=== PATIENT | female | born 1935 | race Caucasian/White ===

== ENCOUNTER 2020-01-09 22:02 | Inpatient (IN) | payer OTHER ==
[2020-01-09 23:28] LABS: Absolute Lymphocytes (CBC) 0.6 K/uL (0.7-4.9); Basophils % 0.1 % (0-1.3); Hematocrit 48.4 % (36.0-45.0); Lymphocytes % 6.4 % (15.3-44.8); MPV 7.5 fL (7.6-11.3); RBC Red Blood Cell Count 5.19 M/uL (3.86-4.86)
[2020-01-09 23:45] LABS: Albumin 2.4 g/dL (3.4-5.0); Bilirubin Direct 0.1 mg/dL (0-0.2); Bilirubin Total 0.6 mg/dL (0.2-1.0); Potassium 4.8 mmol/L (3.5-5.1); Protein, Total 6.9 g/dL (6.4-8.2)
[2020-01-10] MEDS ORDERED: NA CHLORIDE 0.9% 1,000 ML ONE (00:03)
[2020-01-10 01:28] LABS: Arterial Blood Carboxyhemoglob 1.7 % (0-1.5); Blood Gas Oxyhemoglobin 89.7 % (94-97); Blood O2 Saturation 92.1 % (92-98.5)
[2020-01-10] MEDS ORDERED: INSULIN -REGULAR HUMAN 50 UNIT/0.5 ML ML ONE ×4 (01:33→17:06)
[2020-01-10 01:44] LABS: Blood Morphology Comment NOT SEEN (NOT SEEN); Platelet Estimate ADEQ
[2020-01-10 01:52] LABS: Urine Blood TRACE (NEG); Urine Glucose 2+ (NEG); Urine Protein NEGATIVE (NEG); Urine pH 5.5 (5.0-7.0)
--- NOTE | 2020-01-10 02:56 | EDPHYS ---
Physician Documentation [facility] Name: Mimi Madrigal Age: 84 yrs Sex: Female : 1935 Arrival Date: 01/09/2020 Time: 22:07 Bed 28 Private MD: ED Physician Ender Cummings HPI: 01/08 23:19 This 84 yrs old Female presents to ER via EMS with complaints of High Blood mh7 Sugar. 23:19 The patient or guardian reports hyperglycemia, that was potentially precipitated by no mh7 particular event, with the patient's symptoms witnessed by no one, Treatment prior to arrival includes: EMS. Onset: The symptoms/episode began/occurred today. 23:20 Associated signs and symptoms: Pertinent negatives: anorexia, constipation, decreased mh7 urine output, diaphoresis, diarrhea, dry skin, hair loss, ketones in urine, nausea, polydipsia, polyphagia, polyuria, seizure activity, skin flushing, urinary incontinence, vomiting. Associated signs and symptoms: Pertinent positives: generalized fatigue. Current symptoms: In the emergency department the patient's symptoms are unchanged from the initial presentation. The patient has been recently seen by a physician: the patient's primary care provider. Patient was discharged from another hospital earlier today after treatment for parotid gland infection. She later checked her blood glucose which was greater than 500. . Historical: - Allergies: 22:15 No Known Allergies; jb4 - Home Meds: 22:15 Metoprolol Tartrate Oral [Active]; Metformin Oral [Active]; valsartan oral oral jb4 [Active]; aspirin 81 mg Oral chew [Active]; - PMHx: 22:15 Hypertension; Diabetes - NIDDM; jb4 - PSHx: 22:15 Cholecystectomy; jb4 - Immunization history:: Adult Immunizations up to date. - Social history:: Smoking status: Patient reports the use of cigarette tobacco products, Patient denies any tobacco usage or history of. Patient/guardian denies using alcohol, street drugs. ROS: 23:20 Constitutional: Negative for fever, chills, and weight loss, Eyes: Negative for injury, mh7 pain, redness, and discharge, ENT: Negative for injury, pain, and discharge, Neck: Negative for injury, pain, and swelling, Cardiovascular: Negative for chest pain, palpitations, and edema, Respiratory: Negative for shortness of breath, cough, wheezing, and pleuritic chest pain, Abdomen/GI: Negative for abdominal pain, nausea, vomiting, diarrhea, and constipation, Back: Negative for injury and pain, : Negative for injury, bleeding, discharge, and swelling, MS/Extremity: Negative for injury and deformity, Skin: Negative for injury, rash, and discoloration, Neuro: Negative for headache, weakness, numbness, tingling, and seizure, Psych: Negative for depression, anxiety, suicide ideation, homicidal ideation, and hallucinations, Allergy/Immunology: Negative for hives, rash, and allergies, Endocrine: Negative for neck swelling, polydipsia, polyuria, polyphagia, and marked weight changes, Hematologic/Lymphatic: Negative for swollen nodes, abnormal bleeding, and unusual bruising. Exam: 23:20 Constitutional: This is a well developed, well nourished patient who is awake, alert, mh7 and in no acute distress. 23:20 Eyes: Pupils equal round and reactive to light, extra-ocular motions intact. Lids and lashes normal. Conjunctiva and sclera are non-icteric and not injected. Cornea within normal limits. Periorbital areas with no swelling, redness, or edema. Neck: Trachea midline, no thyromegaly or masses palpated, and no cervical lymphadenopathy. Supple, full range of motion without nuchal rigidity, or vertebral point tenderness. No Meningismus. Chest/axilla: Normal chest wall appearance and motion. Nontender with no deformity. No lesions are appreciated. Cardiovascular: Regular rate and rhythm with a normal S1 and S2. No gallops, murmurs, or rubs. Normal PMI, no JVD. No pulse deficits. Respiratory: Lungs have equal breath sounds bilaterally, clear to auscultation and percussion. No rales, rhonchi or wheezes noted. No increased work of breathing, no retractions or nasal flaring. Abdomen/GI: Soft, non-tender, with normal bowel sounds. No distension or tympany. No guarding or rebound. No evidence of tenderness throughout. Back: No spinal tenderness. No costovertebral tenderness. Full range of motion. Skin: Warm, dry with normal turgor. Normal color with no rashes, no lesions, and no evidence of cellulitis. MS/ Extremity: Pulses equal, no cyanosis. Neurovascular intact. Full, normal range of motion. Neuro: Awake and alert, GCS 15, oriented to person, place, time, and situation. Cranial nerves II-XII grossly intact. Motor strength 5/5 in all extremities. Sensory grossly intact. Cerebellar exam normal. Normal gait. Psych: Awake, alert, with orientation to person, place and time. Behavior, mood, and affect are within normal limits. 23:20 Head/face: Noted is swelling, that is moderate, of the right jaw. Vital Signs: 22:15 BP 170 / 96; Pulse 90; Resp 16; Temp 98.8(O); Pulse Ox 100% on 2 lpm NC; Weight 53.98 jb4 kg (R); Height 5 ft. 0 in. (152.40 cm) (R); Pain 0/10; 22:30 BP 163 / 112; Pulse 90; Resp 16; Pulse Ox 99% on 2 lpm NC; 4 01/09 00:00 BP 156 / 94; Pulse 92; Resp 20; Pulse Ox 96% on 2 lpm NC; 4 00:30 BP 165 / 95; Pulse 92; Resp 16; Pulse Ox 99% on 2 lpm NC; jb4 02:00 BP 154 / 99; Pulse 93; Resp 16; Pulse Ox 94% on 2 lpm NC; 4 03:30 BP 150 / 80; Pulse 90; Resp 16; Pulse Ox 94% on 2 lpm NC; 4 01/08 22:15 Body Mass Index 23.24 (53.98 kg, 152.40 cm) [facility] MDM: 01/08 22:54 Patient medically screened. [facility] 01/09 02:50 Differential diagnosis: diabetes insipidus, DKA, hyperglycemia. Data reviewed: [facility] signs, nurses notes, EMS record, old medical records, lab test result(s), finger stick glucose, CBC, electrolytes, urinalysis, EKG. Data interpreted: Pulse oximetry: on room air is 99 %. Interpretation: normal. Counseling: I had a detailed discussion with the patient and/or guardian regarding: the historical points, exam findings, and any diagnostic results supporting the discharge/admit diagnosis, the presence of at least one elevated blood pressure reading (>120/80) during this emergency department visit, lab results, the need for further work-up and treatment in the hospital. Response to treatment: the patient's symptoms have mildly improved after treatment. 01/08 22:25 Order name: Glucose, Ancillary Testing; Complete Time: 22:55 EDMS 01/08 22:28 Order name: Glucose; Complete Time: 23:42 jb4 01/08 22:56 Order name: CBC with Diff; Complete Time: 02:50 mh7 01/08 22:56 Order name: Basic Metabolic Panel; Complete Time: 01:10 mh7 01/08 22:56 Order name: LFT's; Complete Time: 01:10 7 01/08 23:25 Order name: Urine Dipstick--Ancillary (enter results); Complete Time: 02:50 ds4 01/08 23:42 Order name: Manual Differential; Complete Time: 02:50 EDMS 01/09 01:11 Order name: Ketone, Serum; Complete Time: 02:50 mh7 01/09 01:11 Order name: Arterial Blood Gas; Complete Time: 01:43 mh7 01/09 02:42 Order name: Glucose, Ancillary Testing; Complete Time: 02:50 EDMS 01/09 02:44 Order name: Glucose; Complete Time: 06:34 jb4 01/09 05:14 Order name: Glucose, Ancillary Testing; Complete Time: 06:34 EDMS 01/09 05:45 Order name: Basic Metabolic Panel; Complete Time: 06:34 EDMS 01/09 05:47 Order name: Acetone Level; Complete Time: 06:34 EDMS 01/08 22:56 Order name: Urine Dipstick-Ancillary (obtain specimen); Complete Time: 23:00 7 01/08 22:56 Order name: Saline Lock; Complete Time: 23:00 7 01/08 22:56 Order name: EKG - Nurse/Tech; Complete Time: 23:23 7 01/09 06:25 Order name: Glucose, Ancillary Testing; Complete Time: 06:34 EDMS 01/09 07:36 Order name: Glucose, Ancillary Testing EDMS 01/09 08:09 Order name: Platelet Count EDMS 01/09 09:02 Order name: Basic Metabolic Panel EDMS 01/09 09:34 Order name: Glucose, Ancillary Testing EDMS 01/09 10:39 Order name: Glucose, Ancillary Testing EDMS 01/09 12:10 Order name: Glucose, Ancillary Testing EDMS 01/09 14:51 Order name: Basic Metabolic Panel EDMS 01/09 17:11 Order name: Lactate EDMS 01/09 17:25 Order name: Glucose, Ancillary Testing EDMS Administered Medications: 00:00 Drug: NS 0.9% 1000 ml Route: IV; Rate: 1000 ml; Site: right wrist; jb4 01:00 Follow up: Response: No adverse reaction; IV Status: Completed infusion jb4 01:25 Drug: Insulin Regular Human 10 units {Co-Signature: mt2 (Blanca Bruno RN).} Route: jb4 IVP; Site: right wrist; 03:00 Follow up: Response: No adverse reaction; Blood sugar is lowered jb4 03:45 Drug: Insulin Drip - (Insulin Regular Human 100 units, NS 0.9% 100 ml) {Co-Signature: doug rv (Nilson Betancur RN).} Route: IV; Rate: calculated rate; Site: right forearm; 04:00 Follow up: IV Status: Infusion continued upon admission jb4 Disposition: 06:53 Co-signature as Attending Physician, Ender Cummings MD. [facility] Disposition: 01/10/20 02:56 Hospitalization ordered by Archie Navarro for Inpatient Admission. Preliminary diagnosis is Diabetic Ketoacidosis. - Bed requested for [facility] ER HOLD. - Status is Inpatient Admission. ss - Condition is Stable. - Problem is new. - Symptoms have improved. Signatures: Dispatcher [employer] [facility] Sylvie Hamm RN RN mw Waters, Shelly, PAYROLL LEAD-C PAYROLL LEAD-Csnw Pao Blanc RN RN ss Bryson, James, RN RN jb4 Holmes, Maurice, MD MD [facility] Blanca Bruno RN mt2 Nilson Betancur RN rv Corrections: (The following items were deleted from the chart) 03:01 02:56 Hospitalization Ordered by Archie Navarro MD for Inpatient Admission. Preliminary diagnosis is Diabetic Ketoacidosis. Bed requested for Telemetry/MedSurg (Inpatient). Status is Inpatient Admission. Condition is Stable. Problem is new. Symptoms have improved. mh7 19:54 03:01 01/10/2020 02:56 Hospitalization Ordered by Arhcie Navarro MD for Inpatient ss Admission. Preliminary diagnosis is Diabetic Ketoacidosis. Bed requested for [facility] ER HOLD. Status is Inpatient Admission. Condition is Stable. Problem is new. Symptoms have improved. mw
--- NOTE | 2020-01-10 02:56 | ER ---
Nurse's Notes [facility] Name: Mimi Madrigal Age: 84 yrs Sex: Female : 1935 Arrival Date: 01/09/2020 Time: 22:07 Bed 28 Private MD: Diagnosis: Diabetic Ketoacidosis Presentation: 01/08 22:15 Chief complaint: EMS states: Pt was released today from [facility] for infected jb4 salivary gland on the right side. She was released about noon and has had generalized weakness since. At home her BGL was 600, our machine read high indicating over 600. We started a 1L bolus via 20g to the right wrist. Pt was satting 90-92% on room air and was put on 2L NC and is now 96%. Coronavirus screen: Client denies travel out of the [place] in the last 14 days. At this time, the client does not indicate any symptoms associated with coronavirus-19. Ebola Screen: No symptoms or risks identified at this time. Initial Sepsis Screen: Does the patient meet any 2 criteria? No. Patient's initial sepsis screen is negative. Does the patient have a suspected source of infection? No. Patient's initial sepsis screen is negative. Risk Assessment: Do you want to hurt yourself or someone else? Patient reports no desire to harm self or others. Onset of symptoms was January 09, 2020. Transition of care: patient was not received from another setting of care. 22:15 Method Of Arrival: EMS: [facility] jb4 22:15 Acuity: JESSICA 3 jb4 Historical: - Allergies: 22:15 No Known Allergies; jb4 - Home Meds: 22:15 Metoprolol Tartrate Oral [Active]; Metformin Oral [Active]; valsartan oral oral jb4 [Active]; aspirin 81 mg Oral chew [Active]; - PMHx: 22:15 Hypertension; Diabetes - NIDDM; jb4 - PSHx: 22:15 Cholecystectomy; jb4 - Immunization history:: Adult Immunizations up to date. - Social history:: Smoking status: Patient reports the use of cigarette tobacco products, Patient denies any tobacco usage or history of. Patient/guardian denies using alcohol, street drugs. Screenin:10 Abuse screen: Denies threats or abuse. Nutritional screening: No deficits noted. jb4 Tuberculosis screening: No symptoms or risk factors identified. Fall Risk IV access (20 points). Gait- Weak (10 pts.). Total Hernández Fall Scale indicates Low Risk Score (25-44 pts). Fall prevention measures have been instituted. Side Rails Up X 2 Placed close to Nursing Station Frequent Obs/Assesments occuring As available Patient and Family Educated on Fall Prevention Program and strategies. Assessment: 22:10 General: Appears in no apparent distress. comfortable, Behavior is calm, cooperative, jb4 appropriate for age. Pain: Denies pain. Neuro: Level of Consciousness is awake, alert, Oriented to person, place, time, situation. Cardiovascular: Patient's skin is warm and dry. Respiratory: Airway is patent Respiratory effort is even, unlabored, Respiratory pattern is regular, symmetrical. GI: No signs and/or symptoms were reported involving the gastrointestinal system. : No signs and/or symptoms were reported regarding the genitourinary system. EENT: No signs and/or symptoms were reported regarding the EENT system. Derm: Skin is intact, Skin is pink, warm \T\ dry. Musculoskeletal: Circulation, motion, and sensation intact. Range of motion: intact in all extremities. 23:00 Reassessment: Patient appears in no apparent distress at this time. Patient and/or jb4 family updated on plan of care and expected duration. Pain level reassessed. Patient is alert, oriented x 3, equal unlabored respirations, skin warm/dry/pink. pt assisted to bedside commode and back to bed. 01/09 00:00 Reassessment: Patient appears in no apparent distress at this time. Patient and/or jb4 family updated on plan of care and expected duration. Pain level reassessed. Patient is alert, oriented x 3, equal unlabored respirations, skin warm/dry/pink. 01:00 Reassessment: Patient appears in no apparent distress at this time. Patient and/or jb4 family updated on plan of care and expected duration. Pain level reassessed. Patient is alert, oriented x 3, equal unlabored respirations, skin warm/dry/pink. 01:34 Reassessment: PT assisted to bedside commode. jb4 02:30 Reassessment: Patient appears in no apparent distress at this time. Patient and/or jb4 family updated on plan of care and expected duration. Pain level reassessed. Patient is alert, oriented x 3, equal unlabored respirations, skin warm/dry/pink. 03:30 Reassessment: Patient appears in no apparent distress at this time. Patient and/or jb4 family updated on plan of care and expected duration. Pain level reassessed. Patient is alert, oriented x 3, equal unlabored respirations, skin warm/dry/pink. Pt reports multiple bouts of diarrhea while being in the ED, provider notified, no new orders at this time. Vital Signs: 01/08 22:15 BP 170 / 96; Pulse 90; Resp 16; Temp 98.8(O); Pulse Ox 100% on 2 lpm NC; Weight 53.98 jb4 kg (R); Height 5 ft. 0 in. (152.40 cm) (R); Pain 0/10; 22:30 BP 163 / 112; Pulse 90; Resp 16; Pulse Ox 99% on 2 lpm NC; jb4 01/09 00:00 BP 156 / 94; Pulse 92; Resp 20; Pulse Ox 96% on 2 lpm NC; jb4 00:30 BP 165 / 95; Pulse 92; Resp 16; Pulse Ox 99% on 2 lpm NC; jb4 02:00 BP 154 / 99; Pulse 93; Resp 16; Pulse Ox 94% on 2 lpm NC; jb4 03:30 BP 150 / 80; Pulse 90; Resp 16; Pulse Ox 94% on 2 lpm NC; jb4 01/08 22:15 Body Mass Index 23.24 (53.98 kg, 152.40 cm) jb4 ED Course: 01/08 22:07 Patient arrived in ED. cf2 22:10 Patient has correct armband on for positive identification. Placed in gown. Bed in low jb4 position. Call light in reach. Side rails up X 1. 22:10 Maintain EMS IV. Dressing intact. Good blood return noted. Site clean \T\ dry. Gauge \T\ finn 4 site: 20g right wrist.. 22:14 Nakul Mitchell, EDY is Primary Nurse. jb4 22:15 Arm band placed on right wrist. jb4 22:20 Triage completed. jb4 22:31 Ender Cummings MD is Attending Physician. [facility] 23:20 Notified ED physician of a critical lab result(s). Glucose of 726 Dr Cummings notified. bb 01/09 00:01 Urine Dipstick--Ancillary (enter results) Sent. ds4 00:01 CBC with Diff Sent. ds4 02:45 Inserted saline lock: 18 gauge in right forearm, using aseptic technique. Blood rv collected. 02:54 Archie Navarro MD is Hospitalizing Provider. [facility] 04:00 No provider procedures requiring assistance completed. Patient admitted, IV remains in jb4 place. Administered Medications: 00:00 Drug: NS 0.9% 1000 ml Route: IV; Rate: 1000 ml; Site: right wrist; jb4 01:00 Follow up: Response: No adverse reaction; IV Status: Completed infusion [facility] 01:25 Drug: Insulin Regular Human 10 units {Co-Signature: mt2 (Blanca Bruno RN).} Route: jb4 IVP; Site: right wrist; 03:00 Follow up: Response: No adverse reaction; Blood sugar is lowered [facility] 03:45 Drug: Insulin Drip - (Insulin Regular Human 100 units, NS 0.9% 100 ml) {Co-Signature: [facility] rv (Nilson Betancur RN).} Route: IV; Rate: calculated rate; Site: right forearm; 04:00 Follow up: IV Status: Infusion continued upon admission [facility] Outcome: 02:56 Decision to Hospitalize by Provider. [facility] 04:00 Admitted to ER Hold. Please see [facility] for further documentation. 4 04:00 Condition: stable 04:00 Discharge instructions given to patient, Instructed on the need for admit, Demonstrated understanding of instructions. 19:54 Patient left the ED. ss Signatures: Delmis Garcia RN RN Pao Blanc RN RN Dalton Monzon 4 Nakul Mitchell RN RN [facility] Nilson Betancur RN RN rv Maurizio Gutierrez 2 Ender Cummings MD MD [facility] Blanca Bruno RN mt2 Nilson Betancur RN rv Corrections: (The following items were deleted from the chart) 01/08 22:20 22:15 Chief complaint: EMS states: Pt was released today from [facility] for jb4 infected salivary gland on the right side. She was released about noon and has had generalized weakness since. At home her BGL was 600, our machine read high indicating over 600. We started a 1L bolus via 20g to the right wrist. [facility] 22:24 22:15 BP 170 / 96; Pulse 47bpm; Resp 16bpm; Pulse Ox 100% 2 lpm Nasal Cannula; Temp jb4 98.8F Oral; 53.98 kg Reported; Height 5 ft. 0 in. Reported; BMI: 23.2; Pain 0/10; [facility] 01/09 00:04 01/08 23:00 Reassessment: Patient appears in no apparent distress at this time. Patient jb4 and/or family updated on plan of care and expected duration. Pain level reassessed. Patient is alert, oriented x 3, equal unlabored respirations, skin warm/dry/pink. [facility] 01/09 04:41 00:00 BP 156 / 94; Pulse 92bpm; Resp 20bpm; Pulse Ox 96% RA; [place] [id number] 04:41 01/08 22:30 BP 163 / 112; Pulse 90bpm; Resp 16bpm; Pulse Ox 99%; [place] [id number] 01/09 04:41 00:30 BP 165 / 95; Pulse 92bpm; Resp 16bpm; Pulse Ox 99% RA; [place] [id number] 04:41 02:00 BP 154 / 99; Pulse 93bpm; Resp 16bpm; Pulse Ox 94% RA; [place] [id number]
[2020-01-10] MEDS ORDERED: INSULIN -REGULAR HUMAN 100 UNIT in NA CHLORIDE 0.9% 100 ML IV SCH (03:00)
[2020-01-10] MEDS ORDERED: ONDANSETRON 4 MG/2 ML VIAL IV PRN (03:00)
[2020-01-10] MEDS ORDERED: D5 0.45 NS 1,000 ML IV SCH (03:00)
[2020-01-10] MEDS ORDERED: NACHLORIDE 0.45% 1,000 ML with POTASSIUM CL 20 MEQ IV SCH ×2 (03:00)
[2020-01-10] MEDS ORDERED: NA CHLORIDE 0.9% 100 ML IV ONE (03:07)
[2020-01-10] MEDS ORDERED: NS KCL 20MEQ 20 MEQ/1,000 ML BAG IV SCH ×2 (04:25→07:00)
[2020-01-10] MEDS ORDERED: NS KCL 20MEQ 1,000 ML IV ONE (04:42)
[2020-01-10 05:44] LABS: BUN Blood Urea Nitrogen 39 mg/dL (7-18); Bicarbonate 24 mmol/L (21-32); Potassium 3.5 mmol/L (3.5-5.1); Sodium Level 140 mmol/L (136-145)
[2020-01-10 05:45] LABS: Glucose Level 529 mg/dL (74-106)
[2020-01-10] MEDS ORDERED: D50W 25 GM/50 ML SYRINGE/VIAL IV PRN (06:59)
[2020-01-10] MEDS ORDERED: GLUCAGON 1 MG/VIAL IM PRN (06:59)
[2020-01-10] MEDS: NACHLORIDE 0.45% 1,000 ML IV SCH ×3 (07:00→22:09)
[2020-01-10 07:54] VITALS: BMI 22.4
[2020-01-10 08:07] LABS: MPV 7.3 fL (7.6-11.3)
[2020-01-10] MEDS: ENOXAPARIN 40 MG/0.4 ML SQ SCH (08:23)
[2020-01-10] MEDS: INSULIN GLARGINE 100 UNITS/ML SQ SCH ×2 (08:23→21:09)
[2020-01-10] MEDS ORDERED: INSULIN GLARGINE 100 UNITS/ML SQ ONE (08:32)
[2020-01-10] MEDS ORDERED: ENOXAPARIN 40 MG/0.4 ML SQ ONE (08:33)
[2020-01-10 08:58] LABS: Platelet Estimate ADEQ
[2020-01-10 09:01] LABS: Potassium 3.9 mmol/L (3.5-5.1)
[2020-01-10] MEDS ORDERED: NACHLORIDE 0.45% 1,000 ML IV ONE (10:30)
[2020-01-10] MEDS: INSULIN -REGULAR HUMAN 50 UNIT/0.5 ML ML SQ SCH ×3 (11:30→23:03)
--- NOTE | 2020-01-10 11:42 | P.HP ---
Certification for Inpatient Patient admitted to: Inpatient With expected LOS: >2 Midnights Practitioner: I am a practitioner with admitting privileges, knowledge of patient current condition, hospital course, and medical plan of care. Services: Services provided to patient in accordance with Admission requirements found in Title 42 Section 412.3 of the Code of Federal Regulations Patient History Date of Service: 01/10/20 Reason for admission: WEAKNESS, GLUCOSE MORE THAN 600 AT HOME. History of Present Illness: MR. HARPER CALLED ME THAT HIS HAD ADMISSION FOR R PAROTID INFECTION AT [place] BY DR. MARCH. SHE CAME HOME BUT GLUCOSE WENT FROM 400 TO 600. I ASKED TO CALL AMBULANCE AND GET HER ADMITTED. SHE DID NOT COME TO OFFICE FOR 3 YEARS AND FIRST TIME I SAW HER FOR A LARGE PAROTID INFECTION WITH POSSIBLE TUMOR. SHE WAS SENT HOME ON CLINDAMYCIN. HER GLUCOSE IS MORE THAN 700 IN ER. Allergies No Known Allergies Allergy (Unverified 01/10/20 04:10) Home Medications: Aspirin Chewable [Aspirin Chewable*] 81 mg PO DAILY 01/10/20 Cefuroxime [Ceftin*] 250 mg PO BID 01/10/20 Losartan Potassium 100 mg PO DAILY 01/10/20 Metformin ER [Glucophage ER*] 500 mg PO DAILY 01/10/20 Metoprolol Succinate [Toprol Xl] 100 mg PO DAILY 01/10/20 Tramadol HCl/Acetaminophen [Tramadol-Acetaminophn 37.5-325] 1 tab PO Q6HP PRN 01/10/20 clindamycin HCL [Clindamycin HCl] 300 mg PO TID 01/10/20 hydroCHLOROthiazide [Hydrodiuril*] 25 mg PO DAILY 01/10/20 - Past Medical/Surgical History Has patient received pneumonia vaccine in the past: Yes Diabetic: Yes -: Hypertension -: Diabetes-NIDDM -: Petty - Social History Smoking Status: Never smoker Alcohol use: No CD- Drugs: No Caffeine use: No Place of Residence: Home Review of Systems 10-point ROS is otherwise unremarkable General: Weakness, Malaise Physical Examination - Vital Signs Temperature: 98.1 F Blood Pressure: 127/81 Pulse: 89 Respirations: 18 Pulse Ox (%): 95 - Physical Exam General: Moderate distress HEENT: Atraumatic, PERRLA, Mucous membr. moist/pink, Other (LARGE R PAROTID TENDER. ), EOMI, Sclerae nonicteric Neck: Supple, 2+ carotid pulse no bruit, No LAD, Without JVD or thyroid abnormality Respiratory: Clear to auscultation bilaterally, Normal air movement Cardiovascular: Regular rate/rhythm, Normal S1 S2 Gastrointestinal: Normal bowel sounds, No tenderness Musculoskeletal: No tenderness Integumentary: No rashes Neurological: Normal gait, Normal speech, Normal strength at 5/5 x4 extr, Normal tone, Normal affect Lymphatics: No axilla or inguinal lymphadenopathy - Studies Laboratory Data (last 24 hrs) 01/10/20 02:45: Glucose 568 H* 01/09/20 22:20: Sodium 134 L, Potassium 4.8, BUN 40 H, Creatinine 0.90, Glucose 726 H*, Total Bilirubin 0.6, AST 16, ALT 26, Alkaline Phosphatase 247 H 01/09/20 22:20: WBC 10.1, Hgb 15.8 H, Hct 48.4 H, Plt Count 364 01/09/20 22:20: Glucose 726 H* Assessment and Plan - Problems (Diagnosis) (1) Diabetic keto-acidosis Current Visit: Yes Status: Acute Plan: IV FLUIDS. SHE IS OFF INSULIN DRIP NOW. HER AG IS NORMAL. SHE SHOULD BE OKAY ON SC INSULIN. Qualifiers: Diabetes mellitus type: type 2 (2) Type 2 diabetes mellitus Current Visit: Yes Status: Acute Plan: NOT SURE HOW LONG HER GLUCOSE IS HIGH. (3) Acute parotitis Current Visit: Yes Status: Acute Plan: SHE IS ON CLINDAMYCIN PO BY DR CHELSI HERNANDEZ. - Advance Directives Does patient have a Living Will: Yes Does patient have a Durable POA for Healthcare: No
[2020-01-10 14:50] LABS: Potassium 3.7 mmol/L (3.5-5.1)
[2020-01-10] MEDS ORDERED: ACETAMINOPHEN 325 MG TABLET ONE (17:06)
[2020-01-10] MEDS: ACETAMINOPHEN 500 MG TAB PO PRN ×2 (17:27→22:13)
[2020-01-10 20:45] LABS: Potassium 3.6 mmol/L (3.5-5.1)
[2020-01-11 04:13] LABS: Absolute Lymphocytes (CBC) 1.8 K/uL (0.7-4.9); Basophils % 0.2 % (0-1.3); Hematocrit 44.3 % (36.0-45.0); Lymphocytes % 23.1 % (15.3-44.8); MPV 7.2 fL (7.6-11.3); RBC Red Blood Cell Count 4.98 M/uL (3.86-4.86)
[2020-01-11 04:23] LABS: Magnesium 2.1 mg/dL (1.8-2.4)
[2020-01-11 04:54] LABS: BUN Blood Urea Nitrogen 19 mg/dL (7-18); Bicarbonate 30 mmol/L (21-32); Glucose Level 203 mg/dL (74-106); Potassium 3.2 mmol/L (3.5-5.1); Sodium Level 138 mmol/L (136-145)
[2020-01-11] MEDS: ACETAMINOPHEN 500 MG TAB PO PRN ×3 (05:00→16:51)
[2020-01-11] MEDS: ENOXAPARIN 40 MG/0.4 ML SQ SCH (08:24)
[2020-01-11] MEDS: INSULIN GLARGINE 100 UNITS/ML SQ SCH ×2 (08:24→20:12)
[2020-01-11] MEDS: INSULIN -REGULAR HUMAN 50 UNIT/0.5 ML ML SQ SCH ×4 (08:25→20:11)
[2020-01-11] MEDS: NACHLORIDE 0.45% 1,000 ML IV SCH ×2 (08:39→20:11)
[2020-01-11 12:21] LABS: BUN Blood Urea Nitrogen 14 mg/dL (7-18); Bicarbonate 30 mmol/L (21-32); Glucose Level 269 mg/dL (74-106); Potassium 3.2 mmol/L (3.5-5.1); Sodium Level 136 mmol/L (136-145)
--- NOTE | 2020-01-11 13:11 | P.PN ---
Subjective Date of Service: 01/11/20 Chief Complaint: WEAKNESS Subjective: Improving SHE IS STILL VERY WEAK TO GO HOME. Review of Systems 10-point ROS is otherwise unremarkable General: Weakness, Malaise ENT: As per HPI Physical Examination - Vital Signs Temperature: 97.2 F Blood Pressure: 144/83 Pulse: 112 Respirations: 16 Pulse Ox (%): 95 - Physical Exam General: Mild distress, Moderate distress HEENT: Atraumatic, PERRLA, EOMI Neck: Supple, JVD not distended, Other (LARGE AND TENDER R PAROTID. NO FLUCTUATION.) Respiratory: Clear to auscultation bilaterally, Normal air movement Cardiovascular: Regular rate/rhythm, Normal S1 S2 Gastrointestinal: Normal bowel sounds, No tenderness Musculoskeletal: No tenderness Integumentary: No rashes Neurological: Normal speech, Normal tone, Normal affect Lymphatics: No axilla or inguinal lymphadenopathy - Studies Medications List Reviewed: Yes Assessment And Plan - Current Problems (Diagnosis) (1) Diabetic keto-acidosis Current Visit: Yes Status: Acute Plan: IV FLUIDS. SHE IS OFF INSULIN DRIP NOW. HER AG IS NORMAL. SHE SHOULD BE OKAY ON SC INSULIN. RESOLVED BUT STILL WEAK. Qualifiers: Diabetes mellitus type: type 2 (2) Type 2 diabetes mellitus Current Visit: Yes Status: Acute Plan: NOT SURE HOW LONG HER GLUCOSE IS HIGH. (3) Acute parotitis Current Visit: Yes Status: Acute Plan: SHE IS ON CLINDAMYCIN PO BY DR GAGNON NOW. CT SCAN. CHANGE TO [place]. TALKED TO DR. MARCH. HE SAYS COVER ANEROBIC BACTERIA. IF ABSCESS SHE WILL NEED TO GO BACK TO HIM.
[2020-01-11] MEDS ORDERED: TRAMADOL 37.5mg/APAP 325mg PER TAB PO PRN (13:12)
[2020-01-11 14:24] LABS: C.diff Antigen/Toxin Ag neg : Tox neg (NEG : NEG)
--- NOTE | 2020-01-11 15:14 | RAD REPORT ---
EXAM DESCRIPTION: CT - Soft Tissue Neck W/Contr CLINICAL HISTORY: PAROTID INFECTION. Right-sided facial pain and swelling. COMPARISON: No comparisons TECHNIQUE All CT scans are performed using dose optimization technique as appropriate and may includ e automated exposure control or mA/KV adjustment according to patient size. FINDINGS: A large irregular cystic mass with thick septa is present along the right of the jaw, exte nding from inferior margin of the right the zygomatic arch to the right submandibular region. The jose roximate size of the lesion he was 6.0 x 5.0 cm. The lesion is along the anterior aspect of the parot id gland with mass effect on the parotid gland posteriorly. The right third mandibular molar appears to transverse in position with surrounding lucency. Several foci of cortical breakthrough along the root suggests at the large cystic lesion may be in the odonto genic abscess related to this right third mandibular molar periapical abscess. IMPRESSION: Large, multiloculated, cystic mass arising right jaw (6.0 x 5.0 cm) may represent an odo ntogenic abscess related to significant right third molar periapical abscess.
[2020-01-11] MEDS ORDERED: PIPER/TAZO/NS 3.375gm 3.375 GM/100 ML BAG IV SCH (17:00)
[2020-01-11] MEDS ORDERED: GLUCERNA SHAKE 237 ML CAN PO SCH (21:00)
[2020-01-11 23:03] VITALS: O2SAT 93
[2020-01-12 00:21] VITALS: BP 143/90; TEMP 96.9
--- NOTE | 2020-01-12 06:26 | P.DS ---
Admission Date: 01/10/20 Discharge Date: 01/12/20 Disposition: [facility] TO [facility] Discharge Condition: FAIR Reason for Admission: WEAKNESS - Problems (1) Diabetic keto-acidosis Status: Acute Qualifiers: Diabetes mellitus type: type 2 (2) Type 2 diabetes mellitus Status: Acute (3) Acute parotitis Status: Acute Brief History of Present Illness: MR. HARPER CALLED ME THAT HIS HAD ADMISSION FOR R PAROTID INFECTION AT [facility] BY DR. MARCH. SHE CAME HOME BUT GLUCOSE WENT FROM 400 TO 600. I ASKED TO CALL AMBULANCE AND GET HER ADMITTED. SHE DID NOT COME TO OFFICE FOR 3 YEARS AND FIRST TIME I SAW HER FOR A LARGE PAROTID INFECTION WITH POSSIBLE T UMOR. SHE WAS SENT HOME ON CLINDAMYCIN. HER GLUCOSE IS MORE THAN 700 IN ER. Hospital Course: LETICIA CAME WITH DKA THAT WAS FROM UNMANAGED DM SHE HAS NOT BEEN TO MY OFFICE FOR 3 YEARS. SHE CAME FOR R PARTOID AREA LARGE SWELLING. SHE WAS SEEN BY DR GAGNON AND PUT ON ABX ORALLY. SHE IS NOT IMPROVING. FEELS REALLY WEAK. I ORDERED CT SCAN. IT SHOWED THAT THE ABSCESS WAS COMING FROM [facility]OL[facility] TOOTH. DR. MARCH ACCEPTED THE TRANSFER TO DRAIN THE ABSCESS AND THEN LET DENTIST TAKE CARE OF THE TOOTH OUTPATIENT. I TALKED TO AND EXPLAINED TO HIM. Vital Signs/Physical Exam: Temp Pulse Resp BP Pulse Ox 96.9 F 86 16 143/90 H 93 01/12/20 00:00 01/12/20 00:00 01/12/20 00:00 01/12/20 00:00 01/12/20 00:00 Laboratory Data at Discharge: WBC Cancelled 01/12/20 05:00 Hgb Cancelled 01/12/20 05:00 Hct Cancelled 01/12/20 05:00 Plt Count Cancelled 01/12/20 05:00 Sodium 136 mmol/L (136-145) 01/11/20 11:57 Potassium 3.2 mmol/L (3.5-5.1) L 01/11/20 11:57 BUN 14 mg/dL (7-18) 01/11/20 11:57 Creatinine 0.43 mg/dL (0.55-1.3) L 01/11/20 11:57 Glucose 269 mg/dL (74-106) H 01/11/20 11:57 Magnesium Cancelled 01/12/20 05:00 Total Bilirubin 0.6 mg/dL (0.2-1.0) 01/09/20 22:20 AST 16 U/L (15-37) 01/09/20 22:20 ALT 26 U/L (12-78) 01/09/20 22:20 Alkaline Phosphatase 247 U/L (45-117) H 01/09/20 22:20 Home Medications: Aspirin Chewable [Aspirin Chewable*] 81 mg PO DAILY 01/10/20 Cefuroxime [Ceftin*] 250 mg PO BID 01/10/20 Losartan Potassium 100 mg PO DAILY 01/10/20 Metformin ER [Glucophage ER*] 500 mg PO DAILY 01/10/20 Metoprolol Succinate [Toprol Xl] 100 mg PO DAILY 01/10/20 Tramadol HCl/Acetaminophen [Tramadol-Acetaminophn 37.5-325] 1 tab PO Q6HP PRN 01/10/20 clindamycin HCL [Clindamycin HCl] 300 mg PO TID 01/10/20 hydroCHLOROthiazide [Hydrodiuril*] 25 mg PO DAILY 01/10/20 Patient Discharge Instructions: I SENT LANTUS AND PEN NEEDLES FROM OFFICE TO YOUR PHARMACY. Diet: ADA
[2020-01-12] MEDS ORDERED: ASPIRIN 81 MG CHEWABLE TABLET PO SCH (09:00)
[2020-01-12] MEDS ORDERED: METOPROLOL XL 100 MG TAB PO SCH ×2 (09:00)
== END 2020-01-12 00:15 | disposition short-term general hospital (02) | DRG 639 ==
LOC: ER 22:02 → ERHOLD 01-10 03:03 → 4TH 01-10 20:55
PROVIDERS: ADMIT Internal Medicine; ATTEND Internal Medicine
DX: E11.10 Type 2 diabetes mellitus with ketoacidosis without coma (principal); I10 Essential (primary) hypertension; K04.7 Periapical abscess without sinus; K11.21 Acute sialoadenitis; Z79.82 Long term (current) use of aspirin; Z79.899 Other long term (current) drug therapy; Z90.49 Acquired absence of other specified parts of digestive tract; Z79.84 Long term (current) use of oral hypoglycemic drugs
CPT/HCPCS: 36415; 70491; 80048; 80076; 81003; 82010; 82805; 82947; 83036; 83605; 83735; 85025; 85049; 87324; 87449; 93005; 97110; 97161; 97530; 99285; J1650; J1815; J2543; J3480; Q9967; U0002

== ENCOUNTER 2020-02-25 15:36 | Inpatient (IN) | payer OTHER ==
--- OUTSIDE RECORDS SUMMARY | 2020-02-25 15:39 | XMS REPORT | Clinical Summary ---
:1935 Author Organization [facility] Address [address] [place] [address] Care Team Providers Name Role Phone Oni Mora MD Primary Care Provider Allergies Not on File Medications Not on file Active Problems Not on file Social History Tobacco Use Types Packs/Day Years Used Date Never Assessed Sex Assigned at Date Recorded Not on file Last Filed Vital Signs Not on file Plan of Treatment Health Maintenance Due Date Last Done Comments SHINGLES VACCINES (#1) 1987 65+ PNEUMOCOCCAL VACCINE (1 of 1 - PPSV23) 2002 INFLUENZA VACCINE 12/11/2019 Results Not on fileafter 02/24/2019 (Home) [place] [address] Advance Directives For more information, please contact: [phone] Type Date Recorded Patient Reporting Lead Explanati on Advance Directives, Living Will and 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
--- OUTSIDE RECORDS SUMMARY | 2020-02-25 15:40 | XMS REPORT | Continuity of Care Document ---
:1935 Author Organization [facility] t Address [address] [place] [address] Support Name Relationship Address Phone SELF Mother [phone] [address] SELF Unavailable [phone] [address] MEREDITH Spouse [address] [phone] [place] [address] KEPRTA Unavailable [address] [phone] [place] [address] KEPRTA Unavailable [address] [phone] [place] [address] NO Unavailable [phone] [phone] [place] [address] Meredith Spouse [address] [place] [address] Care Team Providers Name Role Phone Morgan BARRIOS Primary Care Physician Sung SNOW Attending Clinician Unavailable Sandra VILLANUEVA Attending Clinician Luis Fernando BARRIOS Attending Clinician Luis Fernando BARRIOS Admitting Clinician Payers Payer Name Policy Type Policy Number Effective Date Expiration Date S ource Problems This patient has no known problems. Allergies, Adverse Reactions, Alerts Allergy Allergy Status Severity Reaction(s) Onset Inactive Treating Comm ents Source Name Type Date Date Clinician No Known DA Active U 2020-0 [facility] 01-11 Clear s 00:00: Raines 00 [facility] No Known DA Active U 2020-0 [facility] Allergie 01-06 Clear s 00:00: Raines 00 [facility] Social History Social Habit Start Date Stop Date Quantity Comments Source Sex Assigned At [facility] Medications This patient has no known medications. Procedures This patient has no known procedures. Plan of Care Planned Activity Planned Date Details Comments Source Future Scheduled 2019-12-11 INFLUENZA VACCINE [place] [facility] 00:00:00 [code = INFLUENZA VACCINE] Future Scheduled 2002 65+ PNEUMOCOCCAL [place] [facility] 00:00:00 VACCINE (1 of 1 - PPSV23) [code = 65+ PNEUMOCOCCAL VACCINE (1 of 1 - PPSV23)] Future Scheduled 1987 SHINGLES VACCINES (#1) [facility] 00:00:00 [code = SHINGLES VACCINES (#1)] Encounters Start End Encounter Admission Attending Care Care Encounter Source Date/Time Date/Time Type Type Clinicians Facility Department ID 2020-02-10 2020-02-10 Transition Almaraz Neelimamoncho [id number] 00:00:00 00:00:00 of Care Migdalia Perez [id number] [place] [id number] 2020-02-05 2020-02-09 [facility] [id number] 14:39:00 15:03:00 Encounter Luis FernandoGemma [id number] [place] [id number] [place] [id number] Results Test Description Test Time Test Comments Results Result Comments Source GLUCOSE BEDSIDE TESTING 2020-01-26 12:20:00 Test Item Value Reference Range Interpretation Comme nts GLUCOSE BEDSIDE TESTING (test code = GLUBED) 132 mg/dL 70-110 H GLUCOSE BEDSIDE [id number] 08:35:00 Test Item Value Reference Range Interpretation Comments GLUCOSE BEDSIDE TESTING (test code 126 mg/dL 70-110 H = GLUBED) GLUCOSE BEDSIDE [id number] 07:58:00 Test Item Value Reference Range Interpretation Comments GLUCOSE BEDSIDE TESTING (test code 193 mg/dL 70-110 H = GLUBED) GLUCOSE BEDSIDE [id number] 20:55:00 Test Item Value Reference Range Interpretation Comments GLUCOSE BEDSIDE TESTING (test code 192 mg/dL 70-110 H = GLUBED) GLUCOSE BEDSIDE [id number] 16:26:00 Test Item Value Reference Range Interpretation Comments GLUCOSE BEDSIDE TESTING (test code 182 mg/dL 70-110 H = GLUBED) GLUCOSE BEDSIDE [id number] 07:53:00 Test Item Value Reference Range Interpretation Comments GLUCOSE BEDSIDE TESTING (test code 139 mg/dL 70-110 H = GLUBED) BASIC METABOLIC [id number] 07:08:00 Test Item Value Reference Range Interpretation Comments SODIUM (test code = NA) 137 mmol/L 134-147 N POTASSIUM (test code = 3.9 mmol/L 3.4-5.0 N K) CHLORIDE (test code = 107 mmol/L 100-108 N CL) CARBON DIOXIDE (test 25 mmol/L 21-32 N code = CO2) ANION GAP (test code = 5.0 GAP calc 4.0-15.0 N GAP) GLUCOSE (test code = 153 MG/DL 70-110 H GLU) BLOOD UREA NITROGEN 14 MG/DL 7-18 N (test code = BUN) GLOMERULAR FILTRATION >=60 max estimate >60 RATE (test code = GFR) estGFR CREATININE (test code = 0.5 MG/DL 0.6-1.0 L CREAT) CALCIUM (test code = CA) 8.8 MG/DL 8.5-10.1 N CBC W/AUTO [id number] 06:50:00 Test Item Value Reference Range Interpretation Comments WHITE BLOOD CELL (test code = 7.0 K/mm3 3.5-11.0 N WBC) RED BLOOD CELL (test code = 4.38 M/mm3 4.70-6.10 L RBC) HEMOGLOBIN (test code = HGB) 13.3 G/DL 10.4-14.9 N HEMATOCRIT (test code = HCT) 42.0 % 31.5-44.1 N MEAN CELL VOLUME (test code = 95.9 Fl 84.5-98.6 N MCV) MEAN CELL HGB (test code = MCH) 30.4 pg 27.0-34.2 N MEAN CELL HGB CONCETRATION 31.7 G/DL 31.5-34.0 N (test code = MCHC) RED CELL DISTRIBUTION WIDTH 14.1 SD 11.5-14.5 N (test code = RDW) PLATELET COUNT (test code = 284 K/mm3 150-450 N PLT) MEAN PLATELET VOLUME (test code 7.90 fL 7.0-10.5 N = MPV) NEUTROPHIL % (test code = NT%) 70.1 % 40-76 N IMMATURE GRANULOCYTE % (test 0.6 % 0.0-5.0 N code = IG%) LYMPHOCYTE % (test code = LY%) 21.3 % 20.5-51.1 N MONOCYTE % (test code = MO%) 6.2 % 1.7-9.3 N EOSINOPHIL % (test code = EO%) 1.1 % 0.0-6.0 N BASOPHIL % (test code = BA%) 0.7 % 0.0-2.0 N NUCLEATED RBC % (test code = 0.0 /100WBC% 0.0-1.0 N NRBC%) NEUTROPHIL # (test code = NT#) 4.9 K/mm3 1.8-7.6 N IMMATURE GRANULOCYTE # (test 0.04 x10 3/uL 0.00-0.03 H code = IG#) LYMPHOCYTE # (test code = LY#) 1.5 K/mm3 0.6-3.2 N MONOCYTE # (test code = MO#) 0.4 K/mm3 0.3-1.1 N EOSINOPHIL # (test code = EO#) 0.1 K/mm3 0.0-0.4 N BASOPHIL # (test code = BA#) 0.1 K/mm3 0.0-0.1 N NUCLEATED RBC # (test code = 0.0 K/mm3 0.0-0.1 N NRBC#) MANUAL DIFF REQUIRED (test code NO DIFF/SCN CRITERIA = MDIFF) GLUCOSE BEDSIDE [id number] 20:29:00 Test Item Value Reference Range Interpretation Comments GLUCOSE BEDSIDE TESTING (test code 249 mg/dL 70-110 H = GLUBED) GLUCOSE BEDSIDE [id number] 16:17:00 Test Item Value Reference Range Interpretation Comments GLUCOSE BEDSIDE TESTING (test code 181 mg/dL 70-110 H = GLUBED) GLUCOSE BEDSIDE [id number] 11:57:00 Test Item Value Reference Range Interpretation Comments GLUCOSE BEDSIDE TESTING (test code 146 mg/dL 70-110 H = GLUBED) GLUCOSE BEDSIDE [id number] 07:45:00 Test Item Value Reference Range Interpretation Comments GLUCOSE BEDSIDE TESTING (test code 105 mg/dL 70-110 N = GLUBED) BASIC METABOLIC [id number] 06:33:00 Test Item Value Reference Range Interpretation Comments SODIUM (test code = NA) 137 mmol/L 134-147 N POTASSIUM (test code = 3.9 mmol/L 3.4-5.0 N K) CHLORIDE (test code = 105 mmol/L 100-108 N CL) CARBON DIOXIDE (test 27 mmol/L 21-32 N code = CO2) ANION GAP (test code = 5.0 GAP calc 4.0-15.0 N GAP) GLUCOSE (test code = 101 MG/DL 70-110 N GLU) BLOOD UREA NITROGEN 14 MG/DL 7-18 N (test code = BUN) GLOMERULAR FILTRATION >=60 max estimate >60 RATE (test code = GFR) estGFR CREATININE (test code = 0.5 MG/DL 0.6-1.0 L CREAT) CALCIUM (test code = CA) 8.5 MG/DL 8.5-10.1 N [id number] 06:33:00 Test Item Value Reference Range Interpretation Comments PHOSPHOROUS (test code = PHOS) 2.5 MG/DL 2.5-4.9 N [id number] 06:33:00 Test Item Value Reference Range Interpretation Comments MAGNESIUM (test code = MAG) 2.1 MG/DL 1.8-2.4 N GLUCOSE BEDSIDE [id number] 20:57:00 Test Item Value Reference Range Interpretation Comments GLUCOSE BEDSIDE TESTING (test code 195 mg/dL 70-110 H = GLUBED) GLUCOSE BEDSIDE [id number] 16:49:00 Test Item Value Reference Range Interpretation Comments GLUCOSE BEDSIDE TESTING (test code 212 mg/dL 70-110 H = GLUBED) GLUCOSE BEDSIDE [id number] 12:10:00 Test Item Value Reference Range Interpretation Comments GLUCOSE BEDSIDE TESTING (test code 207 mg/dL 70-110 H = GLUBED) GLUCOSE BEDSIDE [id number] 08:12:00 Test Item Value Reference Range Interpretation Comments GLUCOSE BEDSIDE TESTING (test code 186 mg/dL 70-110 H = GLUBED) GLUCOSE BEDSIDE [id number] 06:54:00 Test Item Value Reference Range Interpretation Comments GLUCOSE BEDSIDE TESTING (test code = 61 mg/dL 70-110 L GLUBED) GLUCOSE BEDSIDE [id number] 20:22:00 Test Item Value Reference Range Interpretation Comments GLUCOSE BEDSIDE TESTING (test code 120 mg/dL 70-110 H = GLUBED) GLUTAMIC ACID DECARBOXYLASE [id number] 18:08:00 Test Item Value Reference Range Interpretation Comments GLUTAMIC ACID <5.0 U/mL 0.0-5.0 Performed At: [facility] DECARBOXYLASE AB (test [facility] rp code = GADAB) [address] [id number] ra Caterina BARRIOS Ph:[phone] GLUCOSE BEDSIDE [id number] 17:26:00 Test Item Value Reference Range Interpretation Comments GLUCOSE BEDSIDE TESTING (test code 139 mg/dL 70-110 H = GLUBED) GLUCOSE BEDSIDE [id number] 12:16:00 Test Item Value Reference Range Interpretation Comments GLUCOSE BEDSIDE TESTING (test code 133 mg/dL 70-110 H = GLUBED) GLUCOSE BEDSIDE [id number] 08:23:00 Test Item Value Reference Range Interpretation Comments GLUCOSE BEDSIDE TESTING (test code 103 mg/dL 70-110 N = GLUBED) GLUCOSE BEDSIDE [id number] 21:47:00 Test Item Value Reference Range Interpretation Comments GLUCOSE BEDSIDE TESTING (test code 178 mg/dL 70-110 H = GLUBED) GLUCOSE BEDSIDE [id number] 17:15:00 Test Item Value Reference Range Interpretation Comments GLUCOSE BEDSIDE TESTING (test code 139 mg/dL 70-110 H = GLUBED) GLUCOSE BEDSIDE [id number] 12:19:00 Test Item Value Reference Range Interpretation Comments GLUCOSE BEDSIDE TESTING (test code 177 mg/dL 70-110 H = GLUBED) GLUCOSE BEDSIDE [id number] 08:25:00 Test Item Value Reference Range Interpretation Comments GLUCOSE BEDSIDE TESTING (test code 116 mg/dL 70-110 H = GLUBED) GLUCOSE BEDSIDE [id number] 21:36:00 Test Item Value Reference Range Interpretation Comments GLUCOSE BEDSIDE TESTING (test code 221 mg/dL 70-110 H = GLUBED) GLUCOSE BEDSIDE [id number] 15:47:00 Test Item Value Reference Range Interpretation Comments GLUCOSE BEDSIDE TESTING (test code 150 mg/dL 70-110 H = GLUBED) GLUCOSE BEDSIDE [id number] 11:42:00 Test Item Value Reference Range Interpretation Comments GLUCOSE BEDSIDE TESTING (test code 201 mg/dL 70-110 H = GLUBED) GLUCOSE BEDSIDE [id number] 07:55:00 Test Item Value Reference Range Interpretation Comments GLUCOSE BEDSIDE TESTING (test code 125 mg/dL 70-110 H = GLUBED) GLUCOSE BEDSIDE [id number] 21:14:00 Test Item Value Reference Range Interpretation Comments GLUCOSE BEDSIDE TESTING (test code 250 mg/dL 70-110 H = GLUBED) UR MICROALBUMIN/CREAT [id number] 17:08:00 Test Item Value Reference Range Interpretation Comments UR CREATININE (test 13.5 mg/dL Not Estab. code = CREATE) UR MICROALB/CREAT RATIO 36 0-29 A INFC E Result Units: (test code = mg/g creat MICALB:CRE) Nor mal: 0 - 29 Moderately increased: 30 - 300 Severely increa sed: >300 Please note reference inter samina changePerform ed At: [facility] [id number] [place], [place] [id number] Hung Richey MD Ph:[phone] MICROALBUMIN URINE 4.8 ug/mL Not Estab. (test code = MICROALBUR) GLUCOSE BEDSIDE [id number] 16:44:00 Test Item Value Reference Range Interpretation Comments GLUCOSE BEDSIDE TESTING (test code 207 mg/dL 70-110 H = GLUBED) GLUCOSE BEDSIDE [id number] 11:59:00 Test Item Value Reference Range Interpretation Comments GLUCOSE BEDSIDE TESTING (test code 141 mg/dL 70-110 H = GLUBED) BASIC METABOLIC [id number] 08:13:00 Test Item Value Reference Range Interpretation Comments SODIUM (test code = NA) 127 mmol/L 134-147 L POTASSIUM (test code = K) 5.3 mmol/L 3.4-5.0 H CHLORIDE (test code = CL) 99 mmol/L 100-108 L CARBON DIOXIDE (test code = CO2) 20 mmol/L 21-32 L ANION GAP (test code = GAP) 8.0 GAP calc 4.0-15.0 N GLUCOSE (test code = GLU) 99 MG/DL 70-110 N BLOOD UREA NITROGEN (test code = 49 MG/DL 7-18 H BUN) GLOMERULAR FILTRATION RATE (test 15 estGFR >60 L code = GFR) CREATININE (test code = CREAT) 3.1 MG/DL 0.6-1.0 H CALCIUM (test code = CA) 8.1 MG/DL 8.5-10.1 L FOR [id number] 08:13:00 Test Item Value Reference Range Interpretation Comments C-PEPTIDE (test code 2.0 ng/mL 1.1-4.4 C-Pepti de reference = CPEP) interval is for fasting patients.Perfor med At: HD [facility] [id number] [place] [facility] [place] [id number] bri Richey MD Ph:[phone] FOR GADABGLUCOSE BEDSIDE [id number] 07:37:00 Test Item Value Reference Range Interpretation Comments GLUCOSE BEDSIDE TESTING (test code 124 mg/dL 70-110 H = GLUBED) BASIC METABOLIC [id number] 06:11:00 Test Item Value Reference Range Interpretation Comments SODIUM (test code = NA) 138 mmol/L 134-147 N POTASSIUM (test code = 4.4 mmol/L 3.4-5.0 N K) CHLORIDE (test code = 102 mmol/L 100-108 N CL) CARBON DIOXIDE (test 31 mmol/L 21-32 N code = CO2) ANION GAP (test code = 5.0 GAP calc 4.0-15.0 N GAP) GLUCOSE (test code = 162 MG/DL 70-110 H GLU) BLOOD UREA NITROGEN 7 MG/DL 7-18 N (test code = BUN) GLOMERULAR FILTRATION >=60 max estimate >60 RATE (test code = GFR) estGFR CREATININE (test code = 0.5 MG/DL 0.6-1.0 L CREAT) CALCIUM (test code = CA) 8.8 MG/DL 8.5-10.1 N VITAMIN D [id number] 06:11:00 Test Item Value Reference Range Interpretation Comments VITAMIN D 14.3 ng/mL 30.0-100.0 A Vitamin D defic iency has 25-HYDROXY (test been define d by the code = VITD25) [place] of edicine and an Endocrine So ciety practice guidel ine as alevel of serum 25-OH vitamin D less than 20 ng/mL (1,2).The Endocrine Society went on to further define vitamin Dinsufficiency as a level between 21 and 29 ng/mL (2).1. IOM (Ins titute of Medicine). 2010 . Dietary reference int akes for calcium and D. [place]: The [employer] Academ[employer] .2. Shaq MF, Louie FAGAN, Aracely BOWMAN, et al. Evaluatio n, treatment, and prevention of vitamin D deficiency: an Endocrine Society clinica l practice guideline. PETEY EM. 2010; 96(3):5382-30.P erformed At: [facility] [id number] [place], [place] [id number] Hung Richey MD Ph:[phone] GLUCOSE BEDSIDE [id number] 22:41:00 Test Item Value Reference Range Interpretation Comments GLUCOSE BEDSIDE TESTING (test code 203 mg/dL 70-110 H = GLUBED) GLUCOSE BEDSIDE [id number] 16:56:00 Test Item Value Reference Range Interpretation Comments GLUCOSE BEDSIDE TESTING (test code 161 mg/dL 70-110 H = GLUBED) BASIC METABOLIC [id number] 13:16:00 Test Item Value Reference Range Interpretation Comments SODIUM (test code = NA) 138 mmol/L 134-147 N POTASSIUM (test code = 4.4 mmol/L 3.4-5.0 N K) CHLORIDE (test code = 102 mmol/L 100-108 N CL) CARBON DIOXIDE (test 31 mmol/L 21-32 N code = CO2) ANION GAP (test code = 5.0 GAP calc 4.0-15.0 N GAP) GLUCOSE (test code = 162 MG/DL 70-110 H GLU) BLOOD UREA NITROGEN 7 MG/DL 7-18 N (test code = BUN) GLOMERULAR FILTRATION >=60 max estimate >60 RATE (test code = GFR) estGFR CREATININE (test code = 0.5 MG/DL 0.6-1.0 L CREAT) CALCIUM (test code = CA) 8.8 MG/DL 8.5-10.1 N VITAMIN D [id number] 13:16:00 Test Item Value Reference Range Interpretation Comments VITAMIN D 25-HYDROXY (test code = VITD25) CBC W/AUTO [id number] 12:58:00 Test Item Value Reference Range Interpretation Comments WHITE BLOOD CELL (test code = 8.6 K/mm3 3.5-11.0 N WBC) RED BLOOD CELL (test code = 4.37 M/mm3 4.70-6.10 L RBC) HEMOGLOBIN (test code = HGB) 13.4 G/DL 10.4-14.9 N HEMATOCRIT (test code = HCT) 40.6 % 31.5-44.1 N MEAN CELL VOLUME (test code = 92.9 Fl 84.5-98.6 N MCV) MEAN CELL HGB (test code = MCH) 30.7 pg 27.0-34.2 N MEAN CELL HGB CONCETRATION 33.0 G/DL 31.5-34.0 N (test code = MCHC) RED CELL DISTRIBUTION WIDTH 13.4 SD 11.5-14.5 N (test code = RDW) PLATELET COUNT (test code = 382 K/mm3 150-450 N PLT) MEAN PLATELET VOLUME (test code 8.50 fL 7.0-10.5 N = MPV) NEUTROPHIL % (test code = NT%) 69.5 % 40-76 IMMATURE GRANULOCYTE % (test 0.6 % 0.0-5.0 N code = IG%) LYMPHOCYTE % (test code = LY%) 20.2 % 20.5-51.1 L MONOCYTE % (test code = MO%) 8.7 % 1.7-9.3 N EOSINOPHIL % (test code = EO%) 0.6 % 0.0-6.0 N BASOPHIL % (test code = BA%) 0.4 % 0.0-2.0 N NUCLEATED RBC % (test code = 0.0 /100WBC% 0.0-1.0 N NRBC%) NEUTROPHIL # (test code = NT#) 6.0 K/mm3 1.8-7.6 N IMMATURE GRANULOCYTE # (test 0.05 x10 3/uL 0.00-0.03 H code = IG#) LYMPHOCYTE # (test code = LY#) 1.7 K/mm3 0.6-3.2 N MONOCYTE # (test code = MO#) 0.7 K/mm3 0.3-1.1 N EOSINOPHIL # (test code = EO#) 0.1 K/mm3 0.0-0.4 N BASOPHIL # (test code = BA#) 0.0 K/mm3 0.0-0.1 N NUCLEATED RBC # (test code = 0.0 K/mm3 0.0-0.1 N NRBC#) MANUAL DIFF REQUIRED (test code NO DIFF/SCN CRITERIA = MDIFF) GLUCOSE BEDSIDE [id number] 11:14:00 Test Item Value Reference Range Interpretation Comments GLUCOSE BEDSIDE TESTING (test code 195 mg/dL 70-110 H = GLUBED) GLUCOSE BEDSIDE [id number] 07:46:00 Test Item Value Reference Range Interpretation Comments GLUCOSE BEDSIDE TESTING (test code 140 mg/dL 70-110 H = GLUBED) GLUCOSE BEDSIDE [id number] 21:14:00 Test Item Value Reference Range Interpretation Comments GLUCOSE BEDSIDE TESTING (test code 246 mg/dL 70-110 H = GLUBED) GLUCOSE BEDSIDE [id number] 16:28:00 Test Item Value Reference Range Interpretation Comments GLUCOSE BEDSIDE TESTING (test code 231 mg/dL 70-110 H = GLUBED) GLUCOSE BEDSIDE [id number] 11:21:00 Test Item Value Reference Range Interpretation Comments GLUCOSE BEDSIDE TESTING (test code 182 mg/dL 70-110 H = GLUBED) COMPREHENSIVE METABOLIC [id number] 09:53:00 Test Item Value Reference Range Interpretation Comments SODIUM (test code = NA) 137 mmol/L 134-147 N POTASSIUM (test code = 3.8 mmol/L 3.4-5.0 N K) CHLORIDE (test code = 102 mmol/L 100-108 N CL) CARBON DIOXIDE (test 30 mmol/L 21-32 N code = CO2) ANION GAP (test code = 5.0 GAP calc 4.0-15.0 N GAP) GLUCOSE (test code = 193 MG/DL 70-110 H GLU) BLOOD UREA NITROGEN 7 MG/DL 7-18 N (test code = BUN) GLOMERULAR FILTRATION >=60 max estimate >60 RATE (test code = GFR) estGFR CREATININE (test code = 0.5 MG/DL 0.6-1.0 L CREAT) TOTAL PROTEIN (test code 5.6 G/DL 6.4-8.2 L = PROT) ALBUMIN (test code = 1.8 G/DL 3.4-5.0 L ALB) GLOBULIN (test code = 3.8 GM/dL GLOB) ALBUMIN/GLOBULIN RATIO 0.5 RATIO 1.2-2.2 L (test code = A/G) CALCIUM (test code = CA) 8.6 MG/DL 8.5-10.1 N BILIRUBIN TOTAL (test 0.80 MG/DL 0.2-1.2 N code = BILT) SGOT/AST (test code = 15 Unit/L 15-37 N AST) SGPT/ALT (test code = 19 Unit/L 12-78 N ALT) ALKALINE PHOSPHATASE 217 Unit/L 45-117 H TOTAL (test code = ALKP) [id number] 09:53:00 Test Item Value Reference Range Interpretation Comments PHOSPHOROUS (test code = PHOS) 2.5 MG/DL 2.5-4.9 [id number] 09:53:00 Test Item Value Reference Range Interpretation Comments MAGNESIUM (test code = MAG) 1.7 MG/DL 1.8-2.4 L CBC W/AUTO [id number] 09:20:00 Test Item Value Reference Range Interpretation Comments WHITE BLOOD CELL (test code = 9.7 K/mm3 3.5-11.0 N WBC) RED BLOOD CELL (test code = 4.42 M/mm3 4.70-6.10 L RBC) HEMOGLOBIN (test code = HGB) 13.5 G/DL 10.4-14.9 N HEMATOCRIT (test code = HCT) 40.9 % 31.5-44.1 N MEAN CELL VOLUME (test code = 92.5 Fl 84.5-98.6 N MCV) MEAN CELL HGB (test code = MCH) 30.5 pg 27.0-34.2 N MEAN CELL HGB CONCETRATION 33.0 G/DL 31.5-34.0 N (test code = MCHC) RED CELL DISTRIBUTION WIDTH 13.4 SD 11.5-14.5 N (test code = RDW) PLATELET COUNT (test code = 304 K/mm3 150-450 N PLT) MEAN PLATELET VOLUME (test code 8.60 fL 7.0-10.5 N = MPV) NEUTROPHIL % (test code = NT%) 78.0 % 40-76 H IMMATURE GRANULOCYTE % (test 0.9 % 0.0-5.0 N code = IG%) LYMPHOCYTE % (test code = LY%) 12.0 % 20.5-51.1 L MONOCYTE % (test code = MO%) 8.4 % 1.7-9.3 N EOSINOPHIL % (test code = EO%) 0.5 % 0.0-6.0 N BASOPHIL % (test code = BA%) 0.2 % 0.0-2.0 N NUCLEATED RBC % (test code = 0.0 /100WBC% 0.0-1.0 N NRBC%) NEUTROPHIL # (test code = NT#) 7.6 K/mm3 1.8-7.6 N IMMATURE GRANULOCYTE # (test 0.09 x10 3/uL 0.00-0.03 H code = IG#) LYMPHOCYTE # (test code = LY#) 1.2 K/mm3 0.6-3.2 N MONOCYTE # (test code = MO#) 0.8 K/mm3 0.3-1.1 N EOSINOPHIL # (test code = EO#) 0.1 K/mm3 0.0-0.4 N BASOPHIL # (test code = BA#) 0.0 K/mm3 0.0-0.1 N NUCLEATED RBC # (test code = 0.0 K/mm3 0.0-0.1 N NRBC#) MANUAL DIFF REQUIRED (test code NO DIFF/SCN CRITERIA = MDIFF) GLUCOSE BEDSIDE [id number] 07:50:00 Test Item Value Reference Range Interpretation Comments GLUCOSE BEDSIDE TESTING (test code 133 mg/dL 70-110 H = GLUBED) GLUCOSE BEDSIDE [id number] 21:10:00 Test Item Value Reference Range Interpretation Comments GLUCOSE BEDSIDE TESTING (test code 211 mg/dL 70-110 H = GLUBED) GLUCOSE BEDSIDE [id number] 16:06:00 Test Item Value Reference Range Interpretation Comments GLUCOSE BEDSIDE TESTING (test code 294 mg/dL 70-110 H = GLUBED) GLUCOSE BEDSIDE [id number] 11:38:00 Test Item Value Reference Range Interpretation Comments GLUCOSE BEDSIDE TESTING (test code 223 mg/dL 70-110 H = GLUBED) BASIC METABOLIC [id number] 06:23:00 Test Item Value Reference Range Interpretation Comments SODIUM (test code = NA) 138 mmol/L 134-147 N POTASSIUM (test code = K) 4.1 mmol/L 3.4-5.0 N CHLORIDE (test code = CL) 106 mmol/L 100-108 N CARBON DIOXIDE (test code = CO2) 26 mmol/L 21-32 N ANION GAP (test code = GAP) 6.0 GAP calc 4.0-15.0 N GLUCOSE (test code = GLU) 122 MG/DL 70-110 H BLOOD UREA NITROGEN (test code = 29 MG/DL 7-18 H BUN) GLOMERULAR FILTRATION RATE (test 35 estGFR >60 L code = GFR) CREATININE (test code = CREAT) 1.5 MG/DL 0.6-1.0 H CALCIUM (test code = CA) 8.8 MG/DL 8.5-10.1 N GLUCOSE BEDSIDE [id number] 22:00:00 Test Item Value Reference Range Interpretation Comments GLUCOSE BEDSIDE TESTING (test code 100 mg/dL 70-110 N = GLUBED) - US RETROPERITONEAL [id number] 19:11:00 Name: LETICIA HARPER : 1935 Age/S: 84 / F [id number] [address] Unit #: [id number] Loc: [place] [address] Phys: Fady Mancuso MD Acct: [id number] Dis Date: Status: ADM IN PHONE #: [phone] Exam Date: 01/15/2020 1830 FAX #: Reason: LIZZIE EXAMS: CPT: [id number] US RETROPERITONEAL COM [id number] Site ID: [id number] EXAMINATION: - US RETROPERITONEAL COM. HISTORY: LIZZIE COMPARISON: None. TECHNIQUE: Routine renal ultrasound was performed. FINDINGS: The right kidney measures 9.7 cm, and the left kidney measures 12.1 cm in length. Cortical echogenicity and thickness are within normal limits. There is uvlb-rn-nahkmjha hydronephrosis seen bilaterally. The urinary bladder is dilated. No focal lesion seen. IMPRESSION: The urinary bladder is dilated. There is bilateral sllq-gz-jyhedwxv hydronephrosis. This could be secondary to bladder dilatation. ElectronicallySigned by Greg Santana MD on 01/15/2020 at 1911 Reported and signed by: Greg Santana MD CC: Archie Navarro MD; Sotero Sheehan III, MD; Fady Mancuso MD Technologist: Rhona Sagastume RDMS(AB)(OB) Trnscb Date/Time: 01/15/2020 (1910) SeleneTZS PAGE 1 Signed Report Name: LETICIA HARPER : 1935 Age/S: 84 / F [id number] [address] Unit #: [id number] Loc: [place] [address] Phys: Fady Mancuso MD Acct: [id number] Dis Date: Status: ADM IN PHONE #: [phone] Exam Date: 01/15/2020 1830 FAX #: Reason: LIZZIE EXAMS: CPT: [id number] [facility] [id number] <Continued> Orig Print D/T: S: 01/15/2020 (1914) Probe: PAGE 2 Signed ReportBASIC METABOLIC PANEL 2020-01-15 17:33:00 Test Item Value Reference Range Interpretation Comments SODIUM (test code = NA) 127 mmol/L 134-147 L POTASSIUM (test code = K) 5.3 mmol/L 3.4-5.0 H CHLORIDE (test code = CL) 99 mmol/L 100-108 L CARBON DIOXIDE (test code = CO2) 20 mmol/L 21-32 L ANION GAP (test code = GAP) 8.0 GAP calc 4.0-15.0 N GLUCOSE (test code = GLU) 99 MG/DL 70-110 N BLOOD UREA NITROGEN (test code = 49 MG/DL 7-18 H BUN) GLOMERULAR FILTRATION RATE (test 15 estGFR >60 L code = GFR) CREATININE (test code = CREAT) 3.1 MG/DL 0.6-1.0 H CALCIUM (test code = CA) 8.1 MG/DL 8.5-10.1 L FOR [id number] 17:33:00 Test Item Value Reference Range Interpretation Comments C-PEPTIDE (test code = CPEP) NG/ML 1.1-4.4 FOR GADABGLUCOSE BEDSIDE [id number] 16:11:00 Test Item Value Reference Range Interpretation Comments GLUCOSE BEDSIDE TESTING (test code 132 mg/dL 70-110 H = GLUBED) - DUP LE ART [id number] 15:16:00 Name: LETICIA HARPER [facility] : 1935 Age/S: 84 / F [id number] [address] Unit #: [id number] Loc: [place], [place] [address] Phys: Fady Mancuso MD Acct: [id number] Dis Date: Status: ADM IN PHONE #: [phone] Exam Date: 01/15/2020 1328 FAX #: Reason: PAD EXAMS: CPT: [id number] [place] [id number] Location: T18 HISTORY: Peripheral artery disease TECHNIQUE: Real-time sonographic, pulse and color Doppler imaging of the arterial system of the right and left lower extremity was performed. FINDINGS: The vessels demonstrates atherosclerotic wall plaque formation throughout, without region of high-grade luminal stenosis and without evidence of arterial occlusion. Normal color Doppler flow and normal flow velocities arepresent throughout, with biphasic waveforms throughout the common femoral, superficial femoral, popliteal, tibial and dorsalis pedis arteries bilaterally. IMPRESSION: No evidence of vascular stenosis at 1516 Reported and signed by: Justyn Voss M.D. CC: Archie Navarro MD; Sotero Sheehan III, MD; Fady Mancuso MD Technologist: Rhona Sagastume RDMS(AB)(OB) Trnscb Date/Time: 01/15/2020 (1516) Daniel.[email or web address] PAGE 1 Signed Report Name: LETICIA [place] : 1935 Age/S: 84 / F [address] [address] Unit #: [id number] Loc: [place] [address] Phys: Fady Mancuso MD Acct: [id number] Dis Date: Status: ADM IN PHONE #: [phone] Exam Date: 01/15/2020 1328FAX #: Reason: PAD EXAMS: CPT: [id number] [place] [id number] <Continued> Orig Print D/T: S: 01/15/2020 (5610) Probe: PAGE 2 Signed ReportBASIC METABOLIC [id number] 15:11:00 Test Item Value Reference Range Interpretation Comments SODIUM (test code = NA) 131 mmol/L 134-147 L POTASSIUM (test code = K) 5.5 mmol/L 3.4-5.0 H CHLORIDE (test code = CL) 99 mmol/L 100-108 L CARBON DIOXIDE (test code = CO2) 23 mmol/L 21-32 N ANION GAP (test code = GAP) 9.0 GAP calc 4.0-15.0 N GLUCOSE (test code = GLU) 123 MG/DL 70-110 H BLOOD UREA NITROGEN (test code = 49 MG/DL 7-18 H BUN) GLOMERULAR FILTRATION RATE (test 15 estGFR >60 L code = GFR) CREATININE (test code = CREAT) 3.1 MG/DL 0.6-1.0 H CALCIUM (test code = CA) 8.5 MG/DL 8.5-10.1 N [id number] 15:11:00 Test Item Value Reference Range Interpretation Comments PHOSPHOROUS (test code = PHOS) 4.7 MG/DL 2.5-4.9 N [id number] 15:11:00 Test Item Value Reference Range Interpretation Comments MAGNESIUM (test code = MAG) 2.4 MG/DL 1.8-2.4 N [id number] 15:11:00 Test Item Value Reference Range Interpretation Comments C-PEPTIDE (test code = CPEP) NG/ML 1.1-4.4 GLUCOSE BEDSIDE [id number] 12:31:00 Test Item Value Reference Range Interpretation Comments GLUCOSE BEDSIDE TESTING (test code 128 mg/dL 70-110 H = GLUBED) GLUCOSE BEDSIDE [id number] 08:00:00 Test Item Value Reference Range Interpretation Comments GLUCOSE BEDSIDE TESTING (test code = 81 mg/dL 70-110 N GLUBED) GLUCOSE BEDSIDE [id number] 20:45:00 Test Item Value Reference Range Interpretation Comments GLUCOSE BEDSIDE TESTING (test code 133 mg/dL 70-110 H = GLUBED) GLUCOSE BEDSIDE [id number] 16:16:00 Test Item Value Reference Range Interpretation Comments GLUCOSE BEDSIDE TESTING (test code 200 mg/dL 70-110 H = GLUBED) COMPREHENSIVE METABOLIC [id number] 13:40:00 Test Item Value Reference Range Interpretation Comments SODIUM (test code = NA) 133 mmol/L 134-147 L POTASSIUM (test code = K) 4.6 mmol/L 3.4-5.0 N CHLORIDE (test code = CL) 98 mmol/L 100-108 L CARBON DIOXIDE (test code = CO2) 28 mmol/L 21-32 N ANION GAP (test code = GAP) 7.0 GAP calc 4.0-15.0 N GLUCOSE (test code = GLU) 250 MG/DL 70-110 H BLOOD UREA NITROGEN (test code = 43 MG/DL 7-18 H BUN) GLOMERULAR FILTRATION RATE (test 21 estGFR >60 L code = GFR) CREATININE (test code = CREAT) 2.4 MG/DL 0.6-1.0 H TOTAL PROTEIN (test code = PROT) 6.2 G/DL 6.4-8.2 L ALBUMIN (test code = ALB) 2.1 G/DL 3.4-5.0 L GLOBULIN (test code = GLOB) 4.1 GM/dL ALBUMIN/GLOBULIN RATIO (test 0.5 RATIO 1.2-2.2 L code = A/G) CALCIUM (test code = CA) 9.0 MG/DL 8.5-10.1 N BILIRUBIN TOTAL (test code = 0.70 MG/DL 0.2-1.2 N BILT) SGOT/AST (test code = AST) 27 Unit/L 15-37 N SGPT/ALT (test code = ALT) 26 Unit/L 12-78 N ALKALINE PHOSPHATASE TOTAL (test 205 Unit/L 45-117 H code = ALKP) LIPID PROFILE (CORONARY RISK)[id number] 13:40:00 Test Item Value Reference Range Interpretation Comments TRIGLYCERIDES (test code = TRIG) 371 MG/DL 0-150 H CHOLESTEROL (test code = CHOL) 195 MG/DL 133-200 N CHOLESTEROL/HDL RATIO (test code = 5.74 RATIO >0 CHOLHDL) HDL CHOLESTEROL (test code = HDL) 34 MG/DL 40-59 L NON-HDL CHOLESTEROL (test code = 161 mg/dL <130 H NHDL) LIPOPROTEIN LDL (test code = LDL) 125 MG/DL 0-129 N LDL/HDL (test code = LDL/HDL) 3.67 Ratio 1.48-3.22 Avg H GLYCOSYLATED HEMOGLOBIN [id number] 13:40:00 Test Item Value Reference Range Interpretation Comments GLYCOSYLATED HEMOGLOBIN (HA1C) 11.6 % A1C 0.0-5.7 H (test code = GLYHGB) ESTIMATED AVERAGE GLUCOSE (test 286 MG/DLest code = EAG) CBC W/AUTO [id number] 13:16:00 Test Item Value Reference Range Interpretation Comments WHITE BLOOD CELL (test code = 12.9 K/mm3 3.5-11.0 H WBC) RED BLOOD CELL (test code = 5.35 M/mm3 4.70-6.10 N RBC) HEMOGLOBIN (test code = HGB) 16.5 G/DL 10.4-14.9 H HEMATOCRIT (test code = HCT) 49.2 % 31.5-44.1 H MEAN CELL VOLUME (test code = 92.0 Fl 84.5-98.6 N MCV) MEAN CELL HGB (test code = MCH) 30.8 pg 27.0-34.2 N MEAN CELL HGB CONCETRATION 33.5 G/DL 31.5-34.0 N (test code = MCHC) RED CELL DISTRIBUTION WIDTH 13.7 SD 11.5-14.5 N (test code = RDW) PLATELET COUNT (test code = 189 K/mm3 150-450 N PLT) MEAN PLATELET VOLUME (test code 9.00 fL 7.0-10.5 N = MPV) NEUTROPHIL % (test code = NT%) 79.5 % 40-76 H IMMATURE GRANULOCYTE % (test 0.6 % 0.0-5.0 N code = IG%) LYMPHOCYTE % (test code = LY%) 11.8 % 20.5-51.1 L MONOCYTE % (test code = MO%) 7.2 % 1.7-9.3 N EOSINOPHIL % (test code = EO%) 0.7 % 0.0-6.0 N BASOPHIL % (test code = BA%) 0.2 % 0.0-2.0 N NUCLEATED RBC % (test code = 0.0 /100WBC% 0.0-1.0 N NRBC%) NEUTROPHIL # (test code = NT#) 10.2 K/mm3 1.8-7.6 H IMMATURE GRANULOCYTE # (test 0.08 x10 3/uL 0.00-0.03 H code = IG#) LYMPHOCYTE # (test code = LY#) 1.5 K/mm3 0.6-3.2 N MONOCYTE # (test code = MO#) 0.9 K/mm3 0.3-1.1 N EOSINOPHIL # (test code = EO#) 0.1 K/mm3 0.0-0.4 N BASOPHIL # (test code = BA#) 0.0 K/mm3 0.0-0.1 N NUCLEATED RBC # (test code = 0.0 K/mm3 0.0-0.1 N NRBC#) MANUAL DIFF REQUIRED (test code NO DIFF/SCN CRITERIA = MDIFF) GLUCOSE BEDSIDE [id number] 12:51:00 Test Item Value Reference Range Interpretation Comments GLUCOSE BEDSIDE TESTING (test code 194 mg/dL 70-110 H = GLUBED) GLUCOSE BEDSIDE [id number] 07:49:00 Test Item Value Reference Range Interpretation Comments GLUCOSE BEDSIDE TESTING (test code 126 mg/dL 70-110 H = GLUBED) GLUCOSE BEDSIDE [id number] 20:57:00 Test Item Value Reference Range Interpretation Comments GLUCOSE BEDSIDE TESTING (test code 150 mg/dL 70-110 H = GLUBED) GLUCOSE BEDSIDE [id number] 17:09:00 Test Item Value Reference Range Interpretation Comments GLUCOSE BEDSIDE TESTING (test code 168 mg/dL 70-110 H = GLUBED) GLUCOSE BEDSIDE [id number] 12:33:00 Test Item Value Reference Range Interpretation Comments GLUCOSE BEDSIDE TESTING (test code 315 mg/dL 70-110 H = GLUBED) GLUCOSE BEDSIDE [id number] 08:17:00 Test Item Value Reference Range Interpretation Comments GLUCOSE BEDSIDE TESTING (test code 265 mg/dL 70-110 H = GLUBED) GLUCOSE BEDSIDE [id number] 22:17:00 Test Item Value Reference Range Interpretation Comments GLUCOSE BEDSIDE TESTING (test code 357 mg/dL 70-110 H = GLUBED) GLUCOSE BEDSIDE [id number] 17:38:00 Test Item Value Reference Range Interpretation Comments GLUCOSE BEDSIDE TESTING (test code 210 mg/dL 70-110 H = GLUBED) GLUCOSE BEDSIDE [id number] 12:25:00 Test Item Value Reference Range Interpretation Comments GLUCOSE BEDSIDE TESTING (test code 197 mg/dL 70-110 H = GLUBED) COVID 19 INHOUSE [id number] 10:11:00 Test Item Value Reference Range Interpretation Comments COVID 19 INHOUSE AG NEGATIVE Negative Per general acute hospital facturer, (test code = negative result s should [id number]) be treated aspr esumptive and, if inconsi stent with clinical signs andsymptoms or necessary for patient man agement, should betested with an alternative mol ecular assay. Negative resultsdo not preclude SA RS-CoV-2 infection and s hould not be usedas the s ole basis for patient man agement decisions. Neg ative results should be considered in t he context of apatient's r ecent exposures, hist ory, presence of cli nicalsigns and symptoms co nsistent with COVID-19. Emergent procedure? YESGLUCOSE BEDSIDE [id number] 08:35:00 Test Item Value Reference Range Interpretation Comments GLUCOSE BEDSIDE TESTING (test code 192 mg/dL 70-110 H = GLUBED) PROTHROMBIN [id number] 06:01:00 Test Item Value Reference Range Interpretation Comments PT PATIENT (test code = PTP) 12.0 SECONDS 9.3-12.9 N INTERNATIONAL NORMAL RATIO 1.06 INR Unit 0.8-1.2 N (test code = INR) THROMBOPLASTIN TIME [id number] 06:01:00 Test Item Value Reference Range Interpretation Comments THROMBOPLASTIN TIME PARTIAL 26.4 SECONDS 26-35 N (test code = PTT) BASIC METABOLIC [id number] 05:50:00 Test Item Value Reference Range Interpretation Comments SODIUM (test code = NA) 137 mmol/L 134-147 N POTASSIUM (test code = 3.3 mmol/L 3.4-5.0 L K) CHLORIDE (test code = 99 mmol/L 100-108 L CL) CARBON DIOXIDE (test 29 mmol/L 21-32 N code = CO2) ANION GAP (test code = 9.0 GAP calc 4.0-15.0 N GAP) GLUCOSE (test code = 169 MG/DL 70-110 H GLU) BLOOD UREA NITROGEN 17 MG/DL 7-18 N (test code = BUN) GLOMERULAR FILTRATION >=60 max estimate >60 RATE (test code = GFR) estGFR CREATININE (test code = 0.9 MG/DL 0.6-1.0 N CREAT) CALCIUM (test code = CA) 9.2 MG/DL 8.5-10.1 N LACTIC [id number] 05:45:00 Test Item Value Reference Range Interpretation Comments LACTIC ACID (test code = LACT) 0.8 mmol/L 0.4-2.0 N CBC W/AUTO [id number] 05:30:00 Test Item Value Reference Range Interpretation Comments WHITE BLOOD CELL (test code = 11.7 K/mm3 3.5-11.0 H WBC) RED BLOOD CELL (test code = 5.36 M/mm3 4.70-6.10 N RBC) HEMOGLOBIN (test code = HGB) 16.6 G/DL 10.4-14.9 H HEMATOCRIT (test code = HCT) 47.9 % 31.5-44.1 H MEAN CELL VOLUME (test code = 89.4 Fl 84.5-98.6 N MCV) MEAN CELL HGB (test code = MCH) 31.0 pg 27.0-34.2 N MEAN CELL HGB CONCETRATION 34.7 G/DL 31.5-34.0 H (test code = MCHC) RED CELL DISTRIBUTION WIDTH 13.2 SD 11.5-14.5 N (test code = RDW) PLATELET COUNT (test code = 233 K/mm3 150-450 N PLT) MEAN PLATELET VOLUME (test code 8.90 fL 7.0-10.5 N = MPV) NEUTROPHIL % (test code = NT%) 83.5 % 40-76 H IMMATURE GRANULOCYTE % (test 0.5 % 0.0-5.0 N code = IG%) LYMPHOCYTE % (test code = LY%) 10.3 % 20.5-51.1 L MONOCYTE % (test code = MO%) 5.5 % 1.7-9.3 N EOSINOPHIL % (test code = EO%) 0.1 % 0.0-6.0 N BASOPHIL % (test code = BA%) 0.1 % 0.0-2.0 N NUCLEATED RBC % (test code = 0.0 /100WBC% 0.0-1.0 N NRBC%) NEUTROPHIL # (test code = NT#) 9.8 K/mm3 1.8-7.6 H IMMATURE GRANULOCYTE # (test 0.06 x10 3/uL 0.00-0.03 H code = IG#) LYMPHOCYTE # (test code = LY#) 1.2 K/mm3 0.6-3.2 N MONOCYTE # (test code = MO#) 0.6 K/mm3 0.3-1.1 N EOSINOPHIL # (test code = EO#) 0.0 K/mm3 0.0-0.4 N BASOPHIL # (test code = BA#) 0.0 K/mm3 0.0-0.1 N NUCLEATED RBC # (test code = 0.0 K/mm3 0.0-0.1 N NRBC#) MANUAL DIFF REQUIRED (test code NO DIFF/SCN CRITERIA = MDIFF) BASIC METABOLIC [id number] 07:02:00 Test Item Value Reference Range Interpretation Comments SODIUM (test code = NA) 133 mmol/L 134-147 L POTASSIUM (test code = 4.1 mmol/L 3.4-5.0 N K) CHLORIDE (test code = 101 mmol/L 100-108 N CL) CARBON DIOXIDE (test 18 mmol/L 21-32 L code = CO2) ANION GAP (test code = 14.0 GAP calc 4.0-15.0 N GAP) GLUCOSE (test code = 438 MG/DL 70-110 H GLU) BLOOD UREA NITROGEN 17 MG/DL 7-18 N (test code = BUN) GLOMERULAR FILTRATION >=60 max estimate >60 RATE (test code = GFR) estGFR CREATININE (test code = 0.7 MG/DL 0.6-1.0 N CREAT) CALCIUM (test code = CA) 9.6 MG/DL 8.5-10.1 N CBC W/AUTO [id number] 06:19:00 Test Item Value Reference Range Interpretation Comments WHITE BLOOD CELL (test code = 11.6 K/mm3 3.5-11.0 H WBC) RED BLOOD CELL (test code = 4.77 M/mm3 4.70-6.10 N RBC) HEMOGLOBIN (test code = HGB) 14.7 G/DL 10.4-14.9 N HEMATOCRIT (test code = HCT) 44.0 % 31.5-44.1 N MEAN CELL VOLUME (test code = 92.2 Fl 84.5-98.6 N MCV) MEAN CELL HGB (test code = MCH) 30.8 pg 27.0-34.2 N MEAN CELL HGB CONCETRATION 33.4 G/DL 31.5-34.0 N (test code = MCHC) RED CELL DISTRIBUTION WIDTH 13.5 SD 11.5-14.5 N (test code = RDW) PLATELET COUNT (test code = 270 K/mm3 150-450 N PLT) MEAN PLATELET VOLUME (test code 8.80 fL 7.0-10.5 N = MPV) NEUTROPHIL % (test code = NT%) 90.6 % 40-76 H IMMATURE GRANULOCYTE % (test 1.0 % 0.0-5.0 N code = IG%) LYMPHOCYTE % (test code = LY%) 6.5 % 20.5-51.1 L MONOCYTE % (test code = MO%) 1.7 % 1.7-9.3 N EOSINOPHIL % (test code = EO%) 0.0 % 0.0-6.0 N BASOPHIL % (test code = BA%) 0.2 % 0.0-2.0 N NUCLEATED RBC % (test code = 0.0 /100WBC% 0.0-1.0 N NRBC%) NEUTROPHIL # (test code = NT#) 10.5 K/mm3 1.8-7.6 H IMMATURE GRANULOCYTE # (test 0.11 x10 3/uL 0.00-0.03 H code = IG#) LYMPHOCYTE # (test code = LY#) 0.8 K/mm3 0.6-3.2 N MONOCYTE # (test code = MO#) 0.2 K/mm3 0.3-1.1 L EOSINOPHIL # (test code = EO#) 0.0 K/mm3 0.0-0.4 N BASOPHIL # (test code = BA#) 0.0 K/mm3 0.0-0.1 N NUCLEATED RBC # (test code = 0.0 K/mm3 0.0-0.1 N NRBC#) MANUAL DIFF REQUIRED (test code NO DIFF/SCN CRITERIA = MDIFF) COVID 19 INHOUSE [id number] 17:15:00 Test Item Value Reference Range Interpretation Comments COVID 19 INHOUSE AG NEGATIVE Negative Per manu facturer, (test code = negative result s should [id number]) be treated aspr esumptive and, if inconsi stent with clinical signs andsymptoms or necessary for patient man agement, should betested with an alternative mol ecular assay. Negative resultsdo not preclude SA RS-CoV-2 infection and s hould not be usedas the s ole basis for patient man agement decisions. Neg ative results should be considered in t he context of apatient's r ecent exposures, hist ory, presence of cli nicalsigns and symptoms co nsistent with COVID-19. Emergent procedure? NO
--- OUTSIDE RECORDS SUMMARY | 2020-02-25 15:42 | XMS REPORT | Summary of Care ---
:1935 Author Organization [facility] Address [address] [place] [address] Care Team Providers Name Role Phone Archie Navarro Primary Care Provider Reason for Visit Reason Comments Transition Of Care Encounter Details Date Type Department Care Team Description 02/10/2020 Transition of Care [facility] Migdalia Barry RN Transition Of Care [facility]- [address] [place] [phone] Allergies Active Allergy Reactions Severity Noted Date Comments Fieslfh-Syk-Ziv Other - See comments 02/05/2020 Home health reported Reductase Inhibitors patient allergy Sulfa (Sulfonamide Rash 02/05/2020 Antibiotics) documented as of this encounter (statuses as of 02/10/2020) Medications Medication Sig Dispensed Refills Start Date End Date Status metoprolol succinate 0 07/30/2012 Active XL (TOPROL XL) 50 mg 24 hr tablet metFORMIN (GLUCOPHAGE) 0 06/01/2012 Active 1,000 mg tablet simvastatin (ZOCOR) 20 0 08/04/2012 Active mg tablet EVISTA 60 mg tablet 0 06/01/2012 Active ASPIRIN (ASPIR-81 Take 81 mg by 0 Active ORAL) mouth daily. ONE TOUCH ULTRA TEST 0 09/13/2013 Active strip glyBURIDE-metformin 0 09/13/2013 Active (GLUCOVANCE) 5-500 mg tablet ONE TOUCH DELICA 33 0 09/13/2013 Active gauge Misc losartan-hydrochloroth 0 09/13/2013 Active iazide (HYZAAR) 100-25 mg per tablet raloxifene (EVISTA) 60 Take 60 mg by 0 Active mg tablet mouth daily. ciprofloxacin HCl 500 Take 1 tablet by 10 tablet 0 02/09/2020 02/14/2020 Active mg tabletIndications: mouth 2 (two) Type 2 diabetes times daily for mellitus with other 5 days. specified complication, unspecified whether terminal carman insulin use hydrOXYzine 10 mg Take 1 tablet by 30 tablet 0 02/09/2020 Active tabletIndications: mouth every 6 Type 2 diabetes (six) hours as mellitus with other needed for specified Itching. complication, unspecified whether half-way insulin use lactobacillus Take 1 tablet by 60 tablet 0 02/09/2020 Active acidophilus 25 million mouth 2 (two) cell -100 mg times daily. captabIndications: Type 2 diabetes mellitus with other specified complication, unspecified whether terminal carman insulin use predniSONE 10 mg Take 2 tablets 11 tablet 0 02/10/2020 020 Active tabletIndications: by mouth daily Type 2 diabetes for 3 days, THEN mellitus with other 1 tablet daily specified for 3 days, THEN complication, 0.5 tablets unspecified whether daily for 3 half-way insulin use days. levothyroxine 100 mcg Take 1 tablet by 30 tablet 0 02/09/2020 Active tabletIndications: mouth every Type 2 diabetes morning. mellitus with other specified complication, unspecified whether terminal carman insulin use documented as of this encounter (statuses as of 02/10/2020) Active Problems Problem Noted Date Elevated troponin I level 02/06/2020 Essential hypertension 02/06/2020 Hypotension 02/06/2020 Dyslipidemia 02/06/2020 Type 2 diabetes mellitus with other specified complica tion 02/06/2020 Sepsis 02/05/2020 Actinic keratosis 08/06/2012 documented as of this encounter (statuses as of 02/10/2020) Social History Tobacco Use Types Packs/Day Years Used Date Never Smoker Smokeless Tobacco: Never Used Alcohol Use Drinks/Week oz/Week Comments No Education Answer Date Recorded What is the highest level of school Associate degree: [employer] program 02/05/2020 you have completed or the highest degree you have received? Financial Resource Strain Answer Date Recorded How hard is it for you to pay for the very basics like Not h edi at all 02/05/2020 food, housing, medical care, and heating? Food Insecurity Answer Date Recorded Within the past 12 months, you worried that your food would Never true 02/05/2020 run out before you got money to buy more. Within the past 12 months, the food you bought just didn't N ever true 02/05/2020 last and you didn't have money to get more. Transportation Needs Answer Date Recorded In the past 12 months, has lack of transportation kept you f rom No 02/05/2020 medical appointments or from getting medications? In the past 12 months, has lack of transportation kept you f rom No 02/05/2020 meetings, work, or getting things needed for daily living? Sex Assigned at Date Recorded Not on file COVID-19 Exposure Response Date Recorded In the last month, have you been in contact with No / Unsure 02/05/2020 2:45 PM CDT someone who was confirmed or suspected to have Coronavirus / COVID-19? documented as of this encounter Last Filed Vital Signs Not on filedocumented in this encounter Miscellaneous Notes Telephone Encounter - Migdalia Almaraz RN - 02/10/2020 4:50 PM CDT TRANSITIONAL CARE MANAGEMENT ASSESSMENT 02/10/2020 Mimi Madrigal [id number] Mimi Madrigal is a 84 year old /White female was admitted on 02/05/20 to [facility], ADC MED SURG. She was discharged on 02/09/20 with discharge disposition of HR- Routine Discharge. 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 CM left a discreet voicemail explaining purpose of call and call back information. 2nd call unable to LM, "customer not available". CYNDEE Prabhakar, RN-BC, CCRN Transition Elementary Teacher Nurse Clinician IV Transitions of Care Management Team Office: [phone] [email or web address] Encounter - Migdalia Almaraz RN - 02/10/2020 1:41 PM CDTCM LM to return call. Will attempt again at a later time. CYNDEE Prabhakar, RN-BC, CCRN Transition Elementary Teacher Nurse Clinician IV Care Management Team Office: [phone] [email or web address] documented in this encounter Plan of Treatment Health Maintenance Due Date Last Done Comments EYE EXAM 1945 URINE MICROALBUMIN 1947 Depression Screening 1949 FOOT EXAM 1955 DTaP,Tdap,and Td Vaccines (1 - 1956 Tdap) Zoster Recombinant Vaccine 1987 (SHINGRIX) (1 of 2) Medicare Wellness Visit 2002 Osteoporosis Screening 2002 PNEUMOCOCCAL VACCINES 65+ (1 of 1 2002 - PPSV23) INFLUENZA VACCINE (#1) 2020 HgA1C 08/04/2020 02/05/2020 LDL-C 02/04/2021 02/05/2020 CREATININE (SERUM) 02/08/2021 02/09/2020, 02/08/2020, 02/08/2020, Additional history exists documented as of this encounter Results Not on filedocumented in this encounter Insurance Payer Benefit Plan Subscriber ID Effective Phone Address Typ e / Group Dates [employer] - [employer] [id number] 2014-[place] [address] Medic are Adv MANAGED MEDICARE [place] [id number] PPO [place]IC[place] [address] documented as of this encounter Advance Directives Type Date Recorded Patient Track Man Explanati on Advance Directives and Living Will Power of Dietetic Assistant
--- OUTSIDE RECORDS SUMMARY | 2020-02-25 15:42 | XMS REPORT | Summary of Care ---
:1935 Author Organization [facility] - [facility] Address [address] [place] [address] Care Team Providers Name Role Phone Ramon Archie Primary Care Provider Reason for Referral (Routine) Status Reason Specialty Diagnoses / Referred By Referred To Procedures Contact Contact New Request Vascular Surgery Procedures Trip Mancera, BILATERAL VENOUS DUPLEX [address] [place] [address] MRI/CAT Scan (STAT) Status Reason Specialty Diagnoses / Referred By Referred To Procedures Contact Contact New Request Diagnostic Diagnoses Hypotension, unspecified hypotension type Lori Jerome, Radiology Procedures CT CHEST PULMONARY ANGIOGRAM [address] [place] [phone] (Routine) Status Reason Specialty Diagnoses / Referred By Referred To Procedures Contact Contact New Request Echocardiograph Diagnoses Hypotension, unspecified hypotension type Lori Jerome, Procedures ECHO ROUTINE W/DOPPLER COLOR [address] [place] [phone] Radiology Services (STAT) Status Reason Specialty Diagnoses / Referred By Referred To Procedures Contact Contact New Request Diagnostic Diagnoses Hypotension, unspecified hypotension type Francisco Flores, Radiology Procedures XR CHEST 1 VW MANAGER SEMICONDUCTOR [address] [place] [phone] Reason for Visit Reason Comments Allergic reaction Auth/Cert Status Reason Specialty Diagnoses / Referred By Referred To Procedures Contact Contact Emergency Medicine [facility] Em ergency Dept [address] [place] [address] Fax: Encounter Details Date Type Department Care Team Description 02/05/2020 - Hospital Encounter [facility] Medicine Surgery Francisco Flores FNP [address] [place] [phone] Sepsis 02/09/2020 Unit Gemma Gould MD [address] [place] [phone] [address] [facility], [place] [id number] Allergies Active Allergy Reactions Severity Noted Date Comments [id number] Other - See comments 02/05/2020 Home health reported Reductase Inhibitors patient allergy Sulfa (Sulfonamide Rash 02/05/2020 Antibiotics) documented as of this encounter (statuses as of 02/09/2020) Medications Medication Sig Dispensed Refills Start Date End Date Status metoprolol 0 07/30/2012 Active succinate XL (TOPROL XL) 50 mg 24 hr tablet metFORMIN 0 06/01/2012 Active (GLUCOPHAGE) 1,000 mg tablet simvastatin (ZOCOR) 0 08/04/2012 Active 20 mg tablet EVISTA 60 mg tablet 0 06/01/2012 Active ASPIRIN (ASPIR-81 Take 81 mg 0 A ctive ORAL) by mouth daily. ONE TOUCH ULTRA 0 09/13/2013 Act flakita TEST strip glyBURIDE-metformin 0 09/13/2013 Active (GLUCOVANCE) 5-500 mg tablet ONE TOUCH DELICA 33 0 09/13/2013 Active gauge Misc losartan-hydrochlor 0 09/13/2013 Active othiazide (HYZAAR) 100-25 mg per tablet raloxifene (EVISTA) Take 60 mg 0 Active 60 mg tablet by mouth daily. ciprofloxacin HCl Take 1 10 tablet 0 02/09/2020 A ctive 500 mg tablet by 0 tabletIndications: mouth 2 Type 2 diabetes (two) times mellitus with other daily for 5 specified days. complication, unspecified whether usp insulin use hydrOXYzine 10 mg Take 1 30 tablet 0 02/09/2020 A ctive tabletIndications: tablet by Type 2 diabetes mouth every mellitus with other 6 (six) specified hours as complication, needed for unspecified whether Itching. usp insulin use lactobacillus Take 1 60 tablet 0 02/09/2020 Activ e acidophilus 25 tablet by million cell -100 mouth 2 mg (two) times captabIndications: daily. Type 2 diabetes mellitus with other specified complication, unspecified whether termite exterminator helper insulin use predniSONE 10 mg Take 2 11 tablet 0 02/10/2020 Ac tive tabletIndications: tablets by 0 Type 2 diabetes mouth daily mellitus with other for 3 days, specified THEN 1 complication, tablet daily unspecified whether for 3 days, usp insulin THEN 0.5 use tablets daily for 3 days. levothyroxine 100 Take 1 30 tablet 0 02/09/2020 A ctive mcg tablet by tabletIndications: mouth every Type 2 diabetes morning. mellitus with other specified complication, unspecified whether usp insulin use levothyroxine 0 06/01/2012 Disco ntinued (SYNTHROID) 125 mcg 0 (Reorder) tablet documented as of this encounter (statuses as of 02/09/2020) Active Problems Problem Noted Date Elevated troponin I level 02/06/2020 Essential hypertension 02/06/2020 Hypotension 02/06/2020 Dyslipidemia 02/06/2020 Type 2 diabetes mellitus with other specified complica tion 02/06/2020 Sepsis 02/05/2020 Actinic keratosis 08/06/2012 documented as of this encounter (statuses as of 02/09/2020) Social History Tobacco Use Types Packs/Day Years Used Date Never Smoker Smokeless Tobacco: Never Used Tobacco Cessation: Counseling Given: No Alcohol Use Drinks/Week oz/Week Comments No Education Answer Date Recorded What is the highest level of school Associate degree: [employer] 02/05/2020 you have completed or the [...] of this encounter Last Filed Vital Signs Vital Sign Reading Time Taken Comments Blood Pressure 138/81 02/09/2020 11:41 AM CDT Pulse 92 02/09/2020 11:41 AM CDT Temperature 36.4 C (97.5 F) 02/09/2020 11:41 AM CDT Respiratory Rate 18 02/09/2020 11:41 AM CDT Oxygen Saturation 98% 02/09/2020 11:41 AM CDT Inhaled Oxygen Concentration - - Weight 59 kg (130 lb) 02/05/2020 6:00 PM CDT Height 154.9 cm (5' 1") 02/05/2020 6:08 PM CDT Body Mass Index 24.56 02/05/2020 6:00 PM CDT documented in this encounter Discharge Instructions InstructionsSoha Hamm RN - 02/09/2020 Patient Discharge Instructions Discharge date: 02/09/2020 Discharge Orders 1800 Calorie Diabetic Consistent Carbohydrates Diet - includes HS Snack; Texture: Regular. Texture Regular. Diabetic: No Discharge Condition - Discharge Condition: GOOD Discharge Activity Discharge Activity: As Tolerated VTE Propylaxis- Was ordered during hospitalization Discharge Instructions Order Comments: You can increase lantus insulin to 25 units in the morning and 25 units at bedtime and continue monitoring your glucose. Please follow-up with dermatology Dr. Cuellar in 1 week. Home Health Order Order Comments: I certify that Leticia Harper is under my care and that I, or a nurse practitioner or physician's customer care assistant working with me, had a [id number] encounter with this patient on: 02/07/2020. The encounter with Leticia Harper was in whole or in part, for the following medical condition(s), which is the primary reason for home health care: Generalized weakness I am ordering and certify that based on my findings the following services are medically necessary home health services: Evaluation and Treatment, Home Safety Eval, Home Health Aide and Physical Therapy Eval & Treatment Times a week: four For: 4 Weeks Half-Way Services: Medication Management and Teaching Times a week: Four For: 4 Weeks PCP follow up: Archie Navarro Call lab results to: My clinical findings support the need for the services listed above because: limited mobility Further, I certify that my clinical findings support that this patient is homebound (i.e. absences from home require considerable and taxing effort and are for medical reasons or orthodoxy services or infrequently or of short duration when for other reasons) because: Requires assistance of supported devices to leave the home I understand and acknowledge that this is not a valid order until it is authenticated by a medical provider who has authority within their Scope of Practice to do so. I am inputting this information in my capacity as a scribe. Derek Burton RN Facility/Provider [address] [place] [address] (Ph) [phone] (F) [phone] Take Home Medications These are medications ordered for you by your healthcare provider. Do not take any other medications or supplements unless advised by your healthcare provider. Current Discharge Medication List START taking these medications Details ciprofloxacin HCl 500 mg tablet Take 1 tablet by mouth 2 (two) times daily for 5 days. Qty: 10 tablet, Refills: 0 Associated Diagnoses: Type 2 diabetes mellitus with other specified complication, unspecified whether termite exterminator helper insulin use hydrOXYzine 10 mg tablet Take 1 tablet by mouth every 6 (six) hours as needed for Itching. Qty: 30 tablet, Refills: 0 Associated Diagnoses: Type 2 diabetes mellitus with other specified complication, unspecified whether usp insulin use lactobacillus acidophilus 25 million cell -100 mg captab Take 1 tablet by mouth 2 (two) times daily. Qty: 60 tablet, Refills: 0 Associated Diagnoses: Type 2 diabetes mellitus with other specified complication, unspecified whether usp insulin use predniSONE 10 mg tablet Take 2 tablets by mouth daily for 3 days, THEN 1 tablet daily for 3 days, THEN 0.5 tablets daily for 3 days. Qty: 11 tablet, Refills: 0 Associated Diagnoses: Type 2 diabetes mellitus with other specified complication, unspecified whether usp insulin use CONTINUE these medications which have CHANGED Details levothyroxine 100 mcg tablet Take 1 tablet by mouth every morning. Qty: 30 tablet, Refills: 0 Associated Diagnoses: Type 2 diabetes mellitus with other specified complication, unspecified whether usp insulin use CONTINUE these medications which have NOT CHANGED Details glyBURIDE-metformin (GLUCOVANCE) 5-500 mg tablet losartan-hydrochlorothiazide (HYZAAR) 100-25 mg per tablet ONE TOUCH DELICA 33 gauge Misc ONE TOUCH ULTRA TEST strip !! raloxifene (EVISTA) 60 mg tablet Take 60 mg by mouth daily. ASPIRIN (ASPIR-81 ORAL) Take 81 mg by mouth daily. !! EVISTA 60 mg tablet metFORMIN (GLUCOPHAGE) 1,000 mg tablet metoprolol succinate XL (TOPROL XL) 50 mg 24 hr tablet simvastatin (ZOCOR) 20 mg tablet !! - Potential duplicate medications found. Please discuss with provider. For questions regarding follow-up instructions call the Healthcare Hotline at or For worsening symptoms/changing condition/problems or questions: Non-emergency/urgent: Call the Healthcare Hotline at or Emergency: Go to the closest emergency room or call 111 If you receive the patient satisfaction survey by mail please complete and return and let us know how we are doing. TOBACCO AVOIDANCE Exposure to tobacco either from smoking or from second hand (environmental) smoke or smokeless tobacco (snuff) is damaging to your health. This information is to encourage everyone to avoid tobacco exposure. It is recommended that you: ? If you smoke or use smokeless tobacco, we encourage you to quit. ? If you have already quit smoking, continue your good work! ? If you do not smoke or use smokeless tobacco, do not start. ? Avoid secondhand smoke. Additional Resources You may want to contact these organizations for further information on smoking and how to quit. [place] [employer], http://www.lungusa.org/stop-smoking/ [place] [employer], http://www.cancer.org/Healthy/StayAwayfromTobacco/index [place] [employer], http://www.heart.org/HEARTORG/GettingHealthy/QuitSmoking/Quit-Smoking_[facility] [place] _001085_SubHomePage.jsp AttachmentsThe following attachments cannot be sent through Care Everywhere. Sepsis (Icelandic)Urinary Tract Infections in Women (Icelandic)Ciprofloxacin tablets (Icelandic)Hydroxyzine oral solution ([place]ic)Lactobacillus Oral formulations (Icelandic)Prednisone tablets (Icelandic)documented in this encounter Progress Notes Gm Ruiz PTA - 02/09/2020 11:54 AM CDT Physical Therapy Progress Note: Discharge Recommendations: Therapy Needs and Potential: Patient demonstrates good potential to improve and meet therapy goals with further physical therapy services. Challenges to Home Transition: increased risk of falls decreased safety awareness Equipment recommendations: rolling walker PAIN: denies pain PRECAUTIONS: Weight Bearing Precaution: NA General Precautions: PPE used:Gloves and Surgical mask, Fall, IV . Bracing/Cast present or required:N/A S: Patient agreeable to working with PT. Patient reports her feet are swollen and limit her abilityto walk. Eager to go home. Family present. O: Patient met Up in chair. Patient seen for the following: Transfers: Sit to stand: Modified independent using Rolling Walker Stand to sit: Modified independent using Rolling Walker Gait: Assisted patient with ambulation as follows: 80 feet using Rolling Walker and Modified independent. Therapeutic exercise: instructed patient in the following: BLE AROM, seated, in available planes x 10 reps After session, patient Up in chair and call hadley provided. RN aware A: Patient tolerated session well. Gait is steady with slowed ulises and shortened stride length.Pattern is step through. Patient took 1 short standing rest break. Patient required Min a for sit to stand from toilet. . P: PT will continue POC with emphasis on gait, transfers and functional mobility. Total Timed Tx Codes in Minutes: 24 Min Total Treatment Time in Minutes: 24 Min Gm Ruiz PTA Fran Lic [id number] [facility] Rehab Services ADC [phone] Keeley Orourke PT supv INETCBrent rob MD - 02/09/2020 11:03 AM CDT [facility] Cardiology progress note Date of Service: 02/09/2020 Leticai Harper is an 84 years old female hospitalized for hypotension and sepsis. No new cardiac complaints noted. BP has improved. C/o leg edema. PHYSICAL EXAM Vitals: 02/08/20 2324 02/09/20 0324 02/09/20 0340 02/09/20 0738 BP: (!) 153/76 119/56 131/82 (!) 151/73 Pulse: 82 86 87 85 Resp: 16 16 16 18 Temp: 36.8 C (98.2 F) 36.5 C (97.7 F) 36.3 C (97.3 F) 36.2 C (97.2 F) TempSrc: Temporal Artery Temporal Artery Temporal Artery Temporal Artery SpO2: 96% 100% 100% 94% Weight: Height: Date 02/09/20 0700 - 02/10/20 0659 Shift 5495-3078 8553-0275 9958-8604 24 Hour Total INTAKE Oral 355 355 Shift Total 355 355 OUTPUT Shift Total Weight (kg) 59 59 59 59 General: no apparent distress HEENT: normocephalic atraumatic Neck: supple, no lymphadenopathy, no bruits, no JVD Lungs: clear to auscultation bilaterally Cardio: S1, S2, regular; no murmurs, rubs or gallops Abdomen: non-distended : not examined Rectal: not examined Extremities: no clubbing, cyanosis, + edema Skin: no rashes Neuro: no focal deficits Medications: I have reviewed the patient's medications; see Medication Reconciliation. Labs: I have reviewed the patient's labs. CBC BMP PT/INR WBC (10*3/L) Date Value 02/09/2020 6.93 NA (mmol/L) Date Value 02/09/2020 135 No results found for: PT PLT (10*3/L) Date Value 02/09/2020 244 K (mmol/L) Date Value 02/09/2020 3.8 No results found for: PTINR HGB (g/dL) Date Value 02/09/2020 11.2 (L) BUN (mg/dL) Date Value 02/09/2020 16 HCT (%) Date Value 02/09/2020 34.3 (L) CREATININE (mg/dL) Date Value 02/09/2020 0.61 LIPID PROFILE GLUCOSE (mg/dL) Date Value 02/09/2020 210 (H) CHOL (mg/dL) Date Value 02/05/2020 215 (H) TSH LDL CHOL (mg/dL) Date Value 02/05/2020 135 TSH (mIU/L) Date Value 02/05/2020 13.40 (H) CARDIAC ENZYMES HDL (mg/dL) Date Value 02/05/2020 23 (L) No results found for: CK TRIG (mg/dL) Date Value 02/05/2020 283 (H) LFTs No results found for: CKMB AST(SGOT) (U/L) Date Value 02/08/2020 20 TROPONIN I (ng/mL) Date Value 02/07/2020 0.077 (H) ALTv (U/L) Date Value 02/08/2020 12 No results found for: BNP LDL CHOL (mg/dL) Date Value 02/05/2020 135 Recent Labs 02/07/20 0522 TROPNI 0.077* Recent Labs 02/05/20 1507 TRIG 283* LDL CHOL (mg/dL) Date Value 02/05/2020 135 NT-proBNP (pg/mL) Date Value 02/05/2020 169 ASSESSMENT AND PLAN Principal Problem: Sepsis Active Problems: Elevated troponin I level Essential hypertension Hypotension Dyslipidemia Type 2 diabetes mellitus with other specified complication Elevated trop: Likely Type 2 CT. No chest pain or dynamica ECG changes noted. Troponin trending down. Continue ASA 81 mg daily. ECG shows no dynamic changes noted. Serial trop has been stable and downtrending. ECHO showed normal LVEF and wall motion. Consider to add metoprolol. Hypotension: Resolved. Likely related to vasodilation/sepsis. HTN: Restarted HCTZ. Given troponin elevation, also consider to restart metoprolol. Dyslipidemia: Consider to restart Zocor 40. T2DM: as per primary team. Primary folder inspector: Dr Cedeño. Brent Phelps MD, FACC, [employer] Enterprise Mobility Architect, Division of Cardiology [facility] Brent Hirsch MD - 02/08/2020 11:20 PM CDT [facility] Cardiology progress note Date of Service: 02/08/2020 Leticia Harper is an 84 years old female hospitalized for hypotension and sepsis. No new cardiac complaints noted. BP has improved. C/o leg edema. PHYSICAL EXAM Vitals: 02/08/20 1142 02/08/20 1602 02/08/20 1913 02/08/20 1940 BP: 132/73 (!) 152/93 (!) 148/89 Pulse: 83 103 102 101 Resp: 18 18 18 18 Temp: 37 C (98.6 F) 37 C (98.6 F) 36.7 C (98.1 F) TempSrc: Temporal Artery SpO2: 97% 98% 97% 96% Weight: Height: Date 02/08/20 0700 - 02/09/20 0659 Shift 9653-5340 6987-1715 9057-7624 24 Hour Total INTAKE Oral 500 500 Shift Total 500 500 OUTPUT Urine(mL/kg/hr) 200(0.4) 200 Shift Total 200 200 Weight (kg) 59 59 59 59 General: no apparent distress HEENT: normocephalic atraumatic Neck: supple, no lymphadenopathy, no bruits, no JVD Lungs: clear to auscultation bilaterally Cardio: S1, S2, regular; no murmurs, rubs or gallops Abdomen: non-distended : not examined Rectal: not examined Extremities: no clubbing, cyanosis, + edema Skin: no rashes Neuro: no focal deficits Medications: I have reviewed the patient's medications; see Medication Reconciliation. Labs: I have reviewed the patient's labs. CBC BMP PT/INR WBC (10*3/L) Date Value 02/08/2020 7.70 NA (mmol/L) Date Value 02/08/2020 136 02/08/2020 136 No results found for: PT PLT (10*3/L) Date Value 02/08/2020 220 K (mmol/L) Date Value 02/08/2020 3.7 02/08/2020 3.8 No results found for: PTINR HGB (g/dL) Date Value 02/08/2020 10.9 (L) BUN (mg/dL) Date Value 02/08/2020 13 02/08/2020 13 HCT (%) Date Value 02/08/2020 33.4 (L) CREATININE (mg/dL) Date Value 02/08/2020 0.51 02/08/2020 0.49 (L) LIPID PROFILE GLUCOSE (mg/dL) Date Value 02/08/2020 115 (H) 02/08/2020 112 (H) CHOL (mg/dL) Date Value 02/05/2020 215 (H) TSH LDL CHOL (mg/dL) Date Value 02/05/2020 135 TSH (mIU/L) Date Value 02/05/2020 13.40 (H) CARDIAC ENZYMES HDL (mg/dL) Date Value 02/05/2020 23 (L) No results found for: CK TRIG (mg/dL) Date Value 02/05/2020 283 (H) LFTs No results found for: CKMB AST(SGOT) (U/L) Date Value 02/08/2020 20 TROPONIN I (ng/mL) Date Value 02/07/2020 0.077 (H) ALTv (U/L) Date Value 02/08/2020 12 No results found for: BNP LDL CHOL (mg/dL) Date Value 02/05/2020 135 Recent Labs 02/07/20 0522 TROPNI 0.077* Recent Labs 02/05/20 1507 TRIG 283* LDL CHOL (mg/dL) Date Value 02/05/2020 135 NT-proBNP (pg/mL) Date Value 02/05/2020 169 ASSESSMENT AND PLAN Principal Problem: Sepsis Active Problems: Elevated troponin I level Essential hypertension Hypotension Dyslipidemia Type 2 diabetes mellitus with other specified complication Elevated trop: Likely Type 2 CT. No chest pain or dynamica ECG changes noted Troponin trending down Continue ASA 81 mg daily. ECG shows no dynamic changes noted. Serial trop has been stable and downtrending. ECHO showed normal LVEF and wall motion. Hypotension: Resolved. Likely related to vasodilation/sepsis. HTN: Recommend to start HCTZ. Given troponin elevation, also consider to restart metoprolol. Dyslipidemia: Consider to restart Zocor 40. T2DM: as per primary team. Primary folder inspector: Dr Cedeño. Brent Phelps MD, [facility], [place] Enterprise Mobility Architect, Division of Cardiology [facility] Madisyn Vasquez ASSISTANT AUTO CENTER MANAGER - 02/08/2020 3:31 PM CDTSummary: Inpatient Scheduling ASSISTANT AUTO CENTER MANAGER spoke with patient prior to discharge to assist with scheduling hospital follow up appointments. Pt is concerned about her ambulation and how she will get around to and from appointments at this time. ASSISTANT AUTO CENTER MANAGER informed patient that [facility] recommends her to follow up with Cardiology and Dermatology. Pt reports that she will schedule those appointments herself when her ambulation situation is better. Declines assistance in scheduling at this time. Will document in referrals once they are made available. Madisyn Ruiz LMSW Beamer Operator - Community Wellness and Outreach Community and Population Health Guilherme Rojas - 7th floor Office: [phone] (Not for patient use) [email or web address] Trip Mancera MD - 02/08/2020 12:49 PM CDT [facility] Hospitalist Progress Note SUBJECTIVE: Feels better today. CURRENT MEDICATIONS - reviewed. Scheduled: furosemide, 20 mg, ONCE hydroCHLOROthiazide, 25 mg, DAILY KCL, 20 mEq, BID [START ON 02/09/2020] predniSONE, 20 mg, DAILY enoxaparin, 40 mg, DAILY famotidine 20 mg in NS 50 ml, 20 mg, Q12H hydrocortisone, , BID hydrOXYzine, 10 mg, Q6H aspirin, 81 mg, DAILY insulin glargine, 20 Units, QHS levothyroxine, 100 mcg, QAM-0600 piperacillin-tazobactam, 3.375 g, Q6H ABX insulin aspart, , TID MEALS+HS Continuous IV Medications/Drips: NaCl 0.9% (NS), Last Rate: 1,000 mL (02/08/20 0725) PRN: acetaminophen, 650 mg, Q6HPRN diphenhydrAMINE, 25 mg, Q6HPRN ondansetron, 4 mg, Q6HPRN PHYSICAL EXAM: Temp: [35.7 C (96.3 F)-37 C (98.6 F)] Heart Rate (monitor): [90] Pulse: [74-99] Resp: [14-26] BP: (129-156)/(64-85) MAP (mmHg): [92-136] Intake/Output: No intake or output data in the 24 hours ending 02/08/20 1250Constitutional: comfortable, NAD, lyingin bed, well nourished Skin: +diffuse blanching generalized rash, sparing B/L knees, shins, L. posterior forearm, and B/L hands/fingers. ENT: no oral lesions, no abnormalities of external ears or nose, no neck stiffness Musculoskeletal: no redness, warmth, or swelling of the joints. No clubbing, cyanosis, or edema. Neurologic: No focal deficits. No myoclonus or seizures. Awake, alert. Psychiatric: oriented x3, appropriate mood and affect, no delirium LABS/IMAGING - reviewed, pertinent results as below: CBC BMP PT/INR WBC (10*3/L) Date Value 02/08/2020 7.70 NA (mmol/L) Date Value 02/08/2020 136 02/08/2020 136 No results found for: PT RBC (10*6/L) Date Value 02/08/2020 3.56 (L) K (mmol/L) Date Value 02/08/2020 3.7 02/08/2020 3.8 No results found for: PTINR PLT (10*3/L) Date Value 02/08/2020 220 CALCIUM (mg/dL) Date Value 02/08/2020 8.3 (L) 02/08/2020 8.5 (L) HGB (g/dL) Date Value 02/08/2020 10.9 (L) CL (mmol/L) Date Value 02/08/2020 108 02/08/2020 106 aPTT HCT (%) Date Value 02/08/2020 33.4 (L) BUN (mg/dL) Date Value 02/08/2020 13 02/08/2020 13 No results found for: APTTPAT CREATININE (mg/dL) Date Value 02/08/2020 0.51 02/08/2020 0.49 (L) IMAGING- Hospital Encounter on 02/05/20 CT CHEST PULMONARY ANGIOGRAM Narrative PROCEDURE: CT ANGIO CHEST WITH CONTRAST - PE PROTOCOL CLINICAL INDICATION: PE suspected, high pretest prob COMPARISON: None. TECHNIQUE: Helical CT was performed and reconstructed at 1.25 mm slice thickness from lung bases to apices using 70 mL Omnipaque 350 intravenous contrast, without complication. 3D axial MIPS and coronal MPRS were generated under radiologist supervision, and reviewed to further define anatomy and possible pathology. (DFOV = 30 cm) FINDINGS: PULMONARY ARTERIES: Enhancement is appropriate and there is a eccentric filling defect in the left upper lobe pulmonary artery segmental branch, likely represent a chronic pulmonary embolism. CHEST: Lower neck/thyroid: Unremarkable. Lungs: Bilateral lower lobes subsegmental atelectasis. Central airway: Unremarkable. Pleura: No pleural effusion, thickening or pneumothorax. Thoracic aorta and great vessels: Severe atherosclerosis. Heart and pericardium: Mild coronary arterial calcification. Unremarkable cardiac morphology and pericardium. Lymph nodes: No enlarged thoracic lymph nodes. Mediastinum: A small hiatal hernia is seen. Thoracic spine and chest wall: Unremarkable, with normal thoracic vertebral body heights. Other Lines/Tubes/Devices/Hardware: None Visualized upper abdomen: Changes of cholecystectomy. A small splenule is seen. The spleen measures 13.7 cm. Hyperdensity is seen in the stomach, may represent hyperdense food or contrast extravasation. Moderate-sized hiatal hernia. Impression 1. 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 2. Hyperdensity in the gastric cardia, may represent hyperdense food particles or contrast extravasation. Clinical correlation with history of hematemesis is recommended. 3. Moderate-sized hiatal hernia Preliminary Report Dictated by Resident: Chago Saenz MD., have reviewed this study and agree with the above report. XR CHEST 1 VW Narrative EXAM: XR CHEST 1 VW HISTORY: 84 years-old; Female; chest pain COMPARISON: none FINDINGS: Lungs/Pleura: The lungs are clear with no focal consolidation. There is no pleural effusion or pneumothorax. Heart/Mediastinum: The cardiomediastinal silhouette is normal. No acute osseous structure abnormality. Diffuse osteopenia is noted. Multilevel degenerative changes of the thoracic spine is noted. Impression No acute cardiopulmonary abnormality Preliminary Report Dictated by Resident: Chago Mares MD., have reviewed this study and agree with the above report. ASSESSMENT/PLAN Leticia Harper is a 84 year old female with PMH significant for HTN, hypothyrodisim (was noncomp with Synthroid so restarted), chronic diarrhea, and urinary retention, admitted to the hospital with: Diffuse maculopapular rash Likely drug reaction from recent anesthesia for oral abscess Improved with prednisone 40 mg x 4d, will taper Needs f/u with derm Dr. Cuellar Sepsis 2/2 complicated UTI due to chronic indwelling rowe catheter with type 2 NSTEMI Had rowe since recent surgery for post-op urinary retention Urine cx+Klebsiella pneumoniae Received zosyn. Switch to po cipro day 1. Echo unremarkable Cardiology on board BLLE edema Check venous duplex r/o DVT IV lasix Resume hctz, K Hypothyroidism On levothyroxine Repeat TFT in 4-6 weeks D-dimer elevated 10 CT PE - negative for acute PE, though VALERY HTN - hold b/p meds given hypotension (hctz and losartan) Dm2 >> will hold actos/trajenta >> HgA1c 9.2 - lantus 20 bid, ISS - Monitor b/s on oral steroids Oral abscess >> patient s/p drainage at OSH and was on Clindamycin (had 4d left) - Will hold clindamycin and IV zosyn Urinary retention - Rowe placed for post-op urinary retention - Passed voiding trial this admission, no need for catheter at this time Prophylaxis: DVT- enoxaparin Stress Ulcer: no indication for prophylaxis Code Status: Full (surrogate decision maker: ) Disposition: likely home tomorrow Derek Stout RN - 02/07/2020 12:43 PM CDT Care Management Social Functional Assessment Patient Name: Leticia Harper Age: [age] year old Sex: female Previous admit date: N/A Current diagnosis and co-morbidities: SEPSIS; HYPOTENSION; ALLERGIC REACTION; UTI Readmission Questions: Was patient discharged from any acute care hospital within the last 30 days: No Social Functional Assessment: Primary language spoken/preferred: Icelandic Mental Status: Alert & Oriented to Person,Place & Time Information given by: Spouse Name and phone number of person giving information: Zach Harper spouse [phone] Patient's support system: Spouse Name and number of support system: Zach Harper spouse [phone] Primary Toaster Element Repairer: Self MPOA: Same as support system Living Arrangement: Home Address of living arrangement : [address] [place] Persons living in home: Same as support system Barriers to returning home: None Baseline functional status- ambulation: Requires minimal to moderate assistance Functional status-baseline personal care: Requires minimal to moderate assistance Baseline functional status- driving: Requires minimal to moderate assistance Baseline functional status- grocery shopping: Requires minimal to moderate assistance Functional status-baseline housekeeping: Requires minimal to moderate assistance Functional status-baseline meal prep: Requires minimal to moderate assistance Current functional status same as prior: Yes Do you have a PCP?: Yes Name of PCP: [facility] Agency: Yes Name of Home Health Agency: [facility] [address] [place] [address] () [phone] (F) [phone] Previous or current Home Health Care Agency: Current Provider Services: No DME Company: No Equipment: Cane;Walker Hemodialysis: No Funding Resources: Medicare Replacement Medicare Replacement name and information: [employer] Prescription coverage plan: Medicare Part D Pharmacy where meds are filled: ([facility] Anticipated services prior to disharge: Continue Medical Eval Expected mode of discharge transportation: Same as support system Additional info required for discharge planning: Pending medical evaluation Recommended discharge plan: Update/Resume HH orders SFA Complete: Social Functional Assessment complete: Yes Alcohol Use Screening (AUDIT-C) How often do you have a drink containing alcohol?: Never SCORE: 0 Role of Care Management explained. Yes Derek Burton RN, BSN [facility] [employer] O [phone] Trip Byers MD - 02/07/2020 11:[address] [facility] Hospitalist Progress Note SUBJECTIVE: Denies any chest pain, dyspnea, N/V, or pain anywhere. Reports that generalized pruritic rash is nowspreading. Tolerating PO. CURRENT MEDICATIONS - reviewed. Scheduled: famotidine 20 mg in NS 50 ml, 20 mg, Q12H hydrocortisone, , BID hydrOXYzine, 10 mg, Q6H aspirin, 81 mg, DAILY enoxaparin (LOVENOX) SC Syringe, 1 mg/kg, Q12H insulin glargine, 20 Units, QHS levothyroxine, 100 mcg, QAM-0600 piperacillin-tazobactam, 3.375 g, Q6H ABX predniSONE, 40 mg, DAILY insulin aspart, , TID MEALS+HS Continuous IV Medications/Drips: NaCl 0.9% (NS), Last Rate: 1,000 mL (02/06/20 2102) PRN: acetaminophen, 650 mg, Q6HPRN diphenhydrAMINE, 25 mg, Q6HPRN ondansetron, 4 mg, Q6HPRN traMADoL, 50 mg, Q8HPRN PHYSICAL EXAM: Temp: [36.2 C (97.2 F)-37 C (98.6 F)] Heart Rate (monitor): [78-98] Pulse: [79-96] Resp: [16-26] BP: (102-126)/(53-77) MAP (mmHg): [68-91] POCT Blood Glucose (manual): [118 mg/dL-223 mg/dL] Intake/Output: Intake/Output Summary (Last 24 hours) at 02/07/2020 1112 Last data filed at 02/07/2020 1049 Gross per 24 hour Intake 2735 ml Output 1350 ml Net 1385 ml Constitutional: comfortable, NAD, lying in bed, well nourished Skin: +diffuse blanching generalized rash, sparing B/L knees, shins, L. posterior forearm, and B/L hands/fingers. Eyes: EOM, PERRLA, conjunctiva normal, anicteric sclerae ENT: no oral lesions, no abnormalities of external ears or nose, no neck stiffness Cardiovascular: regular rate and rhythm Respiratory: symmetric expansion, no retractions GI: soft, NT/ND, +BS : +Chronic rowe in place Musculoskeletal: no redness, warmth, or swelling of the joints. No clubbing, cyanosis, or edema. Neurologic: No focal deficits. No myoclonus or seizures. Awake, alert. Psychiatric: oriented x3, appropriate mood and affect, no delirium LABS/IMAGING - reviewed, pertinent results as below: CBC BMP PT/INR WBC (10*3/L) Date Value 02/07/2020 9.71 NA (mmol/L) Date Value 02/07/2020 136 No results found for: PT RBC (10*6/L) Date Value 02/07/2020 3.61 (L) K (mmol/L) Date Value 02/07/2020 3.4 (L) No results found for: PTINR PLT (10*3/L) Date Value 02/07/2020 246 CALCIUM (mg/dL) Date Value 02/07/2020 7.9 (L) HGB (g/dL) Date Value 02/07/2020 11.0 (L) CL (mmol/L) Date Value 02/07/2020 107 aPTT HCT (%) Date Value 02/07/2020 33.0 (L) BUN (mg/dL) Date Value 02/07/2020 14 No results found for: APTTPAT CREATININE (mg/dL) Date Value 02/07/2020 0.54 IMAGING- Hospital Encounter on 02/05/20 CT CHEST PULMONARY ANGIOGRAM Narrative PROCEDURE: CT ANGIO CHEST WITH CONTRAST - PE PROTOCOL CLINICAL INDICATION: PE suspected, high pretest prob COMPARISON: None. TECHNIQUE: Helical CT was performed and reconstructed at 1.25 mm slice thickness from lung bases to apices using 70 mL Omnipaque 350 intravenous contrast, without complication. 3D axial MIPS and coronal MPRS were generated under radiologist supervision, and reviewed to further define anatomy and possible pathology. (DFOV = 30 cm) FINDINGS: PULMONARY ARTERIES: Enhancement is appropriate and there is a eccentric filling defect in the left upper lobe pulmonary artery segmental branch, likely represent a chronic pulmonary embolism. CHEST: Lower neck/thyroid: Unremarkable. Lungs: Bilateral lower lobes subsegmental atelectasis. Central airway: Unremarkable. Pleura: No pleural effusion, thickening or pneumothorax. Thoracic aorta and great vessels: Severe atherosclerosis. Heart and pericardium: Mild coronary arterial calcification. Unremarkable cardiac morphology and pericardium. Lymph nodes: No enlarged thoracic lymph nodes. Mediastinum: A small hiatal hernia is seen. Thoracic spine and chest wall: Unremarkable, with normal thoracic vertebral body heights. Other Lines/Tubes/Devices/Hardware: None Visualized upper abdomen: Changes of cholecystectomy. A small splenule is seen. The spleen measures 13.7 cm. Hyperdensity is seen in the stomach, may represent hyperdense food or contrast extravasation. Moderate-sized hiatal hernia. Impression 1. 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 2. Hyperdensity in the gastric cardia, may represent hyperdense food particles or contrast extravasation. Clinical correlation with history of hematemesis is recommended. 3. Moderate-sized hiatal hernia Preliminary Report Dictated by Resident: Chago Saenz MD., have reviewed this study and agree with the above report. XR CHEST 1 VW Narrative EXAM: XR CHEST 1 VW HISTORY: 84 years-old; Female; chest pain COMPARISON: none FINDINGS: Lungs/Pleura: The lungs are clear with no focal consolidation. There is no pleural effusion or pneumothorax. Heart/Mediastinum: The cardiomediastinal silhouette is normal. No acute osseous structure abnormality. Diffuse osteopenia is noted. Multilevel degenerative changes of the thoracic spine is noted. Impression No acute cardiopulmonary abnormality Preliminary Report Dictated by Resident: Owen Hankins I, Chago Ellis MD., have reviewed this study and agree with the above report. ASSESSMENT/PLAN Leticia Harper is a 84 year old female with PMH significant for HTN, hypothyrodisim (was noncomp with Synthroid so restarted), chronic diarrhea, and urinary retention, admitted to the hospital with: Hypotension Klebsiella pneumoniae UTI >> Possibly 2/2 vasodilation from diffuse generalized rash +/- infection +/- NSTEMI >> TSH - elevated 13.4, t3/t4 - low; AM cortisol neg >> troponins peaked at 0.9; EKG no acute findings; lactic acid trended down >> fecal leukocytes, C. diff negative >> D-dimer elevated 10 --> CTpe - negative for acute PE, though VALERY chronic subsegmental one seen; ?hyperdensity in gastric cardia (no abdominal/chest pain or hematemesis, or dark stools), andafter discussion with radiology, likely food particles as stable hemodynamics >> +UCx = >100k Klebsiella - Restart levothyroxine (patient has been noncompliant) - start full dose lovenox --> if echo okay, can stop as not ACS - TTE - telemetry - F/u blood cultures -- NGTD - IV zosyn to cover urine/oral (will hold clindamycin oral) - Maintain MAP >60-65, f/u lactic acid -elevated - Hold home b/p meds - Cardio consult Generalized erythematous, pruritic, maculopapular rash, possibly 2/2 ?contact/allergic dermatitis vs. drug reaction >> Rash continuing to spread - On trial of oral prednisone 40 mg -monitor b/s - Consider derm consult - Benadryl prn - Hydroxyzine PRN - Corticosteroid cream Nstemi, likely type 2 (2/2 demand from hypotension) >> trops peaked at 0.9 - Aspirin, patient ? intolerant to statin - telemetry - TTE - Full dose Lovenox - Cardio (Dr. Giles) onboard HTN - hold b/p meds given hypotension (hctz and losartan) Dm2 >> will hold actos/trajenta >> HgA1c 9.2 - lantus 20 bid, ISS - Monitor b/s on oral steroids Hypothyroidism >> TSH 13.40, free T3/T4 low - Restart synthroid 100 mcg (prior dose noted 125), patient was noncompliant states she had stopped x 6 months - Need f/u outpatient tsh Oral abscess >> patient s/p drainage at OSH and was on Clindamycin (had 4d left) - Will hold clindamycin and IV zosyn Urinary retention - s/p chronic rowe - Doing voiding trial today - Need f/u with urology Prophylaxis: DVT- enoxaparin Stress Ulcer: no indication for prophylaxis Code Status: Full (surrogate decision maker: ) Disposition: possible home tomorrow Madhavi Petersen MD - 02/07/2020 9:58 AM CDT [facility] Cardiology progress note Date of Service: 02/07/2020 Leticia Harper is a 84 year old female hospitalized for hypotension. No new cardiac complaints noted. PHYSICAL EXAM Vitals: 02/07/20 0731 02/07/20 0734 02/07/20 0800 02/07/20 09 BP: 110/61 122/77 Pulse: 86 81 87 Resp: Temp: 36.7 C (98 F) TempSrc: Oral SpO2: 94% 95% 96% 99% Weight: Height: General: no apparent distress HEENT: normocephalic atraumatic Neck: supple, no lymphadenopathy, no bruits, no JVD Lungs: clear to auscultation bilaterally Cardio: S1, S2, regular; no murmurs, rubs or gallops Abdomen: non-distended : not examined Rectal: not examined Extremities: no clubbing, cyanosis, or edema Skin: no rashes Neuro: no focal deficits Medications: I have reviewed the patient's medications; see Medication Reconciliation. Labs: I have reviewed the patient's labs. CBC BMP PT/INR WBC (10*3/L) Date Value 02/07/2020 9.71 NA (mmol/L) Date Value 02/07/2020 136 No results found for: PT PLT (10*3/L) Date Value 02/07/2020 246 K (mmol/L) Date Value 02/07/2020 3.4 (L) No results found for: PTINR HGB (g/dL) Date Value 02/07/2020 11.0 (L) BUN (mg/dL) Date Value 02/07/2020 14 HCT (%) Date Value 02/07/2020 33.0 (L) CREATININE (mg/dL) Date Value 02/07/2020 0.54 LIPID PROFILE GLUCOSE (mg/dL) Date Value 02/07/2020 163 (H) CHOL (mg/dL) Date Value 02/05/2020 215 (H) TSH LDL CHOL (mg/dL) Date Value 02/05/2020 135 TSH (mIU/L) Date Value 02/05/2020 13.40 (H) CARDIAC ENZYMES HDL (mg/dL) Date Value 02/05/2020 23 (L) No results found for: CK TRIG (mg/dL) Date Value 02/05/2020 283 (H) LFTs No results found for: CKMB AST(SGOT) (U/L) Date Value 02/05/2020 52 (H) TROPONIN I (ng/mL) Date Value 02/07/2020 0.077 (H) ALTv (U/L) Date Value 02/05/2020 17 No results found for: BNP LDL CHOL (mg/dL) Date Value 02/05/2020 135 Recent Labs 02/07/20 0522 TROPNI 0.077* Recent Labs 02/05/20 1507 TRIG 283* LDL CHOL (mg/dL) Date Value 02/05/2020 135 NT-proBNP (pg/mL) Date Value 02/05/2020 169 ASSESSMENT AND PLAN Active Problems: Sepsis Elevated troponin I level Essential hypertension Hypotension Dyslipidemia Type 2 diabetes mellitus with other specified complication Elevated trop: Likely Type 2 CT. No chest pain or dynamica ECG changes noted Continue with full dose Lovenox for now and ASA 81 mg daily. ECG shows no dynamic changes noted. Serial trop has been stable and downtrending. Recommend Echo to assess to EF and wall motion changes. Tele monitoring: More PVCs noted today. Will observe. Hypotension: Resolved. Likely related to vasodilation/sepsis. History of HTN: Holding off home dose of Losartan/HCTZ and Toprol XL for now May need to restart home dose of Toprol XL if PVCs is getting more frequent. Dyslipidemia: holding home dose of Zocor 40. Restart from acceptable. T2DM: as per primary team. Primary folder inspector: Dr Cedeño. Héctor Giles MD 02/07/2020 9:58 AM Enterprise Mobility Architect, Division of Cardiology [facility] Gemma Chowdhury MD - 02/06/2020 8:[address] [facility] Hospitalist Progress Note DATE OF SERVICE: 02/06/2020 SUBJECTIVE: Denies any chest pain, dyspnea, N/V, or pain anywhere. Reports that generalized pruritic rash is nowspreading. Tolerating PO. CURRENT MEDICATIONS - reviewed. Scheduled: aspirin, 81 mg, DAILY enoxaparin (LOVENOX) SC Syringe, 1 mg/kg, Q12H insulin glargine, 20 Units, QHS levothyroxine, 100 mcg, QAM-0600 piperacillin-tazobactam, 3.375 g, Q6H ABX predniSONE, 40 mg, DAILY insulin aspart, , TID MEALS+HS Continuous IV Medications/Drips: NaCl 0.9% (NS), Last Rate: 1,000 mL (02/06/20 0807) PRN: acetaminophen, 650 mg, Q6HPRN diphenhydrAMINE, 25 mg, Q6HPRN ondansetron, 4 mg, Q6HPRN traMADoL, 50 mg, Q8HPRN PHYSICAL EXAM: Temp: [35.9 C (96.7 F)-36.8 C (98.2 F)] Heart Rate (monitor): [84-95] Pulse: [83-95] Resp: [3-28] BP: (80-109)/(46-71) MAP (mmHg): [64-78] Intake/Output: Intake/Output Summary (Last 24 hours) at 02/06/2020 0822 Last data filed at 02/06/2020 0722 Gross per 24 hour Intake Output 1150 ml Net -1150 ml Constitutional: comfortable, NAD, lying in bed, well nourished Skin: +diffuse blanching generalized rash, sparing B/L knees, shins, L. posterior forearm, and B/L hands/fingers. Eyes: EOM, PERRLA, conjunctiva normal, anicteric sclerae ENT: no oral lesions, no abnormalities of external ears or nose, no neck stiffness Cardiovascular: regular rate and rhythm, no murmurs, no lower extremity edema Respiratory: CTA bilaterally, symmetric expansion, no retractions GI: soft, NT/ND, +BS : +Chronic rowe in place Musculoskeletal: no redness, warmth, or swelling of the joints. No clubbing, cyanosis, or edema. Neurologic: No focal deficits. No myoclonus or seizures. Awake, alert. Psychiatric: oriented x3, appropriate mood and affect, no delirium LABS/IMAGING - reviewed, pertinent results as below: CBC BMP PT/INR WBC (10*3/L) Date Value 02/06/2020 11.29 (H) NA (mmol/L) Date Value 02/06/2020 135 No results found for: PT RBC (10*6/L) Date Value 02/06/2020 4.06 K (mmol/L) Date Value 02/06/2020 3.3 (L) No results found for: PTINR PLT (10*3/L) Date Value 02/06/2020 254 CALCIUM (mg/dL) Date Value 02/06/2020 8.4 (L) HGB (g/dL) Date Value 02/06/2020 12.3 CL (mmol/L) Date Value 02/06/2020 104 aPTT HCT (%) Date Value 02/06/2020 37.5 BUN (mg/dL) Date Value 02/06/2020 17 No results found for: APTTPAT CREATININE (mg/dL) Date Value 02/06/2020 0.52 IMAGING- Hospital Encounter on 02/05/20 CT CHEST PULMONARY ANGIOGRAM Narrative PROCEDURE: CT ANGIO CHEST WITH CONTRAST - PE PROTOCOL CLINICAL INDICATION: PE suspected, high pretest prob COMPARISON: None. TECHNIQUE: Helical CT was performed and reconstructed at 1.25 mm slice thickness from lung bases to apices using 70 mL Omnipaque 350 intravenous contrast, without complication. 3D axial MIPS and coronal MPRS were generated under radiologist supervision, and reviewed to further define anatomy and possible pathology. (DFOV = 30 cm) FINDINGS: PULMONARY ARTERIES: Enhancement is appropriate and there is a wedge-shaped filling defect in the left upper lobe pulmonary artery branching, likely represent a chronic pulmonary embolism. CHEST: Lower neck/thyroid: Unremarkable. Lungs: Bilateral lower lobes subsegmental atelectasis. Central airway: Unremarkable. Pleura: No pleural effusion, thickening or pneumothorax. Thoracic aorta and great vessels: Severe atherosclerosis. Heart and pericardium: Mild coronary arterial calcification. Unremarkable cardiac morphology and pericardium. Lymph nodes: No enlarged thoracic lymph nodes. Mediastinum: A small hiatal hernia is seen. Thoracic spine and chest wall: Unremarkable, with normal thoracic vertebral body heights. Other Lines/Tubes/Devices/Hardware: None Visualized upper abdomen: Changes of cholecystectomy. A small splenule is seen. The spleen measures 13.7 cm. Hyperdensity is seen in the stomach, may represent hyperdense food or contrast extravasation. Impression 1. 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 2. Hyperdensity in the gastric cardia, may represent hyperdense food particles or contrast extravasation. Clinical correlation with history of hematemesis is recommended. Preliminary Report Dictated by Resident: Iza Matute XR CHEST 1 VW Narrative EXAM: XR CHEST 1 VW HISTORY: 84 years-old; Female; chest pain COMPARISON: none FINDINGS: Lungs/Pleura: The lungs are clear with no focal consolidation. There is no pleural effusion or pneumothorax. Heart/Mediastinum: The cardiomediastinal silhouette is normal. No acute osseous structure abnormality. Diffuse osteopenia is noted. Multilevel degenerative changes of the thoracic spine is noted. Impression No acute cardiopulmonary abnormality Preliminary Report Dictated by Resident: Owen Hankins I, Chago Ellis MD., have reviewed this study and agree with the above report. ASSESSMENT/PLAN Leticia Harper is a 84 year old female with PMH significant for HTN, hypothyrodisim (was noncomp with Synthroid so restarted), chronic diarrhea, and urinary retention, admitted to the hospital with: Hypotension Klebsiella pneumoniae UTI >> Possibly 2/2 vasodilation from diffuse generalized rash +/- infection +/- NSTEMI >> TSH - elevated 13.4, t3/t4 - low; AM cortisol neg >> troponins peaked at 0.9; EKG no acute findings; lactic acid trended down >> fecal leukocytes, C. diff negative >> D-dimer elevated 10 --> CTpe - negative for acute PE, though VALERY chronic subsegmental one seen; ?hyperdensity in gastric cardia (no abdominal/chest pain or hematemesis, or dark stools), andafter discussion with radiology, likely food particles as stable hemodynamics >> +UCx = >100k Klebsiella - Restart levothyroxine (patient has been noncompliant) - start full dose lovenox --> if echo okay, can stop as not ACS - TTE - telemetry - F/u blood cultures -- NGTD - IV zosyn to cover urine/oral (will hold clindamycin oral) - Maintain MAP >60-65, f/u lactic acid -elevated - Hold home b/p meds - Cardio consult Generalized erythematous, pruritic, maculopapular rash, possibly 2/2 ?contact/allergic dermatitis vs. drug reaction >> Rash continuing to spread - On trial of oral prednisone 40 mg -monitor b/s - Consider derm consult - Benadryl prn - Hydroxyzine PRN - Corticosteroid cream Nstemi, likely type 2 (2/2 demand from hypotension) >> trops peaked at 0.9 - Aspirin, patient ? intolerant to statin - telemetry - TTE - Full dose Lovenox - Cardio (Dr. Giles) onboard HTN - hold b/p meds given hypotension (hctz and losartan) Dm2 >> will hold actos/trajenta >> HgA1c 9.2 - lantus 20 bid, ISS - Monitor b/s on oral steroids Hypothyroidism >> TSH 13.40, free T3/T4 low - Restart synthroid 100 mcg (prior dose noted 125), patient was noncompliant states she had stopped x 6 months - Need f/u outpatient tsh Oral abscess >> patient s/p drainage at OSH and was on Clindamycin (had 4d left) - Will hold clindamycin and IV zosyn Urinary retention - s/p chronic rowe - consider voiding trial - Need f/u with urology Prophylaxis: DVT- enoxaparin Stress Ulcer: no indication for prophylaxis Code Status: Full (surrgote decision maker: ) Inpatient status: IMU Disposition: pending medical status [place] HUMAN RESOURCE ASSISTANT was verified during stay Gemma Gould MD Provider #[id number] Hospitalist/Clinical Enterprise Mobility Architect [facility] ([facility] ([facility]) documented in this encounter H&P Notes Lori Jerome MD - 02/05/2020 7:06 PM CDT MEDICINE H&P Date of Service: 02/05/2020 CHIEF COMPLAINT: Hypotension History of Present Illness 84 y/o female, pmh of dm2 (basiglar 25/20, actos , Tradjenta), htn (losartan and hctz, dyslipid, hypothyroidism (has been noncompliant with synthroid 125 mcg), chronic diarrhea (s/p brandy), urinary retention (has a rowe x 2 weeks) who presents due to hypotension. Patient states that 2 weeks ago she has been tx at OSH in [place] for tooth abscess in [facility] she states was drained and patient was put on clindamycin (has 4 more days dose of it 300 mg tid) during that time she states her blood sugars were very high in which she was started on insulin also (x 2 weeks) in which her b/s has been improving. During that hospitalization she also had urinary retention in which she had rowe cath placed x 2 weeks and had f/u with urology for voiding trial for removal. However x 3 days she started to notice getting an generalized itchy rash in her back/front of chest, b/l arms, and legs, she denied any sob/stridor/wheezing she denied any new soaps/detergents but shedoes that that her son cleaned her sheets on that day she started to developed the rash with Clorox (which is new for her). She denied any new medication except clindamycin and insulin (basiglar) but she states she has been on it x 2 weeks since the hospitalization in which she had tolerated it. She states she was using some topical steroids for rash the past day. In addition x 2 days her b/p noted to be on the lower side sbp 80's with lightheadedness/dizziness she denied any syncope, in which she stated her HH had checked today also and was low, in ER was 80/40's. EMS called in which she had received x 1 epi and benadryl for possible allergic reaction, in ER she received decadron x 1 and fluid bolus and pepcid. She denied any fever, sob, cough, chest pain. No abdominal pain, N/V. She denied any diarrhea but states does have chronic soft stools 4-5 times/daywhich has been since her cholecystectomy, she denied any worsening is soft stools, no blood/mucus. She denied any calf pain/tenderness, did have left leg pain. She had rowe in x 2 weeks for urinary ret had f/u with urology for voiding trial, she denied any dysuria but states did have sensation of urinary frequency. Per report from nursing patient cath was foul looking, cath was changed. Meds patient is on from : - Lotrisone topical cream and bendaryl (for rash) actos 15 mg, tradjenta 5 mg daily, basaglar 25 units am/20 units pm hctz 25 mg, losartan 100 mg Aspirin 81 PAST MEDICAL HISTORY Past Medical History: Diagnosis Date Diabetes mellitus Hypertension Other and unspecified hyperlipidemia Thyroid disease Past Surgical History: Procedure Laterality Date CHOLECYSTECTOMY HYSTERECTOMY Was reviewed and was [place] ALLERGIES Allergies Allergen Reactions Zgcping-Kbk-Iad Reductase Inhibitors Other - See comments Home health reported patient allergy Sulfa (Sulfonamide Antibiotics) Rash MEDICATIONS No current facility-administered medications on file prior to encounter. Current Outpatient Medications on File Prior to Encounter Medication Sig Dispense Refill glyBURIDE-metformin (GLUCOVANCE) 5-500 mg tablet losartan-hydrochlorothiazide (HYZAAR) 100-25 mg per tablet ONE TOUCH DELICA 33 gauge Misc ONE TOUCH ULTRA TEST strip raloxifene (EVISTA) 60 mg tablet Take 60 mg by mouth daily. ASPIRIN (ASPIR-81 ORAL) Take 81 mg by mouth daily. EVISTA 60 mg tablet levothyroxine (SYNTHROID) 125 mcg tablet metFORMIN (GLUCOPHAGE) 1,000 mg tablet metoprolol succinate XL (TOPROL XL) 50 mg 24 hr tablet simvastatin (ZOCOR) 20 mg tablet SOCIAL HISTORY Social History Socioeconomic History Marital status: Spouse name: Zach Harper Number of children: 3 Years of education: Not on file Highest education level: Associate degree: academic program Occupational History Not on file Social Needs Financial resource strain: Not hard at all Food insecurity Worry: Never true Inability: Never true Transportation needs Medical: No Non-medical: No Tobacco Use Smoking status: Never Smoker Smokeless tobacco: Never Used Substance and Sexual Activity Alcohol use: No Drug use: Not on file Sexual activity: Not on file Lifestyle Physical activity Days per week: Not on file Minutes per session: Not on file Stress: Not on file Relationships Social connections Talks on phone: Not on file Gets together: Not on file Attends orthodoxy service: Not on file Active member of club or organization: Not on file Attends meetings of clubs or organizations: Not on file Relationship status: Not on file Intimate partner violence Fear of current or ex partner: Not on file Emotionally abused: Not on file Physically abused: Not on file Forced sexual activity: Not on file Other Topics Concern Not on file Social History Narrative Not on file REVIEW OF SYSTEMS 10 point ros was asked which was neg except mentioned above PHYSICAL EXAMINATION Vitals: 02/05/20 1700 02/05/20 1749 02/05/20 1800 02/05/20 1808 BP: 97/67 Pulse: 95 Resp: Temp: 36.2 C (97.1 F) 36.7 C (98 F) TempSrc: Oral Oral SpO2: 99% Weight: 59 kg (130 lb) Height: 1.549 m (5' 1") General: alert and oriented x 3 (person, place and date/time); no apparent distress HEENT: normocephalic atraumatic Neck: full range of motion Lungs: clear to auscultation bilaterally Cardio: regular rate and rhythm Abdomen: soft; non-tender; non-distended; normoactive bowel sounds : not examined Rectal: not examined Extremities: no clubbing, cyanosis, or edema Skin: generalized blanching erythremic maculopapular rash torso front/back b/l upper > lower ext Neuro: no focal deficits LABS - reviewed pertinent labs as below: CBC WBC (10*3/L) Date Value 02/05/2020 10.90 PLT (10*3/L) Date Value 02/05/2020 196 HGB (g/dL) Date Value 02/05/2020 12.6 HCT (%) Date Value 02/05/2020 39.2 BMP NA (mmol/L) Date Value 02/05/2020 131 (L) K (mmol/L) Date Value 02/05/2020 4.2 CALCIUM (mg/dL) Date Value 02/05/2020 8.1 (L) CL (mmol/L) Date Value 02/05/2020 99 BUN (mg/dL) Date Value 02/05/2020 24 (H) CREATININE (mg/dL) Date Value 02/05/2020 0.51 GLUCOSE (mg/dL) Date Value 02/05/2020 72 CO2 TOTAL (mmol/L) Date Value 02/05/2020 25 IMAGING - reviewed, pertinent results as below: Cxr: Lungs/Pleura: The lungs are clear with no focal consolidation. There is no pleural effusion or pneumothorax. Heart/Mediastinum: The cardiomediastinal silhouette is normal. No acute osseous structure abnormality. Diffuse osteopenia is noted. Multilevel degenerative changes of the thoracic spine is noted. IMPRESSION No acute cardiopulmonary abnormality CHART REVIEW: pertinent information as below: ASSESSMENT/PLAN Leticia Harper is a 84 year old female with PMH as listed above, admitted to the hospital with: Active Problems: Hypotension - unclear - possible septic (given u/a positive however has rowe cath no fever but has questionableurinary symptoms and elevated ANC) vs allergic vs nstemi/PE Check tsh -elevated, check t3/t4, however do not suspect myxedema -restart levothyroxine (patient has been noncompliant) Will check cortisol AM for adrenal insuff (patient had received decadron which would not interfere with lab) and prednisone for ?allergic component to be started after the lab draw in AM , but patient was on topical steroids. + troponin - trend up, start full dose lovenox, TTE, tele. Will get d-dimer - elevated will get CTPE- F/u blood/urine cultures. IV zosyn to cover urine/oral (will hold clindamycin oral) Check stool studies/c diff given loose stools and was on clinda (however has been chronic per patient) Maintain MAP > 60-65, f/u lactic acid -elevated Hold home b/p meds Cardio consult Admit IMU Addendum: prelim CTPE neg for acute PE mention (had chronic subsegmental PE left upper) also noted ?hyperdensity in gastric cardia (no abdominal/chest pain or hematemesis, or dark stools), I discussed with radiology as stable hemodynamics likely food particleas patient ate prior to testing, and hemodynamics stable. Will monitor for any changes in hemodynamics. F/u Hg stable. nstemi - type 1 vs 2 (sec to demand from hypotension) Aspirin, patient ? intolerant to statin Serial trop, tele, TTE Full dose Lovenox Cardio consult ?contact/allergic dermatitis - will do trail oral prednisone 40 mg -monitor b/s Need f/u with derm Benadryl prn htn -hold b/p meds given hypotention -hctz and losartan Dm2 - will hold actos/trajenta Will do lantus 20 bid, ISS hga1c Monitor b/s on oral steroids hypothyroidism - will restart synthroid 100 mcg (prior dose noted 125), patient was noncompliant states she had stopped x 6 months Need f/u outpatient tsh F/u t3/f4 Oral abscess - patient s/p drainage at OSH Will hold clindamycin (states has 4 days left) and IV zosyn Urinary retention -s/p rowe, consider voiding trial Need f/u with urology Prophylaxis: DVT- lovenox 40 mins cc time Advanced Care Planning ( Z71.89): Discussed with patient I spent 16 minutes discussing the advance care plan Level of comfort: home surrgote decision maker; Code Status: Full Tobacco User Z 71.6 No Non Tobacco User Z78.9 No Measure 130 Current Medications Current Facility-Administered Medications: acetaminophen (TYLENOL) tablet 650 mg, 650 mg, Oral, Q6HPRN, Sue Jerome, MANAGER SEMICONDUCTOR [START ON 02/06/2020] aspirin chewable tablet 81 mg, 81 mg, Oral, DAILY, Lori Jerome MD diphenhydrAMINE (BENADRYL) tablet 25 mg, 25 mg, Oral, Q6HPRN, Lori Jerome MD enoxaparin (LOVENOX) injection 60 mg, 1 mg/kg, Subcutaneous, Q12H, Lori Jerome MD, 60 mg at02/05/202135 insulin glargine (LANTUS U-100) injection 20 Units, 20 Units, Subcutaneous, QHS, Lori Jerome MD, 20 Units at 02/05/202135 [START ON 02/06/2020] levothyroxine (SYNTHROID) tablet 100 mcg, 100 mcg, Oral, QAM-0600, Lori Jerome MD NaCl 0.9% (NS) IV infusion 1,000 mL, 1,000 mL, IV Infusion, CONTINUOUS, Lori Jerome MD, Last Rate: 100 mL/hr at 02/05/202145, 1,000 mL at 02/05/202145 ondansetron (ZOFRAN (PF)) injection 4 mg, 4 mg, Slow IV Push, Q6HPRN, Lori Jerome MD piperacillin-tazobactam (ZOSYN) 3.375 g in NaCl 0.9% (NS) 100 mL MINI-BAG, 3.375 g, IV Piggyback, Q6H ABX, Lori Jerome MD, 3.375 g at 02/05/202136 [START ON 02/06/2020] predniSONE (DELTASONE) tablet 40 mg, 40 mg, Oral, DAILY, Lori Jerome MD Sliding Scale Insulin - Aspart (NOVOLOG) + Fsbg Testing, , Subcutaneous, TID MEALS+HS, Sue Jerome FNP, Stopped at 02/05/20 2100 traMADoL (ULTRAM) tablet 50 mg, 50 mg, Oral, Q8HPRN, Sue Jerome FNP Measure 317 BP Readings from Last 1 Encounters: 02/05/20 107/55 [place] HUMAN RESOURCE ASSISTANT was reviewed The above diagnosis and plan was discussed with the patient and was agreed upon Lori Jerome M.D. Internal Medicine Employee ID #: [id number] documented in this encounter Consult Notes Aliyah Villarreal, RD - 02/07/2020 2:25 PM CDT MEDICAL NUTRITION THERAPY- CONSULT NOTE: Reason For Consultation: cmo & president for positive initial nutrition screen: Severe disease severity, age Malnutrition Assessment: Nutritional Diagnosis: None SGA Rating: Well-Nourished, Normal Plan: Diabetic diet education Admission Chief Complaint: had concerns including Allergic reaction. Present on Admission: Sepsis PMH/PSH: has a past medical history of Diabetes mellitus, Hypertension, Other and unspecified hyperlipidemia, and Thyroid disease. has a past surgical history that includes hysterectomy and cholecystectomy. GI and Nutrition Related Findings: Symptoms: N/A Difficulty: N/A GI tract alteration: N/A Alternative means of nutrition: N/A General: N/A Medications: Current Facility-Administered Medications: [START ON 02/08/2020] enoxaparin (LOVENOX) injection 40 mg, 40 mg, Subcutaneous, DAILY, Trip Mancera MD famotidine 20 mg in NS 50 ml (PEPCID) 20 mg/50 mL Piggyback 20 mg, 20 mg, IV Piggyback, Q12H, Sue Jerome FNP, 20 mg at 02/07/20 0751 hydrocortisone 2.5 % cream, , Topical (Apply To Affected Areas), BID, Sue Jerome FNP hydrOXYzine (ATARAX) tablet 10 mg, 10 mg, Oral, Q6H, Sue Jerome FNP, 10 mg at 02/07/20 1208 acetaminophen (TYLENOL) tablet 650 mg, 650 mg, Oral, Q6HPRN, Sue Jerome FNP aspirin chewable tablet 81 mg, 81 mg, Oral, DAILY, Lori Jerome MD, 81 mg at 02/07/20 0750 diphenhydrAMINE (BENADRYL) tablet 25 mg, 25 mg, Oral, Q6HPRN, Lori Jerome MD, 25 mg at 02/06/20 1455 insulin glargine (LANTUS U-100) injection 20 Units, 20 Units, Subcutaneous, QHS, Lori Jerome MD, 20 Units at 02/06/202004 levothyroxine (SYNTHROID) tablet 100 mcg, 100 mcg, Oral, QAM-0600, Lori Jerome MD, 100 mcg at 02/07/20 0514 NaCl 0.9% (NS) IV infusion 1,000 mL, 1,000 mL, IV Infusion, CONTINUOUS, Lori Jerome MD, Last Rate: 100 mL/hr at 02/06/202101, 1,000 mL at 02/06/202101 ondansetron (ZOFRAN (PF)) injection 4 mg, 4 mg, Slow IV Push, Q6HPRN, Lori Jerome MD piperacillin-tazobactam (ZOSYN) 3.375 g in NaCl 0.9% (NS) 100 mL MINI-BAG, 3.375 g, IV Piggyback, Q6H ABX, Lori Jerome MD, 3.375 g at 02/07/20 1039 predniSONE (DELTASONE) tablet 40 mg, 40 mg, Oral, DAILY, Lori Jerome MD, 40 mg at 02/07/20 0750 Sliding Scale Insulin - Aspart (NOVOLOG) + Fsbg Testing, , Subcutaneous, TID MEALS+HS, Sue Jerome FNP, 1 Units at 02/07/20 1209 traMADoL (ULTRAM) tablet 50 mg, 50 mg, Oral, Q8HPRN, Sue eJrome FNP Lab and Medical Test Results: NA (mmol/L) Date Value 02/07/2020 136 K (mmol/L) Date Value 02/07/2020 3.4 (L) CALCIUM (mg/dL) Date Value 02/07/2020 7.9 (L) CL (mmol/L) Date Value 02/07/2020 107 BUN (mg/dL) Date Value 02/07/2020 14 CREATININE (mg/dL) Date Value 02/07/2020 0.54 GLUCOSE (mg/dL) Date Value 02/07/2020 163 (H) CO2 TOTAL (mmol/L) Date Value 02/07/2020 24 ALBUMIN (g/dL) Date Value 02/05/2020 2.7 (L) T PROTEIN (g/dL) Date Value 02/05/2020 5.5 (L) TOTAL BILI (mg/dL) Date Value 02/05/2020 0.9 No results found for: BILIUNCON No results found for: BILICONJ ALTv (U/L) Date Value 02/05/2020 17 AST(SGOT) (U/L) Date Value 02/05/2020 52 (H) ALK PHOS (U/L) Date Value 02/05/2020 107 Results for LETICIA HARPER ( ) as of 02/07/2020 14:28 Ref. Range 02/05/2020 15:07 HGB A1C Latest Ref Range: 4.0 - 6.0 % 9.2 (H) Results for LETICIA HARPER ( ) as of 02/07/2020 14:28 Ref. Range 02/05/2020 15:07 CHOL Latest Ref Range: 120 - 200 mg/dL 215 (H) Results for LETICIA HARPER ( ) as of 02/07/2020 14:28 Ref. Range 02/05/2020 15:07 TRIG Latest Ref Range: 30 - 170 mg/dL 283 (H) Results for LETICIA HARPER ( ) as of 02/07/2020 14:28 Ref. Range 02/05/2020 15:07 HDL CHOL Latest Ref Range: >50 mg/dL 23 (L) Results for LETICIA HARPER ( ) as of 02/07/2020 14:28 Ref. Range 02/05/2020 15:07 LDL CHOL Latest Ref Range: <=160 mg/dL 135 Results for LETICIA HARPER ( ) as of 02/07/2020 14:28 Ref. Range 02/05/2020 15:07 VLDL Latest Ref Range: 5 - 60 mg/dL 57 Nutrition Assessment: Age: [age] year old Sex: female Ht: Ht Readings from Last 3 Encounters: 02/05/20 1.549 m (5' 1") Current Wt: Wt Readings from Last 1 Encounters: 02/05/20 59 kg (130 lb) BMI: Body mass index is 24.56 kg/m. (Normal) IBW for Ht: 47.72 kg +/- 4.7 kg %IBW: 124% Weight History: Wt Readings from Last 10 Encounters: 02/05/20 59 kg (130 lb) Inflammatory Markers: Hyperglycemia Current Dietary Order(s): Orders Placed This Encounter Procedures 1800 Calorie Diabetic Consistent Carbohydrates Diet - includes HS Snack; Texture: Regular. EMR Documented Food Allergies/Intolerance/Cultural Preferences: Allergies Allergen Reactions Fcxgfuc-Whk-Qiz Reductase Inhibitors Other - See comments Home health reported patient allergy Sulfa (Sulfonamide Antibiotics) Rash Nutrition & Diet History: Patient is eating all of her meals with no difficulties. Per patient, she weighed 119 lbs within thelast month, indicating possible weight gain. Ms. Harper tries to eat small consistent carbohydrate meals at home while checking her blood sugar levels at least 2 times per day. She requested information on a diabetic diet. RD reviewed patient's labs, and will continue to monitor. Education: Handouts from the Nutrition Care Manual -Type 2 Diabetes Nutrition Therapy: topics reviewed included: the importance of keeping carbohydrates consistent throughout the day, fiber rich foods, and frequent blood sugar checks, as well as what foods have carbohydrates, how to count carbohydrates, how many to have at each meal/ snack, and examples of low carbohydrate foods. A sample food list with foods containing 1 serving of carbohydrates (15g), and a sample menu was included. - Using Nutrition Labels: Carbohydrates: Reviewed how to read a nutrition label. Patient acknowledged education, and feels ready to continue following a consistent carbohydrate diet at home. Her does most of the shopping and she will go over the handouts with him once home. Calculated Daily Nutritional Needs: Calories: 1500 kcal/day = 25 kcal/kg current wt = 31 kcal/kg IBW = MSJ x 1.5 Protein: 20 % of kcal need/day = 75 g/day = 1.3 g/kg current wt = 1.6 g/kg IBW Carbohydrates: 45-50% of kcal need/day = 172-188 g/day (11.5-12.5 choices) Fluid: 2328-3790 mL/day (25-30 mL/kg CBW); or per MD; adjust per acute needs Nutrition Diagnosis: PES #1: Altered nutrition related laboratory values related to type 2 diabetes/ steroid use as evidenced by A1c of 9.2% and elevated blood glucose levels Nutrition Intervention(s): Interventions: 1. Recommend continue the current diet order 2. Recommend daily weights 3. Diabetic diet education 4. Will monitor diet tolerance, intake, GI function, and nutrition related labs Goals: 1. The pt's documented intake is no less than 75% of provided meals 2. Target blood glucose range of <180 mg/dL D/C Planning: Consistent carbohydrate diet with 3-5 servings of carbohydrates at each meal, and 1-2 servings of carbohydrates at each snack for no more than 12.5 choices per day. Limit added/ refined sugar. Focus on whole grains, lean proteins, low fat dairy, and fruits/ vegetables. Nutrition Monitoring and Evaluation: A registered dietitian will f/u in 5-7 days to report nutrition related information and to revise the recommended nutrition intervention(s) if necessary; please page with questions or concerns, thank-you. Aliyah Villarreal RD,BRAYAN RD Office: [phone] signed by Aliyah Villarreal RD at 02/07/2020 2:43 PM Carey Villela - 02/07/2020 1:10 PM CDTAssociated Order(s): CONSULT PS PASTORAL CAREEncounter: Visited with patient due to pastoral care consult Anabaptist: Scientologist Assessment: Patient reports supportive relationships with and children as well as her cristine community. Intervention: Listening presence Patient accepted prayer when offered. Outcome: Patient shared some of her medical and ministry narrative. Patient expressed gratitude for life experiences and important relationships. Plan of Care: No further visit needed at this time but future follow-up is available if desired. Family Assessment: [place] Golden Nilda Velasco, PT - 02/07/2020 10:14 AM CDTAssociated Order(s): CONSULT ADULT PHYSICAL THERAPY Patient agreeable to working with physical therapy. Patient met Semi reclined in bed. PHYSICAL THERAPY EVALUATION Consult received, chart reviewed and evaluation complete this date. Patient is referred to PT for evaluation and treatment. Patient is a 84 year old female who presents to hospital for SEPSIS; HYPOTENSION; ALLERGIC REACTION; UTI . Discharge Recommendations: Therapy Needs and Potential: Patient demonstrates good potential to improve and meet therapy goals with further physical therapy services. Challenges to Home Transition: increased risk of falls decreased safety awareness Equipment recommendations: rolling walker Current Functional Status and/or Treatment:Functional mobility training, Transfer training, Gait training, Patient/Family/Caregiver education and Therapeutic exercise Bed Mobility: Supine to sit: Moderate assist Scooting to edge of bed: Moderate assist Sit to supine: Moderate assist. Transfers: Sit to stand: Moderate assist using Rolling Walker Stand to sit: Moderate assist using Rolling Walker Verbal cueing provided for correct hand placement and correct use of AD Ambulation: Assisted patient with ambulation as follows: 6 feet using Rolling Walker and Moderate assist. Therapeutic exercise: patient/caregiver verbalizes understanding of instructions. After session, patient Up in chair. Call button provided. Patient nurse was notified as to patient current situation. B/P Supine: 120/62 Sittin/80 After few steps (sitting): 124/58 PLAN OF CARE: At least 2 times per week, once or twice a day (while in hospital) per patient's tolerance and medical needs. See below for complete details. Admit Date: 02/05/2020 Hospital Diagnosis:SEPSIS; HYPOTENSION; ALLERGIC REACTION; UTI PT Diagnosis: Difficulty walking and Weakness Weight Bearing Precaution: NA General Precautions: PPE used:Gloves and Surgical mask, General, Fall Bracing/Cast present or required:N/A PMH: Past Medical History: Diagnosis Date Diabetes mellitus Hypertension Other and unspecified hyperlipidemia Thyroid disease PSH: Past Surgical History: Procedure Laterality Date CHOLECYSTECTOMY HYSTERECTOMY Prior Living Situation: lives with their spouse and house DME: No device Prior level of Mobility: community ambulation Subjective: Patient stated that she has itch all over her body and both lower leg hurts. Patient/Family Goals: To get stronger and go home. Patient/Family verbalizes understanding of condition: Yes PAIN: -Pain Location: both lower leg -Pain rating before treatment: does not rate, After treatment: does not rate -Pain Management: Patient denies need for pain meds COMMUNICATION Primary Language: Icelandic Able to Verbalize needs: Yes Vision:good; no issues reported Hearing:good; no issues reported ORIENTATION/COGNITION: Oriented to: person and place Awake: Yes Alert: Yes Dizzy: not much Follows Commands: Yes 1-Step Yes Multi-Step Yes Inconsistent: No NEUROLOGICAL Light Touch: within functional limits bilateral LE Heel to cain: NT Tone: Normal BALANCE: Sitting: Static: Good Dynamic: Good Standing: Static: Fair+ Dynamic: NT RANGE OF MOTION: within functional limits bilateral LE STRENGTH: 4-/5 (G-), bilateral LE ENDURANCE: NT SKIN INTEGRITY: rashes -like all over her body PROBLEM LIST: Decline in bed mobility, Decline in gait, Decline in transfers, Decreased strength andSafety awareness deficits ASSESSMENT: Patient is a 84 year old female seen secondary to the above listed diagnosis. Patient would benefit from continued PT to address the above listed deficits to maximize independence and safety with functional mobility. Rehabilitation Potential: good Goals: The following goals are to maximize independence and safety with functional mobility to eventually return to prior living situation and prior functional status. Upon discharge, patient and/or family will demonstrate the followin. Supine to sit: Modified independent Scooting to edge of bed: Modified independent Sit to supine: Modified independent 2. Sit to stand: Modified independent using Rolling Walker Stand to sit: Modified independent using Rolling Walker 3. Modified independent with ambulation, Feet: 200 using least assistive device. 4. Demonstrate or verbalize understanding of home exercise program in order to continue with their rehab on their own. Treatment Plan: Gait training, Therapeutic exercise, Transfer training, Bed mobility training and Safety education, patient/caregiver education PATIENT EDUCATION: Patient provided with preferred teaching of verbal information on role of PT, plan of care. Shows readiness to learn. Verbal instruction teaching provided. Individual is able to readand verbalizes understanding of teaching provided. Nilda Friend,PT [place] License: [id number] Required Components in Determining Evaluation Level History: No personal factors or comorbidities: No (28402) 1-2 personal factors and/or comorbidities: Yes (91150) 3 or more personal factors and/ or comorbidities: No (06978) Examination of Body System(s) Addressing 1-2 elements: Yes (25821) Addressing a total of 3 or more elements: No (62370) Addressing a total of 4 or more elements: No (28272) Clinical Presentation Stable: Yes (00542) Evolving: No (60454) Unstable: No (00923) Clinical Decision Making (Complexity) Low: Yes (04660) Moderate: No (76113) High: No (55600) Madhavi Petersen MD - 02/06/2020 6:54 PM CDTAssociated Order(s): CONSULT CARDIOLOGY [facility] Cardiology Consult Note Patient: Leticia Harper Date of : 1935 Date of service: 02/06/2020 Primary Care Physician: Archie Navarro CHIEF COMPLAINT: Chief Complaint Patient presents with Allergic reaction HISTORY OF PRESENT ILLNESS: Leticia Harper is a 84 year old female presented to the ER for evaluation for low BP. History from patient. Patient seen and examined in the room. Pertinent cardiac related history reviewed from chart. Cardiology was consulted secondary to elevated trop. Presents due to hypotension. Patient states that 2 weeks ago she has been tx at OSH in [place] for tooth abscess in [facility] she states was drained and patient was put on clindamycin during that time. During that hospitalization she also had urinary retention in which she had rowe cath placed x 2 weeks However x 3 days she started to notice getting an generalized itchy rash in her back/front of chest,b/l arms, and legs. In addition x 2 days her b/p noted to be on the lower side sbp 80's with lightheadedness/dizziness she denied any syncope, in which she stated her HH had checked today also and was low, in ER was 80/40's. EMS called in which she had received x 1 epi and benadryl for possible allergic reaction, in ER she received decadron x 1 and fluid bolus and pepcid. ANGLIN NYHA Class II. No history of exertional chest pain. No chest pain at rest. No PND or orthopnea. No pedal edema. Noexertional palpitations or palpitations at rest. No syncopal attacks. PMH of T2DM, HTN, urinary retention (has a rowe x 2 weeks) Previous Cardiac Studies: IMAGING - I personally reviewed, pertinent results as below: ECG 01/2020 Sinus rhythm with 1st degree A-V block Low voltage QRS Septal infarct age undetermined Possible Lateral infarct age undetermined CXR 01/2020 IMPRESSION No acute cardiopulmonary abnormality CT PE 01/2020 IMPRESSION 1. 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 2. Hyperdensity in the gastric cardia, may represent hyperdense food particles or contrast extravasation. Clinical correlation with history of hematemesis is recommended. 3. Moderate-sized hiatal hernia PAST MEDICAL HISTORY Past Medical History: Diagnosis Date Diabetes mellitus Hypertension Other and unspecified hyperlipidemia Thyroid disease Past Surgical History: Procedure Laterality Date CHOLECYSTECTOMY HYSTERECTOMY No family history on file. SOCIAL HISTORY Social History Socioeconomic History Marital status: Spouse name: Zach Harper Number of children: 3 Years of education: Not on file Highest education level: Associate degree: academic program Occupational History Not on file Social Needs Financial resource strain: Not hard at all Food insecurity Worry: Never true Inability: Never true Transportation needs Medical: No Non-medical: No Tobacco Use Smoking status: Never Smoker Smokeless tobacco: Never Used Substance and Sexual Activity Alcohol use: No Drug use: Not on file Sexual activity: Not on file Lifestyle Physical activity Days per week: Not on file Minutes per session: Not on file Stress: Not on file Relationships Social connections Talks on phone: Not on file Gets together: Not on file Attends orthodoxy service: Not on file Active member of club or organization: Not on file Attends meetings of clubs or organizations: Not on file Relationship status: Not on file Intimate partner violence Fear of current or ex partner: Not on file Emotionally abused: Not on file Physically abused: Not on file Forced sexual activity: Not on file Other Topics Concern Not on file Social History Narrative Not on file ALLERGIES Allergies Allergen Reactions Zfvavqs-Poq-Mrn Reductase Inhibitors Other - See comments Home health reported patient allergy Sulfa (Sulfonamide Antibiotics) Rash MEDICATIONS Current Discharge Medication List STOP taking these medications glyBURIDE-metformin (GLUCOVANCE) 5-500 mg tablet Comments: Reason for Stopping: losartan-hydrochlorothiazide (HYZAAR) 100-25 mg per tablet Comments: Reason for Stopping: ONE TOUCH DELICA 33 gauge Misc Comments: Reason for Stopping: ONE TOUCH ULTRA TEST strip Comments: Reason for Stopping: raloxifene (EVISTA) 60 mg tablet Comments: Reason for Stopping: ASPIRIN (ASPIR-81 ORAL) Comments: Reason for Stopping: EVISTA 60 mg tablet Comments: Reason for Stopping: levothyroxine (SYNTHROID) 125 mcg tablet Comments: Reason for Stopping: metFORMIN (GLUCOPHAGE) 1,000 mg tablet Comments: Reason for Stopping: metoprolol succinate XL (TOPROL XL) 50 mg 24 hr tablet Comments: Reason for Stopping: simvastatin (ZOCOR) 20 mg tablet Comments: Reason for Stopping: Current Facility-Administered Medications: famotidine 20 mg in NS 50 ml (PEPCID) 20 mg/50 mL Piggyback 20 mg, 20 mg, IV Piggyback, Q12H, Sue Jerome FNP, Stopped at 02/06/201999 hydrocortisone 2.5 % cream, , Topical (Apply To Affected Areas), BID, Sue Jerome FNP hydrOXYzine (ATARAX) tablet 10 mg, 10 mg, Oral, Q6H, Sue Jerome FNP, 10 mg at 02/06/20 1735 acetaminophen (TYLENOL) tablet 650 mg, 650 mg, Oral, Q6HPRN, Sue Jerome FNP aspirin chewable tablet 81 mg, 81 mg, Oral, DAILY, Lori Jerome MD, 81 mg at 02/06/20 0804 diphenhydrAMINE (BENADRYL) tablet 25 mg, 25 mg, Oral, Q6HPRN, Lori Jerome MD, 25 mg at 02/06/20 1455 enoxaparin (LOVENOX) injection 60 mg, 1 mg/kg, Subcutaneous, Q12H, Lori Jerome MD, 60 mg at02/06/20 0804 insulin glargine (LANTUS U-100) injection 20 Units, 20 Units, Subcutaneous, QHS, Lori Jerome MD, 20 Units at 02/05/20 2136 levothyroxine (SYNTHROID) tablet 100 mcg, 100 mcg, Oral, QAM-0600, oLri Jerome MD, 100 mcg at 02/06/20 0513 NaCl 0.9% (NS) IV infusion 1,000 mL, 1,000 mL, IV Infusion, CONTINUOUS, Lori Jerome MD, Last Rate: 100 mL/hr at 02/06/20 1600 ondansetron (ZOFRAN (PF)) injection 4 mg, 4 mg, Slow IV Push, Q6HPRN, Lori Jerome MD piperacillin-tazobactam (ZOSYN) 3.375 g in NaCl 0.9% (NS) 100 mL MINI-BAG, 3.375 g, IV Piggyback, Q6H ABX, Lori Jerome MD, 3.375 g at 02/06/20 1631 predniSONE (DELTASONE) tablet 40 mg, 40 mg, Oral, DAILY, Lori Jerome MD, 40 mg at 02/06/20 0804 Sliding Scale Insulin - Aspart (NOVOLOG) + Fsbg Testing, , Subcutaneous, TID MEALS+HS, Sue Jerome FNP, 2 Units at 02/06/20 1642 traMADoL (ULTRAM) tablet 50 mg, 50 mg, Oral, Q8HPRN, Sue Jerome FNP REVIEW OF SYSTEMS: Comprehensive 10-system review was conducted and were negative except for what's noted in the HPI. The following systems were reviewed: Constitutional, cardiovascular, respiratory, gastrointestinal, genitourinary, musculoskeletal, neurologic, psychiatric, endocrinological, and hematological. PHYSICAL EXAMINATION: Vitals: 02/06/20 1400 02/06/20 1532 02/06/20 1600 02/06/20 1800 BP: 105/53 106/54 110/58 115/56 Pulse: 92 93 96 Resp: Temp: 36.5 C (97.7 F) TempSrc: Oral SpO2: 96% 96% 97% Weight: Height: General: no apparent distress HEENT: normocephalic atraumatic Neck: supple, no lymphadenopathy, no bruits, no JVD Lungs: clear to auscultation bilaterally. No wheezes or rhonchi. No increased work of breathing. Cardio: Regular rate and rhythm, S1&S2 normal, no murmurs, rubs or gallops Abdomen: soft; non-tender; non-distended; normoactive bowel sounds. : not examined Rectal: not examined Extremities: no clubbing, cyanosis, or edema. Skin: no rashes, no visible lesions. Neuro: no gross focal deficits LABS - Reviewed pertinent labs as below: CBC BMP PT/INR WBC (10*3/L) Date Value 02/06/2020 11.29 (H) NA (mmol/L) Date Value 02/06/2020 135 No results found for: PT PLT (10*3/L) Date Value 02/06/2020 254 K (mmol/L) Date Value 02/06/2020 3.3 (L) No results found for: PTINR HGB (g/dL) Date Value 02/06/2020 12.3 BUN (mg/dL) Date Value 02/06/2020 17 HCT (%) Date Value 02/06/2020 37.5 CREATININE (mg/dL) Date Value 02/06/2020 0.52 LIPID PROFILE GLUCOSE (mg/dL) Date Value 02/06/2020 83 CHOL (mg/dL) Date Value 02/05/2020 215 (H) TSH LDL CHOL (mg/dL) Date Value 02/05/2020 135 TSH (mIU/L) Date Value 02/05/2020 13.40 (H) CARDIAC ENZYMES HDL (mg/dL) Date Value 02/05/2020 23 (L) No results found for: CK TRIG (mg/dL) Date Value 02/05/2020 283 (H) LFTs No results found for: CKMB AST(SGOT) (U/L) Date Value 02/05/2020 52 (H) TROPONIN I (ng/mL) Date Value 02/06/2020 0.467 (H) ALTv (U/L) Date Value 02/05/2020 17 No results found for: BNP LDL CHOL (mg/dL) Date Value 02/05/2020 135 Recent Labs 02/06/20 0358 TROPNI 0.467* Recent Labs 02/05/20 1507 TRIG 283* LDL CHOL (mg/dL) Date Value 02/05/2020 135 NT-proBNP (pg/mL) Date Value 02/05/2020 169 ASSESSMENT/PLAN Active Problems: Sepsis Elevated troponin I level Essential hypertension Hypotension Dyslipidemia Type 2 diabetes mellitus with other specified complication Elevated trop: Likely Type 2 CT. No chest pain or dynamica ECG changes noted Continue with full dose Lovenox for now and ASA 81 mg daily. ECG shows no dynamic changes noted. Recommend Serial trop X 2, Echo to assess to EF and wall motion changes. Tele monitoring. Hypotension: Resolved. Likely related to vasodilation/sepsis. Will monitor. History of HTN: Holding off home dose of Losartan/HCTZ and Toprol XL for now Dyslipidemia: holding home dose of Zocor 40. Restart from acceptable. T2DM: as per primary team. Primary folder inspector: Dr Cedeño. Thank you for allowing us to participate in the care of Leticia Harper. If you have any questions or concerns please feel free to call our office at [phone]. I would be happy to be of further assistance for Leticia Harper wellbeing. Héctor Giles MD Enterprise Mobility Architect, Division of Cardiology [facility] documented in this encounter ED Notes Danii Krause RN - 02/05/2020 2:45 PM CDTSystemic rash, itching x3 days. Patient recently started Basaglar for insulin. 0.3mg subq epi given left arm, benadryl 50mg PIV administered by EMS. EMS state patient SpO2 decreased to 88% post epi administration, they placed nasal cannula which increased to 93%. Francisco Menendez FNP - 02/05/2020 2:37 PM CDT [facility] Emergency Department Note Patient Name: Leticia Harper Date of : 1935 84 year old female Treatment Room: OK4/OK4 Primary Care Physician: Archie Navarro Patient Escorted by: Self [9] Mode of Arrival: EMS - [place] [51] EMS Treatment Prior to ED Arrival: Travel and Exposure Screening: Symptoms Does patient have any of these symptoms?: (not recorded) Exposure Screening Has patient had contact with someone with a communicable disease in the last month?: (not recorded) Diseases exposed to:: (not recorded) Is Patient ?: (not recorded) Exposure Date: (not recorded) Chief Complaint: Chief Complaint Patient presents with Allergic reaction History of Present Illness: Patient took benadryl 50 CRANE HOOKER Ems gave 0.3mg epi IM, benadryl IV 50mg CRANE HOOKER Patient had surgery for abscess on jaw 2 weeks ago at [facility] on [address] Since surgery patient has been on clindamycin Patient reports after surgery her electrolytes and blood sugar have been out of control and they started her on a new insulin. Patient now has rash and itching for 3 days. Home health nurse called ems due to low BP. Patient arrived with pulse ox 88% but well appearing patient placed on NRB and pulse ox to 100%. Likely vasoconstriction from epi given. 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 Allergic reaction Presenting symptoms: itching and rash Presenting symptoms: no difficulty breathing and no difficulty swallowing Severity: Severe Duration: 3 days Context: medications Relieved by: Nothing Worsened by: Nothing Ineffective treatments: Antihistamines Past Medical History/Immunizations: Past Medical History: Diagnosis Date Diabetes mellitus Hypertension Other and unspecified hyperlipidemia Thyroid disease Tetanus received in last 5 years: Unknown Childhood immunizations: Up-to-date Allergies: Allergies Allergen Reactions Blecczt-Fyz-Dpi Reductase Inhibitors Other - See comments Home health reported patient allergy Sulfa (Sulfonamide Antibiotics) Rash Past Social History: Tobacco Use Never Smoker. Alcohol Use No. Past Surgical History: Past Surgical History: Procedure Laterality Date CHOLECYSTECTOMY HYSTERECTOMY Review of Systems: Review of Systems Constitutional: Negative. HENT: Negative. Negative for trouble swallowing. Eyes: Negative. Respiratory: Negative. Cardiovascular: Negative. Gastrointestinal: Negative. Genitourinary: Negative. Musculoskeletal: Negative. Skin: Positive for itching and rash. Pruritis Neurological: Positive for weakness. Psychiatric/Behavioral: Negative. Endocrine: Endocrine negative Physical Exam: ED Triage Vitals Weight 02/05/20 1445 56.7 kg (125 lb) Actual or estimated 02/05/20 1445 Estimated by patient/family report Height -- BP 02/05/20 1445 (!) 80/46 Pulse 02/05/20 1445 91 Resp 02/05/20 1445 20 Temp 02/05/20 1449 36.6 C (97.8 F) Temp source 02/05/20 1449 Oral SpO2 02/05/20 1445 100 % Measured on 02/05/20 1445 On oxygen Physical Exam Constitutional: General: She is not in acute distress. Appearance: She is well-developed. She is not toxic-appearing or diaphoretic. HENT: Head: Normocephalic. Mouth/Throat: Mouth: Mucous membranes are dry. Pharynx: No oropharyngeal exudate. Eyes: Pupils: Pupils are equal, round, and reactive to light. Neck: Musculoskeletal: Normal range of motion. Cardiovascular: Rate and Rhythm: Normal rate and regular rhythm. Heart sounds: Normal heart sounds. Pulmonary: Effort: Pulmonary effort is normal. No respiratory distress. Breath sounds: Normal breath sounds. No wheezing or rales. Abdominal: General: Bowel sounds are normal. There is no distension. Palpations: Abdomen is soft. Tenderness: There is no abdominal tenderness. Musculoskeletal: Normal range of motion. Skin: General: Skin is warm and dry. Findings: Rash present. Rash is urticarial. Neurological: Mental Status: She is alert and oriented to person, place, and time. Cranial Nerves: No cranial nerve deficit. Psychiatric: Speech: Speech normal. Behavior: Behavior normal. Thought Content: Thought content normal. Judgment: Judgment normal. Radiology: Hospital Encounter on 02/05/20 XR CHEST 1 VW Narrative EXAM: XR CHEST 1 VW HISTORY: 84 years-old; Female; chest pain COMPARISON: none FINDINGS: Lungs/Pleura: The lungs are clear with no focal consolidation. There is no pleural effusion or pneumothorax. Heart/Mediastinum: The cardiomediastinal silhouette is normal. No acute osseous structure abnormality. Diffuse osteopenia is noted. Multilevel degenerative changes of the thoracic spine is noted. Impression No acute cardiopulmonary abnormality Preliminary Report Dictated by Resident: Owen Hankins I, Chago Ellis MD., have reviewed this study and agree with the above report. Lab Results (24h): Recent Results (from the past 24 hour(s)) Lactic Acid Whole Blood Collection Time: 02/05/20 3:05 PM Result Value Ref Range LACTIC ACID 2.42 mmol/L COMP. METABOLIC PANEL (35173) Collection Time: 02/05/20 3:07 PM Result Value Ref Range NA 131 (L) 135 - 145 mmol/L K 4.2 3.5 - 5.0 mmol/L CL 99 98 - 108 mmol/L CO2 TOTAL 25 23 - 31 mmol/L AGAP 7 2 - 16 BUN 24 (H) 7 - 23 mg/dL GLUCOSE 72 70 - 110 mg/dL CREATININE 0.51 0.50 - 1.04 mg/dL TOTAL BILI 0.9 0.1 - 1.1 mg/dL CALCIUM 8.1 (L) 8.6 - 10.6 mg/dL T PROTEIN 5.5 (L) 6.3 - 8.2 g/dL ALBUMIN 2.7 (L) 3.5 - 5.0 g/dL ALK PHOS 107 34 - 122 U/L ALTv 17 5 - 35 U/L AST(SGOT) 52 (H) 13 - 40 U/L eGFR Calculation (Non-) 115.5 mL/min/1.73m2 eGFR Calculation () 139.9 mL/min/1.73m2 N-TERMINAL PRO-BNP Collection Time: 02/05/20 3:07 PM Result Value Ref Range NT-proBNP 169 <=450 pg/mL TROPONIN I Collection Time: 02/05/20 3:07 PM Result Value Ref Range TROPONIN I 0.006 <=0.034 ng/mL URINALYSIS Collection Time: 02/05/20 3:07 PM Result Value Ref Range APPEARANCE Clear Clear COLOR Yellow Yellow PH 7.0 4.8 - 8.0 SP GRAVITY 1.009 1.003 - 1.030 GLU U QUAL Normal Normal BLOOD 2+ (A) Negative KETONES Negative Negative PROTEIN Negative Negative UROBILIN Normal Normal BILIRUBIN Negative Negative NITRITE Positive (A) Negative LEUK KIMMY 500/uL (A) Negative RBC/HPF 7 (H) 0 - 3 HPF WBC/HPF 68 (H) 0 - 5 HPF BACTERIA Many (A) Negative MUCOUS Slight (A) Negative LPF SQ EPITH <1 HPF YEAST BUD 4 (H) <=1 HPF HYAL CAST 3 (H) <=2 LPF LIPASE Collection Time: 02/05/20 3:07 PM Result Value Ref Range LIPASE 78 0 - 220 U/L COVID-19 (ID NOW RAPID TESTING) Collection Time: 02/05/20 3:18 PM Specimen: NASOPHARYNGEAL SWAB Result Value Ref Range SARS-CoV-2 Rapid ID NOW Not Detected Not Detected EKG: Reviewed by Dr. Martínez Sinus rhythm with 1st degree AV block Rate 88 NJ 210 QRS 72 QT/QTc 380/459 Comparison with prior EKG: none available Orders and Treatments: Orders Placed This Encounter Procedures XR CHEST 1 VW CBC WITH DIFF COMP. METABOLIC PANEL (71568) N-TERMINAL PRO-BNP TROPONIN I URINALYSIS BLOOD CULTURE SCREEN BLOOD CULTURE SCREEN Lactic Acid Whole Blood Lactic Acid Whole Blood LIPASE URINE CULTURE COVID-19 (ID NOW RAPID TESTING) O2 Per Protocol Consult Evaluation Orders Placed This Encounter Medications NaCl 0.9% (NS) bolus infusion 1,701 mL dexamethasone (DECADRON PHOSPHATE) injection 10 mg famotidine (PEPCID (PF)) injection 20 mg cefTRIAXone (ROCEPHIN) 1,000 mg in NaCl 0.9% (NS) 50 mL MINI-BAG NaCl 0.9% (NS) IV infusion 1,000 mL ED COURSE ED Course as of Feb 05 1628 Sat Feb 05, [id number] Discussed with dr. Gould, accepted for admission IMU, allergic reaction vs sepsis. [KM] ED Course User Index [KM] Francisco Flores FNP MDM:hypotension not responsive to epi by EMS Allergic reaction vs sepsis? UTI- rocephin started IVF helped BP to systolic of 108 Patient well appearing with diffuse rash- denies CP, trouble breathing or swallowing. Admit to IMU - accepted by dr. Gould. Coding Diagnosis/Impression: ICD-10-CM ICD-9-CM 1. Hypotension, unspecified hypotension type I95.9 458.9 2. Allergic reaction to drug, initial encounter T78.40XA 995.27 3. Rash R21 782.1 4. Sepsis, due to unspecified organism, unspecified whether acute organ dysfunction present A41.9 038.9 995.91 5. Urinary tract infection associated with indwelling urethral catheter, initial encounter T83.655V420.64 N39.0 599.0 Disposition/Condition: ED Disposition ED Disposition Condition Comment Admit - Inpatient Stable Is this patient COVID positive or a patient under investigation (PUI)?: No Treatment Team: [facility] [[id number]] Primary reason for admission: Sepsis [016101] Secondary reason for admission: Hypotension [207337] Secondary reason for admission: Allergic reaction [[id number]] Secondary reason for admission: UTI (urinary tract infection) [365280] Is (or was) this a planned re-admission?: No My concerns are:: hypoxia My concerns are:: dehydration My concerns are:: need for cardiac monitoring My concerns are:: electrolyte imbalance My concerns are:: lab monitoring My concerns are:: cardiac instability My concerns are:: need for IV therapies My concerns are:: risk of mortality My concerns are:: risk of morbidity My concerns are:: need for invasive procedure My concerns are:: need for invasive monitoring The risks to the patient are: morbidity or mortality in the short term The risks to the patient are: high risk of medical event The risks to the patient are: need for urgent or emergent investigation The risks to the patient are: high risk of deterioration in health status Expected length of stay: At least 2 midnights Expected discharge disposition: Home Self Care Certification: I certify the inpatient services are medically necessary and in accordance with Medicare regulations. Discharge Medications: Patient's Medications START taking these medications No medications on file CONTINUE taking these medications which have NOT CHANGED ASPIRIN (ASPIR-81 ORAL) Take 81 mg by mouth daily. EVISTA 60 MG TABLET GLYBURIDE-METFORMIN (GLUCOVANCE) 5-500 MG TABLET LEVOTHYROXINE (SYNTHROID) 125 MCG TABLET LOSARTAN-HYDROCHLOROTHIAZIDE (HYZAAR) 100-25 MG PER TABLET METFORMIN (GLUCOPHAGE) 1,000 MG TABLET METOPROLOL SUCCINATE XL (TOPROL XL) 50 MG 24 HR TABLET ONE TOUCH DELICA 33 GAUGE MISC ONE TOUCH ULTRA TEST STRIP RALOXIFENE (EVISTA) 60 MG TABLET Take 60 mg by mouth daily. SIMVASTATIN (ZOCOR) 20 MG TABLET START taking Modified Medications as Prescribed No medications on file STOP taking these medications No medications on file Follow-up: Electronically signed by: RICH Younger 02/05/2020 3:02 PM Associated attestation - Aaron Martínez MD - 02/05/2020 6:33 PM CDTOn the date of service, I reviewed the patients history, exam findings, diagnostic and any interventions or procedures in detail of the assigned advance practice provider and was available for consultation. Aaron Martínez Jr., MD Clinical Enterprise Mobility Architect [facility] Emergency Department documented in this encounter Miscellaneous Notes Care Plan - Sue Cohen RN - 02/09/2020 12:20 AM CDT Problem: Respiratory Function - Impaired Goal: Adequate work of breathing Outcome: Progressing as expected Problem: Pain Goal: Control of pain at or below patient's documented comfort goal Outcome: Progressing as expected Goal: Reduction in pain sensation Outcome: Progressing as expected Problem: Falls, Risk of Goal: Absence of falls Outcome: Progressing as expected Problem: Discharge Planning Goal: Absence of venous thromboembolism Outcome: Progressing as expected Goal: Adequate for discharge Outcome: Progressing as expected Goal: Effective communication Outcome: Progressing as expected Problem: Respiratory Function - Impaired Goal: Adequate oxygenation Outcome: Progressing as expected are Rubi Paige RN - 02/08/2020 1:45 PM CDT Problem: Respiratory Function - Impaired Goal: Adequate work of breathing Outcome: Progressing as expected Problem: Respiratory Function - Impaired Goal: Adequate oxygenation Outcome: Progressing as expected Problem: Pain Goal: Control of pain at or below patient's documented comfort goal Outcome: Progressing as expected Goal: Reduction in pain sensation Outcome: Progressing as expected Problem: Falls, Risk of Goal: Absence of falls Outcome: Progressing as expected Problem: Discharge Planning Goal: Absence of venous thromboembolism Outcome: Progressing as expected Goal: Adequate for discharge Outcome: Progressing as expected Goal: Effective communication Outcome: Progressing as expected Problem: Discharge Planning Goal: Adequate for discharge Outcome: Progressing as expected sarah Reece - Sue Cohen RN - 02/08/2020 1:48 AM CDT Problem: Respiratory Function - Impaired Goal: Adequate work of breathing Outcome: Progressing as expected Problem: Pain Goal: Control of pain at or below patient's documented comfort goal Outcome: Progressing as expected Goal: Reduction in pain sensation Outcome: Progressing as expected Problem: Falls, Risk of Goal: Absence of falls Outcome: Progressing as expected Problem: Discharge Planning Goal: Absence of venous thromboembolism Outcome: Progressing as expected Goal: Adequate for discharge Outcome: Progressing as expected Goal: Effective communication Outcome: Progressing as expected Antimicrobial Stewardship Program - Anthony Tran, [facility] - 02/07/2020 11:29 AM CDTAntimicrobial Stewardship Program Note Based on review of [facility] chart and microbiology and susceptibility results, the antimicrobial stewardship program recommends the following: - Tailor antibiotics from piperacillin/tazobactam to ampicillin/sulbactam 3 g IV q6h as Klebsiella in urine was susceptible and ampicillin/sulbactam will provide adequate coverage for oral sachin for the oral abscess Please call with questions or concerns. RZach Tran, PharmDora, [facility] Clinical Joint Creaser - Infectious Diseases Antimicrobial [place] Pager: [phone] Extension: [phone] 02/07/2020 11:29 are Plan - Sue Quevedo RN - 02/07/2020 9:47 AM CDT Problem: Respiratory Function - Impaired Goal: Adequate work of breathing Outcome: Progressing as expected Problem: Pain Goal: Control of pain at or below patient's documented comfort goal Outcome: Progressing as expected Goal: Reduction in pain sensation Outcome: Progressing as expected Problem: Falls, Risk of Goal: Absence of falls Outcome: Progressing as expected Problem: Discharge Planning Goal: Absence of venous thromboembolism Outcome: Progressing as expected Goal: Adequate for discharge Outcome: Progressing as expected Goal: Effective communication Outcome: Progressing as expected D Nurse Note - Shilpi Vieira RN - 02/05/2020 5:13 PM CDTNurse Report Report given to Goodman SNOW. Chief complaint, assessment findings and orders reviewed. Plan of care discussed. Shilpi Vieira RN D Nurse Note - Shilpi Vieira RN - 02/05/2020 5:02 PM CDTTried to give report, nurse not ready, will call back documented in this encounter Plan of Treatment Name Type Priority Associated Diagnoses Date/Ti me BLOOD CULTURE SCREEN LAB STAT Hypotension, unspeci fied 02/05/2020 3:07 PM CDT hypotension type BLOOD CULTURE SCREEN LAB STAT Hypotension, unspeci fied 02/05/2020 2:50 PM CDT hypotension type Name Type Priority Associated Diagnoses Order S chedule CBC with Differential LAB Routine EVERY MORNING AT 0400 for 5 Occurrenc es starting 2019 until 0, 4 completed Basic Metabolic Panel (NA, LAB Routine E VERY MORNING AT 0400 K, CL, CO2, GLUCOSE, BUN, fo r 5 Occurrences CREATININE, CA) starting until 0, 4 completed Health Maintenance Due Date Last Done Comments EYE EXAM 1945 URINE MICROALBUMIN 1947 Depression Screening 1949 FOOT EXAM 1955 DTaP,Tdap,and Td Vaccines (1 - 1956 Tdap) Zoster Recombinant Vaccine 1987 (SHINGRIX) (1 of 2) Medicare Wellness Visit 2002 Osteoporosis Screening 2002 PNEUMOCOCCAL VACCINES 65+ (1 of 1 2002 - PPSV23) INFLUENZA VACCINE (#1) 2020 HgA1C 08/04/2020 02/05/2020 LDL-C 02/04/2021 02/05/2020 CREATININE (SERUM) 02/07/2021 02/08/2020, 02/08/2020, 02/07/2020, Additional history exists documented as of this encounter Procedures Procedure Name Priority Date/Time Associated Comments Diagnosis POCT GLUCOSE Routine 02/09/2020 11:43 Results for this (AUTOMATED) AM CDT procedure are i n the results section. CBC WITH DIFF Routine 02/09/2020 5:15 Results fo r this AM CDT procedure are i n the results section. BASIC METABOLIC PANEL Routine 02/09/2020 5:15 Re sults for this (NA, K, CL, CO2, AM CDT procedure a re in GLUCOSE, BUN, the results CREATININE, CA) section. MAGNESIUM Routine 02/09/2020 5:15 Results for this AM CDT procedure are i n the results section. PHOSPHORUS Routine 02/09/2020 5:15 Results for this AM CDT procedure are i n the results section. POCT GLUCOSE Routine 02/08/2020 11:25 Results for this (AUTOMATED) PM CDT procedure are i n the results section. POCT GLUCOSE Routine 02/08/2020 7:42 Results for this (AUTOMATED) PM CDT procedure are i n the results section. POCT GLUCOSE Routine 02/08/2020 4:41 Results for this (AUTOMATED) PM CDT procedure are i n the results section. BILATERAL VENOUS Routine 02/08/2020 1:44 DUPLEX LOWER EXTREMITY PM CDT BY VASCULAR LAB POCT GLUCOSE Routine 02/08/2020 12:05 Results for this (AUTOMATED) PM CDT procedure are i n the results section. POCT GLUCOSE Routine 02/08/2020 7:52 Results for this (AUTOMATED) AM CDT procedure are i n the results section. CBC WITH DIFF Routine 02/08/2020 4:24 Results fo r this AM CDT procedure are i n the results section. COMP. METABOLIC PANEL Routine 02/08/2020 4:24 Re sults for this ([id number]) AM CDT procedure are i n the results section. BASIC METABOLIC PANEL Routine 02/08/2020 4:24 Re sults for this (NA, K, CL, CO2, AM CDT procedure a re in GLUCOSE, BUN, the results CREATININE, CA) section. POCT GLUCOSE Routine 02/07/2020 4:54 Results for this (AUTOMATED) PM CDT procedure are i n the results section. ECHO ROUTINE W/DOPPLER Routine 02/07/2020 4:12 Hypotension, COLOR PM CDT unspecified hypotension type POCT GLUCOSE Routine 02/07/2020 12:00 Results for this (AUTOMATED) PM CDT procedure are i n the results section. POCT GLUCOSE Routine 02/07/2020 7:42 Results for this (AUTOMATED) AM CDT procedure are i n the results section. CBC WITH DIFF Routine 02/07/2020 5:22 Results fo r this AM CDT procedure are i n the results section. BASIC METABOLIC PANEL Routine 02/07/2020 5:22 Re sults for this (NA, K, CL, CO2, AM CDT procedure a re in GLUCOSE, BUN, the results CREATININE, CA) section. TROPONIN I Routine 02/07/2020 5:22 Results for this AM CDT procedure are i n the results section. POCT GLUCOSE Routine 02/06/2020 8:04 Results for this (AUTOMATED) PM CDT procedure are i n the results section. POCT GLUCOSE Routine 02/06/2020 4:38 Results for this (AUTOMATED) PM CDT procedure are i n the results section. POCT GLUCOSE Routine 02/06/2020 12:03 Results for this (AUTOMATED) PM CDT procedure are i n the results section. POCT GLUCOSE Routine 02/06/2020 8:21 Results for this (AUTOMATED) AM CDT procedure are i n the results section. POCT GLUCOSE Routine 02/06/2020 7:40 Results for this (AUTOMATED) AM CDT procedure are i n the results section. PROCALCITONIN Routine 02/06/2020 3:58 Results fo r this AM CDT procedure are i n the results section. CBC WITH DIFF Routine 02/06/2020 3:58 Results fo r this AM CDT procedure are i n the results section. SEDIMENTATION RATE Routine 02/06/2020 3:58 Resul ts for this AM CDT procedure are i n the results section. BASIC METABOLIC PANEL Routine 02/06/2020 3:58 Re sults for this (NA, K, CL, CO2, AM CDT procedure a re in GLUCOSE, BUN, the results CREATININE, CA) section. TROPONIN I Routine 02/06/2020 3:58 Results for this AM CDT procedure are i n the results section. CORTISOL AM STAT 02/06/2020 3:58 Results for this AM CDT procedure are i n the results section. CT CHEST PULMONARY STAT 02/05/2020 11:36 Hypotension, Resul ts for this ANGIOGRAM PM CDT unspecified procedure are i n hypotension type the results section. D-DIMER STAT 02/05/2020 9:45 Results for this PM CDT procedure are i n the results section. FREE T4 Routine 02/05/2020 9:45 Results for this PM CDT procedure are i n the results section. POCT GLUCOSE Routine 02/05/2020 9:04 Results for this (AUTOMATED) PM CDT procedure are i n the results section. LACTIC ACID WHOLE STAT 02/05/2020 8:00 Result s for this BLOOD PM CDT procedure are i n the results section. FREE T3 Add-on 02/05/2020 7:46 Results for this PM CDT procedure are i n the results section. TROPONIN I Routine 02/05/2020 7:46 Results for this PM CDT procedure are i n the results section. FECAL PATHOGENS BY PCR Routine 02/05/2020 7:41 R esults for this PM CDT procedure are i n the results section. CLOSTRIDIUM DIFFICILE Routine 02/05/2020 7:41 Re sults for this TOXIN PM CDT procedure are i n the results section. FECAL LEUKOCYTES Routine 02/05/2020 7:41 Results for this PM CDT procedure are i n the results section. EKG-12 LEAD Routine 02/05/2020 3:31 PM CDT COVID-19 (ID NOW RAPID STAT 02/05/2020 3:18 Hypotension, R esults for this TESTING) PM CDT unspecified procedure are i n hypotension type the results Allergic reaction section. to drug, initial encounter Rash XR CHEST 1 VW STAT 02/05/2020 3:15 Hypotension, Results fo r this PM CDT unspecified procedure are i n hypotension type the results section. N-TERMINAL PRO-BNP STAT 02/05/2020 3:07 Hypotension, Resul ts for this PM CDT unspecified procedure are i n hypotension type the results section. URINE CULTURE STAT 02/05/2020 3:07 Hypotension, Results fo r this PM CDT unspecified procedure are i n hypotension type the results section. URINALYSIS STAT 02/05/2020 3:07 Hypotension, Results for this PM CDT unspecified procedure are i n hypotension type the results section. GLYCOSYLATED Add-on 02/05/2020 3:07 Results for this HEMOGLOBIN (A1C) PM CDT procedure a re in the results section. CBC WITH DIFF STAT 02/05/2020 3:07 Hypotension, Results fo r this PM CDT unspecified procedure are i n hypotension type the results section. LIPID PANEL Add-on 02/05/2020 3:07 Results for this ([id number])(TOTAL PM CDT procedure are in CHOLESTEROL, the results TRIGLYCERIDES, HDL) section. COMP. METABOLIC PANEL STAT 02/05/2020 3:07 Hypotension, Re sults for this ([id number]) PM CDT unspecified procedure are i n hypotension type the results section. THYROID STIMULATING Add-on 02/05/2020 3:07 Resu lts for this HORMONE PM CDT procedure are i n the results section. TROPONIN I STAT 02/05/2020 3:07 Hypotension, Results for this PM CDT unspecified procedure are i n hypotension type the results section. MAGNESIUM Add-on 02/05/2020 3:07 Results for this PM CDT procedure are i n the results section. LIPASE STAT 02/05/2020 3:07 Hypotension, Results for this PM CDT unspecified procedure are i n hypotension type the results section. PHOSPHORUS Add-on 02/05/2020 3:07 Results for this PM CDT procedure are i n the results section. BLOOD CULTURE SCREEN STAT 02/05/2020 3:07 Hypotension, PM CDT unspecified hypotension type LACTIC ACID WHOLE STAT 02/05/2020 3:05 Hypotension, Result s for this BLOOD PM CDT unspecified procedure are i n hypotension type the results section. BLOOD CULTURE SCREEN STAT 02/05/2020 2:50 Hypotension, PM CDT unspecified hypotension type NOTICE OF PRIVACY Routine 02/05/2020 2:47 PRACTICES PM CDT CONSENT/REFUSAL FOR Routine 02/05/2020 2:46 DIAGNOSIS AND PM CDT TREATMENT EKG-12 LEAD KYLE 02/05/2020 2:46 PM CDT EMERGENCY DEPARTMENT Routine 02/05/2020 12:01 DOCUMENTS AM CDT documented in this encounter Results POCT GLUCOSE (AUTOMATED) (02/09/2020 11:43 AM CDT) Pathologist Sig nature POCT GLU 216 (H) 70 - 110 mg/dL [facility] Specimen Blood Performing Organization Address [facility] Phone Number [facility] CLIA: [id number] [place] [address] PHOSPHORUS (02/09/2020 5:15 AM CDT) Pathologist Sig nature PHOSPHORUS 2.7 2.5 - 5.0 mg/dL [facility] Specimen Blood - WRIST, LEFT Performing Organization Address [facility] Phone Number [facility] CLIA: [id number] [place] [address] MAGNESIUM (02/09/2020 5:15 AM CDT) Pathologist Sig nature MAGNESIUM 1.8 1.7 - 2.4 mg/dL [facility] Specimen Blood - WRIST, LEFT Performing Organization Address [facility] Phone Number [facility] CLIA: [id number] [place] [address] Basic Metabolic Panel (NA, K, CL, CO2, GLUCOSE, BUN, CREATININE, CA) (02/09/2020 5:15 AM CDT) Pathologist Sig nature NA 135 135 - 145 [facility] mmol/L [facility] K 3.8 3.5 - 5.0 [facility] mmol/L [facility] CL 104 98 - 108 mmol/L [facility] CO2 TOTAL 26 23 - 31 mmol/L [facility] AGAP 5 2 - 16 [facility] BUN 16 7 - 23 mg/dL [facility] GLUCOSE 210 (H) 70 - 110 mg/dL [facility] CREATININE 0.61 0.50 - 1.04 [facility] mg/dL [facility] CALCIUM 8.9 8.6 - 10.6 [facility] mg/dL [facility] eGFR Calculation 93.9 mL/min/1.73m2 [facility] ([facility] LABORATORY [place]) eGFR Calculation 113.8 mL/min/1.73m2 [facility] () [facility] Specimen Blood - WRIST, LEFT Narrative Performed At [facility] Glomerular Filtration Rate (GFR) [facility] and Staging of Kidney Disease* + + +- + | GFR (mL/min/1.73 m2) | With Kidney Damage | Without Kidney Damage + + +- + | >90 | Stage one | Normal + + +- + | 60-89 | Stage two | Decreased GFR + + +- + | 30-59 | Stage three | Stage three + + +- + | 15-29 | Stage four | Stage four + + +- + | <15 (or dialysis) | Stage five | Stage five + + +- + *Each stage assumes the associated GFR level has been in effect for at least three months. Stages 1 to 5, with or without kidney disease, indicate chronic kidney disease. Notes: Determination of stages one and two (with eGFR >59mL/min/1.73 m2) requires estimation of kidney damage for at least three months as defined by structural or functional abnormalities of the kidney, manifested by either: Pathological abnormalities or Markers of kidney damage (including abnormalities in the composition of the blood or urine or abnormalities in imaging tests). Performing Organization Address City/State/Zipcode Phone Number [facility] CLIA: [id number] [place] [address] CBC with Differential (02/09/2020 5:15 AM CDT) [facility] nature WBC 6.93 4.30 - 11.10 [facility] 10*3/L [facility] RBC 3.70 (L) 3.93 - 5.25 [facility] 10*6/L [facility] HGB 11.2 (L) 11.6 - 15.0 [facility] g/dL [facility] HCT 34.3 (L) 35.7 - 45.2 % [facility] MCV 92.7 80.6 - 95.5 fL [facility] MCH 30.3 25.9 - 32.8 pg [facility] MCHC 32.7 31.6 - 35.1 [facility] g/dL [facility] RDW-SD 48.5 39.0 - 49.9 fL [facility] RDW-CV 14.3 12.0 - 15.5 % [facility] PLT 244 166 - 358 [facility] 10*3/L [facility] MPV 8.8 (L) 9.5 - 12.9 fL [facility] NRBC/100 WBC 0.0 0.0 - 10.0 /100 [facility] WBCs [facility] NRBC x10^3 <0.01 10*3/L [facility] GRAN MAT (NEUT) % 63.0 % [facility] IMM GRAN % 2.00 % [facility] LYMPH % 25.5 % [facility] MONO % 8.4 % [facility] EOS % 0.7 % [facility] BASO % 0.4 % [facility] GRAN MAT x10^3(ANC) 4.36 1.88 - 7.09 [facility] 10*3/uL [facility] IMM GRAN x10^3 0.14 (H) 0.00 - 0.06 [facility] 10*3/uL [facility] LYMPH x10^3 1.77 1.32 - 3.29 [facility] 10*3/uL [facility] MONO x10^3 0.58 0.33 - 0.92 [facility] 10*3/uL [facility] EOS x10^3 0.05 0.03 - 0.39 [facility] 10*3/uL [facility] BASO x10^3 0.03 0.01 - 0.07 [facility] 10*3/uL [facility] Specimen Blood - WRIST, LEFT Performing Organization Address City/State/Zipcode Phone Number [facility] CLIA: [id number] [place] [address] POCT GLUCOSE (AUTOMATED) (02/08/2020 11:25 PM CDT) Pathologist Sig nature POCT GLU 293 (H) 70 - 110 mg/dL [facility] Specimen Blood Performing Organization Address [facility] Phone Number [facility] CLIA: [id number] [place] [address] POCT GLUCOSE (AUTOMATED) (02/08/2020 7:42 PM CDT) Pathologist Sig nature POCT GLU 355 (H) 70 - 110 mg/dL [facility] Specimen Blood Performing Organization Address [facility] Phone Number [facility] CLIA: [id number] [place] [address] POCT GLUCOSE (AUTOMATED) (02/08/2020 4:41 PM CDT) Pathologist Sig nature POCT GLU 268 (H) 70 - 110 mg/dL [facility] Specimen Blood Performing Organization Address [facility] Phone Number [facility] CLIA: [id number] [place] [address] POCT GLUCOSE (AUTOMATED) (02/08/2020 12:05 PM CDT) Pathologist Sig nature POCT GLU 169 (H) 70 - 110 mg/dL [facility] Specimen Blood Performing Organization Address [facility] Phone Number [facility] CLIA: [id number] [place] [address] POCT GLUCOSE (AUTOMATED) (02/08/2020 7:52 AM CDT) Pathologist Sig nature POCT GLU 84 70 - 110 mg/dL [facility] Specimen Blood Performing Organization Address [facility] Phone Number [facility] CLIA: [id number] [place] [address] COMP. METABOLIC PANEL (70217) (02/08/2020 4:24 AM CDT) NA 136 135 - 145 [facility] mmol/L [facility] K 3.8 3.5 - 5.0 [facility] mmol/L [facility] CL 106 98 - 108 mmol/L [facility] CO2 TOTAL 23 23 - 31 mmol/L [facility] AGAP 7 2 - 16 [facility] BUN 13 7 - 23 mg/dL [facility] GLUCOSE 112 (H) 70 - 110 mg/dL [facility] CREATININE 0.49 (L) 0.50 - 1.04 [facility] mg/dL [facility] TOTAL BILI 0.5 0.1 - 1.1 mg/dL [facility] CALCIUM 8.5 (L) 8.6 - 10.6 [facility] mg/dL [facility] T PROTEIN 4.8 (L) 6.3 - 8.2 g/dL [facility] ALBUMIN 2.4 (L) 3.5 - 5.0 g/dL [facility] ALK PHOS 80 34 - 122 U/L [facility] ALTv 12 5 - 35 U/L [facility] AST(SGOT) 20 13 - 40 U/L [facility] eGFR Calculation 120.9 mL/min/1.73m2 [facility] [place]) eGFR Calculation 146.5 mL/min/1.73m2 [facility] () [facility] Specimen Blood - HAND, LEFT Narrative Performed At [facility] Glomerular Filtration Rate (GFR) [facility] LAB[facility] and Staging of Kidney Disease* + + +- + | GFR (mL/min/1.73 m2) | With Kidney Damage | Without Kidney Damage + + +- + | >90 | Stage one | Normal + + +- + | 60-89 | Stage two | Decreased GFR + + +- + | 30-59 | Stage three | Stage three + + +- + | 15-29 | Stage four | Stage four + + +- + | <15 (or dialysis) | Stage five | Stage five + + +- + *Each stage assumes the associated GFR level has been in effect for at least three months. Stages 1 to 5, with or without kidney disease, indicate chronic kidney disease. Notes: Determination of stages one and two (with eGFR >59mL/min/1.73 m2) requires estimation of kidney damage for at least three months as defined by structural or functional abnormalities of the kidney, manifested by either: Pathological abnormalities or Markers of kidney damage (including abnormalities in the composition of the blood or urine or abnormalities in imaging tests). Performing Organization Address City/State/Zipcode Phone Number [facility] CLIA: [id number] [place] [address] Basic Metabolic Panel (NA, K, CL, CO2, GLUCOSE, BUN, CREATININE, CA) (02/08/2020 4:24 AM CDT) [facility] NA 136 135 - 145 [facility] mmol/L [facility] K 3.7 3.5 - 5.0 [facility] mmol/L [facility] CL 108 98 - 108 mmol/L [facility] CO2 TOTAL 22 (L) 23 - 31 mmol/L [facility] AGAP 6 2 - 16 [facility] BUN 13 7 - 23 mg/dL [facility] GLUCOSE 115 (H) 70 - 110 mg/dL [facility] CREATININE 0.51 0.50 - 1.04 [facility] mg/dL [facility] CALCIUM 8.3 (L) 8.6 - 10.6 [facility] mg/dL [facility] eGFR Calculation 115.5 mL/min/1.73m2 [facility] ([facility] LABORATORY [place]) eGFR Calculation 139.9 mL/min/1.73m2 [facility] () [facility] Specimen Blood - HAND, LEFT Narrative Performed At [facility] Glomerular Filtration Rate (GFR) [facility] LAB[facility] and Staging of Kidney Disease* + + +- + | GFR (mL/min/1.73 m2) | With Kidney Damage | Without Kidney Damage + + +- + | >90 | Stage one | Normal + + +- + | 60-89 | Stage two | Decreased GFR + + +- + | 30-59 | Stage three | Stage three + + +- + | 15-29 | Stage four | Stage four + + +- + | <15 (or dialysis) | Stage five | Stage five + + +- + *Each stage assumes the associated GFR level has been in effect for at least three months. Stages 1 to 5, with or without kidney disease, indicate chronic kidney disease. Notes: Determination of stages one and two (with eGFR >59mL/min/1.73 m2) requires estimation of kidney damage for at least three months as defined by structural or functional abnormalities of the kidney, manifested by either: Pathological abnormalities or Markers of kidney damage (including abnormalities in the composition of the blood or urine or abnormalities in imaging tests). Performing Organization Address City/State/Zipcode Phone Number [facility] CLIA: [id number] [place] [id number] LABORATORY [address] CBC with Differential (02/08/2020 4:24 AM CDT) [facility] WBC 7.70 4.30 - 11.10 [facility] 10*3/L [facility] RBC 3.56 (L) 3.93 - 5.25 [facility] 10*6/L [facility] HGB 10.9 (L) 11.6 - 15.0 [facility] g/dL [facility] HCT 33.4 (L) 35.7 - 45.2 % [facility] MCV 93.8 80.6 - 95.5 fL [facility] MCH 30.6 25.9 - 32.8 pg [facility] MCHC 32.6 31.6 - 35.1 [facility] g/dL [facility] RDW-SD 49.8 39.0 - 49.9 fL [facility] RDW-CV 14.3 12.0 - 15.5 % [facility] PLT 220 166 - 358 [facility] 10*3/L [facility] MPV 8.7 (L) 9.5 - 12.9 fL [facility] NRBC/100 WBC 0.0 0.0 - 10.0 /100 [facility] WBCs [facility] NRBC x10^3 <0.01 10*3/L [facility] LAB[facility] GRAN MAT (NEUT) % 65.3 % [facility] IMM GRAN % 1.40 % [facility] LYMPH % 24.3 % [facility] MONO % 6.9 % [facility] EOS % 1.7 % [facility] BASO % 0.4 % [facility] GRAN MAT x10^3(ANC) 5.03 1.88 - 7.09 [facility] 10*3/uL [facility] IMM GRAN x10^3 0.11 (H) 0.00 - 0.06 [facility] 10*3/uL [facility] LYMPH x10^3 1.87 1.32 - 3.29 [facility] 10*3/uL [facility] MONO x10^3 0.53 0.33 - 0.92 [facility] 10*3/uL [facility] EOS x10^3 0.13 0.03 - 0.39 [facility] 10*3/uL [facility] BASO x10^3 0.03 0.01 - 0.07 [facility] 10*3/uL [facility] Specimen Blood - HAND, LEFT Performing Organization Address [facility] Phone Number [facility] CLIA: [id number] [place] [address] POCT GLUCOSE (AUTOMATED) (02/07/2020 4:54 PM CDT) Pathologist Sig nature POCT GLU 366 (H) 70 - 110 mg/dL [facility]OR[facility] Specimen Blood Performing Organization Address [facility] Phone Number [facility] CLIA: [id number] [place], [place] [address] LABORATORY [address] POCT GLUCOSE (AUTOMATED) (02/07/2020 12:00 PM CDT) Pathologist Sig nature POCT GLU 186 (H) 70 - 110 mg/dL [facility] Specimen Blood Performing Organization Address [facility] Phone Number [facility] CLIA: [id number] [place], [place] [address] LABORATORY [address] POCT GLUCOSE (AUTOMATED) (02/07/2020 7:42 AM CDT) Pathologist Sig nature POCT GLU 128 (H) 70 - 110 mg/dL [facility] Specimen Blood Performing Organization Address [facility] Phone Number [facility] CLIA: [id number] [place], [place] [address] LABORATORY [address] Troponin I (02/07/2020 5:22 AM CDT) Pathologist Sig nature TROPONIN I 0.077 (H) <=0.034 ng/mL [facility] Specimen Blood - ARM, LEFT Narrative Performed At Equal or Less than 0.034 ng/ml---Normal [facility] Note: Cardiac troponin begins to rise 3-4 hours after the onset of ischemia. Repeat in 4-6 hours if the sample was drawn within 3-4 hours of the onset of the symptom and found normal. Between 0.035 and 0.120 ng/mL--- Borderline. Questionable myocardial injury or necros is Note: Serial measurement may be necessary to confirm or exclude the diagnosis of myocardial injury or necrosis; Clinical correlation (symptoms, EKGs, imaging studies, and others) required; Repeat in 4-6 hours if clinically indicated. Equal or Higher than 0.121 ng/mL---Abnormal. Myocardial Injury or Necrosis Likely Biotin has been reported to cause a negative bias, interpret results relative to patient's use of biotin. Performing Organization Address City/State/Zipcode Phone Number [facility] CLIA: [id number] [place] [address] Basic Metabolic Panel (NA, K, CL, CO2, GLUCOSE, BUN, CREATININE, CA) (02/07/2020 5:22 AM CDT) Pathologist [facility] nature NA 136 135 - 145 [facility] mmol/L [facility] K 3.4 (L) 3.5 - 5.0 [facility] mmol/L [facility] CL 107 98 - 108 mmol/L [facility] LABORATORY CO2 TOTAL 24 23 - 31 mmol/L [facility] LABORATORY AGAP 5 2 - 16 [facility] LAB[facility]ORY BUN 14 7 - 23 mg/dL [facility] LABORATORY GLUCOSE 163 (H) 70 - 110 mg/dL [facility] LABORATORY CREATININE 0.54 0.50 - 1.04 [facility] mg/dL [facility] CALCIUM 7.9 (L) 8.6 - 10.6 [facility] mg/dL [facility] eGFR Calculation 108.1 mL/min/1.73m2 [facility] ([facility] LABORATORY [place]) eGFR Calculation 131.0 mL/min/1.73m2 [facility] () [facility] Specimen Blood - ARM, LEFT Narrative Performed At Association of Glomerular Filtration Rate (GFR) [facility] LABORATORY and Staging of Kidney Disease* + + +- + | GFR (mL/min/1.73 m2) | With Kidney Damage | Without Kidney Damage + + +- + | >90 | Stage one | Normal + + +- + | 60-89 | Stage two | Decreased GFR + + +- + | 30-59 | Stage three | Stage three + + +- + | 15-29 | Stage four | Stage four + + +- + | <15 (or dialysis) | Stage five | Stage five + + +- + *Each stage assumes the associated GFR level has been in effect for at least three months. Stages 1 to 5, with or without kidney disease, indicate chronic kidney disease. Notes: Determination of stages one and two (with eGFR >59mL/min/1.73 m2) requires estimation of kidney damage for at least three months as defined by structural or functional abnormalities of the kidney, manifested by either: Pathological abnormalities or Markers of kidney damage (including abnormalities in the composition of the blood or urine or abnormalities in imaging tests). Performing Organization Address City/State/Zipcode Phone Number [facility] CLIA: [id number] [place] [address] CBC with Differential (02/07/2020 5:22 AM CDT) Pathologist Sig nature WBC 9.71 4.30 - 11.10 [facility] 10*3/L [facility] RBC 3.61 (L) 3.93 - 5.25 [facility] 10*6/L [facility] HGB 11.0 (L) 11.6 - 15.0 [facility] g/dL [facility] HCT 33.0 (L) 35.7 - 45.2 % [facility] LABORATORY MCV 91.4 80.6 - 95.5 fL [facility] LABORATORY MCH 30.5 25.9 - 32.8 pg [facility] LABORATORY MCHC 33.3 31.6 - 35.1 [facility] g/dL [facility] RDW-SD 49.1 39.0 - 49.9 fL [facility] LABORATORY RDW-CV 14.6 12.0 - 15.5 % [facility] LABORATORY PLT 246 166 - 358 [facility] 10*3/L [facility] MPV 8.9 (L) 9.5 - 12.9 fL [facility] LABORATORY NRBC/100 WBC 0.0 0.0 - 10.0 /100 [facility] WBCs [facility] NRBC x10^3 <0.01 10*3/L [facility] LABORATORY GRAN MAT (NEUT) % 81.5 % [facility] LABORATORY IMM GRAN % 0.70 % [facility] LABORATORY LYMPH % 13.4 % [facility] LABORATORY MONO % 3.4 % [facility] LABORATORY EOS % 0.7 % [facility] LABORATORY BASO % 0.3 % [facility] LABORATORY GRAN MAT x10^3(ANC) 7.91 (H) 1.88 - 7.09 [facility] 10*3/uL [facility] IMM GRAN x10^3 0.07 (H) 0.00 - 0.06 [facility] 10*3/uL [facility]OS[facility]ITAL LAB[facility]ORY LYMPH x10^3 1.30 (L) 1.32 - 3.29 [facility] 10*3/uL [facility] MONO x10^3 0.33 0.33 - 0.92 [facility] 103/uL [facility] EOS x10^3 0.07 0.03 - 0.39 [facility] 10*3/uL [facility] BASO x10^3 0.03 0.01 - 0.[address]/uL [facility] LABOR[facility] Specimen Blood - ARM, LEFT Performing Organization Address [facility] Phone Number [facility] CLIA: [id number] [place] [address] POCT GLUCOSE (AUTOMATED) (02/06/2020 8:04 PM CDT) Pathologist Sig nature POCT GLU 315 (H) 70 - 110 mg/dL [facility] LABORATORY Specimen Blood Performing Organization Address [facility] Phone Number [facility] CLIA: [id number] [place], [place] [address] LABORATORY [address] POCT GLUCOSE (AUTOMATED) (02/06/2020 4:38 PM CDT) Pathologist Sig nature POCT GLU 223 (H) 70 - 110 mg/dL [facility] LABORATORY Specimen Blood Performing Organization Address [facility] Phone Number [facility] CLIA: [id number] [place], [place] [address] LABORATORY [address] POCT GLUCOSE (AUTOMATED) (02/06/2020 12:03 PM CDT) Pathologist Sig nature POCT GLU 118 (H) 70 - 110 mg/dL [facility] LABORATORY Specimen Blood Performing Organization Address [facility] Phone Number [facility] CLIA: [id number] [place] [address] POCT GLUCOSE (AUTOMATED) (02/06/2020 8:21 AM CDT) Pathologist Sig nature POCT GLU 85 70 - 110 mg/dL [facility] LABORATORY Specimen Blood Performing Organization Address [facility] Phone Number [facility] CLIA: [id number] [place] [address] POCT GLUCOSE (AUTOMATED) (02/06/2020 7:40 AM CDT) Pathologist Sig nature POCT GLU 59 (L) 70 - 110 mg/dL [facility] LABORATORY Specimen Blood Performing Organization Address [facility] Phone Number [facility] CLIA: [id number] [place] [address] PROCALCITONIN (02/06/2020 3:58 AM CDT) Pathologist Sig nature Procalcitonin 0.13 (H) <0.07 ng/mL [facility] SERVICES Specimen Blood - ARM, LEFT Narrative Performed At INTERPRETATION OF PROCALCITONIN RESULTS IN ADULTS >= 1 8 [facility] YEARS OF AGE Initiation and discontinuation of antibiotics on patie nts with suspected or confirmed Lower Respiratory Tract Infection in Adults >= 18 years of age. + + + +----- ------ + |Procalcitonin |Interpretation |Antibiotic |Considerations |ng/mL | |recommend ation | + + + +----- ------ + | <0.1 | Bacterial | Strongly | | | infection very | discouraged | Overruling: | | unlikely | | Clinically unstable + + + + H igh risk for adverse | <0.25 | Bacterial | Discouraged | outcome | | infection | | SEE IMPORTANT NOTE | | unlikely | | + + + +----- ------ + | >=0.25 | Bacterial | Encouraged | | | infection | | | | likely | | Consider treatment failure + + + + if l evels does not decrease | >0.5 | Bacterial | Strongly | appropriately | | infection very | encouraged | | | likely | | + + + +----- ------ + Discontinuation of antibiotics in high-acuity patients with suspected or confirmed sepsis in Adults >= 18 years of age. + + + +----- ------ + |Procalcitonin |Interpretation |Antibiotic |Considerations |ng/mL | |recommend ation | + + + +----- ------ + | <0.25 | Bacterial | Strongly | | | infection very | discouraged | Overruling: | | unlikely | | Clinically unstable + + + + H igh risk for adverse | <0.5 or drop | Bacterial | Discouraged | outcome | >80% from | infection | | SEE IMPORTANT NOTE | highest PCT | unlikely | | | level | | | + + + +----- ------ + | >=0.5 | Bacterial | Encouraged | | | infection | | | | likely | | Consider treatment failure + + + + if l evels does not decrease | >1.0 | Bacterial | Strongly | appropriately | | infection very | encouraged | | | likely | | + + + +----- ------ + Percentage of drop of Procalcitonin calculation for Discontinuation of antibiotics in high-acuity patients with suspected or confirmed sepsis in Adults >= 18 years of age. Procalcitonin highest{}-Procalcitonin current{} Delta Procalcitonin = x100% Procalcitonin current {} IMPORTANT NOTE: Procalcitonin may be elevated without bacterial infection by physiologic stress related to t rauma, phipps, chronic dialysis, metastatic cancer, surgery in the past seven days, malaria, some fungal infections, and some forms of vasculitis. The interpretation algorithm may not apply to patients with immunosuppression (equivalent o f >10 mg of prednisone daily), HIV with CD4 cell count < 350 cells/mm3, active malignancy on systemic chemotherapy, solid organ transplant or hematopoietic stem cell transplant ation, or hospital acquired pneumonia. Additionally, some cli nical trials of procalcitonin have excluded patients with sh ock requiring vasopressor use, acute respiratory failure requiring mechanical ventilation, or those with known lung abscess/empyema. For further information please refer to: [email or web address] Performing Organization Address City/[facility] Phone Number [facility] CLIA: [id number] [place], [place] [address] [address] [place] [address] Blvd SEDIMENTATION RATE (02/06/2020 3:58 AM CDT) Pathologist Sig nature ESR 67 (H) 0 - 20 mm/HR [facility] LABORATORY Specimen Blood - ARM, LEFT Performing Organization Address City/[facility]/Zipcode Phone Number [facility] CLIA: [id number] [place], [place] [address] [facility] [address] CORTISOL AM (02/06/2020 3:58 AM CDT) Pathologist Sig nature KARINA AM 2.8 (L) 4.5 - 23.0 ug/dL [facility] Specimen Blood - ARM, LEFT Narrative Performed At Biotin has been reported to cause a positive bias, int erpret [facility] results relative to patient's use of biotin. Performing Organization Address [facility] Phone Number [facility] CLIA: [id number] [place] [address] [place] [address] Troponin I (02/06/2020 3:58 AM CDT) Pathologist Sig nature TROPONIN I 0.467 (H) <=0.034 ng/mL [facility] LABORATORY Specimen Blood - ARM, LEFT Narrative Performed At Equal or Less than 0.034 ng/ml---Normal [facility] LABORATORY Note: Cardiac troponin begins to rise 3-4 hours after the onset of ischemia. Repeat in 4-6 hours if the sample was drawn within 3-4 hours of the onset of the symptom and found normal. Between 0.035 and 0.120 ng/mL--- Borderline. Questionable myocardial injury or necros is Note: Serial measurement may be necessary to confirm or exclude the diagnosis of myocardial injury or necrosis; Clinical correlation (symptoms, EKGs, imaging studies, and others) required; Repeat in 4-6 hours if clinically indicated. Equal or Higher than 0.121 ng/mL---Abnormal. Myocardial Injury or Necrosis Likely Biotin has been reported to cause a negative bias, interpret results relative to patient's use of biotin. Performing Organization Address City/State/Zipcode Phone Number [facility] CLIA: [id number] [place] [address] Basic Metabolic Panel (NA, K, CL, CO2, GLUCOSE, BUN, CREATININE, CA) (02/06/2020 3:58 AM CDT) Pathologist Sig [facility] NA 135 135 - 145 [facility] mmol/L [facility] K 3.3 (L) 3.5 - 5.0 [facility] mmol/L [facility] CL 104 98 - 108 mmol/L [facility] LABORATORY CO2 TOTAL 24 23 - 31 mmol/L [facility] LABORATORY AGAP 7 2 - 16 [facility] LABORATORY BUN 17 7 - 23 mg/dL [facility] LABORATORY GLUCOSE 83 70 - 110 mg/dL [facility] LABORATORY CREATININE 0.52 0.50 - 1.04 [facility] mg/dL [facility] CALCIUM 8.4 (L) 8.6 - 10.6 [facility] mg/dL [facility] eGFR Calculation 112.9 mL/min/1.73m2 [facility] ([facility] LABORATORY [place]) eGFR Calculation 136.8 mL/min/1.73m2 [facility] ([facility]) [facility] Specimen Blood - ARM, LEFT Narrative Performed At Association of Glomerular Filtration Rate (GFR) [facility] LABORATORY and Staging of Kidney Disease* + + +- + | GFR (mL/min/1.73 m2) | With Kidney Damage | Without Kidney Damage + + +- + | >90 | Stage one | Normal + + +- + | 60-89 | Stage two | Decreased GFR + + +- + | 30-59 | Stage three | Stage three + + +- + | 15-29 | Stage four | Stage four + + +- + | <15 (or dialysis) | Stage five | Stage five + + +- + *Each stage assumes the associated GFR level has been in effect for at least three months. Stages 1 to 5, with or without kidney disease, indicate chronic kidney disease. Notes: Determination of stages one and two (with eGFR >59mL/min/1.73 m2) requires estimation of kidney damage for at least three months as defined by structural or functional abnormalities of the kidney, manifested by either: Pathological abnormalities or Markers of kidney damage (including abnormalities in the composition of the blood or urine or abnormalities in imaging tests). Performing Organization Address City/State/Zipcode Phone Number [facility] CLIA: [id number] [place], [place] [id number] LABORATORY [address] CBC with Differential (02/06/2020 3:58 AM CDT) [facility] WBC 11.29 (H) 4.30 - 11.10 [facility] 10*3/L [facility] RBC 4.06 3.93 - 5.25 [facility] 10*6/L [facility] HGB 12.3 11.6 - 15.0 [facility] g/dL [facility] HCT 37.5 35.7 - 45.2 % [facility] LABORATORY MCV 92.4 80.6 - 95.5 fL [facility] LABORATORY MCH 30.3 25.9 - 32.8 pg [facility] LABORATORY MCHC 32.8 31.6 - 35.1 [facility] g/dL [facility] RDW-SD 50.3 (H) 39.0 - 49.9 fL [facility] LABORATORY RDW-CV 14.6 12.0 - 15.5 % [facility] LABORATORY PLT 254 166 - 358 [facility] 10*3/L [facility]OS[facility]ITAL LAB[facility]ORY MPV 9.2 (L) 9.5 - 12.9 fL [facility] LABORATORY NRBC/100 WBC 0.0 0.0 - 10.0 /100 [facility] WBCs [facility] NRBC x10^3 <0.01 10*3/L [facility] LABORATORY GRAN MAT (NEUT) % 85.9 % [facility] LABORATORY IMM GRAN % 0.40 % [facility] LABORATORY LYMPH % 11.2 % [facility] LABORATORY MONO % 2.1 % [facility] LABORATORY EOS % 0.2 % [facility] LABORATORY BASO % 0.2 % [facility] LABORATORY GRAN MAT x10^3(ANC) 9.70 (H) 1.88 - 7.09 [facility] 10*3/uL [facility] IMM GRAN x10^3 0.05 0.00 - 0.06 [facility] 10*3/uL [facility] LYMPH x10^3 1.26 (L) 1.32 - 3.29 [facility] 10*3/uL [facility] MONO x10^3 0.24 (L) 0.33 - 0.92 [facility] 10*3/uL [facility] EOS x10^3 <0.03 (L) 0.03 - 0.39 [facility] 10*3/uL [facility] BASO x10^3 <0.03 0.01 - 0.07 [facility] 10*3/uL [facility] Specimen Blood - ARM, LEFT Performing Organization Address City/State/Zipcode Phone Number [facility] CLIA: [id number] [place] [address] CHEST PULMONARY ANGIOGRAM (02/05/2020 11:36 PM CDT) Specimen Impressions Performed At PACS/VR/DOSE 1. Chronic subsegmental pulmonary embolus in the lef t upper lobe pulmonary artery. 2. Hyperdensity in the gastric cardia, m ay represent hyperdense food particles or contrast extravasation. Clinical correlat ion with history of hematemesis is recommended. 3. Moderate-sized hiatal hernia Preliminary Report Dictated by Resident: Iza Matute I, Chago Ellis MD., have reviewed this study and agree with the above report. Narrative Performed At PROCEDURE: CT ANGIO CHEST WITH CONTRAST - PE PROTOCOL PACS/VR/DOSE CLINICAL INDICATION: PE suspected, high pretest prob COMPARISON: None. TECHNIQUE: Helical CT was performed an d reconstructed at 1.25 mm slice thickness from lung bases to apices using 70 mL Omnipa que 350 intravenous contrast, without complication. 3D ax ial MIPS and coronal MPRS were generated under radiologist supervision, and reviewed to further define anatomy and possible pathology. (DFOV = 30 cm) FINDINGS: PULMONARY ARTERIES: Enhancement is appropriate and there is a eccentric fi lling defect in the left upper lobe pulmonary artery segment al branch, likely represent a chronic pulmonary embolism. CHEST: Lower neck/thyroid: Unremarkable. Lungs: Bilateral lower lobes subsegmenta l atelectasis. Central airway: Unremarkable. Pleura: No pleural effusion, thickening or pneumothorax. Thoracic aorta and great vessels: Feli re atherosclerosis. Heart and pericardium: Mild coronary arterial calcific ation. Unremarkable cardiac morphology and pericardium. Lymph nodes: No enlarged thoracic lymph nodes. Mediastinum: A small hiatal hernia is se en. Thoracic spine and chest wall: Unremarkable, with norm al thoracic vertebral body heights. Other Lines/Tubes/Devices/Hardware: None Visualized upper abdomen: Changes of cholecystectomy. A small splenule is seen. The spleen measures 13.7 cm. Hyperdensity is see n in the stomach, may represent hyperdense food or contrast extravasation. M oderate-sized hiatal hernia. Procedure Note [facility], Radiant Results Inft User - 2019 9:42 AM CDT PROCEDURE: CT ANGIO CHEST WITH CONTRAST - PE PROTOCOL CLINICAL INDICATION: PE suspected, high pretest prob COMPARISON: None. TECHNIQUE: Helical CT was performed and reconstructed at 1.25 mm slice thickness from lung bases to apices usin g 70 mL Omnipaque 350 intravenous contrast, without complication. 3D axi al MIPS and coronal MPRS were generated under radiologist supervision, and reviewed to further define anatomy and possible pathology. (DFOV = 30 cm) FINDINGS: PULMONARY ARTERIES: Enhancement is appropriate and there is a eccentric filling defect in the left upper lobe pulmonary artery segment al branch, likely represent a chronic pulmonary embolism. CHEST: Lower neck/thyroid: Unremarkable. Lungs: Bilateral lower lobes subsegmenta l atelectasis. Central airway: Unremarkable. Pleura: No pleural effusion, thickening or pneumothorax. Thoracic aorta and great vessels: Sever e atherosclerosis. Heart and pericardium: Mild coronary art erial calcification. Unremarkable cardiac morphology and pericardium. Lymph nodes: No enlarged thoracic lymph nodes. Mediastinum: A small hiatal hernia is se en. Thoracic spine and chest wall: Unremarka ble, with normal thoracic vertebral body heights. Other Lines/Tubes/Devices/Hardware: None Visualized upper abdomen: Changes of cho lecystectomy. A small splenule is seen. The spleen measures 13.7 cm. Hyper density is seen in the stomach, may represent hyperdense food or contrast ex travasation. Moderate-sized hiatal hernia. IMPRESSION 1. Chronic subsegmental pulmonary embol us in the left upper lobe pulmonary artery. 2. Hyperdensity in the gastric cardia, m ay represent hyperdense food particles or contrast extravasation. Cli nical correlation with history of hematemesis is recommended. 3. Moderate-sized hiatal hernia Preliminary Report Dictated by Resident: Iza Matute I, Chago Ellis MD., have reviewed is study and agree with the above report. Performing Organization Address City/State/Zipcode Phone Number PACS/VR/DOSE D-DIMER (02/05/2020 9:45 PM CDT) Pathologist Sig nature D-DIMER 10.23 (H) <0.41 g/mL (FEU) [facility] LABORATORY Specimen Blood - ARM, LEFT Narrative Performed At This test may be used in conjunction with a [facility] clinical pretest probability (PTP) assessment model to exclude venous thromboembolism (VTE) in patients suspected of deep venous thrombosis (DVT) and pulmonary embolism (PE) A D-Dimer value less than 0.50 g/ml (FEU) has a negative predicative value of 96 to 100% (95% CI)and 97 to 100% (95% CI) as an aid in the diagnosis of deep vein thrombosis (DVT) and pulmonary embolism when there is low or moderate pretest probability of PE or DVT. D-Dimer values are expressed in initial fibrinogen equivalent units (FEU)" The assay results should be used with other information, including the clinical context, in forming a diagnosis. Performing Organization Address [facility] Phone Number [facility] CLIA: [id number] [place] [address] FREE T4 (02/05/2020 9:45 PM CDT) Pathologist Sig nature FREE T4 0.72 (L) 0.78 - 2.20 ng/dL: [facility] LAB[facility] Specimen Blood - ARM, LEFT Performing Organization Address [facility] [place] Phone Number [facility] CLIA: [id number] [place] [address] LAB[address]AT[address] [facility] [address] POCT GLUCOSE (AUTOMATED) (02/05/2020 9:04 PM CDT) Pathologist Sig [facility] POCT GLU 128 (H) 70 - 110 mg/dL [facility] LABORATORY Specimen Blood Performing Organization Address [facility] [place] Phone Number [facility] CLIA: [id number] [place] [address] LABORATORY [facility] [address] Lactic Acid Whole Blood (02/05/2020 8:00 PM CDT) [facility] LACTIC ACID 1.23 0.30 - 2.60 mmol/L [facility] LAB[facility] Specimen Blood Performing Organization Address [facility] Phone Number [facility] CLIA: [id number] [place] [address] LABORATORY [facility] [address] FREE T3 (02/05/2020 7:46 PM CDT) Pathologist Sig nature FREE T3 1.97 (L) 2.77 - 5.27 pg/mL [facility] Specimen Blood - ARM, RIGHT Performing Organization Address [facility] [place] Phone Number [facility] CLIA: [id number] [place] [address] Troponin I (02/05/2020 7:46 PM CDT) Pathologist Sig nature TROPONIN I 0.943 (H) <=0.034 ng/mL [facility] LABORATORY Specimen Blood - ARM, RIGHT Narrative Performed At Equal or Less than 0.034 ng/ml---Normal [facility] LABOR[facility]ORY Note: Cardiac troponin begins to rise 3-4 hours after the onset of ischemia. Repeat in 4-6 hours if the sample was drawn within 3-4 hours of the onset of the symptom and found normal. Between 0.035 and 0.120 ng/mL--- Borderline. Questionable myocardial injury or necros is Note: Serial measurement may be necessary to confirm or exclude the diagnosis of myocardial injury or necrosis; Clinical correlation (symptoms, EKGs, imaging studies, and others) required; Repeat in 4-6 hours if clinically indicated. Equal or Higher than 0.121 ng/mL---Abnormal. Myocardial Injury or Necrosis Likely Biotin has been reported to cause a negative bias, interpret results relative to patient's use of biotin. Performing Organization Address City/State/Zipcode Phone Number [facility] CLIA: [id number] [place] [address] FECAL PATHOGENS BY PCR (02/05/2020 7:41 PM CDT) Campylobacter (jejuni, Negative Negative, [facility] coli and upsaliensis) Indeterminate, SERVICES See comment Plesiomonas shigelloides Negative Negative, [facility] Indeterminate, SERVICES See comment Salmonella Negative Negative, [facility] Indeterminate, SERVICES See comment Yersinia enterocolitica Negative Negative, [facility] Indeterminate, SERVICES See comment Vibrio Negative Negative, [facility] Indeterminate, SERVICES See comment Vibrio cholerae Negative Negative, [facility] Indeterminate, SERVICES See comment Enteroaggregative E. coli Negative Negative, [facility] (EAEC) Indeterminate, SERVICES See comment Enteropathogenic E. coli Negative Negative, N/A, [facility] LABORATOR Y (EPEC) Indeterminate, SERVICES See comment Enterotoxigenic E. coli Negative Negative, [facility] (ETEC) Indeterminate, SERVICES See comment Shiga toxin-Producing E. Negative Negative, [facility] coli (STEC) Indeterminate, SERVICES See comment Shigella/Enteroinvasive Negative Negative, [facility] E. coli (EIEC) Indeterminate, SERVICES See comment Cryptosporidium Negative Negative, [facility] Indeterminate, SERVICES See comment Cyclospora cayetanensis Negative Negative, [facility] Indeterminate, SERVICES See comment Entamoeba histolytica Negative Negative, [facility] Indeterminate, SERVICES See comment Giardia lamblia Negative Negative, [facility] Indeterminate, SERVICES See comment Adenovirus F 40/41 Negative Negative, [facility] Indeterminate, SERVICES See comment Astrovirus Negative Negative, [facility] Indeterminate, SERVICES See comment Norovirus GI/GII Negative Negative, [facility] Indeterminate, SERVICES See comment Rotavirus A Negative Negative, [facility] Indeterminate, SERVICES See comment Sapovirus Negative Negative, [facility] Indeterminate, SERVICES See comment Specimen Stool Narrative Performed At Negative: [facility] SERVICES A negative result does not rule-out infection. This assay does not test for all potential infectious agents of diarrheal disease. Positive: A positive test result does not necessarily indicate t he presence of viable organism. Performing Organization Address City/[facility]/Zipcode Phone Number [facility] SERVICES CLIA: [id number] [place] [address] [place] [address] FECAL LEUKOCYTES (02/05/2020 7:41 PM CDT) Pathologist Sig nature Fecal Leukocytes Negative Negative [facility] SERVICES Specimen Stool - ANAL Performing Organization Address City/[facility] Services[facility] Phone Number [facility] SERVICES CLIA: [id number] [place] [address] [place] [address] CLOSTRIDIUM DIFFICILE TOXIN (02/05/2020 7:41 PM CDT) Pathologist Sig nature Clostridioides Negative Negative [facility] (Clostridium) [facility] LABORATO RY Specimen Stool - ANAL Performing Organization Address [facility]/Zipcode Phone Number [facility] CLIA: [id number] [place] [address] COVID-19 (ID NOW RAPID TESTING) (02/05/2020 3:18 PM CDT) SARS-CoV-2 Rapid ID Not Detected Not Detected [facility] LABORATORY Specimen Swab - NASOPHARYNGEAL SWAB Narrative Performed At [facility] NOW COVID-19 Assay is an isothermal nucleic [facility] LABORATORY acid amplification test intended for the qualitative detection of nucleic acid from SARS-CoV-2 viral RNA in nasopharyngeal (MICROARRAY OPERATIONS VICE PRESIDENT) specimens. It is used under Emergency Use Authorization (EUA) by FDA. The limit of detection (LOD) of the assay is 125 Genome Equivalents/mL. A positive result is indicative of the presence of SARS-CoV-2 RNA. Clinical correlation with patient history and other diagnostic information is necessary to determine patient infection status. A negative (Not Detected) result does not preclude SARS-CoV-2 infection. In patients with clinical symptoms and other tests that are consistent with SARS-CoV-2 infection, negative results should be treated as presumptive negative and a new specimen should be tested with alternative PCR molecular test. Invalid: Please collect a new specimen for repeat patient testing if clinically indicated. Performing Organization Address City/State/Zipcode Phone Number [facility] CLIA: [id number] [place] [address] XR CHEST 1 VW (02/05/2020 3:15 PM CDT) Specimen Impressions Performed At PACS/VR/DOSE No acute cardiopulmonary abnormality Preliminary Report Dictated by Resident: Chago Mares MD., have reviewed this study and agree with the above report. Narrative Performed At EXAM: PACS/VR/DOSE XR CHEST 1 VW HISTORY: 84 years-old; Female; chest da n COMPARISON: none FINDINGS: Lungs/Pleura: The lungs are clear with no focal consol idation. There is no pleural effusion or pneumothorax. Heart/Mediastinum: The cardiomediastinal silhouette is normal. No acute osseous structure abnormality. Diffuse osteopenia is noted. Multilevel degenerative changes of the t horacic spine is noted. Procedure Note [facility], Radiant Results Inft User - 2019 3:31 PM CDT EXAM: XR CHEST 1 VW HISTORY: 84 years-old; Female; chest da n COMPARISON: none FINDINGS: Lungs/Pleura: The lungs are clear with n o focal consolidation. There is no pleural effusion or pneumothorax. Heart/Mediastinum: The cardiomediastinal silhouette is normal. No acute osseous structure abnormality. Diffuse osteopenia is noted. Multilevel degenerative changes of the t horacic spine is noted. IMPRESSION No acute cardiopulmonary abnormality Preliminary Report Dictated by Resident: Chago Mares MD., have reviewed th is study and agree with the above report. Performing Organization Address City/[facility]/Zipcode Phone Number PACS/VR/DOSE Thyroid Stimulating Hormone (TSH) (02/05/2020 3:07 PM CDT) Pathologist Sig nature TSH 13.40 (H)Comment: 0.45 - 4.70 [facility] Biotin has been mIU/L [facility]ORY reported to cause a negative bias, interpret results relative to patient's use of biotin. Specimen Blood - VENOUS Performing Organization Address [facility] Services[facility] Phone Number [facility] CLIA: [id number] [place] [address] Lipid Panel (Total Cholesterol, Triglycerides, HDL) - Fasting (02/05/2020 3:07 PM CDT) Pathologist Sig nature CHOL 215 (H) 120 - 200 mg/dL [facility] LABORATORY HDL 23 (L) >50 mg/dL [facility] LABORATORY HDLC RATIO 9.3 (H) <=4.5 [facility] LABORATORY TRIG 283 (H) 30 - 170 mg/dL [facility] LABORATORY LDL CHOL 135 <=160 mg/dL [facility] LABOR[facility]ORY VLDL 57 5 - 60 mg/dL [facility] LABORATORY Specimen Blood - VENOUS Performing Organization Address [facility] Phone Number [facility] CLIA: [id number] [place], [place] [address] LABORATORY [address] Glycosylated Hemoglobin (A1C) (02/05/2020 3:07 PM CDT) Pathologist Sig nature HGB A1C 9.2 (H) 4.0 - 6.0 % [facility] LABORATORY Specimen Blood - VENOUS Narrative Performed At %A1C (NGSP) Interpretation (ADA) [facility] LABORATORY 4.8-5.6 Normal or (Non-Diabetic Ra nge) 5.7-6.4 Increased Risk (Pre-Diabet ic) >6.5 Diabetes Indicated Performing Organization Address [facility] Services[facility]oca Phone Number [facility] CLIA: [id number] [place] [address] LAB[address]AT[address] [facility] Phosphorus Serum (02/05/2020 3:07 PM CDT) PHOSPHORUS 3.8Comment: Slight 2.5 - 5.0 mg/dL [facility] LABORATORY Specimen Blood - VENOUS Performing Organization Address [facility] Servicescode Phone Number [facility] CLIA: [id number] [place] [address] Magnesium Serum (02/05/2020 3:07 PM CDT) Pathologist Sig nature MAGNESIUM 1.9Comment: Slight 1.7 - 2.4 mg/dL [facility] LABORATORY Specimen Blood - VENOUS Performing Organization Address City/[facility]/Zipcode Phone Number [facility] CLIA: [id number] [place] [address] URINE CULTURE (02/05/2020 3:07 PM CDT) Pathologist Sig nature URINE CULTURE >100,000 CFU/mL [facility] LABOR[facility]ORY Klebsiella SERVICES pneumoniae Specimen Urine - URINE, CATHETERIZED Organism Antibiotic Method Susceptibility Klebsiella Amoxacillin/Clavulanic SUSCEPTIBILITY TESTING <= 2: Susceptible pneumoniae acid Klebsiella Ampicillin SUSCEPTIBILITY TESTING >=32: Res istant pneumoniae Klebsiella Ampicillin/Sulbactam SUSCEPTIBILITY TESTING 4: S usceptible pneumoniae Klebsiella Cefazolin SUSCEPTIBILITY TESTING <=4: Susc eptible pneumoniae Klebsiella Ceftriaxone SUSCEPTIBILITY TESTING <=1: Susc eptible pneumoniae Klebsiella Ciprofloxacin SUSCEPTIBILITY TESTING <=0.25: S usceptible pneumoniae Klebsiella Ertapenem SUSCEPTIBILITY TESTING <=0.5: Worrell sceptible pneumoniae Klebsiella Gentamicin SUSCEPTIBILITY TESTING <=1: Susc eptible pneumoniae Klebsiella Levofloxacin SUSCEPTIBILITY TESTING <=0.12: S usceptible pneumoniae Klebsiella Nitrofurantoin SUSCEPTIBILITY TESTING 64: Inter mediate pneumoniae Klebsiella Piperacillin/Tazobactam SUSCEPTIBILITY TESTING 8 : Susceptible pneumoniae Klebsiella Trimethoprim/Sulfametho SUSCEPTIBILITY TESTING < =20: Susceptible pneumoniae xazole Comment: Nitrofurantoin is not recommended for us e in treating pyelonephritis or systemic disease. Performing Organization Address City/State/Zipcode Phone Number [facility]ORATORY SERVICES CLIA: [id number] [place] [address] [place], [place] [address]vd LIPASE (02/05/2020 3:07 PM CDT) Pathologist Sig nature LIPASE 78 0 - 220 U/L [facility] LABORATORY Specimen Blood - VENOUS Performing Organization Address City/State/Zipcode Phone Number [facility] CLIA: [id number] [place] [address] URINALYSIS (02/05/2020 3:07 PM CDT) Pathologist Sig nature APPEARANCE Clear Clear [facility] LABORATORY COLOR Yellow Yellow [facility] LABORATORY PH 7.0 4.8 - 8.0 [facility] LABORATORY SP GRAVITY 1.009 1.003 - 1.030 [facility] LABORATORY GLU U QUAL Normal Normal [facility] LABORATORY BLOOD 2+ (A) Negative [facility] LABORATORY KETONES Negative Negative [facility] LABORATORY PROTEIN Negative Negative [facility] LABORATORY UROBILIN Normal Normal [facility] LABORATORY BILIRUBIN Negative Negative [facility] LABORATORY NITRITE Positive (A) Negative [facility] LABORATORY LEUK KIMMY 500/uL (A) Negative [facility] LABORATORY RBC/HPF 7 (H) 0 - 3 HPF [facility] LABORATORY WBC/HPF 68 (H) 0 - 5 HPF [facility] LABORATORY BACTERIA Many (A) Negative [facility] LABORATORY MUCOUS Slight (A) Negative LPF [facility] LABORATORY SQ EPITH <1 HPF [facility] LABORATORY YEAST BUD 4 (H) <=1 HPF [facility] LABORATORY HYAL CAST 3 (H) <=2 LPF [facility] LABORATORY Specimen Urine - URINE, CATHETERIZED Performing Organization Address City/State/Zipcode Phone Number [facility] CLIA: [id number] [place] [address] [place] [address] TROPONIN I (02/05/2020 3:07 PM CDT) Pathologist Sig nature TROPONIN I 0.006 <=0.034 ng/mL [facility] LABORATORY Specimen Blood - VENOUS Narrative Performed At Equal or Less than 0.034 ng/ml---Normal [facility] LABORATORY Note: Cardiac troponin begins to rise 3-4 hours after the onset of ischemia. Repeat in 4-6 hours if the sample was drawn within 3-4 hours of the onset of the symptom and found normal. Between 0.035 and 0.120 ng/mL--- Borderline. Questionable myocardial injury or necros is Note: Serial measurement may be necessary to confirm or exclude the diagnosis of myocardial injury or necrosis; Clinical correlation (symptoms, EKGs, imaging studies, and others) required; Repeat in 4-6 hours if clinically indicated. Equal or Higher than 0.121 ng/mL---Abnormal. Myocardial Injury or Necrosis Likely Biotin has been reported to cause a negative bias, interpret results relative to patient's use of biotin. Performing Organization Address [facility] Services[facility] Phone Number [facility] CLIA: [id number] [place] [address] N-TERMINAL PRO-BNP (02/05/2020 3:07 PM CDT) [facility] [employer] NT-proBNP 169 <=450 pg/mL [facility] LABORATORY Specimen Blood - VENOUS Narrative Performed At [facility] has been reported to cause a negative [facility] LABORATORY bias, interpret results relative to patient's use of biotin. Performing Organization Address [facility] Phone Number [facility] CLIA: [id number] [place] [address] COMP. METABOLIC PANEL (79821) (02/05/2020 3:07 PM CDT) [facility] [employer] NA 131 (L) 135 - 145 [facility] mmol/L [facility] LABORATORY K 4.2 3.5 - 5.0 [facility] mmol/L [facility] LABOR[facility] CL 99 98 - 108 mmol/L [facility] LABORATORY CO2 TOTAL 25 23 - 31 mmol/L [facility] LABORATORY AGAP 7 2 - 16 [facility] LABORATORY BUN 24 (H) 7 - 23 mg/dL [facility] LABORATORY GLUCOSE 72 70 - 110 mg/dL [facility] LABORATORY CREATININE 0.51 0.50 - 1.04 [facility] mg/dL [facility] LABORATORY TOTAL BILI 0.9 0.1 - 1.1 mg/dL [facility] LABORATORY CALCIUM 8.1 (L) 8.6 - 10.6 [facility] mg/dL [facility] LAB[facility] T PROTEIN 5.5 (L) 6.3 - 8.2 g/dL [facility] LABORATORY ALBUMIN 2.7 (L) 3.5 - 5.0 g/dL [facility] LABORATORY ALK PHOS 107 34 - 122 U/L [facility] LABORATORY ALTv 17 5 - 35 U/L [facility] LABORATORY AST(SGOT) 52 (H) 13 - 40 U/L [facility] LABORATORY eGFR Calculation 115.5 mL/min/1.73m2 [facility] [place]) eGFR Calculation 139.9 mL/min/1.73m2 [facility] () [facility] LABORATORY Specimen Blood - VENOUS Narrative Performed At Association of Glomerular Filtration Rate (GFR) [facility] LABORATORY and Staging of Kidney Disease* + + +- + | GFR (mL/min/1.73 m2) | With Kidney Damage | Without Kidney Damage + + +- + | >90 | Stage one | Normal + + +- + | 60-89 | Stage two | Decreased GFR + + +- + | 30-59 | Stage three | Stage three + + +- + | 15-29 | Stage four | Stage four + + +- + | <15 (or dialysis) | Stage five | Stage five + + +- + *Each stage assumes the associated GFR level has been in effect for at least three months. Stages 1 to 5, with or without kidney disease, indicate chronic kidney disease. Notes: Determination of stages one and two (with eGFR >59mL/min/1.73 m2) requires estimation of kidney damage for at least three months as defined by structural or functional abnormalities of the kidney, manifested by either: Pathological abnormalities or Markers of kidney damage (including abnormalities in the composition of the blood or urine or abnormalities in imaging tests). Performing Organization Address City/State/Zipcode Phone Number [facility] CLIA: [id number] [place] [address] CBC WITH DIFF (02/05/2020 3:07 PM CDT) WBC 10.90 4.30 - 11.10 [facility] 10*3/L [facility] LAB[facility]ATORY RBC 4.16 3.93 - 5.25 [facility] 10*6/L [facility] LAB[facility]ATORY HGB 12.6 11.6 - 15.0 [facility] g/dL [facility] LAB[facility] HCT 39.2 35.7 - 45.2 % [facility] LABORATORY MCV 94.2 80.6 - 95.5 [facility] LABORATORY MCH 30.3 25.9 - 32.8 [facility] LABORATORY MCHC 32.1 31.6 - 35.1 [facility] g/dL [facility] LABORATORY RDW-SD 51.3 (H) 39.0 - 49.9 [facility] LABORATORY RDW-CV 14.9 12.0 - 15.5 % [facility] LABORATORY PLT 196 166 - 358 [facility] 10*3/L [facility] LABORATORY MPV 9.9 9.5 - 12.9 fL [facility] LABORATORY IPF % 4.6Comment: Platelet 1.3 - 7.7 % [facility] count measured by HOSPITAL fluorescence method. LABORATORY NRBC/100 WBC 0.0 0.0 - 10.0 [facility] /100 WBCs [facility] LABORATORY NRBC x10^3 <0.01 10*3/L [facility] LABORATORY GRAN MAT (NEUT) % 66.3 % [facility] LABORATORY IMM GRAN % 0.60 % [facility] LABORATORY LYMPH % 26.0 % [facility] LABORATORY MONO % 4.9 % [facility] LABORATORY EOS % 2.0 % [facility] LABORATORY BASO % 0.2 % [facility] LABORATORY GRAN MAT 7.24 (H) 1.88 - 7.09 [facility] x10^3(ANC) 10*3/uL [facility] LABORATORY IMM GRAN x10^3 0.06 0.00 - 0.06 [facility] 10*3/uL [facility] LABORATORY LYMPH x10^3 2.83 1.32 - 3.29 [facility] 10*3/uL [facility] LABORATORY MONO x10^3 0.53 0.33 - 0.92 [facility] 10*3/uL [facility] LABORATORY EOS x10^3 0.22 0.03 - 0.39 [facility] 10*3/uL [facility] LABORATORY BASO x10^3 <0.03 0.01 - 0.07 [facility] 10*3/uL [facility] LABORATORY Specimen Blood - VENOUS Performing Organization Address City/[facility]/Zipcode Phone Number [facility] CLIA: [id number] [place] [address] Lactic Acid Whole Blood (02/05/2020 3:05 PM CDT) [facility] LACTIC ACID 2.42 mmol/L [facility] LABORATORY Specimen Blood - VENOUS Performing Organization Address City/[facility] Services[facility] Phone Number [facility] CLIA: [id number] [place] [address] LABORATORY [address] [facility] documented in this encounter Visit Diagnoses Diagnosis Hypotension, unspecified hypotension typ e Allergic reaction to drug, initial encou nter Rash Rash and other nonspecific skin eruption Sepsis, due to unspecified organism, uns pecified whether acute organ dysfunction present Urinary tract infection associated with indwelling urethral catheter, initial encounter Edema, unspecified type Type 2 diabetes mellitus with other spec ified complication, unspecified whether termite exterminator helper insulin use Elevated troponin I level Other abnormal blood chemistry Essential hypertension Unspecified essential hypertension Dyslipidemia Other and unspecified hyperlipidemia documented in this encounter Administered Medications Medication Order MAR Action Action Date Dose Rate Site aspirin chewable tablet 81 mg Given 02/09/2020 8:17 AM CDT 81 mg 81 mg, Oral, DAILY, First dose on Fri02/06/20 at 0900, Until Discontinued, Routine Given 02/08/2020 8:30 AM CDT 81 mg Given 02/07/2020 7:50 AM CDT 81 mg ciprofloxacin HCl (CIPRO) tablet 500 mg Given 02/09/2020 8:17 AM CDT 500 mg 500 mg, Oral, BID, First dose on Fri02/08/20 at 1300, Until Discontinued, KYLE, Reason for Anti-Infective: Empiric Therapy for Suspected Infection, Empiric Therapy Site: Urine, Duration of therapy: 72 hours Given 02/08/2020 8:39 PM CDT 500 mg Given 02/08/2020 2:42 PM CDT 500 mg diphenhydrAMINE (BENADRYL) tablet 25 mg Given 02/07/2020 9:03 PM CDT 25 mg 25 mg, Oral, Q6HPRN, Starting 02/05/20 at 2137, Until Discontinued, Routine, Itching Given 02/06/2020 2:55 PM CDT 25 mg Given 02/06/2020 8:04 AM CDT 25 mg enoxaparin (LOVENOX) injection 40 mg Given 02/09/2020 8:17 AM CDT 40 mg Abdo men-SC 40 mg, Subcutaneous, DAILY, First dose on Fri02/08/20 at 0900, Until Discontinued, Routine Given 02/08/2020 8:46 AM CDT 40 mg Abdo men-SC famotidine 20 mg in NS 50 ml (PEPCID) 20 New Bag 02/09/2020 8:16 AM CDT 20 mg mg/50 mL Piggyback 20 mg 20 mg, IV Piggyback, Q12H, First dose on Fri02/06/20 at 2000, Until Discontinued, 50 mL New Bag 02/08/2020 8:42 PM CDT 20 mg New Bag 02/08/2020 8:30 AM CDT 20 mg hydroCHLOROthiazide (ESIDRIX) tablet 25 mg Given 02/09/2020 8:16 AM CDT 25 mg 25 mg, Oral, DAILY, First dose on Fri02/08/20 at 0900, Until Discontinued, Routine Given 02/08/2020 8:46 AM CDT 25 mg hydrocortisone 2.5 % cream Given 02/09/2020 8:17 AM CDT Topical (Apply To Affected Areas), BID, First dose on Fri02/06/20 at 2000, Until Discontinued, Routine Given 02/08/2020 11:23 PM CDT Applied 02/08/2020 10:52 AM CDT hydrOXYzine (ATARAX) tablet 10 mg Given 02/09/2020 11:48 AM CDT 10 mg 10 mg, Oral, Q6H, First dose on Fri02/06/20 at 1800, Until Discontinued, Routine Given 02/09/2020 5:08 AM CDT 10 mg Given 02/08/2020 11:22 PM CDT 10 mg insulin glargine (LANTUS Given 02/08/2020 8:34 PM CDT 20 Units Left Upper Arm-SC U-100) injection 20 Units 20 Units, Subcutaneous, QHS, First dose on Fri02/05/20 at 2100, Until Discontinued, Routine Given 02/07/2020 9:03 PM CDT 20 Units Abdo men-SC Given 02/06/2020 8:05 PM CDT 20 Units Abdo men-SC KCL (KLOR-CON M20) tablet 20 mEq Given 02/09/2020 8:17 AM CDT 20 mEq 20 mEq, Oral, BID, First dose (after last modification) on Fri02/08/20 at 2000, Until Discontinued, Routine Given 02/08/2020 8:39 PM CDT 20 mEq lactobacillus acidophilus (ACIDOPHILLUS) Given 02/09/2020 8 :16 AM CDT 1 tablet 25 million cell -100 mg captab 1 tablet 1 tablet, Oral, TID, First dose on Fri02/08/20 at 1300, Until Discontinued, Routine Given 02/08/2020 8:38 PM CDT 1 tablet Given 02/08/2020 2:42 PM CDT 1 tablet levothyroxine (SYNTHROID) tablet 100 mcg Given 02/09/2020 5:08 AM CDT 100 mcg 100 mcg, Oral, QAM-0600, First dose on Fri02/06/20 at 0600, Until Discontinued, Routine Given 02/08/2020 5:07 AM CDT 100 mcg Given 02/07/2020 5:14 AM CDT 100 mcg metoprolol succinate XL (TOPROL XL) tabl et 50 mg 50 mg, Oral, DAILY, First dose on Fri at 0900, Until Discontinued, Routine ondansetron (ZOFRAN (PF)) injection 4 mg 4 mg, Slow IV Push, Q6HPRN, Starting 02/05/20 at 19 12, Until Discontinued, Routine, Nausea and Vomiting (N/V) predniSONE (DELTASONE) tablet 20 mg Given 02/09/2020 8:17 AM CDT 20 mg 20 mg, Oral, DAILY, First dose (after last modification) on Fri02/09/20 at 0900, Until Discontinued, Routine Sliding Scale Insulin - Aspart Given 02/09/2020 11:49 AM CDT 1 U nits Left Arm (NOVOLOG) + Fsbg Testing Subcutaneous, TID MEALS+HS, First dose on 02/05/20 at 2100, Until Discontinued, Routine Given 02/09/2020 8:10 AM CDT 1 Units Abdo men-SC Given 02/08/2020 11:37 PM CDT 3 Units Righ t Upper Arm-SC Medication Order MAR Action Action Date Dose Rate Site cefTRIAXone (ROCEPHIN) 1,000 mg Given 02/05/2020 4:24 PM CDT 1, 000 mg in NaCl 0.9% (NS) 50 mL MINI-BAG 1,000 mg, IV Piggyback, ONCE, 1 dose, 02/05/20 at 1715, 50 mL, Reason for Anti-Infective: Documented Infection, Documented Infection Site: Urine, Duration of Therapy: 7 days dexamethasone (DECADRON Given 02/05/2020 3:22 PM CDT 10 mg Left Dorsogluteal-IM PHOSPHATE) injection 10 mg 10 mg, Intramuscular, ONCE, 1 dose, 02/05/20 at 1600, STAT enoxaparin (LOVENOX) injection 60 mg Given 02/07/2020 8:02 AM CDT 60 mg Abdo men-SC 60 mg (rounded from 59 mg = 1 mg/kg 59 kg), Subcutaneous, Q12H, First dose on 02/05/20 at 2045, Until Discontinued, Routine Given 02/06/2020 8:04 PM CDT 60 mg Abdo men-SC Given 02/06/2020 8:04 AM CDT 60 mg Abdo men-SC famotidine (PEPCID (PF)) injection 20 mg Given 02/05/2020 3:25 PM CDT 20 mg 20 mg, Slow IV Push, ONCE, 1 dose, 02/05/20 at 1600, KYLE furosemide (LASIX) injection 20 mg Given 02/08/2020 2:42 PM CDT 20 mg 20 mg, Slow IV Push, ONCE, 1 dose, 02/08/20 at 1345, Routine iohexol (OMNIPAQUE 350 BULK-75 mL) injection Given 11:27 PM CDT 80 mL 80 mL 80 mL, Intravenous, ONCE, 1 dose, 02/05/20 at 2345, Routine KCL (KLOR-CON M20) tablet 20 mEq Given 02/08/2020 10:52 AM CDT 20 mEq 20 mEq, Oral, DAILY, First dose on 02/08/20 at 0900, Until Discontinued, Routine NaCl 0.9% (NS) bolus infusion New Bag 02/05/2020 2:49 PM CDT 1,701 mL 999 mL/hr 1,701 mL at 999 mL/hr, 1,701 mL (30 mL/kg 56.7 kg), IV Infusion, ONCE, 1 dose, 02/05/20 at 1600, STAT NaCl 0.9% (NS) IV infusion 1,000 New Bag 02/05/2020 5:05 PM C DT 1,000 mL 125 mL/hr mL at 125 mL/hr, IV Infusion, CONTINUOUS, Starting 02/05/20 at 1730, Until 02/05/20 at 2043, Routine NaCl 0.9% (NS) IV infusion 1,000 New Bag 02/08/2020 7:25 AM C DT 1,000 mL 100 mL/hr mL at 100 mL/hr, IV Infusion, CONTINUOUS, Starting 02/05/20 at 2045, Until 02/09/20 at 1236, Routine New Bag 02/06/2020 9:02 PM CDT 1,000 mL 100 mL/hr Dose/Rate Verify 02/06/2020 4:00 PM CDT 100 mL/hr piperacillin-tazobactam (ZOSYN) 3.375 g in Given 02/07 10:59 AM CDT 3.375 g NaCl 0.9% (NS) 100 mL MINI-BAG 3.375 g, IV Piggyback, Q6H ABX, First dose on 02/05/20 at 2215, Until Discontinued, 100 mL, Reason for Anti-Infective: Documented Infection, Documented Infection Site: Urine, Duration of Therapy: 7 days Given 02/08/2020 5:12 AM CDT 3.375 g Given 02/07/2020 11:23 PM CDT 3.375 g predniSONE (DELTASONE) tablet 40 mg Given 02/08/2020 8:30 AM CDT 40 mg 40 mg, Oral, DAILY, First dose on 02/06/20 at 0900, Until Discontinued, Routine Given 02/07/2020 7:50 AM CDT 40 mg Given 02/06/2020 8:04 AM CDT 40 mg documented in this encounter Additional Health Concerns Infection Onset Date Last Indicated Resolved Time COVID-19 Rule Out 02/05/2020 02/05/2020 02/05/2020 4: 13 PM CDT documented as of this encounter Insurance Payer Benefit Plan Subscriber ID Effective Phone Address Typ e / Group Dates [employer] - [employer] [id number] 2014-[id number] Medic are Adv MANAGED MEDICARE ADV nt [id number] [place] [address] documented as of this encounter Advance Directives Type Date Recorded Patient Lead Generation Marketing Manager Explanati on Advance Directives and Living Will Power of Barrel Tester
[2020-02-25] MEDS ORDERED: ACETAMINOPHEN 325 MG TABLET ONE (16:55)
[2020-02-25 17:01] LABS: Absolute Lymphocytes (CBC) 0.5 K/uL (0.7-4.9); Basophils % 0.9 % (0-1.3); Hematocrit 37.7 % (36.0-45.0); MPV 6.7 fL (7.6-11.3); RBC Red Blood Cell Count 4.16 M/uL (3.86-4.86)
[2020-02-25 17:03] LABS: Protime INR 1.08
--- NOTE | 2020-02-25 17:14 | RAD REPORT ---
EXAM DESCRIPTION: RAD - Chest Single View - 02/25/2020 4:58 pm CLINICAL HISTORY: FEVER Chest pain. COMPARISON: No comparisons FINDINGS: Portable technique limits examination quality. The lungs are grossly clear. The heart is upper limit normal in size. No displaced fractures. IMPRESSION: No acute intrathoracic process suspected.
[2020-02-25 17:18] LABS: ALT/SGPT 52 U/L (12-78); AST/SGOT 57 U/L (15-37); Albumin 3.1 g/dL (3.4-5.0); Alkaline Phosphatase 120 U/L (45-117); Amylase 33 U/L (25-115); BUN Blood Urea Nitrogen 16 mg/dL (7-18); Bicarbonate 28 mmol/L (21-32); Bilirubin Direct 0.4 mg/dL (0-0.2); Bilirubin Total 1.7 mg/dL (0.2-1.0); CKMB Creatine Kinase MB < 1.0 ng/mL (0.3-3.6); Creatine Phosphokinase 16 U/L (26-192); Glucose Level 172 mg/dL (74-106); Lipase 46 U/L (73-393); Potassium 3.6 mmol/L (3.5-5.1); Sodium Level 135 mmol/L (136-145); Troponin (Emerg Dept Use Only) < 0.02 ng/mL (0.0-0.045)
[2020-02-25 17:20] LABS: Urine Bacteria 20-50 /HPF (<20); Urine Culture Reflex Order REFLEXED; Urine Mucus 2+ /HPF (NONE SEEN)
[2020-02-25 17:21] LABS: Urine Blood TRACE (NEG); Urine Glucose NEGATIVE (NEG); Urine Protein NEGATIVE (NEG); Urine pH 6.5 (5.0-7.0)
[2020-02-25] MEDS ORDERED: CEFTRIAXONE/SWI 1gm 1 GM/10 ML SYR ONE (18:19)
--- NOTE | 2020-02-25 19:56 | ER ---
Nurse's Notes [facility] Name: Mimi Madrigal Age: 84 yrs Sex: Female : 1935 Arrival Date: 02/25/2020 Time: 15:53 Bed 13 Private MD: Diagnosis: Fever, unspecified;Hypoxemia;Syncope and collapse-near;Urinary tract infection, site not specified;Acute upper respiratory infection, unspecified;Unspecified bacterial pneumonia;Pulmonary embolism-small bilateral subsegmental Presentation: 02/24 15:53 Chief complaint: EMS states: "we were initially called for a lift assist after a fall, jd3 but when we got there she was unable to stand or non weightbearing on her right knee. when we got her vitals we noticed a fever and a low O2, but she has not previous history of lung problems. has not reported a fever or no recent sickness.". Coronavirus screen: fever, Client presents with at least one sign or symptom that may indicate coronavirus-19. Standard/surgical mask placed on the client. Provider contacted for isolation considerations. Ebola Screen: Patient negative for fever greater than or equal to 101.5 degrees Fahrenheit, and additional compatible Ebola Virus Disease symptoms. Initial Sepsis Screen: Does the patient meet any 2 criteria? No. Patient's initial sepsis screen is negative. Does the patient have a suspected source of infection? No. Patient's initial sepsis screen is negative. Risk Assessment: Do you want to hurt yourself or someone else? Patient reports no desire to harm self or others. Onset of symptoms was February 25, 2020. 15:53 Method Of Arrival: EMS: [facility] jd3 15:53 Acuity: JESSICA 3 jd3 Historical: - Allergies: 16:13 No Known Allergies; iw - Home Meds: 17:57 aspirin 81 mg Oral chew [Active]; Metformin Oral [Active]; Metoprolol Tartrate Oral iw [Active]; valsartan Oral [Active]; - PMHx: 15:54 Diabetes - NIDDM; Hypertension; iw - PSHx: 15:54 Cholecystectomy; iw - Immunization history:: Adult Immunizations unknown. - Social history:: Smoking status: unknown. Screenin:24 Abuse screen: Denies threats or abuse. Denies injuries from another. Nutritional iw screening: No deficits noted. Tuberculosis screening: No symptoms or risk factors identified. Fall Risk Fall in past 12 months (25 points). Assessment: 16:23 General: Appears in no apparent distress. Behavior is calm, cooperative. Pain: Denies iw pain. Neuro: Level of Consciousness is awake, alert, obeys commands, Oriented to person, place, time, Moves all extremities. Cardiovascular: Patient's skin is warm and dry. Respiratory: Respiratory effort is even, unlabored, Respiratory pattern is regular, symmetrical. : Denies burning with urination. Derm: Skin is fragile, is thin, Skin is dry, Skin is pale, Skin temperature is warm. Musculoskeletal: Range of motion: intact in all extremities. 17:17 Reassessment: Patient appears in no apparent distress at this time. urine micro sent to lab, urine is cloudy and malodorous , temp is down to 100.8, awaiting results. 18:14 Reassessment: Patient appears in no apparent distress at this time. pt sitting up iw eating sandwich, temp down to 99.8, at bedside, updated on POC, possible admission. 19:35 General: Appears in no apparent distress. Behavior is calm, cooperative, appropriate wh for age. Pain: Denies pain. Neuro: Level of Consciousness is awake, alert, obeys commands, Oriented to person, place, time, situation, Appropriate for age Reports weakness. Cardiovascular: Heart tones S1 S2. Respiratory: Airway is patent Respiratory effort is even, unlabored, Respiratory pattern is regular, symmetrical, Breath sounds are clear bilaterally. GI: Abdomen is flat, non-distended. : No signs and/or symptoms were reported regarding the genitourinary system. EENT: No signs and/or symptoms were reported regarding the EENT system. Derm: Skin is intact, Skin is. Musculoskeletal: Circulation, motion, and sensation intact. 20:30 Reassessment: Patient appears in no apparent distress at this time. Patient and/or wh family updated on plan of care and expected duration. Pain level reassessed. Patient is alert, oriented x 3, equal unlabored respirations, skin warm/dry/pink. Explained POC need for admit. 21:28 Reassessment: Patient appears in no apparent distress at this time. Patient and/or wh family updated on plan of care and expected duration. Pain level reassessed. Patient is alert, oriented x 3, equal unlabored respirations, skin warm/dry/pink. Vital Signs: 15:54 BP 180 / 84; Pulse 93; Resp 20; Temp 101.8(O); Pulse Ox 96% on R/A; Weight 59.87 kg em (R); Height 5 ft. 1 in. (154.94 cm) (R); Pain 0/10; 17:17 BP 139 / 73; Pulse 93; Resp 18 S; Temp 100.8(O); Pulse Ox 95% on R/A; iw 17:55 BP 144 / 72; Pulse 91; Resp 18 S; Pulse Ox 94% on R/A; iw 18:11 BP 140 / 81; Pulse 92; Resp 18 S; Temp 99.8; Pulse Ox 95% on R/A; Pain 0/10; iw 19:37 BP 123 / 69; Pulse 87; Resp 18; Temp 99; Pulse Ox 96% on R/A; wh 21:00 BP 135 / 77; Pulse 84; Resp 18; Pulse Ox 97% on R/A; wh 15:54 Body Mass Index 24.94 (59.87 kg, 154.94 cm) em ED Course: 15:53 Patient arrived in ED. jd3 15:54 Nava Reyna, RN is Primary Nurse. iw 15:56 Triage completed. jd3 15:57 Arm band placed on. jd3 16:03 Francisco Streeter MD is Attending Physician. kdr 16:34 Initial lab(s) drawn, by mt, sent to lab. First set of blood cultures drawn by mt. dh3 Inserted saline lock: 20 gauge in right antecubital area, using aseptic technique. Blood collected. 16:37 Second set of blood cultures drawn by mt. dh3 16:52 EKG done, by ED staff, reviewed by Francisco Streeter MD. dh3 16:59 Chest Single View XRAY In Process Unspecified. EDMS 18:15 Patient has correct armband on for positive identification. Bed in low position. Call iw light in reach. Adult w/ patient. bus monitor on. Pulse ox on. NIBP on. 19:16 CT Chest For PE Angio In Process Unspecified. EDMS 19:34 Attending Physician role handed off by Francisco Streeter MD keith 19:34 Dustin Hernandes MD is Attending Physician. keith 19:54 Archie Navarro MD is Hospitalizing Provider. [facility] 21:22 Inserted saline lock: 22 gauge in left forearm, using aseptic technique. jd3 21:29 No provider procedures requiring assistance completed. Patient admitted, IV remains in place. Administered Medications: 16:46 Drug: Tylenol 650 mg Route: PO; iw 18:41 Follow up: Response: No adverse reaction; Temperature is decreased 21:31 Follow up: Response: No adverse reaction; Temperature is decreased 18:12 Drug: Rocephin - (cefTRIAXone) 1 grams Route: IVPB; Infused Over: 30 mins; Site: right iw antecubital; 21:31 Follow up: Response: No adverse reaction; IV Status: Completed infusion 20:24 Drug: NS 0.9% 1000 ml Route: IV; Rate: 1 bolus; Site: right antecubital; 21:30 Follow up: Response: No adverse reaction; IV Status: Completed infusion 20:26 Drug: Pepcid 20 mg Route: IVP; Site: right antecubital; 21:30 Follow up: Response: No adverse reaction 20:28 Drug: Decadron - Dexamethasone 6 mg Route: IVP; Site: right antecubital; 21:31 Follow up: Response: No adverse reaction 20:30 Drug: Zithromax 500 mg Route: IVPB; Infused Over: 1 hrs; Site: right antecubital; 21:30 Follow up: Response: No adverse reaction; IV Status: Completed infusion 20:32 Drug: Albuterol HFA Inhaler 4 puffs Route: Inhalation; 21:31 Follow up: Response: No adverse reaction 20:36 Drug: Lovenox 60 mg Route: Sub-Q; Site: right lower abdomen; 21:30 Follow up: Response: No adverse reaction 20:59 Not Given (Duplicate Order): Cefepime 1 grams IVPB at 200 ml/hr once over 30 mins; (mix keith in NS 100 mL) 21:21 Drug: NS 0.9% 1000 ml Route: IV; Rate: 125 ml/hr; Site: right antecubital; 21:30 Follow up: Response: No adverse reaction; IV Status: Infusion continued upon admission 21:21 Drug: vancoMYCIN 1 grams Route: IVPB; Infused Over: 2 hrs; Site: right antecubital; 21:30 Follow up: Response: No adverse reaction; IV Status: Infusion continued upon admission 21:21 Drug: Zosyn 3.375 grams Route: IVPB; Infused Over: 60 mins; Site: left forearm; 21:29 Follow up: Response: No adverse reaction; IV Status: Infusion continued upon admission Outcome: 19:56 Decision to Hospitalize by Provider. [facility] 21:29 Admitted to Med/surg accompanied by tech, family with patient, via stretcher, room 218, with chart, Report called to Yinka Mir RN 21:29 Condition: stable 21:29 Instructed on the need for admit. 21:33 Patient left the ED. Signatures: Dispatcher [employer] EDDustin Conklin MD MD cha Rittger, Kevin, MD MD kdr Munoz, Edgar, RN RN Nava Perez RN RN iw Herrera, Deanna Cat Perea Curt Patterson RN RN jd3
--- NOTE | 2020-02-25 19:57 | EDPHYS ---
Physician Documentation [facility] Name: Mimi Madrigal Age: 84 yrs Sex: Female : 1935 Arrival Date: 02/25/2020 Time: 15:53 Bed 13 Private MD: ED Physician Dustin Hernandes HPI: 02/24 19:16 This 84 yrs old Female presents to ER via EMS with complaints of Fever, kdr General Weakness. 19:16 EMS was called for list assist when she fell to the ground at home. When they evaluated kdr her, they noted that she was not able to stand, had a fever and was SOB. There was no report of her oxygen level by EMS. She has no focal c/o at this time other than weakness. Her is concerned that she may be continuing to have a dental abscess. She was recently treated for the same. She is o/w alert and appropriate. Onset: The symptoms/episode began/occurred gradually, today. Severity of symptoms: At their worst the symptoms were mild moderate just prior to arrival, in the emergency department the symptoms are unchanged. The patient has not experienced similar symptoms in the past. The patient has been recently seen by a physician:. Historical: - Allergies: 16:13 No Known Allergies; iw - Home Meds: 17:57 aspirin 81 mg Oral chew [Active]; Metformin Oral [Active]; Metoprolol Tartrate Oral iw [Active]; valsartan Oral [Active]; - PMHx: 15:54 Diabetes - NIDDM; Hypertension; iw - PSHx: 15:54 Cholecystectomy; iw - Immunization history:: Adult Immunizations unknown. - Social history:: Smoking status: unknown. ROS: 19:16 Eyes: Negative for injury, pain, redness, and discharge, ENT: Negative for injury, kdr pain, and discharge, Neck: Negative for injury, pain, and swelling, Cardiovascular: Negative for chest pain, palpitations, and edema, Respiratory: Negative for shortness of breath, cough, wheezing, and pleuritic chest pain, Abdomen/GI: Negative for abdominal pain, nausea, vomiting, diarrhea, and constipation, Back: Negative for injury and pain, MS/Extremity: Negative for injury and deformity, she is generally weak Skin: Negative for injury, rash, and discoloration, Psych: Negative for depression, anxiety, suicide ideation, homicidal ideation, and hallucinations, Allergy/Immunology: Negative for hives, rash, and allergies, Endocrine: Negative for neck swelling, polydipsia, polyuria, polyphagia, and marked weight changes, Hematologic/Lymphatic: Negative for swollen nodes, abnormal bleeding, and unusual bruising. 19:16 Neuro: Positive for weakness, Negative for altered mental status, dizziness, headache, hearing loss, loss of consciousness, numbness, seizure activity, speech changes, syncope, near syncope, tingling, tinnitus, tremor, visual changes. Exam: 19:16 Constitutional: This is a well developed, well nourished patient who is awake, alert, kdr and in no acute distress. Head/Face: Normocephalic, atraumatic. Eyes: Pupils equal round and reactive to light, extra-ocular motions intact. Lids and lashes normal. Conjunctiva and sclera are non-icteric and not injected. Cornea within normal limits. Periorbital areas with no swelling, redness, or edema. Neck: Trachea midline, no thyromegaly or masses palpated, and no cervical lymphadenopathy. Supple, full range of motion without nuchal rigidity, or vertebral point tenderness. No Meningismus. Chest/axilla: Normal chest wall appearance and motion. Nontender with no deformity. No lesions are appreciated. Cardiovascular: Regular rate and rhythm with a normal S1 and S2. No gallops, murmurs, or rubs. Normal PMI, no JVD. No pulse deficits. Respiratory: Lungs have equal breath sounds bilaterally, clear to auscultation and percussion. No rales, rhonchi or wheezes noted. No increased work of breathing, no retractions or nasal flaring. Abdomen/GI: Soft, non-tender, with normal bowel sounds. No distension or tympany. No guarding or rebound. No evidence of tenderness throughout. Back: No spinal tenderness. No costovertebral tenderness. Full range of motion. Skin: Warm, dry with normal turgor. Normal color with no rashes, no lesions, and no evidence of cellulitis. Psych: Awake, alert, with orientation to person, place and time. Behavior, mood, and affect are within normal limits. 19:16 Musculoskeletal/extremity: Extremities: ROM: intact in all extremities, Circulation is intact in all extremities. Pulses: Sensation intact. Weight bearing: is unable to bear weight. 19:27 ECG was reviewed by the Attending Physician. kdr Vital Signs: 15:54 BP 180 / 84; Pulse 93; Resp 20; Temp 101.8(O); Pulse Ox 96% on R/A; Weight 59.87 kg em (R); Height 5 ft. 1 in. (154.94 cm) (R); Pain 0/10; 17:17 BP 139 / 73; Pulse 93; Resp 18 S; Temp 100.8(O); Pulse Ox 95% on R/A; iw 17:55 BP 144 / 72; Pulse 91; Resp 18 S; Pulse Ox 94% on R/A; iw 18:11 BP 140 / 81; Pulse 92; Resp 18 S; Temp 99.8; Pulse Ox 95% on R/A; Pain 0/10; iw 19:37 BP 123 / 69; Pulse 87; Resp 18; Temp 99; Pulse Ox 96% on R/A; wh 21:00 BP 135 / 77; Pulse 84; Resp 18; Pulse Ox 97% on R/A; wh 15:54 Body Mass Index 24.94 (59.87 kg, 154.94 cm) em MDM: 19:16 Data reviewed: vital signs, nurses notes, lab test result(s), radiologic studies. kdr Counseling: I had a detailed discussion with the patient and/or guardian regarding: the historical points, exam findings, and any diagnostic results supporting the discharge/admit diagnosis, lab results, radiology results. 19:34 Patient medically screened. keith 19:54 Differential Diagnosis altered mental status, sepsis, flu. Data interpreted: Cardiac keith monitor: rate is 87 beats/min, rhythm is regular. Test interpretation: by ED physician or midlevel provider: ECG, plain radiologic studies. 02/24 16:39 Order name: Amylase, Serum; Complete Time: 17:22 kdr 02/24 16:39 Order name: Basic Metabolic Panel; Complete Time: 17:22 kdr 02/24 16:39 Order name: Blood Culture Adult (2) kdr 02/24 16:39 Order name: CBC with Diff; Complete Time: 17:22 kdr 02/24 16:39 Order name: Ckmb; Complete Time: 17:22 kdr 02/24 16:39 Order name: CPK; Complete Time: 17:22 kdr 02/24 16:39 Order name: Lactate; Complete Time: 17:22 kdr 02/24 16:39 Order name: LFT's; Complete Time: 17:22 kdr 02/24 16:39 Order name: Lipase; Complete Time: 17:22 kdr 02/24 16:39 Order name: Procalcitonin; Complete Time: 18:45 kdr 02/24 16:39 Order name: Protime (+inr); Complete Time: 17:22 kdr 02/24 16:39 Order name: Ptt, Activated; Complete Time: 17:22 kdr 02/24 16:39 Order name: Troponin (emerg Dept Use Only); Complete Time: 17:22 kdr 02/24 16:39 Order name: Urine Microscopic Only; Complete Time: 17:22 kdr 02/24 16:39 Order name: Chest Single View XRAY; Complete Time: 17:22 kdr 02/24 17:15 Order name: Urine Dipstick--Ancillary (enter results); Complete Time: 17:22 em1 02/24 17:22 Order name: Urine Culture [facility] 02/24 18:31 Order name: DD; Complete Time: 18:45 kdr 02/24 18:46 Order name: CT Chest For PE Angio; Complete Time: 20:43 kdr 02/24 18:49 Order name: US Extremity Venous W Compression Dylan kdr 02/24 19:50 Order name: Flu keith 02/24 19:50 Order name: COVID-19 keith 02/24 19:50 Order name: Influenza Screen (A [facility] 02/24 19:50 Order name: CORONAVIRUS [facility] 02/24 21:16 Order name: US [facility] 02/24 16:39 Order name: Accucheck; Complete Time: 17:07 kdr 02/24 16:39 Order name: Cardiac monitoring; Complete Time: 16:41 kdr 02/24 16:39 Order name: EKG - Nurse/Tech; Complete Time: 16:41 kdr 02/24 16:39 Order name: IV Saline Lock - Large Bore; Complete Time: 16:41 kdr 02/24 16:39 Order name: Labs collected and sent; Complete Time: 16:41 kdr 02/24 16:39 Order name: O2 Per Protocol; Complete Time: 16:41 kdr 02/24 16:39 Order name: O2 Sat Monitoring; Complete Time: 16:41 kdr 02/24 16:39 Order name: Urine Dipstick-Ancillary (obtain specimen); Complete Time: 17:07 kdr EC:27 Rate is 93 beats/min. Rhythm is regular, Sinus Rhythm with No ectopy. QRS [place] is kdr Normal. ME interval is normal. QRS interval is normal. QT interval is normal. Clinical impression: NSR w/ Non-specific ST/T Changes. Administered Medications: 16:46 Drug: Tylenol 650 mg Route: PO; iw 18:41 Follow up: Response: No adverse reaction; Temperature is decreased 21:31 Follow up: Response: No adverse reaction; Temperature is decreased 18:12 Drug: Rocephin - (cefTRIAXone) 1 grams Route: IVPB; Infused Over: 30 mins; Site: right iw antecubital; 21:31 Follow up: Response: No adverse reaction; IV Status: Completed infusion 20:24 Drug: NS 0.9% 1000 ml Route: IV; Rate: 1 bolus; Site: right antecubital; 21:30 Follow up: Response: No adverse reaction; IV Status: Completed infusion 20:26 Drug: Pepcid 20 mg Route: IVP; Site: right antecubital; 21:30 Follow up: Response: No adverse reaction 20:28 Drug: Decadron - Dexamethasone 6 mg Route: IVP; Site: right antecubital; 21:31 Follow up: Response: No adverse reaction 20:30 Drug: Zithromax 500 mg Route: IVPB; Infused Over: 1 hrs; Site: right antecubital; 21:30 Follow up: Response: No adverse reaction; IV Status: Completed infusion 20:32 Drug: Albuterol HFA Inhaler 4 puffs Route: Inhalation; 21:31 Follow up: Response: No adverse reaction 20:36 Drug: Lovenox 60 mg Route: Sub-Q; Site: right lower abdomen; 21:30 Follow up: Response: No adverse reaction 20:59 Not Given (Duplicate Order): Cefepime 1 grams IVPB at 200 ml/hr once over 30 mins; (mix keith in NS 100 mL) 21:21 Drug: NS 0.9% 1000 ml Route: IV; Rate: 125 ml/hr; Site: right antecubital; 21:30 Follow up: Response: No adverse reaction; IV Status: Infusion continued upon admission 21:21 Drug: vancoMYCIN 1 grams Route: IVPB; Infused Over: 2 hrs; Site: right antecubital; 21:30 Follow up: Response: No adverse reaction; IV Status: Infusion continued upon admission 21:21 Drug: Zosyn 3.375 grams Route: IVPB; Infused Over: 60 mins; Site: left forearm; 21:29 Follow up: Response: No adverse reaction; IV Status: Infusion continued upon admission Disposition: 02/25/20 19:56 Hospitalization ordered by Archie Navarro for Inpatient Admission. Preliminary diagnosis are Fever, unspecified, Hypoxemia, Syncope and collapse - near, Urinary tract infection, site not specified, Acute upper respiratory infection, unspecified, Unspecified bacterial pneumonia, Pulmonary embolism - small bilateral subsegmental. - Bed requested for Telemetry/MedSurg (Inpatient). - Status is Inpatient Admission. - Condition is Fair. - Problem is new. - Symptoms have improved. Signatures: Dispatcher [employer] EDDustin Conklin MD MD cha Rittger, Kevin, MD MD [facility] Nava Reyna RN RN Sonal Ohara RN RN Cat Aviles Curt Patterson RN RN [id number] Corrections: (The following items were deleted from the chart) 20:08 19:56 Hospitalization Ordered by Archie Navarro MD for Inpatient Admission. Preliminary [facility] diagnosis is Fever, unspecified; Hypoxemia; Syncope and collapse - near; Urinary tract infection, site not specified; Acute upper respiratory infection, unspecified. Bed requested for Telemetry/MedSurg (Inpatient). Status is Inpatient Admission. Condition is Fair. Problem is new. Symptoms have improved. [facility] 20:41 20:08 02/25/2020 19:56 Hospitalization Ordered by Archie Navarro MD for Inpatient Admission. Preliminary diagnosis is Fever, unspecified; Hypoxemia; Syncope and collapse - near; Urinary tract infection, site not specified; Acute upper respiratory infection, unspecified; Unspecified bacterial pneumonia; Pulmonary embolism - small bilateral subsegmental. Bed requested for Telemetry/MedSurg (Inpatient). Status is Inpatient Admission. Condition is Fair. Problem is new. Symptoms have improved. [facility] 21:33 20:41 02/25/2020 19:56 Hospitalization Ordered by Archie Navarro MD for Inpatient Admission. Preliminary diagnosis is Fever, unspecified; Hypoxemia; Syncope and collapse - near; Urinary tract infection, site not specified; Acute upper respiratory infection, unspecified; Unspecified bacterial pneumonia; Pulmonary embolism - small bilateral subsegmental. Bed requested for Telemetry/MedSurg (Inpatient). Status is Inpatient Admission. Condition is Fair. Problem is new. Symptoms have improved. cg
--- NOTE | 2020-02-25 19:59 | RAD REPORT ---
EXAM DESCRIPTION: CT - Chest For Pe Angio - 02/25/2020 7:15 pm CLINICAL HISTORY: Chest pain. weakness, fever COMPARISON: No comparisons TECHNIQUE: CT angiogram of the pulmonary arteries was performed with MIP. All CT scans are performed using dose optimization technique as appropriate and may include automated exposure control or mA/KV adjustment according to patient size. FINDINGS: Small segmental subsegmental branch pulmonary emboli are present in the right upper lobe, right lower lobe and left lingular pulmonary arterial branches. No acute aortic finding demonstrated. Mild patchy opacity is present in the left lung base. No significant pericardial or pleural fluid. No concerning bony finding. IMPRESSION: Positive for small segmental branch pulmonary thromboemboli bilaterally. Patchy opacity in the left lung base suspicious for developing pneumonia.
[2020-02-25] MEDS ORDERED: NA CHLORIDE 0.9% 2,000 ML ONE (20:26)
[2020-02-25] MEDS ORDERED: ENOXAPARIN 60 MG/0.6 ML SQ ONE ×2 (20:28→22:00)
[2020-02-25] MEDS ORDERED: dexAMETHasone 10 MG/ML VIAL ONE (20:33)
[2020-02-25] MEDS ORDERED: AZITHROMYCIN 500 MG INJ IVPB ONE (20:34)
[2020-02-25] MEDS ORDERED: NA CHLORIDE 0.9% 250 ML ONE ×2 (20:34→21:10)
[2020-02-25] MEDS ORDERED: FAMOTIDINE 20 MG/2 ML VIAL IV ONE (20:34)
[2020-02-25] MEDS ORDERED: ALBUTEROL INHALER 60 PUFF/8 GM IH ONE (20:34)
[2020-02-25] MEDS ORDERED: VANCOMYCIN 1 GM/VIAL ONE (21:09)
--- NOTE | 2020-02-25 21:14 | RAD REPORT ---
EXAM DESCRIPTION: US - Extrem Venous W Compress Dylan - 02/25/2020 9:03 pm CLINICAL HISTORY: WEAKNESS Bilateral leg edema and swelling. COMPARISON: No comparisons TECHNIQUE: Real-time sonographic interrogation of the left and right lower extremity deep venous sys tems was performed. FINDINGS: Normal compressibility, flow augmentation, phasic flow and spontaneous flow is identified in both the left and right lower extremity deep venous systems. IMPRESSION: No sonographic evidence of left or right lower extremity deep venous thrombosis.
[2020-02-25] MEDS ORDERED: PIPER/TAZO/NS 3.375gm 3.375 GM/100 ML BAG ONE (21:27)
[2020-02-25] MEDS ORDERED: ALBUTEROL 2.5 MG/3 ML NEB SOL NEB PRN (21:44)
[2020-02-25] MEDS: INSULIN -REGULAR HUMAN 50 UNIT/0.5 ML ML SQ SCH (21:44)
[2020-02-25] MEDS: FAMOTIDINE 20 MG/2 ML VIAL IV SCH (21:44)
[2020-02-25] MEDS ORDERED: IPRATROPIUM BROM 0.5MG/2.5ML NEB PRN (21:44)
[2020-02-25] MEDS ORDERED: VANCOMYCIN/NS 1 gm 1 GM/250 ML BAG IVPB SCH (21:44)
[2020-02-25] MEDS ORDERED: ONDANSETRON 4 MG/2 ML VIAL IV PRN (21:44)
[2020-02-25] MEDS ORDERED: ACETAMINOPHEN 500 MG TAB PO PRN (21:44)
[2020-02-25] MEDS ORDERED: D50W 25 GM/50 ML SYRINGE/VIAL IV PRN (21:44)
[2020-02-25] MEDS ORDERED: GLUCAGON 1 MG/VIAL IM PRN (21:44)
[2020-02-25] MEDS ORDERED: MORPHINE 2 MG/ML SYR IV PRN (21:50)
[2020-02-25] MEDS ORDERED: Pharmacy Consult 1 EA XX PRN (22:40)
[2020-02-25 23:00] VITALS: BMI 24.9
[2020-02-26] MEDS: METHYLPREDNISOLONE 40 MG INJ IV SCH ×2 (00:56→08:42)
[2020-02-26] MEDS ORDERED: PIPER/TAZO/NS 3.375gm 3.375 GM/100 ML BAG IVPB SCH (01:00)
[2020-02-26 04:18] LABS: Absolute Lymphocytes (CBC) 0.6 K/uL (0.7-4.9); Basophils % 0.4 % (0-1.3); Lymphocytes % 13.6 % (15.3-44.8); MPV 7.3 fL (7.6-11.3); RBC Red Blood Cell Count 3.97 M/uL (3.86-4.86)
[2020-02-26 04:34] LABS: BUN Blood Urea Nitrogen 16 mg/dL (7-18); Bicarbonate 24 mmol/L (21-32); Glucose Level 220 mg/dL (74-106); NT PRO-BNP 1261 pg/mL (<450); Potassium 3.3 mmol/L (3.5-5.1); Sodium Level 137 mmol/L (136-145)
[2020-02-26] MEDS: PIPER/TAZO/NS 3.375gm 3.375 GM/100 ML BAG IVPB SCH ×2 (05:00→12:00)
[2020-02-26] MEDS ORDERED: PIPER/TAZO/NS 3.375gm 3.375 GM/100 ML BAG ONE (05:20)
[2020-02-26] MEDS ORDERED: INFLUENZA VACCINE (for 3y+) 0.5 ML DOSE IMVAC ONE ×2 (06:00→09:00)
[2020-02-26] MEDS: INSULIN -REGULAR HUMAN 50 UNIT/0.5 ML ML SQ SCH ×4 (08:00→20:45)
[2020-02-26] MEDS: FAMOTIDINE 20 MG/2 ML VIAL IV SCH ×2 (08:44→20:33)
--- NOTE | 2020-02-26 08:44 | RAD REPORT ---
EXAM DESCRIPTION: RAD - Chest Single View - 02/26/2020 6:21 am CLINICAL HISTORY: Chest Pain COMPARISON: February 24 TECHNIQUE: AP portable chest image was obtained 02/26/2020 6:21 am . FINDINGS: Lungs are clear. Heart and vasculature are normal. No measurable pleural effusion and no p neumothorax. No acute bony abnormality seen. No acute aortic findings suspected. IMPRESSION: No acute cardiopulmonary process. No new or progressive finding from prior day study.
[2020-02-26] MEDS ORDERED: ENOXAPARIN 60 MG/0.6 ML SQ SCH (09:00)
--- NOTE | 2020-02-26 13:26 | P.HP ---
Certification for Inpatient Patient admitted to: Inpatient With expected LOS: >2 Midnights Practitioner: I am a practitioner with admitting privileges, knowledge of patient current condition, hospital course, and medical plan of care. Services: Services provided to patient in accordance with Admission requirements found in Title 42 Section 412.3 of the Code of Federal Regulations Patient History Date of Service: 02/26/20 Reason for admission: WEAKNESS History of Present Illness: LETICIA GOT REALLY WEAK ON DAY OF ADMISSION, SHE RAN FEVER, SHE COULD NOT WALK SO SHE REPORTED TO ER, FOUND TO HAVE SUBSEGMENTAL PE AND SMALL PNEUMONIA. I ASKED DR. YOUNG TO GIVE HER VANCOMYCIN AND ZOSYN SHE HAS DIABETES AND SHE HAS BEEN [facility]SCESS AND GIVEN MULTIPLE ANTIBIOTICS. SHE THIS AM IS FEELING GREAT, ABLE TO LIFT HER LEGS. SHE ALSO HAS DM MANAGED BY ME. SHE WAS MISSING FROM OFFICE FOR 3 YEARS AND DID NOT GO TO ANYONE. SHE ON HER LAST ADMISSION HAD DKA AND DENTAL ABSCESSS THAT LOOKED LIKE A LARGE PAROTID ABSCESS ABOUT GOLF BALL SIZE. THAT HAD TO BE DRAINED BY DR GAGNON AND LATER SHE NOW IS PREPARING FOR DENTAL EXTRACTION BY DR. JESUS. I HAVE BEEN TAPERING HER INSULIN SHE IS MORE AND MORE CONTROLLED NOW. Allergies No Known Allergies Allergy (Verified 02/25/20 22:37) Home Medications: Aspirin Chewable [Aspirin Chewable*] 81 mg PO DAILY 01/10/20 Cholecalciferol (Vitamin D3) [Vitamin D3] 1 tab PO DAILY 02/26/20 Levothyroxine [Synthroid*] 1 tab PO DAILY 02/26/20 Losartan/Hydrochlorothiazide [Losartan-Hctz 100-25 mg Tab] 1 tab PO DAILY 02/26/20 Metoprolol Tartrate [Lopressor*] 1 tab PO DAILY 02/26/20 - Past Medical/Surgical History Has patient received pneumonia vaccine in the past: Yes Diabetic: Yes -: Hypertension -: Diabetes-NIDDM -: Hypothyroidism -: Cholecystectomy -: Tonsillectomy -: Incision and Drainage Mouth Surgery - Family History Mother -: Heart disease, Diabetes Father -: Heart disease - Social History Smoking Status: Never smoker Alcohol use: No CD- Drugs: No Caffeine use: Yes Place of Residence: Home Review of Systems 10-point ROS is otherwise unremarkable General: Weakness Physical Examination - Vital Signs Temperature: 97.1 F Blood Pressure: 139/72 Pulse: 72 Respirations: 18 Pulse Ox (%): 94 - Physical Exam General: Acute distress, Mild distress HEENT: Atraumatic, PERRLA, Mucous membr. moist/pink, EOMI, Sclerae nonicteric Neck: Supple, 2+ carotid pulse no bruit, No LAD, Without JVD or thyroid abnormality Respiratory: Clear to auscultation bilaterally, Normal air movement Cardiovascular: Regular rate/rhythm, Normal S1 S2 Gastrointestinal: Normal bowel sounds, No tenderness Musculoskeletal: No tenderness Integumentary: No rashes Neurological: Normal gait, Normal speech, Normal strength at 5/5 x4 extr, Normal tone, Normal affect Lymphatics: No axilla or inguinal lymphadenopathy - Studies Laboratory Data (last 24 hrs) 02/25/20 16:34: PT 12.7 H, INR 1.08, APTT 30.2 02/25/20 16:34: WBC 4.7, Hgb 13.0, Hct 37.7, Plt Count 164 02/25/20 16:34: Sodium 135 L, Potassium 3.6, BUN 16, Creatinine 0.62, Glucose 172 H, Total Bilirubin 1.7 H, AST 57 H, ALT 52, Alkaline Phosphatase 120 H, Amylase 33, Lipase 46 L Assessment and Plan - Problems (Diagnosis) (1) Multiple subsegmental pulmonary emboli without acute cor pulmonale Current Visit: Yes Status: Acute Plan: THIS IS PROVOKED PE. WILL NEED 3 MONTHS OF ELIQUIS OR XARELTO. (2) Bacterial pneumonia Current Visit: Yes Status: Acute Plan: VANCO AND ZOSYN. WILL CHANGE TO LEVAQUIN NOW. (3) Type 2 diabetes mellitus Current Visit: No Status: Chronic Qualifiers: Diabetes mellitus complication status: without complication - Advance Directives Does patient have a Living Will: Yes Does patient have a Durable POA for Healthcare: Yes
[2020-02-26] MEDS: APIXABAN 5 MG TABLET PO SCH (20:33)
[2020-02-26] MEDS ORDERED: VANCOMYCIN/NS 1 gm 1 GM/250 ML BAG IVPB SCH (21:00)
[2020-02-27] MEDS ORDERED: LEVOTHYROXINE SOD 0.1 MG TAB PO SCH (06:30)
[2020-02-27] MEDS: INSULIN -REGULAR HUMAN 50 UNIT/0.5 ML ML SQ SCH ×2 (07:30→12:14)
[2020-02-27 07:50] VITALS: O2SAT 94
[2020-02-27] MEDS: FAMOTIDINE 20 MG/2 ML VIAL IV SCH (07:52)
[2020-02-27] MEDS: APIXABAN 5 MG TABLET PO SCH (07:56)
[2020-02-27] MEDS ORDERED: LOSARTAN/HCTZ 50-12.5 PO SCH (09:00)
[2020-02-27] MEDS ORDERED: METOPROLOL TAR 50 MG TAB PO SCH (09:00)
[2020-02-27] MEDS ORDERED: ASPIRIN 81 MG CHEWABLE TABLET PO SCH (09:00)
[2020-02-27] MEDS ORDERED: VITAMIN D 1000 UNIT TAB PO SCH (09:00)
[2020-02-27] MEDS ORDERED: levoFLOXacin 500 MG TAB PO SCH (09:00)
--- NOTE | 2020-02-27 12:44 | P.DS ---
Admission Date: 02/25/20 Discharge Date: 02/27/20 Disposition: ROUTINE DISCHARGE Discharge Condition: FAIR Reason for Admission: WEAKNESS - Problems (1) Multiple subsegmental pulmonary emboli without acute cor pulmonale Current Visit: Yes Status: Acute (2) Bacterial pneumonia Current Visit: Yes Status: Acute (3) Type 2 diabetes mellitus Current Visit: No Status: Chronic Qualifiers: Diabetes mellitus complication status: without complication Brief History of Present Illness: LETICIA GOT REALLY WEAK ON DAY OF ADMISSION, SHE RAN FEVER, SHE COULD NOT WALK SO SHE REPORTED TO ER, FOUND TO HAVE SUBSEGMENTAL PE AND SMALL PNEUMONIA. I ASKED DR. YOUNG TO GIVE HER VANCOMYCIN AND ZOSYN SHE HAS DIABETES AND SHE HAS BEEN IN [facility] D[facility]AL ABSCESS AND GIVEN MULTIPLE ANTIBIOTICS. SHE THIS AM IS FEELING GREAT, ABLE TO LIFT HER LEGS. SHE ALSO HAS DM MANAGED BY ME. SHE WAS MISSING FROM OFFICE FOR 3 YEARS AND DID NOT GO TO ANYONE. SHE ON HER LAST ADMISSION HAD DKA AND DENTAL ABSCESSS THAT LOOKED LIKE A LARGE PAROTID ABSCESS ABOUT GOLF BALL SIZE. THAT HAD TO BE DRAINED BY DR GAGNON AND LATER SHE NOW IS PREPARING FOR DENTAL EXTRACTION BY DR. JESUS. I HAVE BEEN TAPERING HER INSULIN SHE IS MORE AND MORE CONTROLLED NOW. Hospital Course: LETICIA COMES WITH WEAKNESS AND FEVER. SHE HAS SMALL PNEUMONIA, KLEBSIELLA UTI FROM SPECIMEN THAT WAS [facility]. SHE HAS IMPROVED ON LEVAQUIN. I ALSO PUT HER ON ELIQUIS SHE HAS SMALL BRANCH PE ON CT SCAN. THIS MAY HAVE HAPPENED IN LAST FEW ADMISSIONS IN [place]. SHE HAS NEVER STAYED HERE LONG ENOUGH TO HAVE THIS BUT NOT UNUSUAL. SHE IS STABLE TO GO HOME. I MEET WITH HER AND WEEKLY TO ADJUST INSULIN SHE HAD DKA WITH INFECTION AND NOT TAKING MEDICATIONS FOR 3 YEARS. Vital Signs/Physical Exam: Temp Pulse Resp BP Pulse Ox 97.8 F 87 16 135/70 97 02/27/20 04:00 02/27/20 07:56 02/27/20 04:00 02/27/20 07:56 02/27/20 04:00 Laboratory Data at Discharge: WBC 4.3 K/uL (4.3-10.9) 02/26/20 03:52 Hgb 11.9 g/dL (12.0-15.0) L 02/26/20 03:52 Hct 36.0 % (36.0-45.0) 02/26/20 03:52 Plt Count 146 K/uL (152-406) L 02/26/20 03:52 PT 12.7 SECONDS (9.5-12.5) H 02/25/20 16:34 INR 1.08 02/25/20 16:34 APTT 30.2 SECONDS (24.3-36.9) 02/25/20 16:34 Sodium 137 mmol/L (136-145) 02/26/20 03:52 Potassium 3.3 mmol/L (3.5-5.1) L 02/26/20 03:52 BUN 16 mg/dL (7-18) 02/26/20 03:52 Creatinine 0.55 mg/dL (0.55-1.3) 02/26/20 03:52 Glucose 220 mg/dL (74-106) H 02/26/20 03:52 Total Bilirubin 1.7 mg/dL (0.2-1.0) H 02/25/20 16:34 AST 57 U/L (15-37) H 02/25/20 16:34 ALT 52 U/L (12-78) 02/25/20 16:34 Alkaline Phosphatase 120 U/L (45-117) H 02/25/20 16:34 Troponin I < 0.02 ng/mL (0.0-0.045) 02/26/20 02:19 Amylase 33 U/L (25-115) 02/25/20 16:34 Lipase 46 U/L (73-393) L 02/25/20 16:34 Home Medications: Aspirin Chewable [Aspirin Chewable*] 81 mg PO DAILY 01/10/20 Cholecalciferol (Vitamin D3) [Vitamin D3] 1 tab PO DAILY 02/26/20 Levothyroxine [Synthroid*] 1 tab PO DAILY 02/26/20 Losartan/Hydrochlorothiazide [Losartan-Hctz 100-25 mg Tab] 1 tab PO DAILY 02/26/20 Metoprolol Tartrate [Lopressor*] 1 tab PO DAILY 02/26/20 Apixaban [Eliquis] 5 mg PO BID #60 tablet 02/27/20 levoFLOXacin [Levaquin*] 500 mg PO DAILY #7 tab 02/27/20 New Medications: Apixaban [Eliquis] 5 mg PO BID #60 tablet levoFLOXacin [Levaquin*] 500 mg PO DAILY #7 tab Patient Discharge Instructions: ELIQUIS- TWO TABLETS ORALLY TWICE DAILY AT 12 HOUR INTERVAL FOLLOWED BY ONE TABLET TWICE DAILY. RX SENT.
[2020-02-27 18:42] VITALS: BP 149/71; TEMP 98.6
--- NOTE | 2020-02-29 16:12 | EKG ---
Test Date: 2020-02-25 Test Time: 16:52:09 [employer] Apprentice: [place] MEASUREMENT RESULTS: Intervals: Rate: 93 MI: 188 QRSD: 72 QT: 354 QTc: 440 [place]: P: 0 MI: 188 QRS: -24 T: 52 INTERPRETIVE STATEMENTS: Normal sinus rhythm with sinus arrhythmia Normal ECG Compared to ECG 01/09/2020 23:33:29 Atrial premature complex(es) no longer present Myocardial infarct finding no longer present Electronically Signed On 02-29-20 16:08:34 CDT by Venkat Fierro
== END 2020-02-27 13:40 | disposition home health service (06) | DRG 175 ==
LOC: ER 15:36 → ERHOLD 19:59 → 2ND 21:30
PROVIDERS: ADMIT Internal Medicine; ATTEND Internal Medicine
DX: I26.94 Multiple subsegmental thrombotic pulmonary emboli without acute cor pulmonale (principal); J15.9 Unspecified bacterial pneumonia; N39.0 Urinary tract infection, site not specified; E11.9 Type 2 diabetes mellitus without complications; I10 Essential (primary) hypertension; B96.1 Klebsiella pneumoniae [K. pneumoniae] as the cause of diseases classified elsewhere; W18.30XA Fall on same level, unspecified, initial encounter; Z90.49 Acquired absence of other specified parts of digestive tract; Z79.82 Long term (current) use of aspirin; Z79.899 Other long term (current) drug therapy; Z79.890 Hormone replacement therapy; Z79.01 Long term (current) use of anticoagulants; Z79.84 Long term (current) use of oral hypoglycemic drugs; Z20.828 Contact with and (suspected) exposure to other viral communicable diseases
CPT/HCPCS: 36415; 71045; 71275; 80048; 80076; 81003; 81015; 82150; 82550; 82553; 82947; 83605; 83690; 83880; 84145; 84443; 84484; 85025; 85379; 85610; 85730; 87040; 87077; 87086; 87088; 87186; 87804; 90471; 93005; 93970; 94760; 96372; 97161; 99285; J0456; J0696; J1100; J1650; J2543; J2920; J3370; J7030; J7050; Q2035; Q9967; U0003

== ENCOUNTER 2020-03-22 16:32 | Observation (INO) | payer OTHER ==
--- OUTSIDE RECORDS SUMMARY | 2020-03-22 16:58 | XMS REPORT | Clinical Summary ---
:1935 Author Organization [facility] Address [address] [place] [address] Care Team Providers Name Role Phone Oni [...] INFLUENZA VACCINE 12/11/2019 Results Not on fileafter 03/22/2019 (Home) [place] [address] Advance Directives For more information, please contact: [phone] Type Date Recorded Patient Life Insurance Agent Explanati on Advance Directives, Living Will and Medical Power of Stationary Engineer [employer]
--- OUTSIDE RECORDS SUMMARY | 2020-03-22 16:59 | XMS REPORT | Summary of Care ---
:1935 Author Organization [facility] - [facility] Address [address] [place] [id number] Care Team Providers Name Role Phone Archie Navarro Primary Care Provider Reason for Visit Reason Comments Transition Of Care Encounter Details Date Type Department Care Team Description 02/10/2020 Transition of Care [facility] Migdalia Barry RN Transition Of Care [facility]- [address] [place] [id number] Allergies Active Allergy Reactions Severity Noted Date Comments Cbyephc-Lqv-Kre Other - See comments 02/05/2020 Home health [...] other 5 days. specified complication, unspecified whether intermediate accountant insulin use hydrOXYzine 10 mg Take 1 tablet by 30 tablet 0 02/09/2020 Active tabletIndications: mouth every 6 Type 2 diabetes (six) hours as mellitus with other needed for specified Itching. complication, unspecified whether fdc insulin use lactobacillus Take 1 tablet by 60 tablet 0 02/09/2020 Active acidophilus 25 million mouth 2 (two) cell -100 mg times daily. captabIndications: Type 2 diabetes mellitus with other specified complication, unspecified whether intermediate accountant insulin use predniSONE 10 mg Take 2 tablets 11 tablet 0 02/10/2020 020 Active tabletIndications: by mouth daily Type 2 diabetes for 3 days, THEN mellitus with other 1 tablet daily specified for 3 days, THEN complication, 0.5 tablets unspecified whether daily for 3 fdc insulin use days. levothyroxine 100 mcg Take 1 tablet by 30 tablet 0 02/09/2020 Active tabletIndications: mouth every Type 2 diabetes morning. mellitus with other specified complication, unspecified whether intermediate accountant insulin use documented as of this encounter [...] the highest level of school Associate degree: [employer] program 02/05/2020 you have completed or the [...] TRANSITIONAL CARE MANAGEMENT ASSESSMENT 02/10/2020 Mimi Madrigal [id number] Mimi Madrigal is a 84 year old /White female was admitted on 02/05/20 to [facility] [place], [facility] SURG. She was discharged on 02/09/20 with discharge disposition of HR- Routine Discharge. 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 CM left a discreet voicemail explaining purpose of call and call back information. 2nd call unable to LM, "customer not available". CYNDEE Prabhakar, RN-BC, CCRN Transition Resident Advisor Nurse Clinician IV Transitions of Care Management Team Office: [phone] [email or web address] Encounter - Migdalia Almaraz RN - 02/10/2020 1:41 PM CDTCM LM to return call. Will attempt again at a later time. CYNDEE rPabhakar, RN-BC, CCRN Transition Resident Advisor Nurse Clinician IV Care Management Team Office: [phone] [email or web address] documented in this encounter Plan of [...] e / Group Dates [employer]ET[employer] - AETNA [id number] 2014-[place] [address] [employer]OX Medic are Adv [place]ARE [place] [id number] [place] [address] documented as of this encounter Advance Directives Type Date Recorded Patient Qa Consultant Explanati on Advance Directives and Living Will Power of Cmm Inspector
--- OUTSIDE RECORDS SUMMARY | 2020-03-22 16:59 | XMS REPORT | Continuity of Care Document ---
:1935 Author Organization [facility] t Address [address] [place] [address] Care Team Providers Name Role Phone Morgan BARRIOS Primary Care Physician Sung SNOW Attending Clinician Unavailable Sandra VILLANUEVA Attending Clinician uLis Fernando BARRIOS Attending Clinician Luis Fernando BARRIOS Admitting Clinician Payers Payer Name Policy Type Policy Number Effective Date Expiration Date S ource Problems This patient has no known problems. Allergies, Adverse Reactions, Alerts Allergy Allergy Status Severity Reaction(s) Onset Inactive Treating Comm ents Source Name Type Date Date Clinician No Known DA Active U 2019-0 [facility] 01-11 Clear s 00:00: Raines 00 [facility] No Known DA Active U 2019-0 [facility] Allergie 01-06 Clear s 00:00: Raines 00 [facility] Social History Social Habit Start Date Stop Date Quantity Comments Source Sex Assigned At Volodymyr Maldonado Medications This patient has no known medications. Procedures This patient has no known procedures. Plan of Care Planned Activity Planned Date Details Comments Source Future Scheduled 2019-12-11 INFLUENZA VACCINE [place] 00:00:00 [code = INFLUENZA VACCINE] Future Scheduled 2002 65+ PNEUMOCOCCAL [facility] 00:00:00 VACCINE (1 of 1 - PPSV23) [code = 65+ PNEUMOCOCCAL VACCINE (1 of 1 - PPSV23)] Future Scheduled 1987 SHINGLES VACCINES (#1) [facility] [facility] 00:00:00 [code = SHINGLES VACCINES (#1)] Encounters Start End Encounter Admission Attending Care Care Encounter Source Date/Time Date/Time Type Type Clinicians Facility Department ID 2020-02-10 2020-02-10 Transition Guilherme Almaraz [id number] 00:00:00 00:00:00 of Care Migdalia Perez [id number] [place] [id number] 2020-02-05 2020-02-09 [facility] Francisco Flores [facility] [id number] 14:39:00 15:03:00 Encounter Gemma Gould 350.1.13.10 [place] 4.2.7.2.686 [place] [id number] Results Test Description Test Time Test Comments Results Result Comments Source GLUCOSE BEDSIDE TESTING 2020-01-26 12:20:00 Test Item Value Reference Range Interpretation Comme nts GLUCOSE BEDSIDE TESTING (test code = GLUBED) 132 mg/dL 70-110 H GLUCOSE BEDSIDE [id number] 08:35:00 Test Item Value Reference Range Interpretation Comments GLUCOSE BEDSIDE TESTING (test code 126 mg/dL 70-110 H = GLUBED) GLUCOSE BEDSIDE [id number] 07:58:00 Test Item Value Reference Range Interpretation Comments GLUCOSE BEDSIDE TESTING (test code 193 mg/dL 70-110 H = GLUBED) GLUCOSE BEDSIDE [id number] 20:55:00 Test Item Value Reference Range Interpretation Comments GLUCOSE BEDSIDE TESTING (test code 192 mg/dL 70-110 H = GLUBED) GLUCOSE BEDSIDE [id number] 16:26:00 Test Item Value Reference Range Interpretation Comments GLUCOSE BEDSIDE TESTING (test code 182 mg/dL 70-110 H = GLUBED) GLUCOSE BEDSIDE [id number] 07:53:00 Test Item Value Reference Range Interpretation Comments GLUCOSE BEDSIDE TESTING (test code 139 mg/dL 70-110 H = GLUBED) BASIC METABOLIC [id number] 07:08:00 Test Item Value Reference Range Interpretation [...] CA) 8.8 MG/DL 8.5-10.1 N CBC W/AUTO [id number] 06:50:00 Test Item Value Reference Range Interpretation [...] NO DIFF/SCN CRITERIA = MDIFF) GLUCOSE BEDSIDE [id number] 20:29:00 Test Item Value Reference Range Interpretation Comments GLUCOSE BEDSIDE TESTING (test code 249 mg/dL 70-110 H = GLUBED) GLUCOSE BEDSIDE [id number] 16:17:00 Test Item Value Reference Range Interpretation Comments GLUCOSE BEDSIDE TESTING (test code 181 mg/dL 70-110 H = GLUBED) GLUCOSE BEDSIDE [id number] 11:57:00 Test Item Value Reference Range Interpretation Comments GLUCOSE BEDSIDE TESTING (test code 146 mg/dL 70-110 H = GLUBED) GLUCOSE BEDSIDE [id number] 07:45:00 Test Item Value Reference Range Interpretation Comments GLUCOSE BEDSIDE TESTING (test code 105 mg/dL 70-110 N = GLUBED) BASIC METABOLIC [id number] 06:33:00 Test Item Value Reference Range Interpretation [...] code = CA) 8.5 MG/DL 8.5-10.1 N [id number] 06:33:00 Test Item Value Reference Range Interpretation Comments PHOSPHOROUS (test code = PHOS) 2.5 MG/DL 2.5-4.9 N [id number] 06:33:00 Test Item Value Reference Range Interpretation Comments MAGNESIUM (test code = MAG) 2.1 MG/DL 1.8-2.4 N GLUCOSE BEDSIDE [id number] 20:57:00 Test Item Value Reference Range Interpretation Comments GLUCOSE BEDSIDE TESTING (test code 195 mg/dL 70-110 H = GLUBED) GLUCOSE BEDSIDE [id number] 16:49:00 Test Item Value Reference Range Interpretation Comments GLUCOSE BEDSIDE TESTING (test code 212 mg/dL 70-110 H = GLUBED) GLUCOSE BEDSIDE [id number] 12:10:00 Test Item Value Reference Range Interpretation Comments GLUCOSE BEDSIDE TESTING (test code 207 mg/dL 70-110 H = GLUBED) GLUCOSE BEDSIDE [id number] 08:12:00 Test Item Value Reference Range Interpretation Comments GLUCOSE BEDSIDE TESTING (test code 186 mg/dL 70-110 H = GLUBED) GLUCOSE BEDSIDE [id number] 06:54:00 Test Item Value Reference Range Interpretation Comments GLUCOSE BEDSIDE TESTING (test code = 61 mg/dL 70-110 L GLUBED) GLUCOSE BEDSIDE [id number] 20:22:00 Test Item Value Reference Range Interpretation Comments GLUCOSE BEDSIDE TESTING (test code 120 mg/dL 70-110 H = GLUBED) GLUTAMIC ACID DECARBOXYLASE [id number] 18:08:00 Test Item Value Reference Range Interpretation Comments GLUTAMIC ACID <5.0 U/mL 0.0-5.0 Performed At: [facility] DECARBOXYLASE AB (test LabCo rp code = GADAB) [address] [place], [place] [id number] ra Caterina BARRIOS Ph:[phone] GLUCOSE BEDSIDE [id number] 17:26:00 Test Item Value Reference Range Interpretation Comments GLUCOSE BEDSIDE TESTING (test code 139 mg/dL 70-110 H = GLUBED) GLUCOSE BEDSIDE [id number] 12:16:00 Test Item Value Reference Range Interpretation Comments GLUCOSE BEDSIDE TESTING (test code 133 mg/dL 70-110 H = GLUBED) GLUCOSE BEDSIDE [id number] 08:23:00 Test Item Value Reference Range Interpretation Comments GLUCOSE BEDSIDE TESTING (test code 103 mg/dL 70-110 N = GLUBED) GLUCOSE BEDSIDE [id number] 21:47:00 Test Item Value Reference Range Interpretation Comments GLUCOSE BEDSIDE TESTING (test code 178 mg/dL 70-110 H = GLUBED) GLUCOSE BEDSIDE [id number] 17:15:00 Test Item Value Reference Range Interpretation Comments GLUCOSE BEDSIDE TESTING (test code 139 mg/dL 70-110 H = GLUBED) GLUCOSE BEDSIDE [id number] 12:19:00 Test Item Value Reference Range Interpretation Comments GLUCOSE BEDSIDE TESTING (test code 177 mg/dL 70-110 H = GLUBED) GLUCOSE BEDSIDE [id number] 08:25:00 Test Item Value Reference Range Interpretation Comments GLUCOSE BEDSIDE TESTING (test code 116 mg/dL 70-110 H = GLUBED) GLUCOSE BEDSIDE [id number] 21:36:00 Test Item Value Reference Range Interpretation Comments GLUCOSE BEDSIDE TESTING (test code 221 mg/dL 70-110 H = GLUBED) GLUCOSE BEDSIDE [id number] 15:47:00 Test Item Value Reference Range Interpretation Comments GLUCOSE BEDSIDE TESTING (test code 150 mg/dL 70-110 H = GLUBED) GLUCOSE BEDSIDE [id number] 11:42:00 Test Item Value Reference Range Interpretation Comments GLUCOSE BEDSIDE TESTING (test code 201 mg/dL 70-110 H = GLUBED) GLUCOSE BEDSIDE [id number] 07:55:00 Test Item Value Reference Range Interpretation Comments GLUCOSE BEDSIDE TESTING (test code 125 mg/dL 70-110 H = GLUBED) GLUCOSE BEDSIDE [id number] 21:14:00 Test Item Value Reference Range Interpretation Comments GLUCOSE BEDSIDE TESTING (test code 250 mg/dL 70-110 H = GLUBED) UR MICROALBUMIN/CREAT [id number] 17:08:00 Test Item Value Reference Range Interpretation Comments UR CREATININE (test 13.5 mg/dL Not Estab. code = CREATE) UR MICROALB/CREAT RATIO 36 0-29 A INFC E Result Units: (test code = mg/g creat MICALB:CRE) Nor mal: 0 - 29 Moderately increased: 30 - 300 Severely increa sed: >300 Please note reference inter samina changePerform ed At: [facility] [address] [place], [place] [id number] Hung Richey MD Ph:[phone] MICROALBUMIN URINE 4.8 ug/mL Not Estab. (test code = MICROALBUR) GLUCOSE BEDSIDE [id number] 16:44:00 Test Item Value Reference Range Interpretation Comments GLUCOSE BEDSIDE TESTING (test code 207 mg/dL 70-110 H = GLUBED) GLUCOSE BEDSIDE [id number] 11:59:00 Test Item Value Reference Range Interpretation Comments GLUCOSE BEDSIDE TESTING (test code 141 mg/dL 70-110 H = GLUBED) BASIC METABOLIC [id number] 08:13:00 Test Item Value Reference Range Interpretation [...] = CA) 8.1 MG/DL 8.5-10.1 L FOR [id number] 08:13:00 Test Item Value Reference Range Interpretation Comments C-PEPTIDE (test code 2.0 ng/mL 1.1-4.4 C-Pepti de reference = CPEP) interval is for fasting patients.Perfor med At: HD [facility] [address] [place], [place] [address]ca bri Richey MD Ph:[phone] FOR GADABGLUCOSE BEDSIDE [id number] 07:37:00 Test Item Value Reference Range Interpretation Comments GLUCOSE BEDSIDE TESTING (test code 124 mg/dL 70-110 H = GLUBED) BASIC METABOLIC [id number] 06:11:00 Test Item Value Reference Range Interpretation [...] CA) 8.8 MG/DL 8.5-10.1 N VITAMIN D [id number] 06:11:00 Test Item Value Reference Range Interpretation Comments VITAMIN D 14.3 ng/mL 30.0-100.0 A Vitamin D defic iency has 25-HYDROXY (test been define d by the code = VITD25) [place] [facility] edicine and an Endocrine So [facility] practice guidel ine as alevel of serum 25-OH vitamin D less than 20 ng/mL (1,2).The Endocrine Society went on to further define vitamin Dinsufficiency as a level between 21 and 29 ng/mL (2).1. IOM (Ins titute of Medicine). 2010 . Dietary reference int akes for calcium and D. [place]: The [employer] .2. Shaq MF, Louie NC, Aracely morales BOWMAN, et al. Evaluatio n, treatment, and prevention of vitamin D deficiency: an Endocrine Society clinica l practice guideline. PETEY EM. 2010; 96(7):5341-30.P erformed At: [facility] [address] [place], [place] [address]Xcqhs Hung Richey MD Ph:[phone] GLUCOSE BEDSIDE [id number] 22:41:00 Test Item Value Reference Range Interpretation Comments GLUCOSE BEDSIDE TESTING (test code 203 mg/dL 70-110 H = GLUBED) GLUCOSE BEDSIDE [id number] 16:56:00 Test Item Value Reference Range Interpretation Comments GLUCOSE BEDSIDE TESTING (test code 161 mg/dL 70-110 H = GLUBED) BASIC METABOLIC [id number] 13:16:00 Test Item Value Reference Range Interpretation [...] CA) 8.8 MG/DL 8.5-10.1 N VITAMIN D [id number] 13:16:00 Test Item Value Reference Range Interpretation Comments VITAMIN D 25-HYDROXY (test code = VITD25) CBC W/AUTO [id number] 12:58:00 Test Item Value Reference Range Interpretation [...] NO DIFF/SCN CRITERIA = MDIFF) GLUCOSE BEDSIDE [id number] 11:14:00 Test Item Value Reference Range Interpretation Comments GLUCOSE BEDSIDE TESTING (test code 195 mg/dL 70-110 H = GLUBED) GLUCOSE BEDSIDE [id number] 07:46:00 Test Item Value Reference Range Interpretation Comments GLUCOSE BEDSIDE TESTING (test code 140 mg/dL 70-110 H = GLUBED) GLUCOSE BEDSIDE [id number] 21:14:00 Test Item Value Reference Range Interpretation Comments GLUCOSE BEDSIDE TESTING (test code 246 mg/dL 70-110 H = GLUBED) GLUCOSE BEDSIDE [id number] 16:28:00 Test Item Value Reference Range Interpretation Comments GLUCOSE BEDSIDE TESTING (test code 231 mg/dL 70-110 H = GLUBED) GLUCOSE BEDSIDE [id number] 11:21:00 Test Item Value Reference Range Interpretation Comments GLUCOSE BEDSIDE TESTING (test code 182 mg/dL 70-110 H = GLUBED) COMPREHENSIVE METABOLIC [id number] 09:53:00 Test Item Value Reference Range Interpretation [...] 45-117 H TOTAL (test code = ALKP) [id number] 09:53:00 Test Item Value Reference Range Interpretation Comments PHOSPHOROUS (test code = PHOS) 2.5 MG/DL 2.5-4.9 [id number] 09:53:00 Test Item Value Reference Range Interpretation Comments MAGNESIUM (test code = MAG) 1.7 MG/DL 1.8-2.4 L CBC W/AUTO [id number] 09:20:00 Test Item Value Reference Range Interpretation [...] NO DIFF/SCN CRITERIA = MDIFF) GLUCOSE BEDSIDE [id number] 07:50:00 Test Item Value Reference Range Interpretation Comments GLUCOSE BEDSIDE TESTING (test code 133 mg/dL 70-110 H = GLUBED) GLUCOSE BEDSIDE [id number] 21:10:00 Test Item Value Reference Range Interpretation Comments GLUCOSE BEDSIDE TESTING (test code 211 mg/dL 70-110 H = GLUBED) GLUCOSE BEDSIDE [id number] 16:06:00 Test Item Value Reference Range Interpretation Comments GLUCOSE BEDSIDE TESTING (test code 294 mg/dL 70-110 H = GLUBED) GLUCOSE BEDSIDE [id number] 11:38:00 Test Item Value Reference Range Interpretation Comments GLUCOSE BEDSIDE TESTING (test code 223 mg/dL 70-110 H = GLUBED) BASIC METABOLIC [id number] 06:23:00 Test Item Value Reference Range Interpretation [...] CA) 8.8 MG/DL 8.5-10.1 N GLUCOSE BEDSIDE [id number] 22:00:00 Test Item Value Reference Range Interpretation Comments GLUCOSE BEDSIDE TESTING (test code 100 mg/dL 70-110 N = GLUBED) - US RETROPERITONEAL [id number] 19:11:00 [facility] : 1935 Sex: F Name: LETICIA HARPER [facility] : 1935ge/S: 84 / F [address] Unit #: [id number] Loc: [place] [address] Phys: Fady Mancuso MD Acct: [id number] Dis Date: 01/26/2020 Status: DIS IN PHONE#: [phone] Exam Date: 01/15/2020 1830 FAX #: Reason:LIZZIE EXAMS: CPT: [id number] US RETROPERITONEAL COM [id number] Site ID: [id number] EXAMINATION: - US RETROPERITONEAL COM. HISTORY: LIZZIE COMPARISON: None. TECHNIQUE: Routine renal ultrasound was performed. FINDINGS: The right kidney measures 9.7 cm, and the left kidney measures 12.1 cm in length. Cortical echogenicity and thickness are within normal limits. There is aalv-ax-adlgpzcp hydronephrosis seen bilaterally. The urinary bladder is dilated. No focal lesion seen. IMPRESSION: The urinary bladder is dilated. There is bilateral hrcw-pp-hijkrxpm hydronephrosis. This could be secondary to bladder dilatation. at 1911 Reported and signed by: Greg Santana MD CC: Archie Navarro MD; Sotero Sheehan III, MD; Fady Mancuso MD Technologist: Rhona Sagastume RDMS(AB)(OB) Trnscb Date/Time: 01/15/2020 (1910) Lisha PAGE 1 Signed Report Name: LETICIA HARPER : 1935 Age/S: 84 / F [address] Unit #: [id number] Loc: [place] [address] Phys: Fady Mancuso MD Acct: [id number] Dis Date: 01/26/2020 Status: DIS IN PHONE #: [phone] Exam Date: 01/15/20201829 FAX #: Reason: LIZZIE EXAMS: CPT: [id number] US RETROPERITONEAL COM [id number] <Continued> Orig Print D/T: S: 01/15/2020 (1914) Probe: PAGE 2 Signed Report- US RETROPERITONEAL [id number] 19:11:00 Name: LETICIA HARPER : 1935 Age/S: 84 / F [address] Unit #: [id number] Loc: [place] [address] Phys: Fady Mancuso MD Acct: [id number] Dis Date: Status: ADM IN PHONE #: [phone] Exam Date: 01/15/2020 183 FAX #: Reason: LIZZIE EXAMS: CPT: [id number] US RETROPERITONEAL COM [id number] Site ID: [id number] EXAMINATION: - US RETROPERITONEAL COM. HISTORY: LIZZIE COMPARISON: None. TECHNIQUE: Routine renal ultrasound was performed. FINDINGS: The right kidney measures 9.7 cm, and the left kidney measures 12.1 cm in length. Cortical echogenicity and thickness are within normal limits. There is eenf-rg-kvtxosvl hydronephrosis seen bilaterally. The urinary bladder is dilated. No focal lesion seen. IMPRESSION: The urinary bladder is dilated. There is bilateral vsob-em-xcszaisb hydronephrosis. This could be secondary to bladder dilatation. ElectronicallySigned by Greg Santana MD on 01/15/2020 at 1911 Reported and signed by: Greg Santana MD CC: Archie Navarro MD; Sotero Sheehan III, MD; Fady Mancuso MD Technologist: Rhona Sagastume RDMS(A B)(OB) Trnscb Date/Time: 01/15/2020 (1910) Lisha PAGE 1 Signed Report Name: LETICIA HARPER : 1935 Age/S: 84 / F [facility]: [id number] Loc: [place] [address] Phys: Fady Mancuso MD Acct: [id number] Dis Date: Status: ADM IN PHONE #: [phone] Exam Date: 01/15/2020 1830 FAX #: Reason: LIZZIE EXAMS: CPT: [id number] RETROPERITONEAL COM [id number] <Continued> Orig Print D/T: S: 01/15/2020 (1914) Probe: PAGE 2 Signed ReportBASIC METABOLIC [id number] 17:33:00 Test Item Value Reference Range Interpretation [...] = CA) 8.1 MG/DL 8.5-10.1 L FOR [id number] 17:33:00 Test Item Value Reference Range Interpretation Comments C-PEPTIDE (test code = CPEP) NG/ML 1.1-4.4 FOR GADABGLUCOSE BEDSIDE [id number] 16:11:00 Test Item Value Reference Range Interpretation Comments GLUCOSE BEDSIDE TESTING (test code 132 mg/dL 70-110 H = GLUBED) - [place] [facility] [id number] 15:16:00 [facility] : 1935 Sex: F Name: LETICIA HARPER [place] : 1935ge/S: [address] Unit #: [id number] Loc: [place] [address] Phys: Fady Mancuso MD Acct: [id number] Dis Date: 01/26/2020 Status: DIS IN PHONE#: [phone] Exam Date: 01/15/2020 1328 FAX #: Reason:PAD EXAMS: CPT: [id number] [facility] [id number] Location: T18 HISTORY: Peripheral artery disease TECHNIQUE: Real-time sonographic, pulse and color Doppler imaging of the arterial system of the right and left lower extremity was performed. FINDINGS: The vessels demonstrates atherosclerotic wall plaque formation throughout, without region of high-grade luminal stenosis and without evidence of arterial occlusion. Normal color Doppler flow and normal flow velocities are present throughout, with biphasic waveforms throughout the common femoral, superficial femoral, popliteal, tibial and dorsalis pedis arteries bilaterally. IMPRESSION: No evidence of vascular stenosis at 1516 Reported and signed by: Justyn Voss M.D. CC: Archie Navarro MD; Sotero Sheehan III, MD; Fady Mancuso MD Technologist: Rhona Sagastume RDMS(AB)(OB) Trnscb Date/Time: 01/15/2020 (6776) Daniel.AJP6 PAGE 1 Signed Report Name: LETICAI HARPER [place] : 1935 Age/S: 84 / F [address] [address] Unit#: [id number] Loc: [place] [address] Phys: Fady Mancuso MD Acct: [id number] Dis Date: 01/26/2020 Status: DIS IN PHONE #: [phone] Exam Date: 01/15/2020 1328 FAX #: Reason: PAD EXAMS: CPT: [id number] [place] [address] <Continued> Orig Print D/T: S: 01/15/2020 (1520) Probe: PAGE 2 Signed Report- DUP LE ART [id number] 15:16:00 Name: LETICIA HARPER : 1935 Age/S: 84 / F [address] [address] Unit #: [id number] Loc: [place] [address] Phys: Fady Mancuso MD Acct: [id number] Dis Date: Status: ADM IN PHONE #: [phone] Exam Date: 01/15/2020 1328 FAX #: Reason: PAD EXAMS: CPT: [id number] [place] [address] Location: T1 8 HISTORY: Peripheral artery disease TECHNIQUE: Real-time sonographic, pulse and color Doppler imaging of the arterial system of the right and left lower extremity was performed. FINDINGS: The vessels demonstrates atherosclerotic wallplaque formation throughout, without region of high-grade luminal [...] Daniel.AJP6 PAGE 1 Signed Report Name: LETICIA HARPER : 1935 Age/S: 84 / F [address] [address] Unit #: [id number] Loc: [place] [address] Phys: Fady Mancuso MD Acct: [id number] Dis Date: Status: ADM IN PHONE #: [phone] Exam Date: 01/15/2020 1328FAX #: Reason: PAD EXAMS: CPT: [id number] [place] [address] <Continued> Orig Print D/T: S: 01/15/2020 (1520) Probe: PAGE 2 Signed ReportBASIC METABOLIC [id number] 15:11:00 Test Item Value Reference Range Interpretation [...] code = CA) 8.5 MG/DL 8.5-10.1 N [id number] 15:11:00 Test Item Value Reference Range Interpretation Comments PHOSPHOROUS (test code = PHOS) 4.7 MG/DL 2.5-4.9 N [id number] 15:11:00 Test Item Value Reference Range Interpretation Comments MAGNESIUM (test code = MAG) 2.4 MG/DL 1.8-2.4 N [id number] 15:11:00 Test Item Value Reference Range Interpretation Comments C-PEPTIDE (test code = CPEP) NG/ML 1.1-4.4 GLUCOSE BEDSIDE [id number] 12:31:00 Test Item Value Reference Range Interpretation Comments GLUCOSE BEDSIDE TESTING (test code 128 mg/dL 70-110 H = GLUBED) GLUCOSE BEDSIDE [id number] 08:00:00 Test Item Value Reference Range Interpretation Comments GLUCOSE BEDSIDE TESTING (test code = 81 mg/dL 70-110 N GLUBED) GLUCOSE BEDSIDE [id number] 20:45:00 Test Item Value Reference Range Interpretation Comments GLUCOSE BEDSIDE TESTING (test code 133 mg/dL 70-110 H = GLUBED) GLUCOSE BEDSIDE [id number] 16:16:00 Test Item Value Reference Range Interpretation Comments GLUCOSE BEDSIDE TESTING (test code 200 mg/dL 70-110 H = GLUBED) COMPREHENSIVE METABOLIC [id number] 13:40:00 Test Item Value Reference Range Interpretation [...] 3.67 Ratio 1.48-3.22 Avg H GLYCOSYLATED HEMOGLOBIN [id number] 13:40:00 Test Item Value Reference Range Interpretation Comments GLYCOSYLATED HEMOGLOBIN (HA1C) 11.6 % A1C 0.0-5.7 H (test code = GLYHGB) ESTIMATED AVERAGE GLUCOSE (test 286 MG/DLest code = EAG) CBC W/AUTO [id number] 13:16:00 Test Item Value Reference Range Interpretation [...] NO DIFF/SCN CRITERIA = MDIFF) GLUCOSE BEDSIDE [id number] 12:51:00 Test Item Value Reference Range Interpretation Comments GLUCOSE BEDSIDE TESTING (test code 194 mg/dL 70-110 H = GLUBED) GLUCOSE BEDSIDE [id number] 07:49:00 Test Item Value Reference Range Interpretation Comments GLUCOSE BEDSIDE TESTING (test code 126 mg/dL 70-110 H = GLUBED) GLUCOSE BEDSIDE [id number] 20:57:00 Test Item Value Reference Range Interpretation Comments GLUCOSE BEDSIDE TESTING (test code 150 mg/dL 70-110 H = GLUBED) GLUCOSE BEDSIDE [id number] 17:09:00 Test Item Value Reference Range Interpretation Comments GLUCOSE BEDSIDE TESTING (test code 168 mg/dL 70-110 H = GLUBED) GLUCOSE BEDSIDE [id number] 12:33:00 Test Item Value Reference Range Interpretation Comments GLUCOSE BEDSIDE TESTING (test code 315 mg/dL 70-110 H = GLUBED) GLUCOSE BEDSIDE [id number] 08:17:00 Test Item Value Reference Range Interpretation Comments GLUCOSE BEDSIDE TESTING (test code 265 mg/dL 70-110 H = GLUBED) GLUCOSE BEDSIDE [id number] 22:17:00 Test Item Value Reference Range Interpretation Comments GLUCOSE BEDSIDE TESTING (test code 357 mg/dL 70-110 H = GLUBED) GLUCOSE BEDSIDE [id number] 17:38:00 Test Item Value Reference Range Interpretation Comments GLUCOSE BEDSIDE TESTING (test code 210 mg/dL 70-110 H = GLUBED) GLUCOSE BEDSIDE [id number] 12:25:00 Test Item Value Reference Range Interpretation Comments GLUCOSE BEDSIDE TESTING (test code 197 mg/dL 70-110 H = GLUBED) COVID 19 INHOUSE [id number] 10:11:00 Test Item Value Reference Range Interpretation Comments COVID 19 INHOUSE AG NEGATIVE Negative Per manu facturer, (test code = negative result s should [id number]) be treated aspr esumptive and, if inconsi [...] nsistent with COVID-19. Emergent procedure? YESGLUCOSE BEDSIDE [id number] 08:35:00 Test Item Value Reference Range Interpretation Comments GLUCOSE BEDSIDE TESTING (test code 192 mg/dL 70-110 H = GLUBED) PROTHROMBIN [id number] 06:01:00 Test Item Value Reference Range Interpretation Comments PT PATIENT (test code = PTP) 12.0 SECONDS 9.3-12.9 N INTERNATIONAL NORMAL RATIO 1.06 INR Unit 0.8-1.2 N (test code = INR) THROMBOPLASTIN TIME [id number] 06:01:00 Test Item Value Reference Range Interpretation Comments THROMBOPLASTIN TIME PARTIAL 26.4 SECONDS 26-35 N (test code = PTT) BASIC METABOLIC [id number] 05:50:00 Test Item Value Reference Range Interpretation [...] = CA) 9.2 MG/DL 8.5-10.1 N LACTIC [id number] 05:45:00 Test Item Value Reference Range Interpretation Comments LACTIC ACID (test code = LACT) 0.8 mmol/L 0.4-2.0 N CBC W/AUTO [id number] 05:30:00 Test Item Value Reference Range Interpretation [...] NO DIFF/SCN CRITERIA = MDIFF) BASIC METABOLIC [id number] 07:02:00 Test Item Value Reference Range Interpretation [...] CA) 9.6 MG/DL 8.5-10.1 N CBC W/AUTO [id number] 06:19:00 Test Item Value Reference Range Interpretation [...] DIFF/SCN CRITERIA = MDIFF) COVID 19 INHOUSE [id number] 17:15:00 Test Item Value Reference Range Interpretation Comments COVID 19 INHOUSE AG NEGATIVE Negative Per manu facturer, (test code = negative result s should [id number]) be treated aspr esumptive and, if inconsi [...]
--- OUTSIDE RECORDS SUMMARY | 2020-03-22 16:59 | XMS REPORT | Summary of Care ---
:1935 Author Organization [facility] Address [address] [place] [address] Care Team Providers Name Role Phone Ramon Archie Primary Care Provider Reason for Referral (Routine) Status Reason Specialty Diagnoses / Referred By Referred To Procedures Contact Contact New Request Vascular Surgery Procedures Trip Mancera, BILATERAL VENOUS DUPLEX [address] [place] [address] MRI/CAT Scan (STAT) Status Reason Specialty Diagnoses / Referred By Referred To Procedures Contact Contact New Request Diagnostic Diagnoses Hypotension, unspecified hypotension type Lori Jerome, Radiology Procedures CT CHEST PULMONARY ANGIOGRAM [address] [place] [phone] (Routine) Status Reason Specialty Diagnoses / Referred By Referred To Procedures Contact Contact New Request Echocardiograph Diagnoses Hypotension, unspecified hypotension type Lori Jerome, Procedures ECHO ROUTINE W/DOPPLER COLOR [address] [place] [phone] Radiology Services (STAT) Status Reason Specialty Diagnoses / Referred By Referred To Procedures Contact Contact New Request Diagnostic Diagnoses Hypotension, unspecified hypotension type Francisco Flores, Radiology Procedures XR CHEST 1 VW PAGINATOR [address] [place] [phone] Reason for Visit Reason Comments Allergic reaction Auth/Cert Status Reason Specialty Diagnoses / Referred By Referred To Procedures Contact Contact Emergency Medicine [facility] Em ergency Dept [address] [place] [address] Fax: Encounter Details Date Type Department Care Team Description 02/05/2020 - Hospital Encounter [facility] Medicine Surgery Francisco Flores FNP [address] [place] [phone] Sepsis 02/09/2020 Unit Gemma Gould MD [address] [place] [phone] [address] [facility] [place], [place] [id number] Allergies Active Allergy Reactions Severity Noted Date Comments Uuxqsle-Kec-Wad Other - See comments 02/05/2020 Home health [...] for 5 specified days. complication, unspecified whether alf insulin use hydrOXYzine 10 mg Take 1 30 tablet 0 02/09/2020 A ctive tabletIndications: tablet by Type 2 diabetes mouth every mellitus with other 6 (six) specified hours as complication, needed for unspecified whether Itching. alf insulin use lactobacillus Take 1 60 tablet 0 02/09/2020 Activ e acidophilus 25 tablet by million cell -100 mouth 2 mg (two) times captabIndications: daily. Type 2 diabetes mellitus with other specified complication, unspecified whether intermediate teacher insulin use predniSONE 10 mg Take 2 11 tablet 0 02/10/2020 Ac tive tabletIndications: tablets by 0 Type 2 diabetes mouth daily mellitus with other for 3 days, specified THEN 1 complication, tablet daily unspecified whether for 3 days, alf insulin THEN 0.5 use tablets daily for 3 days. levothyroxine 100 Take 1 30 tablet 0 02/09/2020 A ctive mcg tablet by tabletIndications: mouth every Type 2 diabetes morning. mellitus with other specified complication, unspecified whether alf insulin use levothyroxine 0 06/01/2012 Disco ntinued [...] the highest level of school Associate degree: APImetrics program 02/05/2020 you have completed or the [...] I, or a nurse practitioner or physician's licensed occupational therapy assistant working with me, had a tfux-ya-[id number] encounter with this patient on: 02/07/2020. The [...] Times a week: four For: 4 Weeks Retirement Services: Medication Management and Teaching Times a week: Four For: 4 Weeks PCP follow up: Archie Navarro Call lab results to: My clinical findings support the need for the services listed above because: limited mobility Further, I certify that my clinical findings support that this patient is homebound (i.e. absences from home require considerable and taxing effort and are for medical reasons or confucianist services or infrequently or of short duration [...] as a scribe. Derek Burton RN Facility/Provider [address] [place] [address] (Ph) [phone] (F) [phone] Take Home Medications These are medications ordered [...] with other specified complication, unspecified whether intermediate teacher insulin use hydrOXYzine 10 mg tablet Take 1 tablet by mouth every 6 (six) hours as needed for Itching. Qty: 30 tablet, Refills: 0 Associated Diagnoses: Type 2 diabetes mellitus with other specified complication, unspecified whether alf insulin use lactobacillus acidophilus 25 million cell -100 mg captab Take 1 tablet by mouth 2 (two) times daily. Qty: 60 tablet, Refills: 0 Associated Diagnoses: Type 2 diabetes mellitus with other specified complication, unspecified whether alf insulin use predniSONE 10 mg tablet Take 2 tablets by mouth daily for 3 days, THEN 1 tablet daily for 3 days, THEN 0.5 tablets daily for 3 days. Qty: 11 tablet, Refills: 0 Associated Diagnoses: Type 2 diabetes mellitus with other specified complication, unspecified whether alf insulin use CONTINUE these medications which have CHANGED Details levothyroxine 100 mcg tablet Take 1 tablet by mouth every morning. Qty: 30 tablet, Refills: 0 Associated Diagnoses: Type 2 diabetes mellitus with other specified complication, unspecified whether alf insulin use CONTINUE these medications which have [...] to the closest emergency room or call [phone] If you receive the patient satisfaction survey [...] information on smoking and how to quit. [place] Lung Association, http://www.lungusa.org/stop-smoking/ [place] Cancer Society, http://www.cancer.org/Healthy/StayAwayfromTobacco/index [place] Heart Association, http://www.heart.org/HEARTORG/GettingHealthy/QuitSmoking/Quit-Smoking_[facility] _001085_SubHomePage.jsp AttachmentsThe following attachments cannot be sent through Care Everywhere. Sepsis (Moldovan)Urinary Tract Infections in Women (Moldovan)Ciprofloxacin tablets (Moldovan)Hydroxyzine oral solution (Moldovan)Lactobacillus Oral formulations (Moldovan)Prednisone tablets (Moldovan)documented in this encounter Progress Notes Gm Ruiz [...] 24 Min Gm Ruiz PTA Fran Lic [id number] [facility] Rehab Services ADC [phone] Keeley Orourke PT supv INETCBrent rob MD - 02/09/2020 11:03 AM CDT [facility] Cardiology progress note Date of Service: 02/09/2020 Leticia Harper is an 84 years old [...] Date 02/09/20 0700 - 02/10/20 0659 Shift [phone] 24 Hour Total INTAKE Oral 355 355 [...] specified complication Elevated trop: Likely Type 2 [place]. No chest pain or dynamica ECG changes [...] 40. T2DM: as per primary team. Primary corporate giving manager: Dr Cedeño. Brent Phelps MD, FACC, NOEMY Stuffing Machine Operator, Division of Cardiology [facility] Brent Hirsch MD - 02/08/2020 11:20 PM CDT [facility] Cardiology progress note Date of Service: [...] Date 02/08/20 0700 - 02/09/20 0659 Shift [phone] [phone] 24 Hour Total INTAKE Oral 500 500 [...] specified complication Elevated trop: Likely Type 2 [place]. No chest pain or dynamica ECG changes [...] 40. T2DM: as per primary team. Primary corporate giving manager: Dr Cedeño. Brent Phelps MD, [facility], NOEMY Stuffing Machine Operator, Division of Cardiology [facility] Madisyn Vasquez COMMUNITY CULTURAL DEVELOPMENT OFFICER - 02/08/2020 3:31 PM CDTSummary: Inpatient Scheduling COMMUNITY CULTURAL DEVELOPMENT OFFICER spoke with patient prior to discharge to assist with scheduling hospital follow up appointments. Pt is concerned about her ambulation and how she will get around to and from appointments at this time. COMMUNITY CULTURAL DEVELOPMENT OFFICER informed patient that [facility] recommends her to follow up with Cardiology and Dermatology. Pt reports that she will schedule those appointments herself when her ambulation situation is better. Declines assistance in scheduling at this time. Will document in referrals once they are made available. Madisyn Ruiz LMSW Fish Hatchery Worker - Community Wellness and Outreach Community and Population Health Guilherme Rojas - 7th floor Office: [phone] (Not for patient use) [email or web address] Trip Mancera MD - 02/08/2020 12:49 PM CDT [facility] Hospitalist Progress Note SUBJECTIVE: Feels better [...] No Social Functional Assessment: Primary language spoken/preferred: Moldovan Mental Status: Alert & Oriented to Person,Place & Time Information given by: Spouse Name and phone number of person giving information: Zach Harper spouse [phone] Patient's support system: Spouse Name and number of support system: Zach Harper spouse [phone] Primary Pharmacognosy Teacher: Self MPOA: Same as support system Living Arrangement: Home Address of living arrangement : [address] [place] Persons living in home: Same as [...] Agency: Yes Name of Home Health Agency: [facility] [address] [place] [address] () [phone] (F) [phone] Previous or current Home Health Care Agency: [...] Burton RN, BSN [facility] [address] Administrator O [phone] Trip Byers MD - 02/07/2020 11:11 AM CDT [facility] Hospitalist Progress Note SUBJECTIVE: Denies any chest [...] Petersen MD - 02/07/2020 9:58 AM CDT [facility] Cardiology progress note Date of Service: [...] specified complication Elevated trop: Likely Type 2 [place]. No chest pain or dynamica ECG changes [...] acceptable. T2DM: as per primary team. Primary corporate giving manager: Dr Cedeño. Héctor Giles MD 02/07/2020 9:58 AM Stuffing Machine Operator, Division of Cardiology [facility] Gemma Chowdhury MD - 02/06/2020 8:21 AM CDT [facility] Hospitalist Progress Note DATE OF SERVICE: 02/06/2020 [...] Inpatient status: IMU Disposition: pending medical status [place] SIDER MECHANIC was verified during stay Gemma Gould MD Provider #[id number] Hospitalist/Clinical Stuffing Machine Operator [facility] ([facility] ([facility]) documented in this encounter H&P Notes [...] she has been tx at OSH in [place] for tooth abscess in [facility] she states was drained and patient [...] and was [place] ALLERGIES Allergies Allergen Reactions Jcrwjnu-Foy-Cya Reductase Inhibitors Other - See comments Home [...] file Gets together: Not on file Attends confucianist service: Not on file Active member of [...] mg, 650 mg, Oral, Q6HPRN, Sue Jerome, PAGINATOR [START ON 02/06/2020] aspirin chewable tablet 81 [...] from Last 1 Encounters: 02/05/20 107/55 [place] SIDER MECHANIC was reviewed The above diagnosis and plan was discussed with the patient and was agreed upon Lori Jerome M.D. Internal Medicine Employee ID #: [id number] documented in this encounter Consult Notes Aliyah Villarreal, RD - 02/07/2020 2:25 PM CDT MEDICAL NUTRITION THERAPY- CONSULT NOTE: Reason For Consultation: surgery scheduling coordinator for positive initial nutrition screen: Severe disease [...] 50 mg, Oral, Q8HPRN, Sue Jerome FNP Lab and Medical Test Results: NA [...] Range: >50 mg/dL 23 (L) Results for LETICAI HARPER ( ) as of 02/07/2020 14:28 [...] Documented Food Allergies/Intolerance/Cultural Preferences: Allergies Allergen Reactions Zfrxaaw-Jvo-Spe Reductase Inhibitors Other - See comments Home [...] need/day = 172-188 g/day (11.5-12.5 choices) Fluid: 7275-9888 mL/day (25-30 mL/kg CBW); or per MD; [...] concerns, thank-you. Aliyah Villarreal RD,BRAYAN RD Office: [phone] signed by Aliyah Villarreal RD at 02/07/2020 2:43 PM Carey Villela - 02/07/2020 1:10 PM CDTAssociated Order(s): CONSULT PS PASTORAL CAREEncounter: Visited with patient due to pastoral care consult Yazdanism: Hoahaoism Assessment: Patient reports supportive relationships with and [...] need for pain meds COMMUNICATION Primary Language: Moldovan Able to Verbalize needs: Yes Vision:good; no [...] of teaching provided. Nilda Friend,PT [place] License: [id number] Required Components in Determining Evaluation Level History: No personal factors or comorbidities: No (79187) 1-2 personal factors and/or comorbidities: Yes (17683) 3 or more personal factors and/ or comorbidities: No (84497) Examination of Body System(s) Addressing 1-2 elements: Yes (91427) Addressing a total of 3 or more elements: No (84372) Addressing a total of 4 or more elements: No (57903) Clinical Presentation Stable: Yes (87482) Evolving: No (74498) Unstable: No (72296) Clinical Decision Making (Complexity) Low: Yes (11359) Moderate: No (86607) High: No (97760) Madhavi Petersen MD - 02/06/2020 6:54 PM CDTAssociated Order(s): CONSULT CARDIOLOGY [facility] Cardiology Consult Note Patient: Leticia Harper [...] she has been tx at OSH in [place] for tooth abscess [facility] she states was drained and patient [...] file Gets together: Not on file Attends confucianist service: Not on file Active member of [...] Not on file ALLERGIES Allergies Allergen Reactions Tgsiufh-Zih-Pkr Reductase Inhibitors Other - See comments Home [...] QAM-0600, Lori Jerome MD, 100 mcg at 02/06/20 0513 NaCl 0.9% (NS) IV infusion 1,000 mL, 1,000 mL, IV Infusion, CONTINUOUS, Lori Jerome MD, Last Rate: 100 mL/hr at 02/06/20 1600 ondansetron (ZOFRAN (PF)) injection 4 mg, 4 mg, Slow IV Push, Q6HPRN, Lori Jerome MD piperacillin-tazobactam (ZOSYN) 3.375 g in NaCl 0.9% (NS) 100 mL MINI-BAG, 3.375 g, IV Piggyback, Q6H ABX, Lori Jeorme MD, 3.375 g at 02/06/20 1631 predniSONE [...] specified complication Elevated trop: Likely Type 2 [place]. No chest pain or dynamica ECG changes [...] acceptable. T2DM: as per primary team. Primary corporate giving manager: Dr Cedeño. Thank you for allowing us to participate in the care of Leticia Harper. If you have any questions or concerns please feel free to call our office at [phone]. I would be happy to be of further assistance for Leticia Harper wellbeing. Héctor Giles MD Stuffing Machine Operator, Division of Cardiology [facility] documented in this encounter ED Notes Danii Krause RN - 02/05/2020 2:45 PM CDTSystemic rash, itching x3 days. Patient recently started Basaglar for insulin. 0.3mg subq epi given left arm, benadryl 50mg PIV administered by EMS. EMS state patient SpO2 decreased to 88% post epi administration, they placed nasal cannula which increased to 93%. 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 History provided by: Patient coding coordinator used: No Allergic reaction Presenting symptoms: itching [...] Childhood immunizations: Up-to-date Allergies: Allergies Allergen Reactions Yvdmcwc-Cgt-Yun Reductase Inhibitors Other - See comments Home [...] LACTIC ACID 2.42 mmol/L COMP. METABOLIC PANEL (85413) Collection Time: 02/05/20 3:07 PM Result Value [...] with 1st degree AV block Rate 88 PA 210 QRS 72 QT/QTc 380/459 Comparison with prior EKG: none available Orders and Treatments: Orders Placed This Encounter Procedures XR CHEST 1 VW CBC WITH DIFF COMP. METABOLIC PANEL (19003) N-TERMINAL PRO-BNP TROPONIN I URINALYSIS BLOOD CULTURE [...] associated with indwelling urethral catheter, initial encounter T83.495I495.64 N39.0 599.0 Disposition/Condition: ED Disposition ED Disposition Condition Comment Admit - Inpatient Stable Is this patient COVID positive or a patient under investigation (PUI)?: No Treatment Team: [facility] [[id number]] Primary reason for admission: Sepsis [171791] Secondary reason for admission: Hypotension [851709] Secondary reason for admission: Allergic reaction [015934] Secondary reason for admission: UTI (urinary tract infection) [947776] Is (or was) this a planned re-admission?: [...] for consultation. Aaron Martínez Jr., MD Clinical Stuffing Machine Operator [facility] Emergency Department documented in this encounter [...] expected Antimicrobial Stewardship Program - Anthony Tran, [facility] - 02/07/2020 11:29 AM CDTAntimicrobial Stewardship Program Note Based on review of [facility] chart and microbiology and susceptibility results, the antimicrobial stewardship program recommends the following: - Tailor antibiotics from piperacillin/tazobactam to ampicillin/sulbactam 3 g IV q6h as Klebsiella in urine was susceptible and ampicillin/sulbactam will provide adequate coverage for oral sachin for the oral abscess Please call with questions or concerns. RZach Tran, PharmDora, [facility] Clinical Curriculum Facilitator - Infectious Diseases Antimicrobial [place] Pager: [phone] Extension: [phone] 02/07/2020 11:29 are Plan - Sue Quevedo [...] Routine 02/08/2020 4:24 Re sults for this (01471) AM CDT procedure are i n the [...] PANEL Add-on 02/05/2020 3:07 Results for this (45827)(TOTAL PM CDT procedure are in CHOLESTEROL, the results TRIGLYCERIDES, HDL) section. COMP. METABOLIC PANEL STAT 02/05/2020 3:07 Hypotension, Re sults for this (96704) PM CDT unspecified procedure are i n [...] GLU 216 (H) 70 - 110 mg/dL [facility] Specimen Blood Performing Organization Address [facility] Phone Number [facility] CLIA: [id number] [place] [address] PHOSPHORUS (02/09/2020 5:15 AM CDT) Pathologist Sig nature PHOSPHORUS 2.7 2.5 - 5.0 mg/dL [facility] Specimen Blood - WRIST, LEFT Performing Organization Address [facility] Phone Number [facility] CLIA: [id number] [place] [address] MAGNESIUM (02/09/2020 5:15 AM CDT) Pathologist Sig nature MAGNESIUM 1.8 1.7 - 2.4 mg/dL [facility] Specimen Blood - WRIST, LEFT Performing Organization Address [facility] Phone Number [facility] CLIA: [id number] [place] [address] Basic Metabolic Panel (NA, K, CL, CO2, GLUCOSE, BUN, CREATININE, CA) (02/09/2020 5:15 AM CDT) Pathologist Sig nature NA 135 135 - 145 [facility] mmol/L [facility] K 3.8 3.5 - 5.0 [facility] mmol/L [facility] CL 104 98 - 108 mmol/L [facility] CO2 TOTAL 26 23 - 31 mmol/L [facility] AGAP 5 2 - 16 [facility] BUN 16 7 - 23 mg/dL [facility] GLUCOSE 210 (H) 70 - 110 mg/dL [facility] CREATININE 0.61 0.50 - 1.04 [facility] mg/dL [facility] CALCIUM 8.9 8.6 - 10.6 [facility] mg/dL [facility] eGFR Calculation 93.9 mL/min/1.73m2 [facility] ([facility]ORAT[facility] Citizen [place]) eGFR Calculation 113.8 mL/min/1.73m2 [facility] () [facility] Specimen Blood - WRIST, LEFT Narrative Performed At Association of Glomerular Filtration Rate (GFR) [facility] and Staging of Kidney Disease* + [...] tests). Performing Organization Address City/State/Zipcode Phone Number [facility] CLIA: [id number] [place] [address] CBC with Differential (02/09/2020 5:15 AM CDT) [facility] nature WBC 6.93 4.30 - 11.10 [facility] 10*3/L [facility] RBC 3.70 (L) 3.93 - 5.25 [facility] 10*6/L [facility] HGB 11.2 (L) 11.6 - 15.0 [facility] g/dL [facility] HCT 34.3 (L) 35.7 - 45.2 % [facility] MCV 92.7 80.6 - 95.5 fL [facility] MCH 30.3 25.9 - 32.8 pg [facility] MCHC 32.7 31.6 - 35.1 [facility] g/dL [facility] RDW-SD 48.5 39.0 - 49.9 fL [facility] RDW-CV 14.3 12.0 - 15.5 % [facility] PLT 244 166 - 358 [facility] 10*3/L [facility] MPV 8.8 (L) 9.5 - 12.9 fL [facility] NRBC/100 WBC 0.0 0.0 - 10.0 /100 [facility] WBCs [facility] NRBC x10^3 <0.01 10*3/L [facility] GRAN MAT (NEUT) % 63.0 % [facility] IMM GRAN % 2.00 % [facility] LYMPH % 25.5 % [facility] MONO % 8.4 % [facility] EOS % 0.7 % [facility] BASO % 0.4 % [facility] GRAN MAT x10^3(ANC) 4.36 1.88 - 7.09 [facility] 10*3/uL [facility] IMM GRAN x10^3 0.14 (H) 0.00 - 0.06 [facility] 10*3/uL [facility] LYMPH x10^3 1.77 1.32 - 3.29 [facility] 10*3/uL [facility] MONO x10^3 0.58 0.33 - 0.92 [facility] 10*3/uL [facility] EOS x10^3 0.05 0.03 - 0.39 [facility] 10*3/uL [facility] BASO x10^3 0.03 0.01 - 0.07 [facility] 10*3/uL [facility] Specimen Blood - WRIST, LEFT Performing Organization Address City/State/Zipcode Phone Number [facility] CLIA: [id number] [place] [address] POCT GLUCOSE (AUTOMATED) (02/08/2020 11:25 PM CDT) Pathologist Sig nature POCT GLU 293 (H) 70 - 110 mg/dL [facility] Specimen Blood Performing Organization Address [facility] Phone Number [facility] CLIA: [id number] [place] [address] POCT GLUCOSE (AUTOMATED) (02/08/2020 7:42 PM CDT) Pathologist Sig nature POCT GLU 355 (H) 70 - 110 mg/dL [facility] Specimen Blood Performing Organization Address [facility] Phone Number [facility] CLIA: [id number] [place] [address] POCT GLUCOSE (AUTOMATED) (02/08/2020 4:41 PM CDT) Pathologist Sig nature POCT GLU 268 (H) 70 - 110 mg/dL [facility] Specimen Blood Performing Organization Address [facility] Phone Number [facility] CLIA: [id number] [place] [address] POCT GLUCOSE (AUTOMATED) (02/08/2020 12:05 PM CDT) Pathologist Sig nature POCT GLU 169 (H) 70 - 110 mg/dL [facility] Specimen Blood Performing Organization Address [facility] Phone Number [facility] CLIA: [id number] [place] [address] POCT GLUCOSE (AUTOMATED) (02/08/2020 7:52 AM CDT) Pathologist Sig nature POCT GLU 84 70 - 110 mg/dL [facility] Specimen Blood Performing Organization Address [facility] Phone Number [facility] CLIA: [id number] [place] [address] COMP. METABOLIC PANEL (24882) (02/08/2020 4:24 AM CDT) NA 136 135 - 145 [facility] mmol/L [facility] K 3.8 3.5 - 5.0 [facility] mmol/L [facility] CL 106 98 - 108 mmol/L [facility] CO2 TOTAL 23 23 - 31 mmol/L [facility] AGAP 7 2 - 16 [facility] BUN 13 7 - 23 mg/dL [facility] GLUCOSE 112 (H) 70 - 110 mg/dL [facility] CREATININE 0.49 (L) 0.50 - 1.04 [facility] mg/dL [facility] TOTAL BILI 0.5 0.1 - 1.1 mg/dL [facility] CALCIUM 8.5 (L) 8.6 - 10.6 [facility] mg/dL [facility] T PROTEIN 4.8 (L) 6.3 - 8.2 g/dL [facility] ALBUMIN 2.4 (L) 3.5 - 5.0 g/dL [facility] ALK PHOS 80 34 - 122 U/L [facility] ALTv 12 5 - 35 U/L [facility] AST(SGOT) 20 13 - 40 U/L [facility] eGFR Calculation 120.9 mL/min/1.73m2 [facility] ([facility] Citizen [place]) eGFR Calculation 146.5 mL/min/1.73m2 [facility] () [facility] Specimen Blood - HAND, LEFT Narrative Performed At Association of Glomerular Filtration Rate (GFR) [facility] and Staging of Kidney Disease* + [...] tests). Performing Organization Address City/State/Zipcode Phone Number [facility] CLIA: [id number] [place] [address] Basic Metabolic Panel (NA, K, CL, CO2, GLUCOSE, BUN, CREATININE, CA) (02/08/2020 4:24 AM CDT) [facility] NA 136 135 - 145 [facility] mmol/L [facility] K 3.7 3.5 - 5.0 [facility] mmol/L [facility] CL 108 98 - 108 mmol/L [facility] CO2 TOTAL 22 (L) 23 - 31 mmol/L [facility] AGAP 6 2 - 16 [facility] BUN 13 7 - 23 mg/dL [facility] GLUCOSE 115 (H) 70 - 110 mg/dL [facility] CREATININE 0.51 0.50 - 1.04 [facility] mg/dL [facility] CALCIUM 8.3 (L) 8.6 - 10.6 [facility] mg/dL [facility] eGFR Calculation 115.5 mL/min/1.73m2 [facility] ([facility]ORATORY Citizen Of [place]) eGFR Calculation 139.9 mL/min/1.73m2 [facility] () [facility] Specimen Blood - HAND, LEFT Narrative Performed At Association of Glomerular Filtration Rate (GFR) [facility] and Staging of Kidney Disease* + [...] tests). Performing Organization Address City/State/Zipcode Phone Number [facility] CLIA: [id number] [place], [place] [id number] LABORATORY [address] CBC with Differential (02/08/2020 4:24 AM CDT) [facility] WBC 7.70 4.30 - 11.10 [facility] 10*3/L HOSPITAL LAB[facility]ATORY RBC 3.56 (L) 3.93 - 5.25 [facility] 10*6/L [facility] HGB 10.9 (L) 11.6 - 15.0 [facility] g/dL [facility] HCT 33.4 (L) 35.7 - 45.2 % [facility] MCV 93.8 80.6 - 95.5 fL [facility] MCH 30.6 25.9 - 32.8 pg [facility] MCHC 32.6 31.6 - 35.1 [facility] g/dL [facility] RDW-SD 49.8 39.0 - 49.9 fL [facility] RDW-CV 14.3 12.0 - 15.5 % [facility] PLT 220 166 - 358 [facility] 10*3/L [facility] MPV 8.7 (L) 9.5 - 12.9 fL [facility] NRBC/100 WBC 0.0 0.0 - 10.0 /100 [facility] WBCs [facility] NRBC x10^3 <0.01 10*3/L [facility] GRAN MAT (NEUT) % 65.3 % [facility] IMM GRAN % 1.40 % [facility] LYMPH % 24.3 % [facility] MONO % 6.9 % [facility] EOS % 1.7 % [facility] BASO % 0.4 % [facility] GRAN MAT x10^3(ANC) 5.03 1.88 - 7.09 [facility] 10*3/uL [facility] IMM GRAN x10^3 0.11 (H) 0.00 - 0.06 [facility] 10*3/uL HOSPITAL LAB[facility]ORY LYMPH x10^3 1.87 1.32 - 3.29 [facility] 10*3/uL H[facility]PITAL LAB[facility] MONO x10^3 0.53 0.33 - 0.92 [facility] 10*3/uL HOSPITAL LAB[facility] EOS x10^3 0.13 0.03 - 0.39 [facility] 10*3/uL [facility] BASO x10^3 0.03 0.01 - 0.07 [facility] 10*3/uL [facility] Specimen Blood - HAND, LEFT Performing Organization Address [facility] Phone Number [facility] CLIA: [id number] [place] [address] POCT GLUCOSE (AUTOMATED) (02/07/2020 4:54 PM CDT) Pathologist Sig nature POCT GLU 366 (H) 70 - 110 mg/dL [facility] Specimen Blood Performing Organization Address [facility] Phone Number [facility] CLIA: [id number] [place], [place] [address] LABORATORY [address] POCT GLUCOSE (AUTOMATED) (02/07/2020 12:00 PM CDT) Pathologist Sig nature POCT GLU 186 (H) 70 - 110 mg/dL [facility] Specimen Blood Performing Organization Address [facility] Phone Number [facility] CLIA: [id number] [place], [place] [address] LABORATORY [address] POCT GLUCOSE (AUTOMATED) (02/07/2020 7:42 AM CDT) Pathologist Sig nature POCT GLU 128 (H) 70 - 110 mg/dL [facility] Specimen Blood Performing Organization Address [facility] Phone Number [facility] CLIA: [id number] [place], [place] [address] LABORATORY [address] Troponin I (02/07/2020 5:22 AM CDT) Pathologist Sig nature TROPONIN I 0.077 (H) <=0.034 ng/mL [facility] Specimen Blood - ARM, LEFT Narrative Performed At Equal or Less than 0.034 ng/ml---Normal [facility] Note: Cardiac troponin begins to rise [...] biotin. Performing Organization Address City/State/Zipcode Phone Number [facility] CLIA: [id number] [place] [address] Basic Metabolic Panel (NA, K, CL, CO2, GLUCOSE, BUN, CREATININE, CA) (02/07/2020 5:22 AM CDT) Pathologist [facility] nature NA 136 135 - 145 [facility] mmol/L [facility] K 3.4 (L) 3.5 - 5.0 [facility] mmol/L [facility] CL 107 98 - 108 mmol/L [facility] CO2 TOTAL 24 23 - 31 mmol/L [facility] AGAP 5 2 - 16 [facility] BUN 14 7 - 23 mg/dL [facility] GLUCOSE 163 (H) 70 - 110 mg/dL [facility] CREATININE 0.54 0.50 - 1.04 [facility] mg/dL [facility] CALCIUM 7.9 (L) 8.6 - 10.6 [facility] mg/dL [facility] eGFR Calculation 108.1 mL/min/1.73m2 [facility] ([facility] LABORATORY Citizen Of [place]) eGFR Calculation 131.0 mL/min/1.73m2 [facility] () [facility] Specimen Blood - ARM, LEFT Narrative Performed At Association of Glomerular Filtration Rate (GFR) [facility] and Staging of Kidney Disease* + [...] tests). Performing Organization Address City/State/Zipcode Phone Number [facility] CLIA: [id number] [place] [address] CBC with Differential (02/07/2020 5:22 AM CDT) Pathologist Sig nature WBC 9.71 4.30 - 11.10 [facility] 10*3/L [facility] RBC 3.61 (L) 3.93 - 5.25 [facility] 10*6/L [facility] HGB 11.0 (L) 11.6 - 15.0 [facility] g/dL [facility] HCT 33.0 (L) 35.7 - 45.2 % [facility] MCV 91.4 80.6 - 95.5 fL [facility] MCH 30.5 25.9 - 32.8 pg [facility] MCHC 33.3 31.6 - 35.1 [facility] g/dL [facility] RDW-SD 49.1 39.0 - 49.9 fL [facility] RDW-CV 14.6 12.0 - 15.5 % [facility] PLT 246 166 - 358 [facility] 10*3/L [facility] MPV 8.9 (L) 9.5 - 12.9 fL [facility] NRBC/100 WBC 0.0 0.0 - 10.0 /100 [facility] WBCs [facility] NRBC x10^3 <0.01 10*3/L [facility] GRAN MAT (NEUT) % 81.5 % [facility] IMM GRAN % 0.70 % [facility] LYMPH % 13.4 % [facility] MONO % 3.4 % [facility] EOS % 0.7 % [facility] BASO % 0.3 % [facility] GRAN MAT x10^3(ANC) 7.91 (H) 1.88 - 7.09 [facility] 10*3/uL [facility] IMM GRAN x10^3 0.07 (H) 0.00 - 0.06 [facility] 10*3/uL HOSPITAL LABORATORY LYMPH x10^3 1.30 (L) 1.32 - 3.29 [facility] 10*3/uL [facility] MONO x10^3 0.33 0.33 - 0.92 [facility] 103/uL [facility] EOS x10^3 0.07 0.03 - 0.39 [facility] 10*3/uL [facility] BASO x10^3 0.03 0.01 - 0.[address]/uL [facility] Specimen Blood - ARM, LEFT Performing Organization Address [facility] [email or web address] Phone Number [facility] CLIA: [id number] [place] [address] POCT GLUCOSE (AUTOMATED) (02/06/2020 8:04 PM CDT) Pathologist Sig nature POCT GLU 315 (H) 70 - 110 mg/dL [facility] Specimen Blood Performing Organization Address [facility] [email or web address] Phone Number [facility] CLIA: [id number] [place], [place] [address] LABORATORY [address] POCT GLUCOSE (AUTOMATED) (02/06/2020 4:38 PM CDT) Pathologist Sig nature POCT GLU 223 (H) 70 - 110 mg/dL [facility] Specimen Blood Performing Organization Address [facility] Phone Number [facility] CLIA: [id number] [place], [place] [address] LABORATORY [address] POCT GLUCOSE (AUTOMATED) (02/06/2020 12:03 PM CDT) Pathologist Sig nature POCT GLU 118 (H) 70 - 110 mg/dL [facility] Specimen Blood Performing Organization Address [facility] Phone Number [facility] CLIA: [id number] [place] [address] POCT GLUCOSE (AUTOMATED) (02/06/2020 8:21 AM CDT) Pathologist Sig nature POCT GLU 85 70 - 110 mg/dL [facility] Specimen Blood Performing Organization Address [facility] Phone Number [facility] CLIA: [id number] [place] [address] POCT GLUCOSE (AUTOMATED) (02/06/2020 7:40 AM CDT) Pathologist Sig nature POCT GLU 59 (L) 70 - 110 mg/dL [facility] Specimen Blood Performing Organization Address [facility] Phone Number [facility] CLIA: [id number] [place] [address] PROCALCITONIN (02/06/2020 3:58 AM CDT) Pathologist Sig nature Procalcitonin 0.13 (H) <0.07 ng/mL [facility] SERVICES Specimen Blood - ARM, LEFT Narrative Performed At INTERPRETATION OF PROCALCITONIN RESULTS IN ADULTS >= 1 8 [facility] YEARS OF AGE Initiation [...] abscess/empyema. For further information please refer to: [email or web address] Performing Organization Address City/[facility] [email or web address] Phone Number [facility] CLIA: [id number] [place], [place] [address] [address] [place] [address] Blvd SEDIMENTATION RATE (02/06/2020 3:58 AM CDT) Pathologist Sig nature ESR 67 (H) 0 - 20 mm/HR [facility] Specimen Blood - ARM, LEFT Performing Organization Address City/[facility]/Zipcode Phone Number [facility] CLIA: [id number] [place], [place] [address] [facility] [address] CORTISOL AM (02/06/2020 3:58 AM CDT) Pathologist Sig nature KARINA AM 2.8 (L) 4.5 - 23.0 ug/dL [facility] SERVICES Specimen Blood - ARM, LEFT Narrative Performed At Biotin has been reported to cause a positive bias, int erpret [facility] results relative to patient's use of biotin. Performing Organization Address [facility] [email or web address] Phone Number [facility] CLIA: [id number] [place] [address] [place] [address] Troponin I (02/06/2020 3:58 AM CDT) Pathologist Sig nature TROPONIN I 0.467 (H) <=0.034 ng/mL [facility] Specimen Blood - ARM, LEFT Narrative Performed At Equal or Less than 0.034 ng/ml---Normal [facility] Note: Cardiac troponin begins to rise [...] biotin. Performing Organization Address City/State/Zipcode Phone Number [facility] CLIA: [id number] [place] [address] Basic Metabolic Panel (NA, K, CL, CO2, GLUCOSE, BUN, CREATININE, CA) (02/06/2020 3:58 AM CDT) Pathologist Sig [facility] NA 135 135 - 145 [facility] mmol/L [facility] K 3.3 (L) 3.5 - 5.0 [facility] mmol/L [facility] CL 104 98 - 108 mmol/L [facility] CO2 TOTAL 24 23 - 31 mmol/L [facility] AGAP 7 2 - 16 [facility] BUN 17 7 - 23 mg/dL [facility] GLUCOSE 83 70 - 110 mg/dL [facility] CREATININE 0.52 0.50 - 1.04 [facility] mg/dL [facility] CALCIUM 8.4 (L) 8.6 - 10.6 [facility] mg/dL [facility] eGFR Calculation 112.9 mL/min/1.73m2 [facility] (Non-[facility] LABORATORY Citizen [place]) eGFR Calculation 136.8 mL/min/1.73m2 [facility] ([facility] Specimen Blood - ARM, LEFT Narrative Performed At Association of Glomerular Filtration Rate (GFR) [facility] LAB[facility]AT[facility] and Staging of Kidney Disease* [...] tests). Performing Organization Address City/State/Zipcode Phone Number [facility] CLIA: [id number] [place], [place] [id number] LABORATORY [address] CBC with Differential (02/06/2020 3:58 AM CDT) [facility] WBC 11.29 (H) 4.30 - 11.10 [facility] 10*3/L [facility] RBC 4.06 3.93 - 5.25 [facility] 10*6/L [facility] HGB 12.3 11.6 - 15.0 [facility] g/dL [facility] HCT 37.5 35.7 - 45.2 % [facility] MCV 92.4 80.6 - 95.5 fL [facility] MCH 30.3 25.9 - 32.8 pg [facility] MCHC 32.8 31.6 - 35.1 [facility] g/dL [facility] RDW-SD 50.3 (H) 39.0 - 49.9 fL [facility] RDW-CV 14.6 12.0 - 15.5 % [facility] PLT 254 166 - 358 [facility] 10*3/L HOSPITAL LABORATORY MPV 9.2 (L) 9.5 - 12.9 fL [facility] NRBC/100 WBC 0.0 0.0 - 10.0 /100 [facility] WBCs [facility] NRBC x10^3 <0.01 10*3/L [facility] GRAN MAT (NEUT) % 85.9 % [facility] IMM GRAN % 0.40 % [facility] LYMPH % 11.2 % [facility] MONO % 2.1 % [facility] EOS % 0.2 % [facility] BASO % 0.2 % [facility] GRAN MAT x10^3(ANC) 9.70 (H) 1.88 - 7.09 [facility] 10*3/uL [facility] IMM GRAN x10^3 0.05 0.00 - 0.06 [facility] 10*3/uL [facility] LYMPH x10^3 1.26 (L) 1.32 - 3.29 [facility] 10*3/uL [facility] MONO x10^3 0.24 (L) 0.33 - 0.92 [facility] 10*3/uL [facility] EOS x10^3 <0.03 (L) 0.03 - 0.39 [facility] 10*3/uL [facility] BASO x10^3 <0.03 0.01 - 0.07 [facility] 10*3/uL [facility] Specimen Blood - ARM, LEFT Performing Organization Address City/State/Zipcode Phone Number [facility] CLIA: [id number] [place] [address] CHEST PULMONARY [...] nature D-DIMER 10.23 (H) <0.41 g/mL (FEU) [facility] Specimen Blood - ARM, LEFT Narrative Performed At This test may be used in conjunction with a [facility] clinical pretest probability (PTP) assessment [...] in forming a diagnosis. Performing Organization Address [facility] Phone Number [facility] CLIA: [id number] [place] [address] FREE T4 (02/05/2020 9:45 PM CDT) Pathologist Sig nature FREE T4 0.72 (L) 0.78 - 2.20 ng/dL: [facility] Specimen Blood - ARM, LEFT Performing Organization Address [facility] Phone Number [facility] CLIA: [id number] [place] [address] LABORATORY [facility] [address] POCT GLUCOSE (AUTOMATED) (02/05/2020 9:04 PM CDT) Pathologist Sig [facility] POCT GLU 128 (H) 70 - 110 mg/dL [facility] Specimen Blood Performing Organization Address [facility] Phone Number [facility] CLIA: [id number] [place] [address] LABORATORY [facility] [address] Lactic Acid Whole Blood (02/05/2020 8:00 PM CDT) [facility] LACTIC ACID 1.23 0.30 - 2.60 mmol/L [facility] Specimen Blood Performing Organization Address [facility] Phone Number [facility] CLIA: [id number] [place] [address] LABORATORY [facility] [address] FREE T3 (02/05/2020 7:46 PM CDT) Pathologist Sig nature FREE T3 1.97 (L) 2.77 - 5.27 pg/mL [facility] Specimen Blood - ARM, RIGHT Performing Organization Address [facility] Phone Number [facility] CLIA: [id number] [place] [address] Troponin I (02/05/2020 7:46 PM CDT) Pathologist Sig nature TROPONIN I 0.943 (H) <=0.034 ng/mL [facility] Specimen Blood - ARM, RIGHT Narrative Performed At Equal or Less than 0.034 ng/ml---Normal [facility] Note: Cardiac troponin begins to rise [...] biotin. Performing Organization Address City/State/Zipcode Phone Number [facility] CLIA: [id number] [place] [address] FECAL PATHOGENS BY PCR (02/05/2020 7:41 PM CDT) Campylobacter (jejuni, Negative Negative, [facility] coli and upsaliensis) Indeterminate, SERVICES See comment Plesiomonas shigelloides Negative Negative, [facility] Indeterminate, SERVICES See comment Salmonella Negative Negative, [facility] Indeterminate, SERVICES See comment Yersinia enterocolitica Negative Negative, [facility] Indeterminate, SERVICES See comment Vibrio Negative Negative, [facility] Indeterminate, SERVICES See comment Vibrio cholerae Negative Negative, [facility] Indeterminate, SERVICES See comment Enteroaggregative E. coli Negative Negative, [facility] (EAEC) Indeterminate, SERVICES See comment Enteropathogenic E. coli Negative Negative, N/A, [facility] LABORATOR Y (EPEC) Indeterminate, SERVICES See comment Enterotoxigenic E. coli Negative Negative, [facility] (ETEC) Indeterminate, SERVICES See comment Shiga toxin-Producing E. Negative Negative, [facility] coli (STEC) Indeterminate, SERVICES See comment Shigella/Enteroinvasive Negative Negative, [facility] E. coli (EIEC) Indeterminate, SERVICES See comment Cryptosporidium Negative Negative, [facility] Indeterminate, SERVICES See comment Cyclospora cayetanensis Negative Negative, [facility] Indeterminate, SERVICES See comment Entamoeba histolytica Negative Negative, [facility] Indeterminate, SERVICES See comment Giardia lamblia Negative Negative, [facility] Indeterminate, SERVICES See comment Adenovirus F 40/41 Negative Negative, [facility] Indeterminate, SERVICES See comment Astrovirus Negative Negative, [facility] Indeterminate, SERVICES See comment Norovirus GI/GII Negative Negative, [facility] Indeterminate, SERVICES See comment Rotavirus A Negative Negative, [facility] Indeterminate, SERVICES See comment Sapovirus Negative Negative, [facility] Indeterminate, SERVICES See comment Specimen Stool Narrative Performed At Negative: [facility] A negative result does not rule-out infection. This assay does not test for all potential infectious agents of diarrheal disease. Positive: A positive test result does not necessarily indicate t he presence of viable organism. Performing Organization Address City/[facility]/Zipcode Phone Number [facility] CLIA: [id number] [place] [address] [place] [address] FECAL LEUKOCYTES (02/05/2020 7:41 PM CDT) Pathologist Sig nature Fecal Leukocytes Negative Negative [facility] Specimen Stool - ANAL Performing Organization Address City/[facility] [email or web address] Phone Number [facility] CLIA: [id number] [place] [address] [place] [address] CLOSTRIDIUM DIFFICILE TOXIN (02/05/2020 7:41 PM CDT) Pathologist Sig nature Clostridioides Negative Negative [facility] (Clostridium) [facility] LABORATO RY Specimen Stool - ANAL Performing Organization Address [facility]/Zipcode Phone Number [facility] CLIA: [id number] [place] [address] COVID-19 (ID NOW RAPID TESTING) (02/05/2020 3:18 PM CDT) SARS-CoV-2 Rapid ID Not Detected Not Detected [facility] Specimen Swab - NASOPHARYNGEAL SWAB Narrative Performed At IN NOW COVID-19 Assay is an isothermal nucleic [facility] acid amplification test intended for the qualitative detection of nucleic acid from SARS-CoV-2 viral RNA in nasopharyngeal (CAR MECHANIC) specimens. It is used under Emergency Use [...] indicated. Performing Organization Address City/State/Zipcode Phone Number [facility] CLIA: [id number] [place] [address] XR CHEST 1 [...] with the above report. Performing Organization Address City/[facility]/Zipcode Phone Number PACS/VR/DOSE Thyroid Stimulating Hormone (TSH) (02/05/2020 3:07 PM CDT) Pathologist Sig nature TSH 13.40 (H)Comment: 0.45 - 4.70 [facility] Biotin has been mIU/L [facility] reported to cause a negative bias, interpret results relative to patient's use of biotin. Specimen Blood - VENOUS Performing Organization Address [facility] [[email or web address] Phone Number [facility] CLIA: [id number] [place] [address] Lipid Panel (Total Cholesterol, Triglycerides, HDL) - Fasting (02/05/2020 3:07 PM CDT) Pathologist Sig nature CHOL 215 (H) 120 - 200 mg/dL [facility] HDL 23 (L) >50 mg/dL [facility] HDLC RATIO 9.3 (H) <=4.5 [facility] TRIG 283 (H) 30 - 170 mg/dL [facility] LDL CHOL 135 <=160 mg/dL [facility] VLDL 57 5 - 60 mg/dL [facility] Specimen Blood - VENOUS Performing Organization Address [facility] Phone Number [facility] CLIA: [id number] [place], [place] [id number] LABORATORY [address] Glycosylated Hemoglobin (A1C) (02/05/2020 3:07 PM CDT) Pathologist Sig nature HGB A1C 9.2 (H) 4.0 - 6.0 % [facility] Specimen Blood - VENOUS Narrative Performed At %A1C (NGSP) Interpretation (ADA) [facility] 4.8-5.6 Normal or (Non-Diabetic Ra nge) 5.7-6.4 Increased Risk (Pre-Diabet ic) >6.5 Diabetes Indicated Performing Organization Address [facility] [email or web address] Phone Number [facility] CLIA: [id number] [place] [address] [facility] Phosphorus Serum (02/05/2020 3:07 PM CDT) PHOSPHORUS 3.8Comment: Slight 2.5 - 5.0 mg/dL [facility] LABORATORY Specimen Blood - VENOUS Performing Organization Address [facility] [[email or web address] Phone Number [facility] CLIA: [id number] [place] [address] Magnesium Serum (02/05/2020 3:07 PM CDT) Pathologist Sig nature MAGNESIUM 1.9Comment: Slight 1.7 - 2.4 mg/dL [facility] LABORATORY Specimen Blood - VENOUS Performing Organization Address City/[facility]/Zipcode Phone Number [facility] CLIA: [id number] [place] [address] URINE CULTURE (02/05/2020 3:07 PM CDT) Pathologist Sig nature URINE CULTURE >100,000 CFU/mL [facility] Klebsiella SERVICES pneumoniae Specimen Urine [...] disease. Performing Organization Address City/State/Zipcode Phone Number [facility] SERVICES CLIA: [id number] [place] [address] [place], [place] [address] LIPASE (02/05/2020 3:07 PM CDT) Pathologist Sig nature LIPASE 78 0 - 220 U/L [facility] Specimen Blood - VENOUS Performing Organization Address City/State/Zipcode Phone Number [facility] CLIA: [id number] [place] [address] URINALYSIS (02/05/2020 3:07 PM CDT) Pathologist Sig nature APPEARANCE Clear Clear [facility] COLOR Yellow Yellow [facility] PH 7.0 4.8 - 8.0 [facility] SP GRAVITY 1.009 1.003 - 1.030 [facility] GLU U QUAL Normal Normal [facility] BLOOD 2+ (A) Negative [facility] KETONES Negative Negative [facility] PROTEIN Negative Negative [facility] UROBILIN Normal Normal [facility] BILIRUBIN Negative Negative [facility] NITRITE Positive (A) Negative [facility] LEUK KIMMY 500/uL (A) Negative [facility] RBC/HPF 7 (H) 0 - 3 HPF [facility] WBC/HPF 68 (H) 0 - 5 HPF [facility] BACTERIA Many (A) Negative [facility] MUCOUS Slight (A) Negative LPF [facility] SQ EPITH <1 HPF [facility] YEAST BUD 4 (H) <=1 HPF [facility] HYAL CAST 3 (H) <=2 LPF [facility] Specimen Urine - URINE, CATHETERIZED Performing Organization Address City/State/Zipcode Phone Number [facility] CLIA: [id number] [place] [address] [place] [address] TROPONIN I (02/05/2020 3:07 PM CDT) Pathologist Sig nature TROPONIN I 0.006 <=0.034 ng/mL [facility] Specimen Blood - VENOUS Narrative Performed At Equal or Less than 0.034 ng/ml---Normal [facility] Note: Cardiac troponin begins to rise [...] patient's use of biotin. Performing Organization Address [facility] [[email or web address] Phone Number [facility] CLIA: [id number] [place] [address] N-TERMINAL PRO-BNP (02/05/2020 3:07 PM CDT) [facility] [employer] NT-proBNP 169 <=450 pg/mL [facility] Specimen Blood - VENOUS Narrative Performed At [facility] has been reported to cause a negative [facility] bias, interpret results relative to patient's use of biotin. Performing Organization Address [facility] [[email or web address] Phone Number [facility] CLIA: [id number] [place] [address] COMP. METABOLIC PANEL (19186) (02/05/2020 3:07 PM CDT) [facility] Trigence NA 131 (L) 135 - 145 [facility] mmol/L [facility] K 4.2 3.5 - 5.0 [facility] mmol/L [facility] CL 99 98 - 108 mmol/L [facility] CO2 TOTAL 25 23 - 31 mmol/L [facility] AGAP 7 2 - 16 [facility] BUN 24 (H) 7 - 23 mg/dL [facility] GLUCOSE 72 70 - 110 mg/dL [facility] CREATININE 0.51 0.50 - 1.04 [facility] mg/dL [facility] TOTAL BILI 0.9 0.1 - 1.1 mg/dL [facility] CALCIUM 8.1 (L) 8.6 - 10.6 [facility] mg/dL HOSPITAL LAB[facility]ORY T PROTEIN 5.5 (L) 6.3 - 8.2 g/dL [facility] ALBUMIN 2.7 (L) 3.5 - 5.0 g/dL [facility] ALK PHOS 107 34 - 122 U/L [facility] ALTv 17 5 - 35 U/L [facility] AST(SGOT) 52 (H) 13 - 40 U/L [facility] eGFR Calculation 115.5 mL/min/1.73m2 [facility] ([facility] Citizen [place]) eGFR Calculation 139.9 mL/min/1.73m2 [facility] () [facility] Specimen Blood - VENOUS Narrative Performed At Association of Glomerular Filtration Rate (GFR) [facility] and Staging of Kidney Disease* + [...] tests). Performing Organization Address City/State/Zipcode Phone Number [facility] CLIA: [id number] [place] [address] CBC WITH DIFF (02/05/2020 3:07 PM CDT) WBC 10.90 4.30 - 11.10 [facility] 10*3/L [facility] RBC 4.16 3.93 - 5.25 [facility] 10*6/L [facility] HGB 12.6 11.6 - 15.0 [facility] g/dL [facility] HCT 39.2 35.7 - 45.2 % [facility] MCV 94.2 80.6 - 95.5 [facility] LABORATORY MCH 30.3 25.9 - 32.8 [facility] LABORATORY MCHC 32.1 31.6 - 35.1 [facility] g/dL [facility] RDW-SD 51.3 (H) 39.0 - 49.9 [facility] LABORATORY RDW-CV 14.9 12.0 - 15.5 % [facility] PLT 196 166 - 358 [facility] 10*3/L [facility] MPV 9.9 9.5 - 12.9 fL [facility] IPF % 4.6Comment: Platelet 1.3 - 7.7 % [facility] count measured by HOSPITAL fluorescence method. LABORATORY NRBC/100 WBC 0.0 0.0 - 10.0 [facility] /100 WBCs [facility] NRBC x10^3 <0.01 10*3/L [facility] GRAN MAT (NEUT) % 66.3 % [facility] IMM GRAN % 0.60 % [facility] LYMPH % 26.0 % [facility] MONO % 4.9 % [facility] EOS % 2.0 % [facility] BASO % 0.2 % [facility] GRAN MAT 7.24 (H) 1.88 - 7.09 [facility] x10^3(ANC) 10*3/uL [facility] IMM GRAN x10^3 0.06 0.00 - 0.06 [facility] 10*3/uL [facility] LYMPH x10^3 2.83 1.32 - 3.29 [facility] 10*3/uL [facility] MONO x10^3 0.53 0.33 - 0.92 [facility] 10*3/uL [facility] EOS x10^3 0.22 0.03 - 0.39 [facility] 10*3/uL [facility] BASO x10^3 <0.03 0.01 - 0.07 [facility] 10*3/uL [facility] Specimen Blood - VENOUS Performing Organization Address City/[facility]/Zipcode Phone Number [facility] CLIA: [id number] [place] [address] Lactic Acid Whole Blood (02/05/2020 3:05 PM CDT) [facility] LACTIC ACID 2.42 mmol/L [facility] Specimen Blood - VENOUS Performing Organization Address City/[facility] [email or web address] Phone Number [facility] CLIA: [id number] [place] [address] LABORATORY [address] [facility] documented in this encounter Visit Diagnoses Diagnosis Hypotension, unspecified hypotension typ e Allergic reaction to drug, initial encou nter Rash Rash and other nonspecific skin eruption Sepsis, due to unspecified organism, uns pecified whether acute organ dysfunction present Urinary tract infection associated with indwelling urethral catheter, initial encounter Edema, unspecified type Type 2 diabetes mellitus with other spec ified complication, unspecified whether intermediate teacher insulin use Elevated troponin I level Other [...] e / Group Dates AETNA - AETNA [id number] 2014-Prese P [address] BOX Medic are Adv MANAGED MEDICARE ADV nt [id number] [place] [address] documented as of this encounter Advance Directives Type Date Recorded Patient Adaptive Physical Education Teacher Explanati on Advance Directives and Living Will Power of Tooth Cutter Contact Wheel
--- NOTE | 2020-03-22 17:20 | RAD REPORT ---
EXAM DESCRIPTION: RAD - Chest Single View - 03/22/2020 5:15 pm CLINICAL HISTORY: Cough;Dyspnea, fever and chills COMPARISON: February 25 TECHNIQUE: AP portable chest image was obtained 03/22/2020 5:15 pm . FINDINGS: No focal infiltrate or consolidation. Interstitial pattern is similar to comparison. Heart and vasculature are normal. No measurable pleural effusion and no pneumothorax. No acute bony abnorm ality seen. No acute aortic findings suspected. IMPRESSION: No acute cardiopulmonary process. No significant change from comparison.
[2020-03-22 17:48] LABS: Absolute Lymphocytes (CBC) 1.2 K/uL (0.7-4.9); Basophils % 0.7 % (0-1.3); Hematocrit 37.9 % (36.0-45.0); MPV 7.6 fL (7.6-11.3); RBC Red Blood Cell Count 4.36 M/uL (3.86-4.86)
[2020-03-22 18:00] LABS: Potassium 3.9 mmol/L (3.5-5.1)
[2020-03-22 19:36] LABS: Urine Bacteria LOADED /HPF (<20); Urine Culture Reflex Order REFLEXED; Urine RBC <5 /HPF (NONE SEEN)
--- NOTE | 2020-03-22 19:53 | EDPHYS ---
Physician Documentation [facility] Name: Mimi Madrigal Age: 84 yrs Sex: Female : 1935 Arrival Date: 03/22/2020 Time: 16:39 Bed 24 Private MD: ED Physician HPI: 03/22 19:56 This 84 yrs old Female presents to ER via EMS with complaints of Fever. kb 19:56 The patient reports fever, that was measured at 101.2 degrees Fahrenheit, with an kb emergency department temperature of 99.2 degrees Fahrenheit. Onset: The symptoms/episode began/occurred yesterday. Modifying factors: there are no obvious modifying factors. Associated signs and symptoms: Pertinent positives: chills, decreased appetite, myalgias. Severity of symptoms: At their worst the symptoms were moderate in the emergency department the symptoms are unchanged. The patient has experienced similar episodes in the past. The patient has not recently seen a physician. Pt reports weakness, decreased appetite, fever, chills. States symptoms are similar to when she had a UTI in the past. Reports she is unable to ambulate due to weakness. Historical: - Allergies: 21:07 No Known Allergies; wh - Home Meds: 16:46 aspirin 81 mg Oral chew [Active]; Metformin Oral [Active]; Metoprolol Tartrate Oral ph [Active]; valsartan Oral [Active]; - PMHx: 16:46 Diabetes - NIDDM; Hypertension; ph - PSHx: 16:46 Cholecystectomy; ph - Immunization history:: Adult Immunizations up to date. - Social history:: Smoking status: Patient denies any tobacco usage or history of. ROS: 19:56 Cardiovascular: Negative for chest pain, palpitations, and edema, Respiratory: Negative kb for shortness of breath, cough, wheezing, and pleuritic chest pain, Abdomen/GI: Negative for abdominal pain, nausea, vomiting, diarrhea, and constipation, Back: Negative for injury and pain, MS/Extremity: Negative for injury and deformity, Skin: Negative for injury, rash, and discoloration. 19:56 Constitutional: Positive for fever, Negative for body aches, chills, fatigue, malaise, poor PO intake, weight loss. 19:56 Neuro: Positive for weakness. Exam: 19:56 Constitutional: This is a well developed, well nourished patient who is awake, alert, kb and in no acute distress. Head/Face: Normocephalic, atraumatic. Chest/axilla: Normal chest wall appearance and motion. Nontender with no deformity. No lesions are appreciated. Cardiovascular: Regular rate and rhythm with a normal S1 and S2. No gallops, murmurs, or rubs. Normal PMI, no JVD. No pulse deficits. Respiratory: Lungs have equal breath sounds bilaterally, clear to auscultation and percussion. No rales, rhonchi or wheezes noted. No increased work of breathing, no retractions or nasal flaring. Abdomen/GI: Soft, non-tender, with normal bowel sounds. No distension or tympany. No guarding or rebound. No evidence of tenderness throughout. Back: No spinal tenderness. No costovertebral tenderness. Full range of motion. Skin: Warm, dry with normal turgor. Normal color with no rashes, no lesions, and no evidence of cellulitis. MS/ Extremity: Pulses equal, no cyanosis. Neurovascular intact. Full, normal range of motion. Neuro: Awake and alert, GCS 15, oriented to person, place, time, and situation. Cranial nerves II-XII grossly intact. Motor strength 5/5 in all extremities. Sensory grossly intact. Cerebellar exam normal. Normal gait. Vital Signs: 16:39 BP 114 / 64; Pulse 81; Resp 20; Temp 99.2(O); Pulse Ox 96% on R/A; Weight 53.98 kg; ph Height 5 ft. 1 in. (154.94 cm) (M); 19:08 BP 113 / 61; Pulse 74; Resp 18; Pulse Ox 98% on R/A; em 20:00 BP 115 / 75; Pulse 70; Resp 16; Pulse Ox 99% ; rr5 20:40 BP 128 / 63; Pulse 76; Resp 16; Pulse Ox 97% ; rr5 16:39 Body Mass Index 22.48 (53.98 kg, 154.94 cm) ph MDM: 16:54 Patient medically screened. kb 19:44 Data reviewed: vital signs, nurses notes. Data interpreted: Pulse oximetry: on room air kb is 98 %. Interpretation: normal. Counseling: I had a detailed discussion with the patient and/or guardian regarding: the historical points, exam findings, and any diagnostic results supporting the discharge/admit diagnosis, lab results, radiology results, the need for further work-up and treatment in the hospital. Physician consultation: Archie Navarro MD was contacted at 19:45, regarding admission, to the medical/surgical unit. patient's condition, and will see patient in inpatient room. 03/22 16:55 Order name: CBC with Diff; Complete Time: 17:54 kb 03/22 16:55 Order name: Basic Metabolic Panel; Complete Time: 18:00 kb 03/22 16:55 Order name: Lactate; Complete Time: 18:06 kb 03/22 16:55 Order name: Procalcitonin; Complete Time: 18:29 kb 03/22 16:55 Order name: Blood Culture Adult (2) 03/22 19:00 Order name: Urine Microscopic Only; Complete Time: 19:38 kb 03/22 19:04 Order name: Urine Dipstick--Ancillary (enter results); Complete Time: 20:56 03/22 19:37 Order name: Urine Culture [facility] 03/22 19:42 Order name: Glucose, Ancillary Testing; Complete Time: 19:43 [facility] 03/22 22:23 Order name: Glucose, Ancillary Testing; Complete Time: 22:25 [facility] 03/23 03:56 Order name: CBC with Automated Diff [facility] 03/23 03:57 Order name: Basic Metabolic Panel [facility] 03/23 06:19 Order name: COVID-19 03/23 07:44 Order name: Glucose, Ancillary Testing [facility] 03/22 16:55 Order name: Chest Single View XRAY; Complete Time: 17:26 kb 03/22 16:55 Order name: IV Start; Complete Time: 17:40 kb 03/22 18:07 Order name: Urine Dipstick-Ancillary (obtain specimen); Complete Time: 19:01 kb 03/22 18:34 Order name: Straight Cath - Urine; Complete Time: 18:56 kb Administered Medications: 19:58 Drug: NS 0.45 % 1000 ml Route: IV; Rate: 100 ml/hr; Site: right wrist; 20:51 Follow up: Response: No adverse reaction; IV Status: Infusion continued upon admission 20:00 Drug: Rocephin 1 grams Route: IV; Rate: calculated rate; Site: right wrist; 20:51 Follow up: Response: No adverse reaction; IV Status: Completed infusion Disposition: 03/23 15:22 Co-signature as Attending Physician, Dustin Hernandes MD I agree with the assessment and [facility] plan of care. Disposition: 03/22/20 19:52 Hospitalization ordered by Archie Navarro for Observation. Preliminary diagnosis are Urinary tract infection, site not specified, Weakness. - Bed requested for Telemetry/MedSurg (observation). - Status is Observation. bd - Condition is Stable. - Problem is new. - Symptoms are unchanged. Signatures: Dispatcher [employer] EDMS Lizeth Gunter, JUDICIAL REGISTRAR-C JUDICIAL REGISTRAR-Ckb Amanda Lo Deana, RN RN dm5 Dustin Hernandes MD MD cha Lasagna, Tonya RN RN tl1 Iman Sheth RN RN Ser[facility]in [facility] Corrections: (The following items were deleted from the chart) 03/22 19:01 17:06 Urine Dipstick-Ancillary ordered. kb 20:42 19:52 Hospitalization Ordered by Archie Navarro MD for Observation. Preliminary diagnosis tl1 is Urinary tract infection, site not specified; Weakness. Bed requested for Telemetry/MedSurg (observation). Status is Observation. Condition is Stable. Problem is new. Symptoms are unchanged. kb 20:50 20:42 03/22/2020 19:52 Hospitalization Ordered by Archie Navarro MD for Observation. tl1 Preliminary diagnosis is Urinary tract infection, site not specified; Weakness. Bed requested for Telemetry/MedSurg (observation). Status is Observation. Condition is Stable. Problem is new. Symptoms are unchanged. tl1 21:07 16:46 Allergies: Invokana; [facility] 21:07 16:46 Allergies: Sulfa (Sulfonamide Antibiotics); [facility] 21:07 16:46 Allergies: Yivesfc-Asw-Jkz Reductase Inhibitors; [facility] 03/23 09:02 03/22 20:50 03/22/2020 19:52 Hospitalization Ordered by Archie Navarro MD for dm5 Observation. Preliminary diagnosis is Urinary tract infection, site not specified; Weakness. Bed requested for [facility] ER HOLD. Status is Observation. Condition is Stable. Problem is new. Symptoms are unchanged. tl1 03/23 09:10 09:02 03/22/2020 19:52 Hospitalization Ordered by Archie Navarro MD for Observation. bd Preliminary diagnosis is Urinary tract infection, site not specified; Weakness. Bed requested for [facility] ER HOLD. Status is Observation. Condition is Stable. Problem is new. Symptoms are unchanged. dm5 09:11 09:10 03/22/2020 19:52 Hospitalization Ordered by Archie Navarro MD for Observation. bd Preliminary diagnosis is Urinary tract infection, site not specified; Weakness. Bed requested for Telemetry/MedSurg (observation). Status is Observation. Condition is Stable. Problem is new. Symptoms are unchanged. bd
--- NOTE | 2020-03-22 19:53 | ER ---
Nurse's Notes [facility] Thee Name: Mimi Madrigal Age: 84 yrs Sex: Female : 1935 Arrival Date: 03/22/2020 Time: 16:39 Bed 24 Private MD: Diagnosis: Urinary tract infection, site not specified;Weakness Presentation: 03/22 16:39 Chief complaint: EMS states: Pt from home, c/o chills and fever since this morning ph 101.2, R lung sounds diminished, room air Spo2 92%, improved to 97% on 4L NC, pt denies SOB, or pain, reports mild cough. Coronavirus screen: Client denies travel out of the [place] in the last 14 days. cough unrelated to allergies, fever, Client presents with at least one sign or symptom that may indicate coronavirus-19. Standard/surgical mask placed on the client. Provider contacted for isolation considerations. Ebola Screen: No symptoms or risks identified at this time. Initial Sepsis Screen: Does the patient meet any 2 criteria? No. Patient's initial sepsis screen is negative. Does the patient have a suspected source of infection? Yes: Productive cough/pneumonia. Risk Assessment: Do you want to hurt yourself or someone else? Patient reports no desire to harm self or others. 16:39 Method Of Arrival: EMS: [facility] ph 16:39 Acuity: JESSICA 3 ph 16:47 Onset of symptoms was March 22, 2020. Care prior to arrival: Medication(s) given: ph Normal saline infusion, 400 mL Tylenol, IV initiated. 20 GA, in the right hand, Oxygen administered. via nasal cannula. Transition of care: patient was not received from another setting of care. Historical: - Allergies: 21:07 No Known Allergies; wh - Home Meds: 16:46 aspirin 81 mg Oral chew [Active]; Metformin Oral [Active]; Metoprolol Tartrate Oral ph [Active]; valsartan Oral [Active]; - PMHx: 16:46 Diabetes - NIDDM; Hypertension; ph - PSHx: 16:46 Cholecystectomy; ph - Immunization history:: Adult Immunizations up to date. - Social history:: Smoking status: Patient denies any tobacco usage or history of. Screenin:38 Abuse screen: Denies threats or abuse. Nutritional screening: No deficits noted. em Tuberculosis screening: No symptoms or risk factors identified. Fall Risk None identified. Assessment: 17:32 General: Appears in no apparent distress. comfortable, Behavior is calm, cooperative, em appropriate for age. Pain: Denies pain. Neuro: Level of Consciousness is awake, alert, obeys commands, Oriented to person, place, time, situation, Appropriate for age. Cardiovascular: Capillary refill < 3 seconds Patient's skin is warm and dry. Respiratory: Reports cough that is Airway is patent Respiratory effort is even, unlabored, Respiratory pattern is regular, symmetrical. Derm: Skin is intact, is fragile, is thin, Skin is pink, warm \T\ dry. Musculoskeletal: Range of motion: intact in all extremities. 18:35 Reassessment: Patient appears in no apparent distress at this time. Patient and/or em family updated on plan of care and expected duration. Pain level reassessed. Patient is alert, oriented x 3, equal unlabored respirations, skin warm/dry/pink. 19:15 General: Appears in no apparent distress. comfortable, Behavior is calm, cooperative, rr5 appropriate for age, Reports chills for fever for feeling ill for. 19:15 Neuro: Level of Consciousness is awake, alert, obeys commands, Oriented to person, rr5 place, time. Cardiovascular: Capillary refill < 3 seconds Patient's skin is warm and dry. Respiratory: Airway is patent Respiratory effort is even, unlabored, Respiratory pattern is regular, symmetrical. GI: No signs and/or symptoms were reported involving the gastrointestinal system. : No signs and/or symptoms were reported regarding the genitourinary system. EENT: No signs and/or symptoms were reported regarding the EENT system. Derm: Skin is fragile, is thin, Skin temperature is warm. Musculoskeletal: Capillary refill < 3 seconds. 20:09 Reassessment: Patient appears in no apparent distress at this time. Patient is alert, rr5 oriented x 3, equal unlabored respirations, skin warm/dry/pink. Vital Signs: 16:39 BP 114 / 64; Pulse 81; Resp 20; Temp 99.2(O); Pulse Ox 96% on R/A; Weight 53.98 kg; ph Height 5 ft. 1 in. (154.94 cm) (M); 19:08 BP 113 / 61; Pulse 74; Resp 18; Pulse Ox 98% on R/A; em 20:00 BP 115 / 75; Pulse 70; Resp 16; Pulse Ox 99% ; rr5 20:40 BP 128 / 63; Pulse 76; Resp 16; Pulse Ox 97% ; rr5 16:39 Body Mass Index 22.48 (53.98 kg, 154.94 cm) ph ED Course: 16:39 Patient arrived in ED. ph 16:39 Maintain EMS IV. Dressing intact. Good blood return noted. Site clean \T\ dry. Gauge \T\ em site: 20 R hand. 16:45 Triage completed. ph 16:47 Arm band placed on Patient placed in an exam room, on a stretcher, on telemetry monitor, ph on pulse oximetry. 16:53 Lizeth Gunter FNP-C is PHCP. kb 16:53 Dustin Hernandes MD is Attending Physician. kb 17:16 Chest Single View XRAY In Process Unspecified. EDMS 17:37 Binu Joseph, EDY is Primary Nurse. em 17:38 Patient has correct armband on for positive identification. Placed in gown. Bed in low em position. Call light in reach. Side rails up X2. Pulse ox on. NIBP on. 18:50 Straight cath inserted, using sterile technique, 16 Fr. Specimen obtained. Returned em cloudy urine. Patient tolerated well. 19:51 Archie Navarro MD is Hospitalizing Provider. kb 20:51 No provider procedures requiring assistance completed. Patient admitted, IV remains in place. 03/23 09:09 Attending Physician role handed off by Dustin Hernandes MD hb Administered Medications: 03/22 19:58 Drug: NS 0.45 % 1000 ml Route: IV; Rate: 100 ml/hr; Site: right wrist; 20:51 Follow up: Response: No adverse reaction; IV Status: Infusion continued upon admission 20:00 Drug: Rocephin 1 grams Route: IV; Rate: calculated rate; Site: right wrist; 20:51 Follow up: Response: No adverse reaction; IV Status: Completed infusion Outcome: 19:52 Decision to Hospitalize by Provider. kb 20:51 Admitted to ER Hold. Please see [facility] for further documentation. 20:51 Condition: stable 20:51 Instructed on the need for admit. 03/23 09:02 Patient left the ED. dm5 09:11 Patient left the ED. bd Signatures: Dispatcher [employer] EDLizeth Felipe, EPIC PROFESSIONAL-C EPIC PROFESSIONAL-Amanda Payne Deana, RN RN dm5 Binu Joseph, RN EDY Iman Sheth RN RN Susan Bustos RN RN [facility] RN rr5 Corrections: (The following items were deleted from the chart) 03/22 21: 16:46 Allergies: Invokana; [facility] : 16:46 Allergies: Sulfa (Sulfonamide Antibiotics); [facility] : 16:46 Allergies: [id number] Reductase Inhibitors; [facility]
[2020-03-22] MEDS ORDERED: NACHLORIDE 0.45% 1,000 ML IV ONE (20:02)
[2020-03-22] MEDS ORDERED: CEFTRIAXONE/SWI 1gm 1 GM/10 ML SYR ONE (20:02)
[2020-03-22 20:50] LABS: Urine Blood 1+ (NEG); Urine Glucose NEGATIVE (NEG); Urine Protein 2+ (NEG); Urine Specific Gravity 1.015 (1.005-1.030); Urine pH 6.5 (5.0-7.0)
[2020-03-22] MEDS ORDERED: ACETAMINOPHEN 500 MG TAB PO PRN (20:52)
[2020-03-22] MEDS: NACHLORIDE 0.45% 1,000 ML IV SCH (20:52)
[2020-03-22] MEDS ORDERED: GLUCAGON 1 MG/VIAL IM PRN (20:52)
[2020-03-22] MEDS ORDERED: D50W 25 GM/50 ML SYRINGE IV PRN (20:52)
[2020-03-22 20:55] VITALS: BMI 22.6
[2020-03-22] MEDS ORDERED: CEFTRIAXONE 1,000 MG in WATER FOR INJ,STERILE 10 ML IVP SCH (21:00)
[2020-03-22] MEDS ORDERED: CEFTRIAXONE 1 GM/NS 50 ML 1 GM/50 ML BAG IV SCH (21:00)
[2020-03-22] MEDS: INSULIN -REGULAR HUMAN 50 UNIT/0.5 ML ML SQ SCH (21:00)
[2020-03-22] MEDS ORDERED: INSULIN -REGULAR HUMAN 50 UNIT/0.5 ML ML ONE (22:29)
[2020-03-23 03:48] LABS: Absolute Lymphocytes (CBC) 1.1 K/uL (0.7-4.9); Basophils % 0.4 % (0-1.3); Hematocrit 36.9 % (36.0-45.0); Lymphocytes % 16.1 % (15.3-44.8); MPV 7.7 fL (7.6-11.3); RBC Red Blood Cell Count 4.23 M/uL (3.86-4.86)
[2020-03-23 03:57] LABS: Potassium 3.4 mmol/L (3.5-5.1)
[2020-03-23] MEDS: NACHLORIDE 0.45% 1,000 ML IV SCH ×3 (05:38→20:53)
[2020-03-23] MEDS ORDERED: NACHLORIDE 0.45% 1,000 ML IV ONE (05:54)
[2020-03-23] MEDS: INSULIN -REGULAR HUMAN 50 UNIT/0.5 ML ML SQ SCH ×4 (08:00→21:46)
[2020-03-23] MEDS: CEFTRIAXONE/SWI 1gm 1 GM/10 ML SYR IVP SCH ×2 (09:00→21:45)
[2020-03-23] MEDS ORDERED: CEFTRIAXONE/SWI 1gm 1 GM/10 ML SYR ONE (09:14)
[2020-03-23 14:13] LABS: MPV 7.5 fL (7.6-11.3)
[2020-03-23 15:54] LABS: Platelet Estimate ADEQ
--- NOTE | 2020-03-23 20:59 | P.SSS ---
Patient History Date of Service: 03/23/20 Reason for admission: WEAKNESS GENERAL, FEVER History of Present Illness: LETICIA IS A DIABETIC WHO RECENTLY HAD A LARGE ABSCESS IN PAROTID REGION THAT ACTUALLY WAS COMING FROM DENTAL ABSCESS, SHE UNDERWENT DRAINAGE OF IT FROM BUCCAL CAVITY, LATER EXTRACTION OF TOOTH. SHE ALSO HAD GLUCOSE OF 700 WITH DKA, FOR WHICH I PLACED HER ON DRIP OF INSULIN AND LATER SC INJECTIONS. CALLS MY OFFICE SAYING THAT SHE IS WEAK AND HAS FEVER. ER FOUND HER TO HAVE UTI, TODAY WE FOUND SHE ALSO HAS SEPSIS FROM IT. THIS AM WHEN I SAW HER IN ER SHE LOOKED VERY COMFORTABLE AFTER A DOSE OF ANTIBIOTIC. Allergies No Known Allergies Allergy (Verified 02/25/20 22:37) Home Medications: Aspirin Chewable [Aspirin Chewable*] 81 mg PO DAILY 01/10/20 Cholecalciferol (Vitamin D3) [Vitamin D3] 1 tab PO DAILY 02/26/20 Levothyroxine [Synthroid*] 1 tab PO DAILY 02/26/20 Losartan/Hydrochlorothiazide [Losartan-Hctz 100-25 mg Tab] 1 tab PO DAILY 02/26/20 Metoprolol Tartrate [Lopressor*] 1 tab PO DAILY 02/26/20 Apixaban [Eliquis] 5 mg PO BID #60 tablet 02/27/20 - Past Medical/Surgical History Has patient received pneumonia vaccine in the past: Yes Diabetic: Yes -: Hypertension -: Diabetes-NIDDM -: Hypothyroidism -: Cholecystectomy -: Tonsillectomy -: Incision and Drainage Mouth Surgery - Family History Mother -: Heart disease, Diabetes Father -: Heart disease - Social History Smoking Status: Never smoker Alcohol use: No CD- Drugs: No Caffeine use: Yes Place of Residence: Home Review of Systems 10-point ROS is otherwise unremarkable Physical Examination - Vital Signs Temperature: 98.5 F Blood Pressure: 155/69 Pulse: 91 Respirations: 18 Pulse Ox (%): 94 - Physical Exam General: Mild distress HEENT: Atraumatic, PERRLA, Mucous membr. moist/pink, EOMI, Sclerae nonicteric Neck: Supple, 2+ carotid pulse no bruit, No LAD, Without JVD or thyroid abnormality Respiratory: Clear to auscultation bilaterally, Normal air movement Cardiovascular: Regular rate/rhythm, Normal S1 S2 Gastrointestinal: Normal bowel sounds, No tenderness Musculoskeletal: No tenderness Integumentary: No rashes Neurological: Normal gait, Normal speech, Normal strength at 5/5 x4 extr, Normal tone, Normal affect Lymphatics: No axilla or inguinal lymphadenopathy - Diagnosis (Problem(s)) (1) UTI (urinary tract infection) Current Visit: Yes Status: Acute Plan: ROCEPHIN IV SHOULD WORK. Qualifiers: Urinary tract infection type: acute cystitis (2) Gram-negative bacteremia Current Visit: Yes Status: Acute Plan: MOSTLY FROM URINE. USUSALLY STABLE PATIENTS ARE ABLE TO BE ON ORAL ABX. WILL ORDER SONOGRAM OF ABDOMEN. (3) Diabetes Current Visit: Yes Status: Chronic Plan: RESUME INSULIN HOPE IS TO GET HER OFF INSULIN. SHE WILL NOT BE A CANDIDATE FOR SGLT2 INHIBITORS SHE IS ALREADY SUFFERING FROM UTIS. Qualifiers: Diabetes mellitus type: type 2 - Disposition Disposition: ROUTINE DISCHARGE
[2020-03-23] MEDS: APIXABAN 5 MG TABLET PO SCH (21:44)
[2020-03-24] MEDS ORDERED: LEVOTHYROXINE SOD 0.1 MG TAB PO SCH (07:30)
[2020-03-24] MEDS: INSULIN -REGULAR HUMAN 50 UNIT/0.5 ML ML SQ SCH ×2 (08:17→11:39)
[2020-03-24] MEDS: APIXABAN 5 MG TABLET PO SCH (08:17)
[2020-03-24] MEDS: CEFTRIAXONE/SWI 1gm 1 GM/10 ML SYR IVP SCH (08:17)
[2020-03-24] MEDS: NACHLORIDE 0.45% 1,000 ML IV SCH (08:18)
[2020-03-24 08:43] VITALS: O2SAT 96
[2020-03-24] MEDS ORDERED: METOPROLOL TAR 50 MG TAB PO SCH (09:00)
[2020-03-24] MEDS ORDERED: ENOXAPARIN 40 MG/0.4 ML SQ SCH (09:00)
[2020-03-24] MEDS ORDERED: VITAMIN D 1000 UNIT TAB PO SCH (09:00)
[2020-03-24] MEDS ORDERED: LOSARTAN/HCTZ 50-12.5 PO SCH (09:00)
[2020-03-24] MEDS ORDERED: ASPIRIN 81 MG CHEWABLE TABLET PO SCH (09:00)
--- NOTE | 2020-03-24 10:16 | RAD REPORT ---
EXAM DESCRIPTION: US - Abdomen Exam Complete - 03/24/2020 9:39 am CLINICAL HISTORY: UTI. RETENTION . COMPARISON: CT ABDOMEN W WO dated 12/01/2010 FINDINGS: Gallbladder is absent. Common bile duct is normal with no common duct stone identified. Liver is 16-17 cm in size with slight nodular capsule contour. Liver echogenicity indicates fatty inf iltration. This has been previously detailed on this patient. No focal liver lesion is identifiable. No portal vein abnormality identifiable. Spleen is 10 cm with no focal splenic abnormality. The pancreas is grossly normal but partially obscured by bowel. Moderate severity bilateral hydronephrosis is present. Specific point of obstruction could not be clarence ntified. Cortical thickness and echogenicity are normal. No suspicious mass lesions identified. Aorta and IVC show no significant finding. No ascites or bulky lymphadenopathy. IMPRESSION: Moderate severity bilateral hydronephrosis. Probable fatty infiltration of the liver. Capsule contour nodularity can be seen with underlying live r parenchymal disease. Cholecystectomy. No biliary tree dilatation.
--- NOTE | 2020-03-24 10:17 | RAD REPORT ---
EXAM DESCRIPTION: US - Urinary Bladder - 03/24/2020 10:03 am CLINICAL HISTORY: UTI.RETENTION COMPARISON: CT ABDOMEN W WO dated 12/01/2010 FINDINGS: No urinary bladder wall thickening or bladder mass identified. Prostate gland was not adeq uately visualized to be oval to assess for prostatic hypertrophy or focal prostate abnormality. No bladder stone or intraluminal abnormality seen. Prevoid volume was 1721 milliliters. Postvoid volume was 1094 milliliters.
[2020-03-24 11:46] VITALS: BP 130/66; TEMP 98.8
== END 2020-03-24 13:14 | disposition home health service (06) ==
LOC: ER 16:32 → ERHOLD 19:53 → 4TH 03-23 09:41
PROVIDERS: ADMIT Internal Medicine; ATTEND Internal Medicine
DX: N39.0 Urinary tract infection, site not specified (principal); R78.81 Bacteremia; Z20.828 Contact with and (suspected) exposure to other viral communicable diseases; E11.9 Type 2 diabetes mellitus without complications; I10 Essential (primary) hypertension; E03.9 Hypothyroidism, unspecified; Z79.84 Long term (current) use of oral hypoglycemic drugs; N13.30 Unspecified hydronephrosis
CPT/HCPCS: 96365; 87040 ×2; 87088; 85025 ×2; 87086; 80048 ×2; 36415; 87205 ×2; 85049; 82947 ×8; 83605; 87077 ×2; 87186 ×2; 84145; 71045; 76700; 76857; 51702; 99285; U0002; J1650; J0696 ×4; 81003; 81015

== ENCOUNTER 2020-03-30 08:23 | Observation (INO) | payer OTHER ==
--- OUTSIDE RECORDS SUMMARY | 2020-03-30 08:36 | XMS REPORT | Clinical Summary ---
:1935 Author Organization [employer] Address [address] [place] [address] Care Team Providers Name Role Phone Oni [...] INFLUENZA VACCINE 12/11/2019 Results Not on fileafter 2019 (Home) [place] [address] Advance Directives For more information, please contact: [phone] Type Date Recorded Patient Skein Bleacher Explanati on Advance Directives, Living Will and Medical Power of Miniature Set Builder
--- OUTSIDE RECORDS SUMMARY | 2020-03-30 08:37 | XMS REPORT | Continuity of Care Document ---
:1935 Author Organization [facility] t Address [address] [place] [address] Care Team Providers Name Role Phone Morgan [...] Allergie 01-11 Clear s 00:00: Raines 00 [facility] [place] No Known DA Active U 2019-0 [facility] Allergie 01-06 Clear s 00:00: Raines 00 [facility] [place] Social History Social Habit Start Date Stop Date Quantity Comments Source Sex Assigned At Volodymyr Maldonado Medications This patient has no known medications. Procedures This patient has no known procedures. Plan of Care Planned Activity Planned Date Details Comments Source Future Scheduled 2019-12-11 INFLUENZA VACCINE [place] [facility] 00:00:00 [code = INFLUENZA VACCINE] Future Scheduled 2002 65+ PNEUMOCOCCAL [place] [facility] 00:00:00 VACCINE (1 of 1 - PPSV23) [code = 65+ PNEUMOCOCCAL VACCINE (1 of 1 - PPSV23)] Future Scheduled 1987 SHINGLES VACCINES (#1) [facility] [facility] 00:00:00 [code = SHINGLES VACCINES (#1)] Encounters Start End Encounter Admission Attending Care Care Encounter Source Date/Time Date/Time Type Type Clinicians Facility Department ID 2020-02-10 2020-02-10 Transition Guilherme Almaraz [id number] 00:00:00 00:00:00 of Care Migdalia Perez [id number] [place] [id number] 2020-02-05 2020-02-09 [facility] Francisco Flores [facility] [id number] 14:39:00 15:03:00 Encounter Gemma Gould 350.1.13.10 [place] 4.2.7.2.686 [place] [id number] Results Test Description Test Time Test Comments Results Result Comments Source GLUCOSE BEDSIDE TESTING 2020-01-26 12:20:00 Test Item Value Reference Range Interpretation Comme nts GLUCOSE BEDSIDE TESTING (test code = GLUBED) 132 mg/dL 70-110 H GLUCOSE BEDSIDE [id number] 08:35:00 Test Item Value Reference Range Interpretation Comments GLUCOSE BEDSIDE TESTING (test code 126 mg/dL 70-110 H = GLUBED) GLUCOSE BEDSIDE [id number] 07:58:00 Test Item Value Reference Range Interpretation Comments GLUCOSE BEDSIDE TESTING (test code 193 mg/dL 70-110 H = GLUBED) GLUCOSE BEDSIDE [id number] 20:55:00 Test Item Value Reference Range Interpretation Comments GLUCOSE BEDSIDE TESTING (test code 192 mg/dL 70-110 H = GLUBED) GLUCOSE BEDSIDE [id number] 16:26:00 Test Item Value Reference Range Interpretation Comments GLUCOSE BEDSIDE TESTING (test code 182 mg/dL 70-110 H = GLUBED) GLUCOSE BEDSIDE [id number] 07:53:00 Test Item Value Reference Range Interpretation Comments GLUCOSE BEDSIDE TESTING (test code 139 mg/dL 70-110 H = GLUBED) BASIC METABOLIC [id number] 07:08:00 Test Item Value Reference Range Interpretation [...] CA) 8.8 MG/DL 8.5-10.1 N CBC W/AUTO [id number] 06:50:00 Test Item Value Reference Range Interpretation [...] NO DIFF/SCN CRITERIA = MDIFF) GLUCOSE BEDSIDE [id number] 20:29:00 Test Item Value Reference Range Interpretation Comments GLUCOSE BEDSIDE TESTING (test code 249 mg/dL 70-110 H = GLUBED) GLUCOSE BEDSIDE [id number] 16:17:00 Test Item Value Reference Range Interpretation Comments GLUCOSE BEDSIDE TESTING (test code 181 mg/dL 70-110 H = GLUBED) GLUCOSE BEDSIDE [id number] 11:57:00 Test Item Value Reference Range Interpretation Comments GLUCOSE BEDSIDE TESTING (test code 146 mg/dL 70-110 H = GLUBED) GLUCOSE BEDSIDE [id number] 07:45:00 Test Item Value Reference Range Interpretation Comments GLUCOSE BEDSIDE TESTING (test code 105 mg/dL 70-110 N = GLUBED) BASIC METABOLIC [id number] 06:33:00 Test Item Value Reference Range Interpretation [...] code = CA) 8.5 MG/DL 8.5-10.1 N [id number] 06:33:00 Test Item Value Reference Range Interpretation Comments PHOSPHOROUS (test code = PHOS) 2.5 MG/DL 2.5-4.9 N [id number] 06:33:00 Test Item Value Reference Range Interpretation Comments MAGNESIUM (test code = MAG) 2.1 MG/DL 1.8-2.4 N GLUCOSE BEDSIDE [id number] 20:57:00 Test Item Value Reference Range Interpretation Comments GLUCOSE BEDSIDE TESTING (test code 195 mg/dL 70-110 H = GLUBED) GLUCOSE BEDSIDE [id number] 16:49:00 Test Item Value Reference Range Interpretation Comments GLUCOSE BEDSIDE TESTING (test code 212 mg/dL 70-110 H = GLUBED) GLUCOSE BEDSIDE [id number] 12:10:00 Test Item Value Reference Range Interpretation Comments GLUCOSE BEDSIDE TESTING (test code 207 mg/dL 70-110 H = GLUBED) GLUCOSE BEDSIDE [id number] 08:12:00 Test Item Value Reference Range Interpretation Comments GLUCOSE BEDSIDE TESTING (test code 186 mg/dL 70-110 H = GLUBED) GLUCOSE BEDSIDE [id number] 06:54:00 Test Item Value Reference Range Interpretation Comments GLUCOSE BEDSIDE TESTING (test code = 61 mg/dL 70-110 L GLUBED) GLUCOSE BEDSIDE [id number] 20:22:00 Test Item Value Reference Range Interpretation Comments GLUCOSE BEDSIDE TESTING (test code 120 mg/dL 70-110 H = GLUBED) GLUTAMIC ACID DECARBOXYLASE [id number] 18:08:00 Test Item Value Reference Range Interpretation Comments GLUTAMIC ACID <5.0 U/mL 0.0-5.0 Performed At: [facility] DECARBOXYLASE AB (test Lab[facility] rp code = GADAB) [address] [id number] ra Caterina BARRIOS Ph:[phone] GLUCOSE BEDSIDE [id number] 17:26:00 Test Item Value Reference Range Interpretation Comments GLUCOSE BEDSIDE TESTING (test code 139 mg/dL 70-110 H = GLUBED) GLUCOSE BEDSIDE [id number] 12:16:00 Test Item Value Reference Range Interpretation Comments GLUCOSE BEDSIDE TESTING (test code 133 mg/dL 70-110 H = GLUBED) GLUCOSE BEDSIDE [id number] 08:23:00 Test Item Value Reference Range Interpretation Comments GLUCOSE BEDSIDE TESTING (test code 103 mg/dL 70-110 N = GLUBED) GLUCOSE BEDSIDE [id number] 21:47:00 Test Item Value Reference Range Interpretation Comments GLUCOSE BEDSIDE TESTING (test code 178 mg/dL 70-110 H = GLUBED) GLUCOSE BEDSIDE [id number] 17:15:00 Test Item Value Reference Range Interpretation Comments GLUCOSE BEDSIDE TESTING (test code 139 mg/dL 70-110 H = GLUBED) GLUCOSE BEDSIDE [id number] 12:19:00 Test Item Value Reference Range Interpretation Comments GLUCOSE BEDSIDE TESTING (test code 177 mg/dL 70-110 H = GLUBED) GLUCOSE BEDSIDE [id number] 08:25:00 Test Item Value Reference Range Interpretation Comments GLUCOSE BEDSIDE TESTING (test code 116 mg/dL 70-110 H = GLUBED) GLUCOSE BEDSIDE [id number] 21:36:00 Test Item Value Reference Range Interpretation Comments GLUCOSE BEDSIDE TESTING (test code 221 mg/dL 70-110 H = GLUBED) GLUCOSE BEDSIDE [id number] 15:47:00 Test Item Value Reference Range Interpretation Comments GLUCOSE BEDSIDE TESTING (test code 150 mg/dL 70-110 H = GLUBED) GLUCOSE BEDSIDE [id number] 11:42:00 Test Item Value Reference Range Interpretation Comments GLUCOSE BEDSIDE TESTING (test code 201 mg/dL 70-110 H = GLUBED) GLUCOSE BEDSIDE [id number] 07:55:00 Test Item Value Reference Range Interpretation Comments GLUCOSE BEDSIDE TESTING (test code 125 mg/dL 70-110 H = GLUBED) GLUCOSE BEDSIDE [id number] 21:14:00 Test Item Value Reference Range Interpretation Comments GLUCOSE BEDSIDE TESTING (test code 250 mg/dL 70-110 H = GLUBED) UR MICROALBUMIN/CREAT [id number] 17:08:00 Test Item Value Reference Range Interpretation Comments UR CREATININE (test 13.5 mg/dL Not Estab. code = CREATE) UR MICROALB/CREAT RATIO 36 0-29 A INFC E Result Units: (test code = mg/g creat MICALB:CRE) Nor mal: 0 - 29 Moderately increased: 30 - 300 Severely increa sed: >300 Please note reference inter samina changePerform ed At: [facility] [address] [place], [place] [id number] Hung Richey MD Ph:[phone] MICROALBUMIN URINE 4.8 ug/mL Not Estab. (test code = MICROALBUR) GLUCOSE BEDSIDE [id number] 16:44:00 Test Item Value Reference Range Interpretation Comments GLUCOSE BEDSIDE TESTING (test code 207 mg/dL 70-110 H = GLUBED) GLUCOSE BEDSIDE [id number] 11:59:00 Test Item Value Reference Range Interpretation Comments GLUCOSE BEDSIDE TESTING (test code 141 mg/dL 70-110 H = GLUBED) BASIC METABOLIC [id number] 08:13:00 Test Item Value Reference Range Interpretation [...] = CA) 8.1 MG/DL 8.5-10.1 L FOR [id number] 08:13:00 Test Item Value Reference Range Interpretation Comments C-PEPTIDE (test code 2.0 ng/mL 1.1-4.4 C-Pepti de reference = CPEP) interval is for fasting patients.Perfor med At: HD [facility] [address] [place], [place] [id number] bri Richey MD Ph:[phone] FOR GADABGLUCOSE BEDSIDE [id number] 07:37:00 Test Item Value Reference Range Interpretation Comments GLUCOSE BEDSIDE TESTING (test code 124 mg/dL 70-110 H = GLUBED) BASIC METABOLIC [id number] 06:11:00 Test Item Value Reference Range Interpretation [...] CA) 8.8 MG/DL 8.5-10.1 N VITAMIN D [id number] 06:11:00 Test Item Value Reference Range Interpretation Comments VITAMIN D 14.3 ng/mL 30.0-100.0 A Vitamin D defic iency has 25-HYDROXY (test been define d by the code = VITD25) [facility] edicine and an Endocrine So ciety practice guidel ine as alevel of serum 25-OH vitamin D less than 20 ng/mL (1,2).The Endocrine Society went on to further define vitamin Dinsufficiency as a level between 21 and 29 ng/mL (2).1. IOM (Ins titute of Medicine). 2010 . Dietary reference int akes for calcium and D. [place]: The [employer] .2. Shaq MF, Louie NC, Aracely morales BOWMAN, et al. Evaluatio n, treatment, and prevention of vitamin D deficiency: an Endocrine Society clinica l practice guideline. PETEY EM. 2010; 96(5):6776-30.P erformed At: [facility] [address] [place], [place] [id number] Hung Richey MD Ph:[phone] GLUCOSE BEDSIDE [id number] 22:41:00 Test Item Value Reference Range Interpretation Comments GLUCOSE BEDSIDE TESTING (test code 203 mg/dL 70-110 H = GLUBED) GLUCOSE BEDSIDE [id number] 16:56:00 Test Item Value Reference Range Interpretation Comments GLUCOSE BEDSIDE TESTING (test code 161 mg/dL 70-110 H = GLUBED) BASIC METABOLIC [id number] 13:16:00 Test Item Value Reference Range Interpretation [...] CA) 8.8 MG/DL 8.5-10.1 N VITAMIN D [id number] 13:16:00 Test Item Value Reference Range Interpretation Comments VITAMIN D 25-HYDROXY (test code = VITD25) CBC W/AUTO [id number] 12:58:00 Test Item Value Reference Range Interpretation [...] NO DIFF/SCN CRITERIA = MDIFF) GLUCOSE BEDSIDE [id number] 11:14:00 Test Item Value Reference Range Interpretation Comments GLUCOSE BEDSIDE TESTING (test code 195 mg/dL 70-110 H = GLUBED) GLUCOSE BEDSIDE [id number] 07:46:00 Test Item Value Reference Range Interpretation Comments GLUCOSE BEDSIDE TESTING (test code 140 mg/dL 70-110 H = GLUBED) GLUCOSE BEDSIDE [id number] 21:14:00 Test Item Value Reference Range Interpretation Comments GLUCOSE BEDSIDE TESTING (test code 246 mg/dL 70-110 H = GLUBED) GLUCOSE BEDSIDE [id number] 16:28:00 Test Item Value Reference Range Interpretation Comments GLUCOSE BEDSIDE TESTING (test code 231 mg/dL 70-110 H = GLUBED) GLUCOSE BEDSIDE [id number] 11:21:00 Test Item Value Reference Range Interpretation Comments GLUCOSE BEDSIDE TESTING (test code 182 mg/dL 70-110 H = GLUBED) COMPREHENSIVE METABOLIC [id number] 09:53:00 Test Item Value Reference Range Interpretation [...] 45-117 H TOTAL (test code = ALKP) [id number] 09:53:00 Test Item Value Reference Range Interpretation Comments PHOSPHOROUS (test code = PHOS) 2.5 MG/DL 2.5-4.9 [id number] 09:53:00 Test Item Value Reference Range Interpretation Comments MAGNESIUM (test code = MAG) 1.7 MG/DL 1.8-2.4 L CBC W/AUTO [id number] 09:20:00 Test Item Value Reference Range Interpretation [...] NO DIFF/SCN CRITERIA = MDIFF) GLUCOSE BEDSIDE [id number] 07:50:00 Test Item Value Reference Range Interpretation Comments GLUCOSE BEDSIDE TESTING (test code 133 mg/dL 70-110 H = GLUBED) GLUCOSE BEDSIDE [id number] 21:10:00 Test Item Value Reference Range Interpretation Comments GLUCOSE BEDSIDE TESTING (test code 211 mg/dL 70-110 H = GLUBED) GLUCOSE BEDSIDE [id number] 16:06:00 Test Item Value Reference Range Interpretation Comments GLUCOSE BEDSIDE TESTING (test code 294 mg/dL 70-110 H = GLUBED) GLUCOSE BEDSIDE [id number] 11:38:00 Test Item Value Reference Range Interpretation Comments GLUCOSE BEDSIDE TESTING (test code 223 mg/dL 70-110 H = GLUBED) BASIC METABOLIC [id number] 06:23:00 Test Item Value Reference Range Interpretation [...] CA) 8.8 MG/DL 8.5-10.1 N GLUCOSE BEDSIDE [id number] 22:00:00 Test Item Value Reference Range Interpretation Comments GLUCOSE BEDSIDE TESTING (test code 100 mg/dL 70-110 N = GLUBED) - US RETROPERITONEAL [id number] 19:11:00 [facility] 1935 Sex: F Name: LETICIA HARPER [facility] : 1935ge/S: 84 / F [address] [address] Unit #: [id number] Loc: [place] [address] Phys: Fady Mancuso MD Acct: [id number] Dis Date: 01/26/2020 Status: DIS IN PHONE#: [phone] Exam Date: 01/15/2020 1830 FAX #: Reason:LIZZIE EXAMS: CPT: [id number] US RETROPERITONEAL COM [id number] Site ID: [id number] EXAMINATION: - US RETROPERITONEAL COM. HISTORY: LIZZIE COMPARISON: None. TECHNIQUE: Routine renal ultrasound was performed. FINDINGS: The right kidney measures 9.7 cm, and the left kidney measures 12.1 cm in length. Cortical echogenicity and thickness are within normal limits. There is ndlt-oa-ucdvewxs hydronephrosis seen bilaterally. The urinary bladder is dilated. No focal lesion seen. IMPRESSION: The urinary bladder is dilated. There is bilateral vnaw-iz-ufjuwlyb hydronephrosis. This could be secondary to bladder dilatation. at 1911 Reported and signed by: Greg Santana MD CC: Archie Navarro MD; Sotero Sheehan III, MD; Fady Mancuso MD Technologist: Rhona Sagastume RDMS(AB)(OB) Trnscb Date/Time: 01/15/2020 (1910) Lisha PAGE 1 Signed Report Name: LETICIA HARPER : 1935 Age/S: 84 / F [address] [address] Unit #: [id number] Loc: [place] [address] Phys: Fady Mancuso MD Acct: [id number] Dis Date: 01/26/2020 Status: DIS IN PHONE #: [phone] Exam Date: 01/15/2020 183 FAX #: Reason: LIZZIE EXAMS: CPT: [id number] US RETROPERITONEAL COM [id number] <Continued> Orig Print D/T: S: 01/15/2020 (1914) Probe: PAGE 2 Signed Report- US RETROPERITONEAL [id number] 19:11:00 Name: LETICIA HARPER : 1935 Age/S: 84 / F [address] [address] Unit #: [id number] Loc: [place] [address] Phys: Fady Mancuso MD Acct: [id number] Dis Date: Status: ADM IN PHONE #: [phone] Exam Date: 01/15/2020 183 FAX #: Reason: LIZZIE EXAMS: CPT: [id number] US RETROPERITONEAL COM [id number] Site ID: [id number] EXAMINATION: - US RETROPERITONEAL COM. HISTORY: LIZZIE COMPARISON: None. TECHNIQUE: Routine renal ultrasound was performed. FINDINGS: The right kidney measures 9.7 cm, and the left kidney measures 12.1 cm in length. Cortical echogenicity and thickness are within normal limits. There is zmve-la-lyubxjwi hydronephrosis seen bilaterally. The urinary bladder is dilated. No focal lesion seen. IMPRESSION: The urinary bladder is dilated. There is bilateral oubh-sg-kdsnkteh hydronephrosis. This could be secondary to bladder dilatation. ElectronicallySigned by Greg Santana MD on 01/15/2020 at 1911 Reported and signed by: Greg Santana MD CC: Archie Navarro MD; Soteor Sheehan III, MD; Fady Mancuso MD Technologist: Rhona Sagastume RDMS(Behzad B)(OB) Trnscb Date/Time: 01/15/2020 (1910) Lisha PAGE 1 Signed Report Name: LETICIA HARPER : 1935 Age/S: 84 / F [facility]: [id number] Loc: [place] [address] Phys: Fady Mancuso MD Acct: [id number] Dis Date: Status: ADM IN PHONE #: [phone] Exam Date: 01/15/2020 1830 FAX #: Reason: LIZZIE EXAMS: CPT: [id number] RETROPERITONEAL COM [id number] <Continued> Orig Print D/T: S: 01/15/2020 (1914) Probe: PAGE 2 Signed ReportBASIC METABOLIC [id number] 17:33:00 Test Item Value Reference Range Interpretation [...] = CA) 8.1 MG/DL 8.5-10.1 L FOR [id number] 17:33:00 Test Item Value Reference Range Interpretation Comments C-PEPTIDE (test code = CPEP) NG/ML 1.1-4.4 FOR GADABGLUCOSE BEDSIDE [id number] 16:11:00 Test Item Value Reference Range Interpretation Comments GLUCOSE BEDSIDE TESTING (test code 132 mg/dL 70-110 H = GLUBED) - [facility] [id number] 15:16:00 [facility] 1935 Sex: F Name: LETICIA HARPER [place] : 1935ge/S: / [address] [address] Unit #: [id number] Loc: [place] [address] Phys: Fady Mancuso MD Acct: [id number] Dis Date: 01/26/2020 Status: DIS IN PHONE#: [phone] Exam Date: 01/15/2020 1328 FAX #: Reason:PAD EXAMS: CPT: [id number] [facility] ART [facility] [address] Location: T18 HISTORY: Peripheral artery disease TECHNIQUE: [...] Technologist: Rhona Sagastume RDMS(AB)(OB) Trnscb Date/Time: 01/15/2020 (3066) SeleneAJP6 PAGE 1 Signed Report Name: LETICIA HARPER [place] : 1935 Age/S: 84 / F [address] [address] Unit#: [id number] Loc: [place] [address] Phys: Fady Mancuso MD Acct: [id number] Dis Date: 01/26/2020 Status: DIS IN PHONE #: [phone] Exam Date: 01/15/2020 1328 FAX #: Reason: PAD EXAMS: CPT: [id number] [facility] [place] [address] <Continued> Orig Print D/T: S: 01/15/2020 (1520) Probe: PAGE 2 Signed Report- DUP [facility] ART [id number] 15:16:00 Name: LETICIA HARPER : 1935 Age/S: 84 / F [address] [address] Unit #: [id number] Loc: [place] [address] Phys: Fady Mancuso MD Acct: [id number] Dis Date: Status: ADM IN PHONE #: [phone] Exam Date: 01/15/2020 1328 FAX #: Reason: PAD EXAMS: CPT: [id number] [place] [address] Location: T1 8 HISTORY: Peripheral artery disease [...] Rhona Sagastume RDMS(AB)(OB) Trnscb Date/Time: 01/15/2020 (1516) SeleneAJP6 PAGE 1 Signed Report Name: LETICIA HARPER : 1935 Age/S: 84 / F [address] [address] Unit #: [id number] Loc: [place] [address] Phys: Fady Mancuso MD Acct: [id number] Dis Date: Status: ADM IN PHONE #: [phone] Exam Date: 01/15/2020 1328FAX #: Reason: PAD EXAMS: CPT: [id number] [place] [address] <Continued> Orig Print D/T: S: 01/15/2020 (9710) Probe: PAGE 2 Signed ReportBASIC METABOLIC [id number] 15:11:00 Test Item Value Reference Range Interpretation [...] code = CA) 8.5 MG/DL 8.5-10.1 N [id number] 15:11:00 Test Item Value Reference Range Interpretation Comments PHOSPHOROUS (test code = PHOS) 4.7 MG/DL 2.5-4.9 N [id number] 15:11:00 Test Item Value Reference Range Interpretation Comments MAGNESIUM (test code = MAG) 2.4 MG/DL 1.8-2.4 N [id number] 15:11:00 Test Item Value Reference Range Interpretation Comments C-PEPTIDE (test code = CPEP) NG/ML 1.1-4.4 GLUCOSE BEDSIDE [id number] 12:31:00 Test Item Value Reference Range Interpretation Comments GLUCOSE BEDSIDE TESTING (test code 128 mg/dL 70-110 H = GLUBED) GLUCOSE BEDSIDE [id number] 08:00:00 Test Item Value Reference Range Interpretation Comments GLUCOSE BEDSIDE TESTING (test code = 81 mg/dL 70-110 N GLUBED) GLUCOSE BEDSIDE [id number] 20:45:00 Test Item Value Reference Range Interpretation Comments GLUCOSE BEDSIDE TESTING (test code 133 mg/dL 70-110 H = GLUBED) GLUCOSE BEDSIDE [id number] 16:16:00 Test Item Value Reference Range Interpretation Comments GLUCOSE BEDSIDE TESTING (test code 200 mg/dL 70-110 H = GLUBED) COMPREHENSIVE METABOLIC [id number] 13:40:00 Test Item Value Reference Range Interpretation [...] 3.67 Ratio 1.48-3.22 Avg H GLYCOSYLATED HEMOGLOBIN [id number] 13:40:00 Test Item Value Reference Range Interpretation Comments GLYCOSYLATED HEMOGLOBIN (HA1C) 11.6 % A1C 0.0-5.7 H (test code = GLYHGB) ESTIMATED AVERAGE GLUCOSE (test 286 MG/DLest code = EAG) CBC W/AUTO [id number] 13:16:00 Test Item Value Reference Range Interpretation [...] NO DIFF/SCN CRITERIA = MDIFF) GLUCOSE BEDSIDE [id number] 12:51:00 Test Item Value Reference Range Interpretation Comments GLUCOSE BEDSIDE TESTING (test code 194 mg/dL 70-110 H = GLUBED) GLUCOSE BEDSIDE [id number] 07:49:00 Test Item Value Reference Range Interpretation Comments GLUCOSE BEDSIDE TESTING (test code 126 mg/dL 70-110 H = GLUBED) GLUCOSE BEDSIDE [id number] 20:57:00 Test Item Value Reference Range Interpretation Comments GLUCOSE BEDSIDE TESTING (test code 150 mg/dL 70-110 H = GLUBED) GLUCOSE BEDSIDE [id number] 17:09:00 Test Item Value Reference Range Interpretation Comments GLUCOSE BEDSIDE TESTING (test code 168 mg/dL 70-110 H = GLUBED) GLUCOSE BEDSIDE [id number] 12:33:00 Test Item Value Reference Range Interpretation Comments GLUCOSE BEDSIDE TESTING (test code 315 mg/dL 70-110 H = GLUBED) GLUCOSE BEDSIDE [id number] 08:17:00 Test Item Value Reference Range Interpretation Comments GLUCOSE BEDSIDE TESTING (test code 265 mg/dL 70-110 H = GLUBED) GLUCOSE BEDSIDE [id number] 22:17:00 Test Item Value Reference Range Interpretation Comments GLUCOSE BEDSIDE TESTING (test code 357 mg/dL 70-110 H = GLUBED) GLUCOSE BEDSIDE [id number] 17:38:00 Test Item Value Reference Range Interpretation Comments GLUCOSE BEDSIDE TESTING (test code 210 mg/dL 70-110 H = GLUBED) GLUCOSE BEDSIDE [id number] 12:25:00 Test Item Value Reference Range Interpretation Comments GLUCOSE BEDSIDE TESTING (test code 197 mg/dL 70-110 H = GLUBED) COVID 19 INHOUSE [id number] 10:11:00 Test Item Value Reference Range Interpretation Comments COVID 19 INHOUSE AG NEGATIVE Negative Per manu facturer, (test code = negative result s should [id number]) be treated aspr esumptive and, if inconsi [...] nsistent with COVID-19. Emergent procedure? YESGLUCOSE BEDSIDE [id number] 08:35:00 Test Item Value Reference Range Interpretation Comments GLUCOSE BEDSIDE TESTING (test code 192 mg/dL 70-110 H = GLUBED) PROTHROMBIN [id number] 06:01:00 Test Item Value Reference Range Interpretation Comments PT PATIENT (test code = PTP) 12.0 SECONDS 9.3-12.9 N INTERNATIONAL NORMAL RATIO 1.06 INR Unit 0.8-1.2 N (test code = INR) THROMBOPLASTIN TIME [id number] 06:01:00 Test Item Value Reference Range Interpretation Comments THROMBOPLASTIN TIME PARTIAL 26.4 SECONDS 26-35 N (test code = PTT) BASIC METABOLIC [id number] 05:50:00 Test Item Value Reference Range Interpretation [...] = CA) 9.2 MG/DL 8.5-10.1 N LACTIC [id number] 05:45:00 Test Item Value Reference Range Interpretation Comments LACTIC ACID (test code = LACT) 0.8 mmol/L 0.4-2.0 N CBC W/AUTO [id number] 05:30:00 Test Item Value Reference Range Interpretation [...] NO DIFF/SCN CRITERIA = MDIFF) BASIC METABOLIC [id number] 07:02:00 Test Item Value Reference Range Interpretation [...] CA) 9.6 MG/DL 8.5-10.1 N CBC W/AUTO [id number] 06:19:00 Test Item Value Reference Range Interpretation [...] DIFF/SCN CRITERIA = MDIFF) COVID 19 INHOUSE [id number] 17:15:00 Test Item Value Reference Range Interpretation Comments COVID 19 INHOUSE AG NEGATIVE Negative Per manu facturer, (test code = negative result s should [id number]) be treated aspr esumptive and, if inconsi [...]
--- NOTE | 2020-03-30 09:01 | RAD REPORT ---
EXAM DESCRIPTION: RAD - Chest Single View - 03/30/2020 8:40 am CLINICAL HISTORY: COUGH COMPARISON: March 22 TECHNIQUE: AP portable chest image was obtained 03/30/2020 8:40 am . FINDINGS: No focal lung parenchymal process. Lung markings are accentuated by a more shallow inspira tory effort. Heart and vasculature are normal. No measurable pleural effusion and no pneumothorax. No acute bony abnormality seen. No acute aortic findings suspected. IMPRESSION: No acute cardiopulmonary process. No significant change from comparison study.
[2020-03-30] MEDS ORDERED: ONDANSETRON 4 MG/2 ML VIAL ONE (09:16)
[2020-03-30] MEDS ORDERED: FAMOTIDINE 20 MG/2 ML VIAL IV ONE (09:16)
[2020-03-30] MEDS ORDERED: NA CHLORIDE 0.9% 1,000 ML ONE (09:16)
[2020-03-30 09:31] LABS: Absolute Lymphocytes (CBC) 1.6 K/uL (0.7-4.9); Basophils % 0.7 % (0-1.3); Lymphocytes % 14.1 % (15.3-44.8); MPV 6.6 fL (7.6-11.3); RBC Red Blood Cell Count 4.55 M/uL (3.86-4.86)
[2020-03-30 09:33] LABS: Protime INR 1.67
[2020-03-30 09:38] LABS: ALT/SGPT 11 U/L (12-78); AST/SGOT 11 U/L (15-37); Albumin 2.4 g/dL (3.4-5.0); Alkaline Phosphatase 114 U/L (45-117); BUN Blood Urea Nitrogen 26 mg/dL (7-18); Bicarbonate 34 mmol/L (21-32); Bilirubin Direct 0.1 mg/dL (0-0.2); Bilirubin Total 0.6 mg/dL (0.2-1.0); Glucose Level 262 mg/dL (74-106); Lipase 76 U/L (73-393); Magnesium 2.3 mg/dL (1.8-2.4); NT PRO-BNP 532 pg/mL (<450); Potassium 3.8 mmol/L (3.5-5.1); Protein, Total 7.2 g/dL (6.4-8.2); Sodium Level 136 mmol/L (136-145); Troponin (Emerg Dept Use Only) < 0.02 ng/mL (0.0-0.045)
--- NOTE | 2020-03-30 09:45 | RAD REPORT ---
EXAM DESCRIPTION: CT - Abdomen Pelvis W Contrast - 03/30/2020 9:15 am CLINICAL HISTORY: ABD PAIN COMPARISON: No comparisons TECHNIQUE: Biphasic, helical CT imaging of the abdomen and pelvis was performed following 100 ml non -ionic IV contrast. No oral contrast. All CT scans are performed using dose optimization technique as appropriate and may include automated exposure control or mA/KV adjustment according to patient size. FINDINGS: No suspicious findings in the lung bases. No focal liver abnormality seen. Liver size is normal. Spleen is prominent but without focal abnormal ity. Accessory splenic nodule present. No pancreatic abnormality. Cholecystectomy clips are present. No abnormal biliary tree dilatation. Renal function is symmetric. No pyelonephritis or suspicious renal parenchymal process. Several benig n-appearing cortical cysts are present largest anterolateral right mid kidney 2.3 cm in size. Patient has very significant bilateral hydronephrosis and hydroureter to the UVJ level. Bladder is dilated w ith the dome of the urinary bladder reaching the level of the umbilicus. No bladder wall thickening, mass or calcifications seen. Uterus is absent. Ovaries are absent or atrophic. No adrenal abnormaliti es. Small hiatal hernia is present. No acute stomach finding. No acute small bowel abnormality. Moderatel y large stool volume fills but does not dilate the colon down to level of the rectum. Sigmoid colon i s quite tortuous. Soft tissues near the anus and into the perineum are prominent. CT has limited abil ity to evaluate tissues in this region. No free air, free fluid or inflammatory stranding. No herni a or bulky lymphadenopathy. The patient has a fatty mass medial to the left femur and abutting the la teral margin of the left ischium. The mass is not fully imaged to allow assessment of imaging charact eristics. Disc and bony degenerative changes are present. No acute vascular finding. IMPRESSION: Dilated urinary bladder with the dome reaching the level of the umbilicus. Moderately se jona bilateral hydronephrosis and hydroureter present without obstructing calculi. Patient may have a urethral stricture. Soft tissues of the perineum from the anus to urethral meatus are prominent. CT is inherently limited in evaluation of soft tissues in this region. No acute bowel process seen. Moderately large stool volume fills but does not dilate the entirety of the colon.
--- NOTE | 2020-03-30 10:45 | ER ---
Nurse's Notes [facility] Name: Mimi Madrigal Age: 85 yrs Sex: Female : 1935 Arrival Date: 03/30/2020 Time: 08:25 Bed 20 Private MD: Diagnosis: Urinary tract infection, site not specified;Retention of urine;Anorexia;Nausea;Type 2 diabetes mellitus Presentation: 03/30 08:25 Chief complaint: EMS states: Pt was in the hospital last week for a UTI and c/o general rb3 weakness now. BP 116/82, P 84, T 98.0, BS 244. Ambulates with a walker. She has taken her morning meds. Coronavirus screen: Client denies travel out of the [place] in the last 14 days. At this time, the client does not indicate any symptoms associated with coronavirus-19. Ebola Screen: Patient denies travel to an Ebola-affected area in the 21 days before illness onset. Initial Sepsis Screen: Does the patient meet any 2 criteria? No. Patient's initial sepsis screen is negative. Does the patient have a suspected source of infection? No. Patient's initial sepsis screen is negative. Risk Assessment: Do you want to hurt yourself or someone else? Patient reports no desire to harm self or others. Onset of symptoms is unknown. 08:25 Method Of Arrival: EMS: [facility] rb3 08:25 Acuity: JESSICA 3 rb3 Triage Assessment: 08:25 General: Appears in no apparent distress. comfortable, Behavior is calm, cooperative. rb3 Pain: Denies pain. Neuro: Level of Consciousness is awake, alert, obeys commands, Oriented to person, place, time, situation. Cardiovascular: Patient's skin is warm and dry. Respiratory: Airway is patent Respiratory effort is even, unlabored, Respiratory pattern is regular, symmetrical. GI: No signs and/or symptoms were reported involving the gastrointestinal system. : Reports has difficulty emptying her bladder. Musculoskeletal: Range of motion: intact in all extremities, Ambulates with walker. Historical: - Allergies: 08:25 Invokana; rb3 08:25 Sulfa (Sulfonamide Antibiotics); rb3 - Home Meds: 08:25 aspirin 81 mg Oral chew [Active]; Metformin Oral [Active]; Metoprolol Tartrate Oral rb3 [Active]; Hydrochlorothiazide Oral [Active]; Tramadol Oral [Active]; Eliquis 5 mg oral tab 1 tab 1 day [Active]; levothyroxine 100 mcg tab 1 tab once daily [Active]; - PMHx: 08:25 Diabetes - NIDDM; Hypertension; rb3 - PSHx: 08:25 Cholecystectomy; rb3 - Immunization history:: Adult Immunizations up to date. - Social history:: Smoking status: Patient/guardian denies using. - Family history:: not pertinent. Screenin:25 Abuse screen: Denies threats or abuse. Nutritional screening: decreased appetite . rb3 Tuberculosis screening: No symptoms or risk factors identified. Fall Risk No fall in past 12 months (0 pts). Secondary diagnosis (15 points) impaired mobility, IV access (20 points). Ambulatory Aid- Crutches/Cane/Walker (15 pts). Gait- Impaired (20 pts.). Mental Status- Oriented to own ability (0 pts). Total Hernández Fall Scale indicates High Risk Score (45 or more points). Fall prevention measures have been instituted. Side Rails Up X 2 Placed Close to Nursing Station 1:1 Attendant Assigned Frequent Obs/Assessments Occuring Family Present and informed to notify staff if the need to leave the bedside As available patient and family educated on Fall Prevention Program and Strategies. Assessment: 09:29 Reassessment: Patient appears in no apparent distress at this time. No changes from rb3 previously documented assessment. 10:29 Reassessment: Patient appears in no apparent distress at this time. Patient and/or rb3 family updated on plan of care and expected duration. Pain level reassessed. Patient is alert, oriented x 3, equal unlabored respirations, skin warm/dry/pink. 11:25 Reassessment: Patient appears in no apparent distress at this time. No changes from rb3 previously documented assessment. 11:40 Reassessment: Called report to EDY Carmen. Information from the SB[facility] was given. All rb3 questions asked and answered. 11:54 Reassessment: Spoke to TANYA Frost, left message with her for EDY Carmen that the rocephin rb3 1 gram was not given in the ED. TANYA Frost will let EDY Carmen know the medication was not given. Vital Signs: 08:25 BP 115 / 71; Pulse 83; Resp 14; Temp 98.2; Pulse Ox 100% ; Weight 53.98 kg; Height 5 rb3 ft. 1 in. (154.94 cm); Pain 0/10; 09:25 BP 118 / 57; Pulse 79; Resp 19; Pulse Ox 95% on R/A; rb3 10:22 BP 122 / 66; Pulse 76; Resp 19; Pulse Ox 98% ; rb3 11:26 BP 119 / 62; Pulse 74; Resp 20; Pulse Ox 100% ; rb3 08:25 Body Mass Index 22.48 (53.98 kg, 154.94 cm) rb3 ED Course: 08:25 Patient arrived in ED. keith 08:25 Dustin Hernandes MD is Attending Physician. keith 08:25 Arm band placed on. rb3 08:25 Patient has correct armband on for positive identification. Bed in low position. Call rb3 light in reach. Side rails up X2. vehicle monitor technician on. Pulse ox on. NIBP on. Warm blanket given. 08:40 XRAY Chest (1 view) In Process Unspecified. EDMS 08:58 Inserted saline lock: 22 gauge in left antecubital area, using aseptic technique. Blood rb3 collected. 09:15 CT Abd/Pelvis - IV Contrast Only In Process Unspecified. EDMS 09:15 CT completed. Patient tolerated procedure well. Patient moved back from CT. 09:28 Gemma Whatley, RN is Primary Nurse. rb3 09:43 Triage completed. rb3 10:39 Archie Navarro MD is Hospitalizing Provider. keith 11:26 Bladder scan completed. 999+. Dr. Hernandes notified. rb3 11:30 Hdez cath inserted, using sterile technique, 16 Fr., by fl, balloon inflated, to rb3 gravity drainage, clamped. other 600 ml out put. 11:50 unclamped 400 ml output. rb3 11:54 No provider procedures requiring assistance completed. Patient admitted, IV remains in rb3 place. Administered Medications: 09:28 Drug: Zofran (Ondansetron) 4 mg Route: IVP; Site: left antecubital; rb3 09:40 Follow up: Response: No adverse reaction rb3 09:28 Drug: Pepcid 20 mg Route: IVP; Site: left antecubital; rb3 09:40 Follow up: Response: No adverse reaction rb3 09:29 Drug: NS 0.9% 1000 ml Route: IV; Rate: 1 bolus; Site: left antecubital; rb3 10:33 Follow up: IV Status: Completed infusion rb3 11:57 Not Given (pt. went to the floor): Rocephin 1 grams IV at per protocol once; Given slow rb3 IV push per pharmacy instructions Outcome: 10:45 Decision to Hospitalize by Provider. keith 11:54 Admitted to Tele accompanied by tech, family with patient, via stretcher, room 412, rb3 with chart, Report called to EDY Carmen 11:54 Condition: stable 11:54 Instructed on the need for admit. 11:54 Patient left the ED. rb3 Signatures: Dispatcher [employer] EDDustin Conklin MD MD cha Jones, Gemma Vasquez, RN RN rb3 Corrections: (The following items were deleted from the chart) 12:00 11:59 Patient left the ED. rb3 rb3
--- NOTE | 2020-03-30 10:45 | EDPHYS ---
Physician Documentation [facility] Name: Mimi Madrigal Age: 85 yrs Sex: Female : 1935 Arrival Date: 03/30/2020 Time: 08:25 Bed 20 Private MD: ED Physician Dustin Hernandes HPI: 03/30 08:28 This 85 yrs old Female presents to ER via Unassigned with complaints of weak, keith not eating and nausea. 08:28 The patient presents with abdominal pain in the upper abdomen, in the lower abdomen. keith Onset: The symptoms/episode began/occurred 3 day(s) ago. The patient presents to the emergency department with nausea, vomiting, abdominal pain, of the right upper quadrant, left upper quadrant, right lower quadrant and left lower quadrant. Onset: The symptoms/episode began/occurred 3 day(s) ago. Possible causes: unknown. The symptoms are aggravated by nothing. The symptoms are alleviated by nothing. weak, just out of the hospital. Associated signs and symptoms: The patient has no apparent associated signs or symptoms. The symptoms do not radiate. Historical: - Allergies: 08:25 Invokana; rb3 08:25 Sulfa (Sulfonamide Antibiotics); rb3 - Home Meds: 08:25 aspirin 81 mg Oral chew [Active]; Metformin Oral [Active]; Metoprolol Tartrate Oral rb3 [Active]; Hydrochlorothiazide Oral [Active]; Tramadol Oral [Active]; Eliquis 5 mg oral tab 1 tab 1 day [Active]; levothyroxine 100 mcg tab 1 tab once daily [Active]; - PMHx: 08:25 Diabetes - NIDDM; Hypertension; rb3 - PSHx: 08:25 Cholecystectomy; rb3 - Immunization history:: Adult Immunizations up to date. - Social history:: Smoking status: Patient/guardian denies using. - Family history:: not pertinent. ROS: 08:28 Constitutional: Negative for fever, chills, and weight loss, Eyes: Negative for injury, keith pain, redness, and discharge, ENT: Negative for injury, pain, and discharge, Neck: Negative for injury, pain, and swelling, Cardiovascular: Negative for chest pain, palpitations, and edema, Respiratory: Negative for shortness of breath, cough, wheezing, and pleuritic chest pain, Back: Negative for injury and pain, : Negative for injury, bleeding, discharge, and swelling, MS/Extremity: Negative for injury and deformity, Skin: Negative for injury, rash, and discoloration, Neuro: Negative for headache, weakness, numbness, tingling, and seizure, Psych: Negative for depression, anxiety, suicide ideation, homicidal ideation, and hallucinations, Allergy/Immunology: Negative for hives, rash, and allergies, Endocrine: Negative for neck swelling, polydipsia, polyuria, polyphagia, and marked weight changes, Hematologic/Lymphatic: Negative for swollen nodes, abnormal bleeding, and unusual bruising. 08:28 Abdomen/GI: Positive for nausea, vomiting. Exam: 08:28 Constitutional: This is a well developed, well nourished patient who is awake, alert, keith and in no acute distress. Head/Face: Normocephalic, atraumatic. Eyes: Pupils equal round and reactive to light, extra-ocular motions intact. Lids and lashes normal. Conjunctiva and sclera are non-icteric and not injected. Cornea within normal limits. Periorbital areas with no swelling, redness, or edema. ENT: Nares patent. No nasal discharge, no septal abnormalities noted. Tympanic membranes are normal and external auditory canals are clear. Oropharynx with no redness, swelling, or masses, exudates, or evidence of obstruction, uvula midline. Mucous membranes moist. Neck: Trachea midline, no thyromegaly or masses palpated, and no cervical lymphadenopathy. Supple, full range of motion without nuchal rigidity, or vertebral point tenderness. No Meningismus. Chest/axilla: Normal chest wall appearance and motion. Nontender with no deformity. No lesions are appreciated. Cardiovascular: Regular rate and rhythm with a normal S1 and S2. No gallops, murmurs, or rubs. Normal PMI, no JVD. No pulse deficits. Respiratory: Lungs have equal breath sounds bilaterally, clear to auscultation and percussion. No rales, rhonchi or wheezes noted. No increased work of breathing, no retractions or nasal flaring. Abdomen/GI: Soft, non-tender, with normal bowel sounds. No distension or tympany. No guarding or rebound. No evidence of tenderness throughout. Back: No spinal tenderness. No costovertebral tenderness. Full range of motion. Skin: Warm, dry with normal turgor. Normal color with no rashes, no lesions, and no evidence of cellulitis. MS/ Extremity: Pulses equal, no cyanosis. Neurovascular intact. Full, normal range of motion. Neuro: Awake and alert, GCS 15, oriented to person, place, time, and situation. Cranial nerves II-XII grossly intact. Motor strength 5/5 in all extremities. Sensory grossly intact. Cerebellar exam normal. Normal gait. Psych: Awake, alert, with orientation to person, place and time. Behavior, mood, and affect are within normal limits. Vital Signs: 08:25 BP 115 / 71; Pulse 83; Resp 14; Temp 98.2; Pulse Ox 100% ; Weight 53.98 kg; Height 5 rb3 ft. 1 in. (154.94 cm); Pain 0/10; 09:25 BP 118 / 57; Pulse 79; Resp 19; Pulse Ox 95% on R/A; rb3 10:22 BP 122 / 66; Pulse 76; Resp 19; Pulse Ox 98% ; rb3 11:26 BP 119 / 62; Pulse 74; Resp 20; Pulse Ox 100% ; rb3 08:25 Body Mass Index 22.48 (53.98 kg, 154.94 cm) rb3 MDM: 08:26 Patient medically screened. keith 08:31 Differential Diagnosis altered mental status. Differential diagnosis: diverticulitis, keith viral gastroenteritis, gastroenteritis, bowel obstruction, cholecystitis, Cholelithiasis, diverticulitis, gastritis, Irritable bowel syndrome, non-specific abd pain, Pyelonephritis, Ureterolithiasis, urinary tract infection. Data reviewed: vital signs, nurses notes, lab test result(s), EKG, radiologic studies, CT scan, plain films. Data interpreted: monitor car operator: rate is 75 beats/min, rhythm is regular, Pulse oximetry: is not applicable for this patient encounter. Test interpretation: by ED physician or midlevel provider: ECG, plain radiologic studies. Counseling: I had a detailed discussion with the patient and/or guardian regarding: the historical points, exam findings, and any diagnostic results supporting the discharge/admit diagnosis, lab results, radiology results. 03/30 08:28 Order name: Basic Metabolic Panel; Complete Time: 10:30 [facility] 03/30 08:28 Order name: CBC with Diff; Complete Time: 10:30 keith 03/30 08:28 Order name: LFT's; Complete Time: 10:30 [facility] 03/30 08:28 Order name: Magnesium; Complete Time: 10:30 [facility] 03/30 08:28 Order name: NT PRO-BNP; Complete Time: 10:30 [facility] 03/30 08:28 Order name: PT-INR; Complete Time: 10:30 [facility] 03/30 08:28 Order name: Troponin (emerg Dept Use Only); Complete Time: 10:30 [facility] 03/30 08:28 Order name: XRAY Chest (1 view); Complete Time: 10:30 [facility] 03/30 08:28 Order name: Lipase; Complete Time: 10:30 [facility] 03/30 08:28 Order name: CT Abd/Pelvis - IV Contrast Only; Complete Time: 10:30 [facility] 03/30 08:28 Order name: Urine Culture [facility] 03/30 09:34 Order name: CREATININE WHOLE BLOOD; Complete Time: 10:30 [facility] 03/30 10:56 Order name: Urine Dipstick--Ancillary (enter results) [facility] 03/30 08:28 Order name: EKG; Complete Time: 08:29 [facility] 03/30 08:28 Order name: Cardiac monitoring; Complete Time: 11:59 [facility] 03/30 08:28 Order name: EKG - Nurse/Tech; Complete Time: 11:59 [facility] 03/30 08:28 Order name: IV Saline Lock; Complete Time: 11:59 [facility] 03/30 08:28 Order name: Labs collected and sent; Complete Time: 11:59 [facility] 03/30 08:28 Order name: O2 Per Protocol; Complete Time: 11:59 [facility] 03/30 08:28 Order name: O2 Sat Monitoring; Complete Time: 12:00 [facility] 03/30 08:28 Order name: Urine Dipstick-Ancillary (obtain specimen); Complete Time: 10:49 [facility] 03/30 10:31 Order name: Hdez; Complete Time: 11:25 [facility] 03/30 10:34 Order name: Bladder Scanner; Complete Time: 11:25 [facility] 03/30 10:55 Order name: CONS Physician Consult EDMS Administered Medications: 09:28 Drug: Zofran (Ondansetron) 4 mg Route: IVP; Site: left antecubital; rb3 09:40 Follow up: Response: No adverse reaction rb3 09:28 Drug: Pepcid 20 mg Route: IVP; Site: left antecubital; rb3 09:40 Follow up: Response: No adverse reaction rb3 09:29 Drug: NS 0.9% 1000 ml Route: IV; Rate: 1 bolus; Site: left antecubital; rb3 10:33 Follow up: IV Status: Completed infusion rb3 11:57 Not Given (pt. went to the floor): Rocephin 1 grams IV at per protocol once; Given slow rb3 IV push per pharmacy instructions Disposition: 03/30/20 10:45 Hospitalization ordered by Archie Navarro for Observation. Preliminary diagnosis are Urinary tract infection, site not specified, Retention of urine, Anorexia, Nausea, Type 2 diabetes mellitus. - Bed requested for Telemetry/MedSurg (observation). - Status is Observation. rb3 - Condition is Fair. - Problem is new. - Symptoms have improved. Signatures: Dispatcher [employer] Terri Jackson RN RN dw Anderson, Corey, MD MD cha Barber, Rebecca, RN RN rb3 Corrections: (The following items were deleted from the chart) 11:17 10:45 Hospitalization Ordered by Archie Navarro MD for Observation. Preliminary diagnosis dw is Urinary tract infection, site not specified; Retention of urine; Anorexia; Nausea; Type 2 diabetes mellitus. Bed requested for Telemetry/MedSurg (observation). Status is Observation. Condition is Fair. Problem is new. Symptoms have improved. [facility] 11:59 11:17 03/30/2020 10:45 Hospitalization Ordered by Archie Navarro MD for Observation. rb3 Preliminary diagnosis is Urinary tract infection, site not specified; Retention of urine; Anorexia; Nausea; Type 2 diabetes mellitus. Bed requested for Telemetry/MedSurg (observation). Status is Observation. Condition is Fair. Problem is new. Symptoms have improved. dw
[2020-03-30 11:38] LABS: Urine Blood 2+ (NEG); Urine Glucose NEGATIVE (NEG); Urine Protein TRACE (NEG); Urine Specific Gravity 1.015 (1.005-1.030)
[2020-03-30] MEDS ORDERED: CEFTRIAXONE/SWI 1gm 0 GM/0 ML SYR ONE (11:42)
[2020-03-30 12:15] VITALS: BMI 22.4
[2020-03-30] MEDS ORDERED: ACETAMINOPHEN 500 MG TAB PO PRN (12:22)
[2020-03-30] MEDS ORDERED: NA CHLORIDE 0.9% 1,000 ML IV SCH (12:22)
[2020-03-30] MEDS ORDERED: ONDANSETRON 4 MG/2 ML VIAL IV PRN (12:22)
[2020-03-30] MEDS ORDERED: D50W 25 GM/50 ML SYRINGE IV PRN ×2 (12:57→20:33)
[2020-03-30] MEDS ORDERED: GLUCAGON 1 MG/VIAL IM PRN ×2 (12:57→20:33)
[2020-03-30] MEDS: NACHLORIDE 0.45% 1,000 ML IV SCH (13:35)
--- NOTE | 2020-03-30 13:37 | P.HP ---
Certification for Inpatient Patient admitted to: Observation With expected LOS: <2 Midnights Practitioner: I am a practitioner with admitting privileges, knowledge of patient current condition, hospital course, and medical plan of care. Services: Services provided to patient in accordance with Admission requirements found in Title 42 Section 412.3 of the Code of Federal Regulations Patient History Date of Service: 03/30/20 Reason for admission: WEAKNES, RETENTION OF URINE. History of Present Illness: MS. PAGE HAS RETENTION OF URINE POSSIBLY FOR YEAR BUT DID NO HAVE AN ISSUE UNTIL RECENTLY. SHE USUSUALLY BENDS OVER TO URINATE TO EMPTY BLADDER. SHE WAS SUPPOSED TO SEE DR. GILL IN OFFICE IN AM BUT SHE ENDS UP HERE SHE GETS WEAKER AND DOES NOT EAT. I TALKED TO DR. GILL AND HE WILL SEE HER IN AM. NOW SHE HAS ALLEN AND IV FLUIDS. Allergies No Known Allergies Allergy (Verified 02/25/20 22:37) Home Medications: Aspirin Chewable [Aspirin Chewable*] 81 mg PO DAILY 01/10/20 Cholecalciferol (Vitamin D3) [Vitamin D3] 1 tab PO DAILY 02/26/20 Levothyroxine [Synthroid*] 1 tab PO DAILY 02/26/20 Losartan/Hydrochlorothiazide [Losartan-Hctz 100-25 mg Tab] 1 tab PO DAILY 02/26/20 Metoprolol Tartrate [Lopressor*] 1 tab PO DAILY 02/26/20 Apixaban [Eliquis] 5 mg PO BID #60 tablet 02/27/20 Cefuroxime [Ceftin] 250 mg PO BID #28 tab 03/24/20 - Past Medical/Surgical History Has patient received pneumonia vaccine in the past: Yes Diabetic: Yes -: Hypertension -: Diabetes-NIDDM -: Hypothyroidism -: Cholecystectomy -: Tonsillectomy -: tooth abscess - Family History Mother -: Heart disease, Diabetes Father -: Heart disease - Social History Smoking Status: Never smoker Alcohol use: No CD- Drugs: No Caffeine use: No Place of Residence: Home Review of Systems 10-point ROS is otherwise unremarkable General: Weakness Physical Examination - Vital Signs Temperature: 97.7 F Blood Pressure: 159/63 Pulse: 71 Respirations: 16 Pulse Ox (%): 98 - Physical Exam General: Alert, Oriented x3, Mild distress HEENT: Atraumatic, PERRLA, Mucous membr. moist/pink, EOMI, Sclerae nonicteric Neck: Supple, 2+ carotid pulse no bruit, No LAD, Without JVD or thyroid abnormal ity Respiratory: Clear to auscultation bilaterally, Normal air movement Cardiovascular: Regular rate/rhythm, Normal S1 S2 Gastrointestinal: Normal bowel sounds, No tenderness Musculoskeletal: No tenderness Integumentary: No rashes Neurological: Normal gait, Normal speech, Normal strength at 5/5 x4 extr, Normal tone, Normal affect Lymphatics: No axilla or inguinal lymphadenopathy - Studies Laboratory Data (last 24 hrs) 03/30/20 08:58: PT 19.5 H, INR 1.67 03/30/20 08:58: WBC 11.2 H D, Hgb 13.3, Hct 39.0, Plt Count 433 H D 03/30/20 08:58: Sodium 136, Potassium 3.8, BUN 26 H, Creatinine 0.98, Glucose 262 H, Magnesium 2.3, Total Bilirubin 0.6, AST 11 L, ALT 11 L, Alkaline Phosphatase 114, Lipase 76 Assessment and Plan - Problems (Diagnosis) (1) Urinary retention Current Visit: Yes Status: Acute Plan: HAS ALLEN. DR. MARINO GILL CONSULTED. IV ABX. MAY NEED SURGERY FOR RETENTION OR LIFETIME SELF CATH. (2) Diabetes Current Visit: No Status: Chronic Plan: DIET IS POOR AND CONTROL WAS POOR UNTIL DKA HAPPENED. BEFORE THAT SHE DID NOT COME TO OFFICE FOR ABOUT 2 YEARS. Qualifiers: Diabetes mellitus type: type 2 - Advance Directives Does patient have a Living Will: Yes Does patient have a Durable POA for Healthcare: Yes
[2020-03-30] MEDS: CEFTRIAXONE/SWI 1gm 1 GM/10 ML SYR IVP SCH (14:20)
[2020-03-30] MEDS: INSULIN -REGULAR HUMAN 50 UNIT/0.5 ML ML SQ SCH ×2 (17:00→21:00)
[2020-03-30] MEDS: APIXABAN 5 MG TABLET PO SCH (21:30)
[2020-03-30 21:43] LABS: MPV 6.8 fL (7.6-11.3)
[2020-03-30] MEDS: FAMOTIDINE 20 MG/2 ML VIAL IV SCH (21:45)
[2020-03-30] MEDS: INSULIN GLARGINE 100 UNITS/ML SQ SCH (22:54)
[2020-03-30 23:03] LABS: Platelet Estimate INCR
[2020-03-31] MEDS: NACHLORIDE 0.45% 1,000 ML IV SCH ×3 (02:00→15:46)
[2020-03-31 04:55] LABS: Absolute Lymphocytes (CBC) 2.5 K/uL (0.7-4.9); Basophils % 0.9 % (0-1.3); Hematocrit 35.9 % (36.0-45.0); Lymphocytes % 28.4 % (15.3-44.8); MPV 6.6 fL (7.6-11.3); RBC Red Blood Cell Count 4.18 M/uL (3.86-4.86)
[2020-03-31 05:11] LABS: ALT/SGPT 9 U/L (12-78); AST/SGOT 7 U/L (15-37); Albumin 2.2 g/dL (3.4-5.0); Alkaline Phosphatase 93 U/L (45-117); BUN Blood Urea Nitrogen 16 mg/dL (7-18); Bicarbonate 34 mmol/L (21-32); Bilirubin Direct < 0.1 mg/dL (0-0.2); Bilirubin Total 0.3 mg/dL (0.2-1.0); Glucose Level 137 mg/dL (74-106); Lipase 66 U/L (73-393); Potassium 4.2 mmol/L (3.5-5.1); Protein, Total 6.4 g/dL (6.4-8.2); Sodium Level 140 mmol/L (136-145)
[2020-03-31] MEDS: INSULIN -REGULAR HUMAN 50 UNIT/0.5 ML ML SQ SCH ×4 (07:30→20:53)
[2020-03-31] MEDS ORDERED: ENOXAPARIN 40 MG/0.4 ML SQ SCH (09:00)
[2020-03-31] MEDS ORDERED: CEFTRIAXONE/SWI 1gm 1 GM/10 ML SYR IV SCH (09:00)
[2020-03-31] MEDS: APIXABAN 5 MG TABLET PO SCH ×2 (09:01→20:56)
[2020-03-31] MEDS: FAMOTIDINE 20 MG/2 ML VIAL IV SCH ×2 (09:01→20:56)
[2020-03-31] MEDS: CEFTRIAXONE/SWI 1gm 1 GM/10 ML SYR IVP SCH (09:01)
[2020-03-31] MEDS: LOSARTAN/HCTZ 50-12.5 PO SCH (09:02)
[2020-03-31] MEDS: VITAMIN D 1000 UNIT TAB PO SCH (09:02)
[2020-03-31] MEDS: METOPROLOL TAR 50 MG TAB PO SCH (09:02)
[2020-03-31] MEDS: LEVOTHYROXINE SOD 0.1 MG TAB PO SCH (09:02)
--- NOTE | 2020-03-31 13:12 | CON ---
Date of Consultation: 03/30/2020 Additional Consulting Physician: Archie Navarro M.D. Reason For Consultation: Bilateral hydronephrosis. History Of Present Illness: Ms. Madrigal is an 85-year-old woman, who underwent a vaginal hysterectom y with bladder suspension in 1975. She had done fine for many years with no apparent issues voiding and no need to push or strain to urinate. Within the last 6-8 months, she developed increased urgenc y to urinate and some incontinence that required 1 light pad per day. She subsequently underwent a p rocedure at the end of December of 2019, following which she had acute urinary retention. She saw a ur ologist in [place], who recommended she return to see him for a voiding trial, but her catheter was removed by her primary care physician. After that time, the patient had an issue with development of a urinary tract infection that progressed to urosepsis, and she was admitted to [facility]. She subsequently was discharged just over a week ago and had scheduled a followup ap pointment with me today, because she was readmitted to the hospital yesterday with a massively disten ded bladder associated with hydronephrosis being found when she was significantly lethargic and with failure to thrive, she was admitted and a CT scan was performed revealing bilateral hydronephrosis. Since that time, a Hdez catheter was placed and has had significant output of urine with some mild p ink hematuria observed initially. Her BUN was 26 with a creatinine of 0.98 and a bicarb of 34. She notes she had a few episodes of uri nary tract infections since the issue with acute retention in December. Past Medical History: Significant for type 2 diabetes, hypertension, and atrial fibrillation on [facility] Eliquis or Xarelto. Physical Examination: General: On exam today, she is lying in the bed, in no acute distress. She is awake, alert, and pravin ented x3, her is with her at the bedside. There was no sign of dyspnea or use of accessory m uscles to breathe. Abdomen: Soft, nontender, and nondistended. No masses were palpable. : The urethral Hdez catheter was in place and there was clear yellow urine draining without any s ignificant sediment or heme noted. Review of Systems: She denied any neurologic symptoms. She acknowledged ambulating normally and without any signs of ce rebellar ataxia. She denied any dizziness or numbness or tingling in her fingers or toes. Assessment: This is an 85-year-old woman with type 2 diabetes, hypertension, and atrial fibrillation on anticoagulants, status post vaginal hysterectomy and bladder suspension procedure in 1975 with ac connie urinary retention of uncertain etiology causing massive bilateral hydronephrosis in the absence o f renal function decline apparent. I recommend she maintain the Hdez catheter for at least 10-14 days and then follow up in the Urology Clinic for a voiding trial. Urine culture would be appropriate to assess for infection, and if infection is noted, it would be re asonable to treat her with 7-10 days of antimicrobial as long as there is no sign of sepsis. Given the bilateral hydronephrosis observed along with a massively distended bladder, after 2 days of decompression, I would recommend a renal ultrasound be performed to assess for resolution of the hyd ronephrosis. Follow up in the Urology Clinic can then be established for cystoscopy and voiding tria l with urodynamics arranged if failure to void adequately. DARWIN/BRODYL Voice ID: [id number] Report ID: [id number]
--- NOTE | 2020-03-31 15:04 | P.PN ---
Subjective Date of Service: 03/31/20 Chief Complaint: WEAKNES, RETENTION OF URINE. Subjective: Improving MS MEREDITH IS DOIING BETTER. SHE IS STILL WEAK, HAS ALLEN BAG WITH MILD HEMATURIA. HER IS HAVING HARD TIME TAKING CARE OF HER. DR. GILL SAW PATIENT TODAY. HE ADVISED ONE MORE DAY OF STAY AND DO SONOGRAM. IA HAVE ASKED FOR AMBULATION BY PT BUT IT IS NOT DONE YET. I WANT TO MAKE SURE SHE CAN WALK BEFORE SHE GOES HOME. I HAVE BEEN CALLED BY DISCHARGE PLANNERS TO DISCHARGE IF WE CAN SHE UNDER OBSERVATION AND ALSO DOCTOR FROM [employer] CALLED ME TO APPROVE OBSERVATION AND NOT INPATIENT. UNFORTUNATELY WE JUST HAD CONSULTATION DONE AND PT STIL HAS NOT SEEN PATIENT. SHE NEEDS ONE MORE DAY AT LEAST PER DR. GILL. I WILL KEEP HER THERE IS NO OTHER CHOICE AND SHE MAY NOT BE SAFE TO GO HOME TODAY. Review of Systems 10-point ROS is otherwise unremarkable Physical Examination - Vital Signs Temperature: 98.3 F Blood Pressure: 142/63 Pulse: 70 Respirations: 16 Pulse Ox (%): 97 - Physical Exam General: Mild distress HEENT: Atraumatic, PERRLA, EOMI Neck: Supple, JVD not distended Respiratory: Clear to auscultation bilaterally, Normal air movement Cardiovascular: Regular rate/rhythm, Normal S1 S2 Gastrointestinal: Normal bowel sounds, No tenderness Musculoskeletal: No tenderness Integumentary: No rashes Neurological: Normal speech, Normal tone, Normal affect Lymphatics: No axilla or inguinal lymphadenopathy - Studies Medications List Reviewed: Yes Assessment And Plan - Current Problems (Diagnosis) (1) Urinary retention Current Visit: Yes Status: Acute Plan: HAS ALLEN. DR. MARINO GILL CONSULTED. IV ABX. MAY NEED SURGERY FOR RETENTION OR LIFETIME SELF CATH. ABOVE IN HPI. STABLE FOR NOW. (2) Diabetes Current Visit: No Status: Chronic Plan: DIET IS POOR AND CONTROL WAS POOR UNTIL DKA HAPPENED. BEFORE THAT SHE DID NOT COME TO OFFICE FOR ABOUT 2 YEARS. THEY ARE NOT RAISING INSULIN LIKE I ASKED TO. SHE DOES NOT FEEL GOOD WHEN GLUCOSE IS NORMAL PER . Qualifiers: Diabetes mellitus type: type 2
[2020-03-31] MEDS: INSULIN GLARGINE 100 UNITS/ML SQ SCH (20:55)
[2020-03-31 23:04] VITALS: O2SAT 96
[2020-04-01] MEDS: NACHLORIDE 0.45% 1,000 ML IV SCH (02:34)
[2020-04-01 06:14] LABS: Absolute Lymphocytes (CBC) 2.4 K/uL (0.7-4.9); Basophils % 0.9 % (0-1.3); Hematocrit 36.7 % (36.0-45.0); Lymphocytes % 30.3 % (15.3-44.8); MPV 6.6 fL (7.6-11.3); RBC Red Blood Cell Count 4.27 M/uL (3.86-4.86)
[2020-04-01] MEDS: INSULIN -REGULAR HUMAN 50 UNIT/0.5 ML ML SQ SCH ×2 (07:30→12:36)
[2020-04-01] MEDS: LEVOTHYROXINE SOD 0.1 MG TAB PO SCH (07:53)
[2020-04-01] MEDS: METOPROLOL TAR 50 MG TAB PO SCH (09:13)
[2020-04-01] MEDS: LOSARTAN/HCTZ 50-12.5 PO SCH (09:13)
[2020-04-01] MEDS: APIXABAN 5 MG TABLET PO SCH (09:13)
[2020-04-01] MEDS: CEFTRIAXONE/SWI 1gm 1 GM/10 ML SYR IVP SCH (09:13)
[2020-04-01] MEDS: VITAMIN D 1000 UNIT TAB PO SCH (09:14)
[2020-04-01] MEDS: FAMOTIDINE 20 MG/2 ML VIAL IV SCH (09:14)
--- NOTE | 2020-04-01 13:09 | P.DS ---
Admission Date: 03/30/20 Discharge Date: 04/01/20 Disposition: DC HOME/HOME HEALTH CARE Discharge Condition: FAIR Reason for Admission: WEAKNES, RETENTION OF URINE. - Problems (1) Urinary retention Current Visit: Yes Status: Acute (2) Diabetes Current Visit: No Status: Chronic Qualifiers: Diabetes mellitus type: type 2 Brief History of Present Illness: MS. PAGE HAS RETENTION OF URINE POSSIBLY FOR YEAR BUT DID NO HAVE AN ISSUE UNTIL RECENTLY. SHE USUSUALLY BENDS OVER TO URINATE TO EMPTY BLADDER. SHE WAS SUPPOSED TO SEE DR. SANDOVAL IN OFFICE IN AM BUT SHE ENDS UP HERE SHE GETS WEAKER AND DOES NOT EAT. I TALKED TO DR. SANDVOAL AND HE WILL SEE HER IN AM. NOW SHE HAS ALLEN AND IV FLUIDS. Hospital Course: MS PAGE IS BETTER. SHE HAD RETENTION OF URINE. SHE WILL GO HOME WITH ALLEN. SHE IS STABLE. WE HAD TO HOLD DISCHARGE ONE DAY DR. SANDOVAL WANTED SONOGRAM. THAT IS STILL NOT DONE. I ASKED CHARGE NURSE TO HAVE IT DONE BEFORE HOME. I HAVE BEEN CALLED BY DISCHARGE PLANNERS MULTIPLE TIMES AND ALSO THE DOCTORS FROM [place] AND [facility] FOR HER TO ASK WHY SHE SHOULD BE STAYING HERE OVERNIGHT LAST NIGHT. Vital Signs/Physical Exam: Temp Pulse Resp BP Pulse Ox 98.1 F 75 15 163/75 H 95 04/01/20 08:00 04/01/20 09:13 04/01/20 08:00 04/01/20 09:13 04/01/20 08:00 Laboratory Data at Discharge: WBC 8.0 K/uL (4.3-10.9) 04/01/20 05:28 Hgb 12.7 g/dL (12.0-15.0) 04/01/20 05:28 Hct 36.7 % (36.0-45.0) 04/01/20 05:28 Plt Count 418 K/uL (152-406) H 04/01/20 05:28 PT 19.5 SECONDS (9.5-12.5) H 03/30/20 08:58 INR 1.67 03/30/20 08:58 Sodium 140 mmol/L (136-145) 03/31/20 04:12 Potassium 4.2 mmol/L (3.5-5.1) 03/31/20 04:12 BUN 16 mg/dL (7-18) 03/31/20 04:12 Creatinine 0.72 mg/dL (0.55-1.3) 03/31/20 04:12 Glucose 137 mg/dL (74-106) H 03/31/20 04:12 Magnesium 2.3 mg/dL (1.8-2.4) 03/30/20 08:58 Total Bilirubin 0.3 mg/dL (0.2-1.0) 03/31/20 04:12 AST 7 U/L (15-37) L 03/31/20 04:12 ALT 9 U/L (12-78) L 03/31/20 04:12 Alkaline Phosphatase 93 U/L (45-117) 03/31/20 04:12 Lipase 66 U/L (73-393) L 03/31/20 04:12 Home Medications: Aspirin Chewable [Aspirin Chewable*] 81 mg PO DAILY 01/10/20 Cholecalciferol (Vitamin D3) [Vitamin D3] 1 tab PO DAILY 02/26/20 Levothyroxine [Synthroid*] 1 tab PO DAILY 02/26/20 Losartan/Hydrochlorothiazide [Losartan-Hctz 100-25 mg Tab] 1 tab PO DAILY 02/26/20 Metoprolol Tartrate [Lopressor*] 1 tab PO DAILY 02/26/20 Apixaban [Eliquis] 5 mg PO BID #60 tablet 02/27/20 Cefuroxime [Ceftin*] 250 mg PO BID #28 tab 03/24/20 Cefuroxime [Ceftin] 250 mg PO BID 7 Days #14 tab 04/01/20 New Medications: Cefuroxime [Ceftin] 250 mg PO BID 7 Days #14 tab Followup: Archie Navarro MD [Primary Care Provider] - (call to schedule appointment) Darci Sandoval [COURTESY - CAN ADMIT] - (call to schedule appointment)
[2020-04-01 13:10] VITALS: BP 146/68; TEMP 97.9
--- NOTE | 2020-04-01 13:35 | RAD REPORT ---
EXAM DESCRIPTION: US - Renal Ultrasound-Complete - 04/01/2020 1:23 pm CLINICAL HISTORY: . Abdominal pain/hydronephrosis COMPARISON: CT March 30, 2020 FINDINGS: The right kidney measures 10 cm with a normal echotexture. Mild hydronephrosis. 2.2 centim eters cyst The left kidney measures 11 cm with a normal echotexture. 1.4 centimeter cyst Hydronephrosis is not seen. A Hdez catheter is present within a collapsed bladder IMPRESSION: Mild right hydronephrosis has diminished since the CT. A Hdez catheter has been placed into the bladder. The left hydronephrosis has resolved
== END 2020-04-01 13:35 | disposition home health service (06) ==
LOC: ER 08:23 → ERHOLD 10:51 → 4TH 11:49
PROVIDERS: ADMIT Internal Medicine; ATTEND Internal Medicine
DX: R33.9 Retention of urine, unspecified (principal); R53.1 Weakness; E11.9 Type 2 diabetes mellitus without complications; Z20.828 Contact with and (suspected) exposure to other viral communicable diseases; N13.30 Unspecified hydronephrosis; Z79.82 Long term (current) use of aspirin; R62.7 Adult failure to thrive; I10 Essential (primary) hypertension; I48.91 Unspecified atrial fibrillation; Z79.01 Long term (current) use of anticoagulants; E03.9 Hypothyroidism, unspecified; Z68.22 Body mass index [BMI] 22.0-22.9, adult
CPT/HCPCS: 96361; 87088; 85025 ×3; 87086; 80048 ×2; 36415 ×2; 83735; 85049; 85610; 82565; 82947 ×9; 80076 ×2; 81003; 84484; 83690 ×2; 83880; 74177; 71045; 76770; 51702; 96375; 96374; 99285; U0002; Q9967; J1650; J0696 ×3; G0378 ×5; J7030; J2405; J1815

== ENCOUNTER → 2023-07-29 | Emergency (ER) | payer OTHER ==
[~2023-07-29] MED LIST: LIDOCAINE 2% W/EPI 1:200,000 MPF 20 ML VIAL IM ONE
--- NOTE | 2023-07-29 15:49 | RAD REPORT ---
EXAM DESCRIPTION: CT - Head Brain Wo Cont - 07/29/2023 3:42 pm CLINICAL HISTORY: fall, head injury Fall, trauma head injury COMPARISON: No comparisons TECHNIQUE: All CT scans are performed using dose optimization technique as appropriate and may inclu de automated exposure control or mA/KV adjustment according to patient size. FINDINGS: No intracranial hemorrhage, hydrocephalus or extra-axial fluid collection.Mild generalized brain atrophy is present with mild periventricular and deep white matter chronic microvascular ische sabina changes.No areas of brain edema or evidence of midline shift. Mild fluid right maxillary antrum. The calvarium is intact. IMPRESSION: No acute intracranial abnormality.
--- NOTE | 2023-07-29 15:50 | RAD REPORT ---
EXAM DESCRIPTION: CT - CTFB CLINICAL HISTORY: fall, head injury Fall, trauma, facial pain and swelling COMPARISON: <Comparisons> TECHNIQUE: Axial 2 mm thick images of the face were obtained with sagittal and coronal reconstructio n images. All CT scans are performed using dose optimization technique as appropriate and may include automated exposure control or mA/KV adjustment according to patient size. FINDINGS: No acute facial bone fracture is seen.The mandible is intact. The globes and orbital contents are grossly unremarkable.Moderate fluid is present right maxillary si nus. The paranasal sinuses and mastoids are otherwise clear IMPRESSION: Negative for facial bone fracture. Air-fluid level right maxillary sinus could indicate sinusitis.
--- NOTE | 2023-07-29 16:48 | ER ---
Nurse's Notes [facility] Name: Mimi Madrigal Age: 88 yrs Sex: Female : 1935 Arrival Date: 07/29/2023 Time: 15:00 Bed 3 Private MD: Diagnosis: Unspecified injury of head, initial encounter;Laceration without foreign body of unspecified part of head-forehead Presentation: 07/28 15:06 Chief complaint: EMS states: toned out for fall at home. Pt reports falling onto knees ld1 and then hit head on wooden cabinet - laceration to right forehead. Denies dizziness, negative LOC, does not take blood thinners. Coronavirus screen: At this time, the client does not indicate any symptoms associated with coronavirus-19. Ebola Screen: No symptoms or risks identified at this time. Initial Sepsis Screen: Does the patient meet any 2 criteria? No. Patient's initial sepsis screen is negative. Does the patient have a suspected source of infection? No. Patient's initial sepsis screen is negative. Risk Assessment: Do you want to hurt yourself or someone else? Patient reports no desire to harm self or others. Onset of symptoms was July 29, 2023. 15:06 Method Of Arrival: Ambulatory ld1 15:06 Acuity: JESSICA 3 ld1 Triage Assessment: 15:07 General: Appears in no apparent distress. comfortable, Behavior is calm, cooperative, ld1 appropriate for age. Pain: Complains of pain in forehead Pain does not radiate. Pain currently is 3 out of 10 on a pain scale. Quality of pain is described as throbbing, Pain began 1 hour ago. Is continuous. EENT: No signs and/or symptoms were reported regarding the EENT system. EENT:. Neuro: Level of Consciousness is awake, alert, obeys commands, Oriented to person, place, time, situation. Cardiovascular: Capillary refill < 3 seconds Patient's skin is warm and dry. Respiratory: Airway is patent Respiratory effort is even, unlabored. GI: Abdomen is round non-distended. : No signs and/or symptoms were reported regarding the genitourinary system. Derm: No signs and/or symptoms reported regarding the dermatologic system. Musculoskeletal: No signs and/or symptoms reported regarding the musculoskeletal system. Injury Description: Laceration sustained to forehead. Historical: - Allergies: 15:07 Invokana; ld1 15:07 Sulfa (Sulfonamide Antibiotics); ld1 - PMHx: 15:07 Diabetes - NIDDM; Hypertension; ld1 - Immunization history:: Adult Immunizations up to date. - Social history:: Smoking status: Patient denies any tobacco usage or history of. Patient/guardian denies using alcohol. - Family history:: not pertinent. - Hospitalizations: : No recent hospitalization is reported. Screenin:09 [facility] ED Fall Risk Assessment (Adult) History of falling in the last 3 months, ld1 including since admission No falls in past 3 months (0 pts). Abuse screen: Denies threats or abuse. Denies injuries from another. Nutritional screening: No deficits noted. Tuberculosis screening: No symptoms or risk factors identified. Assessment: 15:09 Reassessment: See triage assessment. ERP at bedside. ld1 16:00 Reassessment: Patient appears in no apparent distress at this time. No changes from ld1 previously documented assessment. Patient states symptoms have improved. 17:49 Reassessment: No changes from previously documented assessment. Patient and/or family ld1 updated on plan of care and expected duration. Pain level reassessed. Vital Signs: 15:06 Pulse 73; Resp 18; Temp 98.2(TE); Pulse Ox 98% on R/A; Weight 79.83 kg; Height 5 ft. 4 ld1 in. ; Pain 3/10; 15:07 BP 182 / 90; ld1 16:28 BP 111 / 82; Pulse 71; Resp 18; Pulse Ox 100% on R/A; ld1 17:50 BP 124 / 79; Pulse 74; Resp 18; Pulse Ox 100% on R/A; ld1 15:06 Body Mass Index 30.21 (79.83 kg, 162.56 cm) ld1 15:06 Pain Scale: Adult ld1 ED Course: 15:05 Patient arrived in ED. mr 15:06 Jonathan Lopes MD is Attending Physician. ec2 15:07 Triage completed. ld1 15:09 Attending Physician role handed off by Jonathan Lopes MD rn 15:09 Miguel Amaya MD is Attending Physician. rn 15:09 Arm band placed on right wrist. ld1 15:09 Patient has correct armband on for positive identification. Placed in gown. Bed in low ld1 position. Call light in reach. Side rails up X2. non destructive testing engineer on. Pulse ox on. NIBP on. Door closed. Noise minimized. Warm blanket given. 15:10 Emely Kwok, RN is Primary Nurse. ld1 16:04 CT In Process Unspecified. EDMS 16:04 CT In Process Unspecified. EDMS 17:49 Assist provider with laceration repair on right eye using sutures. Set up tray. ld1 Performed by Miguel Amaya MD Dressed with 4X4s, Patient tolerated well. 17:51 Provided Education on: fall prevention. ld1 17:51 Patient did not have IV access during this emergency room visit. ld1 Administered Medications: 16:28 Drug: Lidocaine-Epinephrine Infiltration -1%: (1:100,000) 1 vials 20 ml Infiltration ld1 once; to bedside {Note: Administered by Dr. Amaya.} Volume: 20 ml; Route: Infiltration; Medication: 15:09 VIS not applicable for this client. ld1 Outcome: 16:48 Discharge ordered by . rn 17:51 Discharged to home via wheelchair, with family, ld1 17:51 Condition: stable 17:51 Discharge instructions given to patient, family, Instructed on discharge instructions, follow up and referral plans. medication usage, Demonstrated understanding of instructions, follow-up care, medications, 17:51 Patient left the ED. ld1 Signatures: Dispatcher [employer] [facility] KoElena, Reg Reg Miguel Amaya MD MD rn Sims, Lauren, RN RN ld1 Jonathan Lopes MD MD ec2 Corrections: (The following items were deleted from the chart) 17:50 15:09 No provider procedures requiring assistance completed. ld1 ld1
--- NOTE | 2023-07-29 16:49 | EDPHYS ---
Physician Documentation [facility] Name: Mimi Madrigal Age: 88 yrs Sex: Female : 1935 Arrival Date: 07/29/2023 Time: 15:00 Bed 3 Private MD: ED Physician Miguel Amaya HPI: 07/28 15:13 This 88 yrs old Female presents to ER via Ambulatory with complaints of Fall rn Injury. 15:13 Details of fall: The patient fell from an upright position, while walking. Onset: The rn symptoms/episode began/occurred just prior to arrival. Associated injuries: The patient sustained injury to the head. Severity of symptoms: At their worst the symptoms were mild, in the emergency department the symptoms have improved. The patient has not experienced similar symptoms in the past. The patient has not recently seen a physician. Patient reports walking in bathroom and fell. Unsure if slipped or tripped. Did not lose consciousness. Denies any chest pain or preceding lightheadedness. Struck head on the edge of a wooden piece of furniture. Does not take blood thinners. Remembers all events and able to stand and get up on her own following injury. Reports mild pain to frontal region but otherwise denies pain from the neck or below.. Historical: - Allergies: 15:07 Invokana; ld1 15:07 Sulfa (Sulfonamide Antibiotics); ld1 - PMHx: 15:07 Diabetes - NIDDM; Hypertension; ld1 - Immunization history:: Adult Immunizations up to date. - Social history:: Smoking status: Patient denies any tobacco usage or history of. Patient/guardian denies using alcohol. - Family history:: not pertinent. - Hospitalizations: : No recent hospitalization is reported. ROS: 15:13 Constitutional: Negative for fever, chills, and weight loss, Neck: Negative for injury, rn pain, and swelling, Cardiovascular: Negative for chest pain, palpitations, and edema, Respiratory: Negative for shortness of breath, cough, wheezing, and pleuritic chest pain, Abdomen/GI: Negative for abdominal pain, nausea, vomiting, diarrhea, and constipation, MS/Extremity: Negative for injury and deformity, Skin: Positive for laceration to right forehead/brow Neuro: Positive for mild headache. Negative for focal weakness or numbness. Negative for seizure Exam: 15:13 Constitutional: This is a well developed, well nourished patient who is awake, alert, rn and in no acute distress. Head/Face: Normocephalic, atraumatic. 4 cm laceration diagonally across right brow. No fat herniation. Eyes: Pupils equal round and reactive to light, extra-ocular motions intact. Lids and lashes normal. Conjunctiva and sclera are non-icteric and not injected. Cornea within normal limits. Neck: No midline cervical tenderness Chest/axilla: No rib tenderness or crepitus Cardiovascular: Regular rate and rhythm. No pulse deficits. Respiratory: No increased work of breathing, no retractions or nasal flaring. Abdomen/GI: Soft, non-tender Back: No spinal tenderness. No costovertebral tenderness. Full range of motion. MS/ Extremity: Pulses equal, no cyanosis. Neurovascular intact. Full, normal range of motion. Equal circumference. Neuro: Awake and alert, GCS 15, oriented to person, place, time, and situation. Cranial nerves II-XII grossly intact. Motor strength 5/5 in all extremities. Sensory grossly intact. Vital Signs: 15:06 Pulse 73; Resp 18; Temp 98.2(TE); Pulse Ox 98% on R/A; Weight 79.83 kg; Height 5 ft. 4 ld1 in. ; Pain 3/10; 15:07 BP 182 / 90; ld1 16:28 BP 111 / 82; Pulse 71; Resp 18; Pulse Ox 100% on R/A; ld1 17:50 BP 124 / 79; Pulse 74; Resp 18; Pulse Ox 100% on R/A; ld1 15:06 Body Mass Index 30.21 (79.83 kg, 162.56 cm) ld1 15:06 Pain Scale: Adult ld1 Laceration: 16:47 Wound Repair of 4.5cm ( 1.8in ) subcutaneous laceration to forehead. Distal rn neuro/vascular/tendon intact. Anesthesia: Wound infiltrated with 2 mls of 1% lidocaine w/ Epi. Wound prep: Extensive cleansing by me, Wound margin revised minimally, Wound explored. Skin closed with 6 5-0 Fast absorbing gut using interrupted sutures and sterile technique. Dressed with steri-strips. Patient tolerated well. MDM: 15:11 Patient medically screened. rn 16:45 Differential diagnosis: closed head injury, contusion, fracture, laceration, sprain, rn strain. Data reviewed: vital signs, nurses notes, radiologic studies, CT scan, and as a result, I will discharge patient. Counseling: I had a detailed discussion with the patient and/or guardian regarding the historical points, exam findings, and any diagnostic results supporting the discharge/admit diagnosis, radiology results, the need for outpatient follow up, to return to the emergency department if symptoms worsen or persist or if there are any questions or concerns that arise at home. Response to treatment: the patient's symptoms have markedly improved after treatment, and as a result, I will discharge patient. Special discussion: I discussed with the patient/guardian in detail that at this point there is no indication for admission to the hospital. It is understood, however, that if the symptoms persist or worsen the patient needs to return immediately for re-evaluation. 07/28 15:10 Order name: CT Head Brain wo Cont rn 07/28 15:55 Order name: CT EDMS 07/28 15:55 Order name: CT EDMS 07/28 15:10 Order name: EKG; Complete Time: 15:55 rn 07/28 15:10 Order name: EKG - Nurse/Tech; Complete Time: 16:00 rn 07/28 15:41 Order name: Suture Tray at Bedside; Complete Time: 16:16 rn Administered Medications: 16:28 Drug: Lidocaine-Epinephrine Infiltration -1%: (1:100,000) 1 vials 20 ml Infiltration ld1 once; to bedside {Note: Administered by Dr. Amaya.} Volume: 20 ml; Route: Infiltration; Disposition Summary: 07/29/23 16:48 Discharge Ordered Notes: Location: Home rn Problem: new rn Symptoms: have improved rn Condition: Stable rn Diagnosis - Unspecified injury of head, initial encounter rn - Laceration without foreign body of unspecified part of head - forehead rn Followup: rn - With: Private Physician - When: As needed - Reason: Recheck today's complaints, Re-evaluation by your physician Discharge Instructions: - Discharge Summary Sheet rn - Head Injury, Adult rn - Facial Laceration rn - Sutured fingernail sculptor Forms: - Medication Reconciliation Form rn - Thank You Letter rn - Antibiotic learning officer - Prescription Opioid Use rn - Patient Portal Instructions rn - Leadership Thank You Letter rn Prescriptions: - Augmentin 875-125 mg Oral Tablet - take 1 tablet ORAL route every 12 hours for 10 days; 20 tablet; Refills: 0, rn Product Selection Permitted Signatures: Dispatcher [employer] Miguel Daigle MD MD rn KwokEmely RN RN ld1
[2023-07-29 19:29] VITALS: BP 124/79; TEMP 98.2; O2SAT 100
== END ==
LOC: ER 15:00
PROC: 0HQ1XZZ Repair Face Skin, External Approach (ICD-10-PCS; principal; 2023-07-29)
DX: S01.81XA Laceration without foreign body of other part of head, initial encounter (principal); W18.30XA Fall on same level, unspecified, initial encounter; Z88.2 Allergy status to sulfonamides; Z88.8 Allergy status to other drugs, medicaments and biological substances
CPT/HCPCS: 70450; 70486; 76377; 93005

== ENCOUNTER 2024-03-23 09:53 | Emergency (ER) | payer OTHER ==
[2024-03-23] MEDS ORDERED: ONDANSETRON 4 MG/2 ML VIAL ONE (10:43)
[2024-03-23] MEDS ORDERED: FAMOTIDINE 20 MG/2 ML VIAL IV ONE (10:44)
[2024-03-23 10:51] LABS: Absolute Basophils 0.1 K/uL (0-0.5); Absolute Lymphocytes (CBC) 1.5 K/uL (0.7-4.9); Absolute Monocytes 0.9 K/uL (0.1-1.3); Absolute Neutrophil 8.2 K/uL (1.8-8.0); Basophils % 0.7 % (0-1.3); Eosinophils % 0.4 % (0-4.4); Hematocrit 47.2 % (36.0-45.0); Hemoglobin 15.9 g/dL (12.0-15.0); Lymphocytes % 13.7 % (15.3-44.8); MCH 30.6 pg (27.0-35.0); MCHC 33.8 g/dL (32.0-36.0); MCV 90.5 fL (80-100); MPV 7.1 fL (7.6-11.3); Monocytes % 8.1 % (3.3-12.3); Neutrophils % 77.1 % (41.7-73.7); Platelets 232 thou/uL (152-406); RBC Red Blood Cell Count 5.21 M/uL (3.86-4.86); Red Cell Distribution Width 14.3 % (12.1-15.2)
[2024-03-23 11:08] LABS: Albumin 3.1 g/dL (3.4-5.0); Albumin/Globulin Ratio 0.9 (1.1-1.8); Alkaline Phosphatase 94 U/L (45-117); Anion Gap 10.7 mEq/L (5.0-15.0); BUN Blood Urea Nitrogen 26 mg/dL (7-18); Bicarbonate 29 mEq/L (21-32); Bilirubin Total 1.1 mg/dL (0.2-1.0); Globulin 3.5 g/dL (2.3-3.5); Glomerular Filtration Rate 50 ml/min (=/>90); Glucose Level 326 mg/dL (74-106); Lipase 52 U/L (13-75); Potassium 3.7 mEq/L (3.5-5.1); Protein, Total 6.6 g/dL (6.4-8.2); Sodium Level 134 mEq/L (136-145)
[2024-03-23 11:09] LABS: ALT/SGPT < 14 U/L (13-56); AST/SGOT < 10 U/L (15-37)
[2024-03-23 11:59] LABS: Specific Gravity 1.026 (1.005-1.030); Sqamous Epithelial <5 /HPF (None Seen); Urine Bacteria None Seen /HPF (<20); Urine Bilirubin NEGATIVE (Negative); Urine Blood Negative (Negative); Urine Clarity Clear (Clear); Urine Color Light-Yellow (Yellow); Urine Culture Reflex Order NOT NEEDED; Urine Glucose 4+ (Over) (Negative); Urine Ketones 1+ (Negative); Urine Microscopic Reflex YN ORDER UMIC; Urine Mucus Slight /HPF (None Seen); Urine Nitrite NEGATIVE (Negative); Urine Protein TRACE (Negative); Urine RBC <5 /HPF (None Seen); Urine Urobilinogen Normal (Normal); Urine WBC None Seen /HPF (<5)
[2024-03-23] MEDS ORDERED: METOCLOPRAMIDE 10 MG/2mL INJ ONE (12:18)
[2024-03-23] MEDS ORDERED: NA CHLORIDE 0.9% 1,000 ML ONE (12:18)
[2024-03-23] MEDS ORDERED: NA CHLORIDE 0.9% 50 ML ONE (12:18)
--- NOTE | 2024-03-23 13:08 | EDPHYS ---
Physician Documentation [facility] Name: Mimi Madrigal Age: 88 yrs Sex: Female : 1935 Arrival Date: 03/23/2024 Time: 09:53 Bed 23 Private MD: ED Physician Jonathan Lopes HPI: 03/23 09:59 This 88 yrs old Female presents to ER via Unassigned with complaints of n/v. ec2 09:59 Patient arrives today for evaluation of nausea and vomiting as well as abdominal ec2 cramping. Patient reports that she has intermittently been on Ozempic, states that she had taken a dose on and subsequently on Friday started having symptoms. Complaint of abdominal cramping along with nausea and vomiting. Is not taking any medications for this. Patient reports no significant abdominal pain.. Historical: - Allergies: 10:03 No Known Allergies; ss - PMHx: 10:03 Diabetes - NIDDM; Hypertension; ss - Immunization history:: Adult Immunizations up to date. - Infectious Disease History:: Denies. - Social history:: Smoking status: Patient denies any tobacco usage or history of. ROS: 10:00 Constitutional: as per hpi ec2 Exam: 10:00 Constitutional: GEN: NAD Head: atraumatic Eyes: EOMI Ears: External ears are ec2 normal. CV: regular rate LUNGS: no respiratory distress ABD: non-distended, soft, nontender, no guarding, nonrigid SKIN: no evidence of rashes MSK: no evidence of trauma Vital Signs: 10:00 BP 123 / 86; Pulse 98; Resp 18; Pulse Ox 93% on R/A; Height 5 ft. 1 in. ; Pain 0/10; ss 10:53 Temp 97.6(TE); ss 11:24 BP 158 / 92; Pulse 85; ec2 12:27 BP 151 / 95; Pulse 78; Resp 16; Pulse Ox 97% on R/A; Pain 0/10; ss 13:35 BP 147 / 85; Pulse 80; Resp 18; Pulse Ox 100% on R/A; ph 10:00 Pain Scale: Adult ss 12:27 Pain Scale: Adult ss MDM: 09:56 Medical Screening Exam initiated ec2 10:00 Data reviewed: vital signs, nurses notes. ED course: Patient arrives today for ec2 evaluation of nausea and vomiting. Examination remarkable for well-appearing nontoxic individuals otherwise in no acute distress with a reassuring examination. History gathered from EMS. Will obtain lab work as well as urine studies and treat the patient's symptoms with crystalloid as well as antiemetic. Suspect side effect from patient's Ozempic use. Additionally considered other process such as appendicitis, cholecystitis, urinary tract infection.. 11:16 ED course: Metabolic profile shows appropriate electrolytes, slight hyperglycemia noted ec2 with a blood sugar of 326, renal dysfunction with a GFR of 50 noted. Lipase within normal ranges. Pending urine studies and reassessment.. 13:04 ED course: On reassessment patient is tolerating fluid intake. Will complete the rest ec2 of the IV fluids and discharged home and have patient follow-up with PCP. I instructed her to follow-up and discuss further diabetic medication management.. 03/23 09:56 Order name: CBC with Diff; Complete Time: 11:01 ec2 03/23 09:56 Order name: CMP; Complete Time: 11:16 ec2 03/23 09:56 Order name: Lipase; Complete Time: 11:16 ec2 03/23 09:56 Order name: Urinalysis w/ reflexes; Complete Time: 12:00 ec2 03/23 09:56 Order name: IV Saline Lock; Complete Time: 10:26 ec2 03/23 09:56 Order name: Labs collected and sent; Complete Time: 10:37 ec2 03/23 09:56 Order name: Misc. Order: finish EMS fluids; Complete Time: 10:26 ec2 03/23 12:28 Order name: PO challenge; Complete Time: 13:22 ec2 Administered Medications: 10:51 Drug: Famotidine IVP 20 mg IVP once; dilute with 10 mL 0.9% NaCl; give over 2 minutes ss Route: IVP; Site: right forearm; 12:13 Follow up: Response: No adverse reaction ss 10:52 Drug: Ondansetron IVP 4 mg IVP once; over 2 minutes Route: IVP; Site: right forearm; ss 12:13 Follow up: Response: No adverse reaction ss 10:53 Drug: NS 0.9% IV 1000 ml IV at 1000 ml once; order for EMS fluids, not additional ss fluids {Note: IV fluids continued from EMS administration. .} Route: IV; Rate: 1000 ml; Site: right forearm; 11:00 Follow up: IV Status: Completed infusion; IV Intake: 1000ml ; EMS fluids completed 12:28 Drug: NS 0.9% IV 1000 ml IV at 1000 ml once; to be given as a bolus over 60 minutes ss Route: IV; Rate: 1000 ml; Site: right forearm; 14:09 Follow up: Response: No adverse reaction; IV Status: Completed infusion; IV Intake: ph 1000ml 12:28 Drug: metoCLOPramide IVP 10 mg IVP once; over 1 to 2 minutes Route: IVP; Site: right ss forearm; 13:22 Follow up: Response: No adverse reaction; Nausea is decreased ss Disposition Summary: 03/23/24 13:07 Discharge Ordered Notes: Location: Home ec2 Condition: Stable ec2 Diagnosis - Abdominal pain, unspecified ec2 - Nausea with vomiting, unspecified ec2 Followup: ec2 - With: Private Physician - When: - Reason: Recheck today's complaints, Re-evaluation by your physician Discharge Instructions: - Discharge Summary Sheet ec2 - Nausea and Vomiting, Adult ec2 Forms: - Medication Reconciliation Form ec2 - Antibiotic Education ec2 - Prescription Opioid Use ec2 - Patient Portal Instructions ec2 - Leadership Thank You Letter ec2 Prescriptions: - ondansetron 8 mg Oral Tablet,disintegrating - take 1 tablet ORAL route every 12 hours; 20 tablet; Refills: 0, Product ec2 Selection Permitted Signatures: Dispatcher [employer] Pao Lugo RN RN Jonathan Lopes MD MD ec2 Iman Sheth RN ph Corrections: (The following items were deleted from the chart) 09:57 09:57 CBC+H.LAB.BRZ ordered. EDMS EDMS 09:57 09:57 COMPREHENSIVE METABOLIC PANEL+C.LAB.BRZ ordered. EDMS EDMS 09:57 09:57 LIPASE+C.LAB.BRZ ordered. EDMS EDMS 09:57 09:57 Urinalysis+U.LAB.BRZ ordered. EDMS EDMS 10:04 10:03 Allergies: Invokana; ss ss 10:04 10:03 Allergies: Sulfa (Sulfonamide Antibiotics); ss ss
--- NOTE | 2024-03-23 13:08 | ER ---
Nurse's Notes [facility] Name: Mimi Madrigal Age: 88 yrs Sex: Female : 1935 Arrival Date: 03/23/2024 Time: 09:53 Bed 23 Private MD: Diagnosis: Abdominal pain, unspecified;Nausea with vomiting, unspecified Presentation: 03/23 10:00 Chief complaint: Patient states: Not feeling well since , N/V/D since Friday. ss Pt reports she was feeling a little better yesterday, but it started up again. Coronavirus screen: Client denies travel out of the [place] in the last 14 days. Ebola Screen: Patient denies travel to an Ebola-affected area in the 21 days before illness onset. Initial Sepsis Screen: Does the patient meet any 2 criteria? No. Patient's initial sepsis screen is negative. Does the patient have a suspected source of infection? No. Patient's initial sepsis screen is negative. Risk Assessment: Do you want to hurt yourself or someone else? Patient reports no desire to harm self or others. Onset of symptoms was March 19, 2024. 10:00 Method Of Arrival: Ambulatory ss 10:00 Acuity: JESSICA 3 ss Historical: - Allergies: 10:03 No Known Allergies; ss - PMHx: 10:03 Diabetes - NIDDM; Hypertension; ss - Immunization history:: Adult Immunizations up to date. - Infectious Disease History:: Denies. - Social history:: Smoking status: Patient denies any tobacco usage or history of. Screenin:15 [facility] ED Fall Risk Assessment (Adult) History of falling in the last 3 months, ss including since admission No falls in past 3 months (0 pts) Confusion or Disorientation No (0 pts) Intoxicated or Sedated No (0 pts) Impaired Gait No (0 pts) Mobility Assist Device Used No (0 pt) Altered Elimination No (0 pt) Score/Fall Risk Level 0 - 2 = Low Risk Oriented to surroundings, Maintained a safe environment. Abuse screen: Denies threats or abuse. Denies injuries from another. Nutritional screening: No deficits noted. Tuberculosis screening: Never had TB. Assessment: 10:54 General: Appears in no apparent distress. comfortable, Behavior is calm, cooperative, ss Denies fever. Pain: Denies pain. Neuro: Level of Consciousness is awake, alert, obeys commands, Oriented to person, place, time, situation. Respiratory: Airway is patent Respiratory effort is even, unlabored, Respiratory pattern is regular, symmetrical. GI: Abdomen is non-distended, Reports diarrhea, nausea, vomiting. : Denies burning with urination, urinary frequency. Derm: Skin is fragile, is thin, Skin is pink, warm \T\ dry. normal. 12:28 Reassessment: Patient appears in no apparent distress at this time. Patient and/or ss family updated on plan of care and expected duration. Pain level reassessed. Patient is alert, oriented x 3, equal unlabored respirations, skin warm/dry/pink. 13:23 Reassessment: Pt tolerated drinking [address] ss 13:34 Reassessment: Patient appears in no apparent distress at this time. Patient and/or ph family updated on plan of care and expected duration. Pain level reassessed. Patient is alert, oriented x 3, equal unlabored respirations, skin warm/dry/pink. D/C pending completion of IV fluids. Vital Signs: 10:00 BP 123 / 86; Pulse 98; Resp 18; Pulse Ox 93% on R/A; Height 5 ft. 1 in. ; Pain 0/10; ss 10:53 Temp 97.6(TE); ss 11:24 BP 158 / 92; Pulse 85; ec2 12:27 BP 151 / 95; Pulse 78; Resp 16; Pulse Ox 97% on R/A; Pain 0/10; ss 13:35 BP 147 / 85; Pulse 80; Resp 18; Pulse Ox 100% on R/A; ph 10:00 Pain Scale: Adult ss 12:27 Pain Scale: Adult ss ED Course: 09:56 Patient arrived in ED. ec2 09:56 Jonathan Lopes MD is Attending Physician. ec2 10:03 Triage completed. ss 10:03 Arm band placed on left wrist. ss 10:37 Pao Villa, EDY is Primary Nurse. ss 10:37 CBC with Diff Sent. ss 10:37 Lipase Sent. ss 10:37 CMP Sent. ss 10:38 Maintain EMS IV. Dressing intact. Good blood return noted. Site clean \T\ dry. Gauge \T\ ss site: 22 gauge R FA. Flushed with 10 mL NS. 10:54 Patient has correct armband on for positive identification. Bed in low position. Call light in reach. Side rails up X2. Pulse ox on. NIBP on. 11:45 Straight cath inserted, using sterile technique, 14 Fr. Returned clear yellow urine. ss Patient tolerated well. 13:30 No provider procedures requiring assistance completed. ss Administered Medications: 10:51 Drug: Famotidine IVP 20 mg IVP once; dilute with 10 mL 0.9% NaCl; give over 2 minutes ss Route: IVP; Site: right forearm; 12:13 Follow up: Response: No adverse reaction 10:52 Drug: Ondansetron IVP 4 mg IVP once; over 2 minutes Route: IVP; Site: right forearm; 12:13 Follow up: Response: No adverse reaction 10:53 Drug: NS 0.9% IV 1000 ml IV at 1000 ml once; order for EMS fluids, not additional ss fluids {Note: IV fluids continued from EMS administration. .} Route: IV; Rate: 1000 ml; Site: right forearm; 11:00 Follow up: IV Status: Completed infusion; IV Intake: 1000ml ; EMS fluids completed 12:28 Drug: NS 0.9% IV 1000 ml IV at 1000 ml once; to be given as a bolus over 60 minutes Route: IV; Rate: 1000 ml; Site: right forearm; 14:09 Follow up: Response: No adverse reaction; IV Status: Completed infusion; IV Intake: ph 1000ml 12:28 Drug: metoCLOPramide IVP 10 mg IVP once; over 1 to 2 minutes Route: IVP; Site: right ss forearm; 13:22 Follow up: Response: No adverse reaction; Nausea is decreased Medication: 13:34 VIS not applicable for this client. ph Intake: 11:00 IV: 1000ml; Total: 1000ml. 14:09 IV: 1000ml; Total: 2000ml. ph Outcome: 13:07 Discharge ordered by ec2 13:30 Condition: improved 13:30 Discharge instructions given to patient, Instructed on discharge instructions, follow up and referral plans. medication usage, Demonstrated understanding of instructions, follow-up care, medications, Prescriptions given X 1, 14:09 Patient left the ED. ph Signatures: Pao Villa RN RN Iman Sheth RN RN Jonathan Lopes MD MD ec2 Corrections: (The following items were deleted from the chart) 10:03 Allergies: Invokana; ss ss 10:03 Allergies: Sulfa (Sulfonamide Antibiotics); ss ss
[2024-03-23 14:14] VITALS: TEMP 97.6
[2024-03-23 14:18] VITALS: BP 147/85; O2SAT 100
== END 2024-03-23 14:09 | disposition home or self-care (01) ==
LOC: ER 09:53
DX: R11.2 Nausea with vomiting, unspecified (principal); R10.9 Unspecified abdominal pain; E11.9 Type 2 diabetes mellitus without complications; I10 Essential (primary) hypertension
CPT/HCPCS: 85025; 81001; 36415; 83690; 80053; J2765; J2405; J7030; 51702; 96361; 96374; 96375; 99285